=== PATIENT | female | born 1945 | race Caucasian/White ===

== ENCOUNTER 2017-03-01 11:24 | Emergency (ER) | payer MEDICARE ==
[~2017-03-01] VITALS: Ht 162.6 cm; Wt 92.0 kg
[~2017-03-01 11:24] MED LIST: ATOR40TA16 PO; CHLO25TA2 PO; LORA-392 PO; METO25TA3 PO; MOBI15TA PO; OMEP20TA PO; TRAM50TA PO
[2017-03-01 11:25] VITALS: BP 167/100; PULSE 92; RESP 20; TEMP 98.7; O2SAT 100
--- NOTE | 2017-03-01 11:44 | PD ---
HPI Chief Complaint: Injury Time Seen by Provider: 11:37 Travel History International Travel<30 days: No Contact w/Intl Traveler<30days: No Traveled to known affect area: No History of Present Illness HPI 71-year-old female presents to emergency Department with complaint of right foot pain times one and half weeks. Denies injury. The pain is to the lateral and heel aspect. Reports occasional paresthesias, but denies at this time. Denies loss of sensation, decreased range of motion, decreased strength to the affected extremity. Denies being diabetic. Fever, vomiting. Pain is worse with palpation and ambulation. Pain is decreased while at rest. Has not been taking any medication to alleviate her symptoms. Has tried elevating the extremity with no relief of symptoms. Rates pain 7/10. Describes it as a throbbing and sometimes shooting sensation. Has no other medical complaints. Dr. Gong is primary care provider. No known allergies. No other modifying factors or associated signs and symptoms. PFSH Past Medical History Arthritis: Yes Cancer: No Cardiovascular Problems: No Chemotherapy: No Endocrine: No Genitourinary: No Immune Disorder: No Psychiatric: No Respiratory: No Radiation Therapy: No Social History Alcohol Use: No Tobacco Use: Yes (/2 ppd) Substance Use: No Allergies-Medications (Allergen,Severity, Reaction): Coded Allergies: No Known Allergies (Verified , 03/01/17) Reported Meds & Prescriptions Reported Meds & Active Scripts Active Atorvastatin (Atorvastatin Calcium) 40 Mg Tab 40 Mg PO HS Chlorthalidone 25 Mg Tab 25 Mg PO DAILY Tramadol (Tramadol HCl) 50 Mg Tab 100 Mg PO Q6H PRN Ativan (Lorazepam) 0.5 Mg Tab 0.5 Mg PO Q8H PRN Omeprazole 20 Mg Tab 20 Mg PO DAILY Metoprolol Tartrate 25 Mg Tab 25 Mg PO BID Mobic (Meloxicam) 15 Mg Tab 15 Mg PO DAILY Review of Systems Except as stated in HPI: all other systems reviewed are Neg Physical Exam Narrative GENERAL: Well-nourished, well-developed female patient, in no acute distress SKIN: Warm and dry. HEAD: Atraumatic. Normocephalic. EYES: Pupils equal and round. No scleral icterus. No injection or drainage. ENT: Mucosa pink and moist. Airway patent. NECK: Trachea midline. CARDIOVASCULAR: Regular rate. RESPIRATORY: No accessory muscle use. GASTROINTESTINAL: Obese. MUSCULOSKELETAL: Right foot with tenderness to the fifth metacarpal region and to the heel; without erythema, edema, ecchymosis; 2+ pedal pulse; no obvious deformity; toenails are unkept and are very long and curled; no open wounds noted between the toes or to the foot. Right lower extremity is supple and nontense with 2+ pedal pulse and sensory intact. No obvious deformities. No clubbing. No cyanosis. No edema. NEUROLOGICAL: Awake and alert. Oriented 3. No obvious cranial nerve deficits. Motor grossly within normal limits. Normal speech. PSYCHIATRIC: Appropriate mood and affect; insight and judgment normal. Data Data Last Documented VS Vital Signs Date Time Temp Pulse Resp B/P (MAP) Pulse Ox O2 Delivery O2 Flow Rate FiO2 03/01/17 11:25 98.7 92 20 167/100 (122) 100 Room Air Orders Orders Foot, Complete ([id number]) (03/01/17 11:45) Acetaminophen (Tylenol) (03/01/17 11:45) MDM Medical Decision Making Medical Screen Exam Complete: Yes Emergency Medical Condition: Yes Medical Record Reviewed: Yes Differential Diagnosis Heel spur, plantar fasciitis, arthritis, osteomyelitis, stress fracture Narrative Course 71-year-old female with right foot pain times one and half weeks. Denies injury. Tylenol administered in the ER. Right foot x-ray ordered. 1231: Right foot x-ray concludes: 1.Osteopenia and mild osteoarthritic change ; No acute fracture or malalignment; Small to moderate spur of the inferior calcaneus. X-ray findings discussed with the patient. A copy of the x-ray report was provided to the patient. Instructed patient to follow up with podiatry. Instructed patient to follow up with primary care provider. Patient verbalizes understanding and agreement with treatment plan. Patient is medically cleared and stable for discharge. Discussed reasons to return to the emergency department. Patient agrees with treatment plan. The patients vital signs are stable and the patient is stable for outpatient follow-up and treatment. Patient discharged home, stable and in no acute distress. Diagnosis Primary Impression: Osteopenia of right foot Additional Impression: Heel spur Qualified Codes: M77.31 - Calcaneal spur, right foot Referrals: Recreational Resort Manager Primary Care Physician Patient Instructions: General Instructions, Heel Spur (ED), Osteopenia (GEN) Additional Instructions: Tylenol as directed and as needed for pain and inflammation Rest, ice, compress, and elevate extremity to decrease pain and inflammation Walker for support Avoid aggravating activity; increase activity as tolerated Follow-up with primary care provider Follow-up with validation architect Return to the emergency department immediately with worsening of symptoms Med/Other Pt SpecificInfo: Prescription(s) given Disposition: 01 DISCHARGE HOME Condition: Stable Marianne Antoine Mar 01, 2017 11:44
[2017-03-01] MEDS ORDERED: ACETAMINOPHEN 325 MG TAB PO ONE (11:45)
--- NOTE | 2017-03-01 12:20 | RADRPT ---
EXAM DATE/TIME: 03/01/2017 11:59 [facility] COMPARISON: No previous studies available for comparison. INDICATIONS : Right foot pain, no known injury. MEDICAL HISTORY : None. SURGICAL HISTORY : None. ENCOUNTER: Initial ACUITY: 1 day PAIN SCORE: 8/10 LOCATION: Right foot FINDINGS: AP, lateral and oblique views of the right foot were obtained and demonstrate osteopenia with no acut e fracture or malalignment. There are mild osteoarthritic changes with slight sclerosis. There is a s mall to moderate spur of the inferior calcaneus. There is soft tissue prominence over the dorsum of t he midfoot. CONCLUSION: 1. Osteopenia and mild osteoarthritic change. 2. No acute fracture or malalignment. 3. Small to moderate spur of the inferior calcaneus. Helio Luis MD on March 01, 2017 at 12:17 Board Certified Radiologist. This report was verified electronically.
--- NOTE | 2017-03-01 12:59 | PD ---
Physical Exam Date Seen by Provider: Mar 01, 2017 Narrative This patient presents with a chief complaint of right foot pain. Data Data Last Documented VS Vital Signs Date Time Temp Pulse Resp B/P (MAP) Pulse Ox O2 Delivery O2 Flow Rate FiO2 03/01/17 11:25 98.7 92 20 167/100 (122) 100 Room Air Orders Orders Foot, Complete ([id number]) (03/01/17 11:45) Acetaminophen (Tylenol) (03/01/17 11:45) Ed Discharge Order (03/01/17 12:49) MDM Supervised Visit with NIRALI: Yes Narrative Course I, Dr. Lobato, have reviewed the advance practice practitioner's documentation and am in agreement, met with the patient face to face, made the diagnosis, and the medical decision making was done by me. *My assessment and Findings: This patient has very poor foot hygiene. Her toes nails are very much overgrown and thickened and in need of care. Please see Marianne Antoine NP's note for results of laboratory and radiographic evaluation, ED course, final diagnosis and disposition Diagnosis Primary Impression: Osteopenia of right foot Additional Impression: Heel spur Qualified Codes: M77.31 - Calcaneal spur, right foot Referrals: Manager Private Primary Care Physician Patient Instructions: General Instructions, Osteopenia (GEN), Heel Spur (ED) Departure Forms: Tests/Procedures Additional Instruction: Tylenol as directed and as needed for pain and inflammation Rest, ice, compress, and elevate extremity to decrease pain and inflammation Walker for support Avoid aggravating activity; increase activity as tolerated Follow-up with primary care provider Follow-up with basin cleaner Return to the emergency department immediately with worsening of symptoms Disposition: 01 DISCHARGE HOME Condition: Stable Tena Lobato MD Mar 01, 2017 12:59
--- NOTE | 2017-03-01 12:59 | PD ---
Physical Exam Date Seen by Provider: Mar 01, 2017 Narrative This patient presents with a chief complaint of right foot pain. Data Data Last Documented VS Vital Signs Date Time Temp Pulse Resp B/P (MAP) Pulse Ox O2 Delivery O2 Flow Rate FiO2 03/01/17 11:25 98.7 92 20 167/100 (122) 100 Room Air Orders Orders Foot, Complete ([id number]) (03/01/17 11:45) Acetaminophen (Tylenol) (03/01/17 11:45) Ed Discharge Order (03/01/17 12:49) MDM Supervised Visit with NIRALI: Yes Narrative Course I, Dr. Lobato, have reviewed the advance practice practitioner's documentation and am in agreement, met with the patient face to face, made the diagnosis, and the medical decision making was done by me. *My assessment and Findings: This patient has very poor foot hygiene. Her toes nails are very much overgrown and thickened and in need of care. Please see Marianne Antoine NP's note for results of laboratory and radiographic evaluation, ED course, final diagnosis and disposition Diagnosis Primary Impression: Osteopenia of right foot Additional Impression: Heel spur Qualified Codes: M77.31 - Calcaneal spur, right foot Referrals: Data Control Clerk Supervisor Primary Care Physician Patient Instructions: General Instructions, Osteopenia (GEN), Heel Spur (ED) Departure Forms: Tests/Procedures Additional Instruction: Tylenol as directed and as needed for pain and inflammation Rest, ice, compress, and elevate extremity to decrease pain and inflammation Walker for support Avoid aggravating activity; increase activity as tolerated Follow-up with primary care provider Follow-up with traffic ii manager Return to the emergency department immediately with worsening of symptoms Disposition: 01 DISCHARGE HOME Condition: Stable Tena Lobato MD Mar 01, 2017 12:59
--- NOTE | 2017-03-01 12:59 | PD ---
Physical Exam Date Seen by Provider: Mar 01, 2017 Narrative This patient presents with a chief complaint of right foot pain. Data Data Last Documented VS Vital Signs Date Time Temp Pulse Resp B/P (MAP) Pulse Ox O2 Delivery O2 Flow Rate FiO2 03/01/17 11:25 98.7 92 20 167/100 (122) 100 Room Air Orders Orders Foot, Complete ([id number]) (03/01/17 11:45) Acetaminophen (Tylenol) (03/01/17 11:45) Ed Discharge Order (03/01/17 12:49) MDM Supervised Visit with NIRALI: Yes Narrative Course I, Dr. Lobato, have reviewed the advance practice practitioner's documentation and am in agreement, met with the patient face to face, made the diagnosis, and the medical decision making was done by me. *My assessment and Findings: This patient has very poor foot hygiene. Her toes nails are very much overgrown and thickened and in need of care. Please see Marianne Antoine NP's note for results of laboratory and radiographic evaluation, ED course, final diagnosis and disposition Diagnosis Primary Impression: Osteopenia of right foot Additional Impression: Heel spur Qualified Codes: M77.31 - Calcaneal spur, right foot Referrals: Stuffing Machine Operator Primary Care Physician Patient Instructions: General Instructions, Osteopenia (GEN), Heel Spur (ED) Departure Forms: Tests/Procedures Additional Instruction: Tylenol as directed and as needed for pain and inflammation Rest, ice, compress, and elevate extremity to decrease pain and inflammation Walker for support Avoid aggravating activity; increase activity as tolerated Follow-up with primary care provider Follow-up with porcelain enamel installer Return to the emergency department immediately with worsening of symptoms Disposition: 01 DISCHARGE HOME Condition: Stable Tena Lobato MD Mar 01, 2017 12:59
== END 2017-03-01 13:10 | disposition home or self-care (01) ==
LOC: NEPD 11:24
DX: M85.871 Other specified disorders of bone density and structure, right ankle and foot (principal); M77.31 Calcaneal spur, right foot; M19.90 Unspecified osteoarthritis, unspecified site; F17.200 Nicotine dependence, unspecified, uncomplicated; Z79.899 Other long term (current) drug therapy
CPT/HCPCS: 73630; 99283

== ENCOUNTER 2017-04-20 10:00 | Emergency (ER) | payer MEDICARE ==
[~2017-04-20] VITALS: Ht 160 cm; Wt 90.0 kg
[~2017-04-20 10:00] MED LIST changes: -OMEP20TA PO; +OMEP20TA93 PO
[2017-04-20 10:03] VITALS: BP 141/86; PULSE 110; RESP 18; TEMP 98.2; O2SAT 98
--- NOTE | 2017-04-20 10:27 | PD ---
HPI Chief Complaint: Numbness/Tingling Time Seen by Provider: 10:19 Travel History International Travel<30 days: No Contact w/Intl Traveler<30days: No Traveled to known affect area: No History of Present Illness HPI 71-year-old female presents to emergency department with 2 complaints. Her first complaint is concern of tingling in her hands, feet, legs, and arms that has been on and off for the last month. She says the symptoms are worse at night when she sleeping and in different kinds of positions and when sitting on the toilet. Symptoms are better in different positions also. Denies fever, vomiting, abdominal pain, chest pain, shortness of breath. Denies headaches, headedness. Denies focal deficits or weakness. Her second complaint is continued right foot pain. She was seen here back in February and was told that she had a heel spur. She has followed up with vacuum pan tender, Dr. Ashby, and was told about supportive care. She has been taking ibuprofen for symptom management. Has a walker that she's been using for support. Pain is worse with walking and palpation. Better at rest. Her primary care provider is Dr. Gong. She has no known allergies. History of hypertension. He has no other medical complaints. No other modifying factors or associated signs and symptoms. PFSH Past Medical History Arthritis: Yes Cancer: No Cardiovascular Problems: No Chemotherapy: No Endocrine: No Genitourinary: No Headaches: Yes Hypertension: Yes Immune Disorder: No Implanted Vascular Access Dvce: No Psychiatric: No Respiratory: No Radiation Therapy: No Past Surgical History Other Surgery: No Social History Alcohol Use: No Tobacco Use: Yes (1/2 ppd) Substance Use: No Allergies-Medications (Allergen,Severity, Reaction): Coded Allergies: No Known Allergies (Verified Adverse Reaction, Unknown, 04/20/17) Reported Meds & Prescriptions Reported Meds & Active Scripts Active Naproxen 500 Mg Tab 500 Mg PO BID PRN Atorvastatin (Atorvastatin Calcium) 40 Mg Tab 40 Mg PO HS Chlorthalidone 25 Mg Tab 25 Mg PO DAILY Tramadol (Tramadol HCl) 50 Mg Tab 100 Mg PO Q6H PRN Ativan (Lorazepam) 0.5 Mg Tab 0.5 Mg PO Q8H PRN Omeprazole 20 Mg Tab 20 Mg PO DAILY Metoprolol Tartrate 25 Mg Tab 25 Mg PO BID Mobic (Meloxicam) 15 Mg Tab 15 Mg PO DAILY Review of Systems Except as stated in HPI: all other systems reviewed are Neg Physical Exam Narrative GENERAL: Well-nourished, well-developed elderly, female patient, in no acute distress SKIN: Warm and dry. HEAD: Atraumatic. Normocephalic. EYES: Pupils equal and round. No scleral icterus. No injection or drainage. ENT: Mucosa pink and moist. Airway patent. NECK: Trachea midline. No lymphadenopathy. CARDIOVASCULAR: Regular rate and rhythm. No murmur appreciated. RESPIRATORY: No accessory muscle use. Clear to auscultation. Breath sounds equal bilaterally. GASTROINTESTINAL: Abdomen soft, non-tender, nondistended. Hepatic and splenic margins not palpable. Bowel sounds are active 4 quadrants. MUSCULOSKELETAL: Right foot without edema, erythema, ecchymosis, tenderness on palpation to the bottom of the foot at the heel aspect; no obvious deformity; 2 + pedal pulse; sensory intact. No obvious deformities. No clubbing. No cyanosis. No edema. NEUROLOGICAL: Awake and alert. Oriented 3. No obvious cranial nerve deficits. Motor grossly within normal limits. Normal speech. Moves all extremities. 5/5 strength to all extremities. PSYCHIATRIC: Appropriate mood and affect; insight and judgment normal. Data Data Last Documented VS Vital Signs Date Time Temp Pulse Resp B/P (MAP) Pulse Ox O2 Delivery O2 Flow Rate FiO2 04/20/17 10:03 98.2 110 18 141/86 (104) 98 Room Air Orders Orders Ketorolac Inj (Toradol Inj) (04/20/17 10:45) Ed Discharge Order (04/20/17 10:59) [facility] Medical Decision Making Medical Screen Exam Complete: Yes Emergency Medical Condition: Yes Medical Record Reviewed: Yes Differential Diagnosis Paresthesias, chronic foot pain, osteopenia, osteoarthritis, heel spur Narrative Course 71-year-old female with numbness and tingling of hands, feet, legs, arms on and off for the past month. Also complaining of continued right foot pain. I the patient on March 01, 2017 and right foot x-ray concluded: Osteopenia and mild osteoarthritic change; No acute fracture or malalignment; Small to moderate spur of the inferior calcaneus. Patient has been following up with Dr. Ashby, vacuum pan tender. I provided the patient with a copy of the x-ray report. There are no signs of infection on exam and I feel that repeat imaging is not necessary at this time. Patient has a walker at home for support. Discussed the patient with Dr. Byrd, my attending physician, and he recommends the patient to follow up with neurology. Instructed patient to follow up with neurology and podiatry. Toradol administered in the ER. Naproxen prescribed for home. Instructed patient to follow up with primary care provider. Patient verbalizes understanding and agreement with treatment plan. Patient is medically cleared and stable for discharge. Discussed reasons to return to the emergency department. Patient agrees with treatment plan. The patients vital signs are stable and the patient is stable for outpatient follow-up and treatment. Patient discharged home, stable and in no acute distress. Diagnosis Primary Impression: Numbness and tingling Additional Impression: Pain, foot, right, chronic Referrals: Neurologist Gas Pumping Station Helper Primary Care Physician Patient Instructions: General Instructions, Heel Spur (ED), Osteoarthritis (ED) , Osteopenia (GEN) Additional Instructions: Ibuprofen or Tylenol as directed and as needed for pain Shoe supports or better supporting shoes for foot pain Walker as needed for support Follow-up with podiatry Follow-up with neurologist in regards to numbness and tingling Follow-up with primary care provider Return to the emergency department immediately with worsening of symptoms Med/Other Pt SpecificInfo: Prescription(s) given Scripts Naproxen (Naproxen) 500 Mg Tab 500 MG PO BID Y for PAIN SCALE 1 TO 10, #20 TAB 0 Refills Prov: Marianne Antoine 04/20/17 Disposition: 01 DISCHARGE HOME Condition: Stable Marianne Antoine Apr 20, 2017 10:27
[2017-04-20] MEDS ORDERED: KETOROLAC TROMETHAMINE 60 MG/2 ML (IM) VIAL IM ONE (10:45)
[2017-04-20] MEDS ORDERED: NAPR500T2 PO (10:47)
[2017-04-26] MEDS ORDERED: LORA-392 PO (10:58)
[2017-04-26] MEDS ORDERED: METO25TA3 PO (10:59)
[2017-04-26] MEDS ORDERED: MOBI15TA PO (10:59)
[2017-05-04] MEDS ORDERED: TRAM50TA PO (16:03)
== END 2017-04-20 11:24 | disposition home or self-care (01) ==
LOC: NEPD 10:00
DX: R20.2 Paresthesia of skin (principal); R20.0 Anesthesia of skin; M79.671 Pain in right foot; I10 Essential (primary) hypertension; F17.200 Nicotine dependence, unspecified, uncomplicated
CPT/HCPCS: 96372; 99283; J1885

== ENCOUNTER 2017-08-17 14:27 | Inpatient (IN) | payer MEDICARE, MEDICAID ==
[~2017-08-17] VITALS: Ht 160 cm; Wt 100.0 kg
[~2017-08-17 14:27] MED LIST changes: +NAPR500T2 PO
[2017-08-17 14:52] VITALS: BP 70/42; PULSE 86; RESP 16; TEMP 97.8; O2SAT 97
[2017-08-17 15:24] VITALS: BP 110/56; PULSE 70; RESP 25; TEMP 98.3; O2SAT 98
--- NOTE | 2017-08-17 16:11 | PD ---
HPI Chief Complaint: GI Complaint Time Seen by Provider: 15:23 Travel History International Travel<30 days: No Contact w/Intl Traveler<30days: No Traveled to known affect area: No History of Present Illness HPI 72-year-old female states she has been having left facial swelling and redness over the past couple of days. She states she is also been having chills and nonbloody diarrhea. She denies any other concurrent complaints. Quality is swollen and red. Location is left mid face. Severity is mild. She denies specific modifying factors. Duration is couple of days. She denies recurrent history of this. QUALITY: Nonbloody SEVERITY: Frequent episodes TIMING: Intermittent DURATION: Couple of days CONTACTS: Denies sick contacts MODIFYING FACTORS: Denies ASSOCIATED TIME AND SYMPTOMS: left facial swelling and redness PFSH Past Medical History Arthritis: Yes Cancer: No Cardiovascular Problems: No Chemotherapy: No Endocrine: No Genitourinary: No Headaches: Yes Hypertension: Yes Immune Disorder: No Implanted Vascular Access Dvce: No Psychiatric: No Respiratory: No Radiation Therapy: No Past Surgical History Other Surgery: No Social History Alcohol Use: No Tobacco Use: Yes (1/2 ppd) Substance Use: No Allergies-Medications (Allergen,Severity, Reaction): Coded Allergies: No Known Allergies (Verified Adverse Reaction, Unknown, 08/17/17) Reported Meds & Prescriptions Reported Meds & Active Scripts Active Atorvastatin (Atorvastatin Calcium) 40 Mg Tab 40 Mg PO HS Tramadol (Tramadol HCl) 50 Mg Tab 100 Mg PO Q6H PRN Metoprolol Tartrate 25 Mg Tab 25 Mg PO BID Mobic (Meloxicam) 15 Mg Tab 15 Mg PO DAILY Ativan (Lorazepam) 0.5 Mg Tab 0.5 Mg PO Q8H PRN Naproxen 500 Mg Tab 500 Mg PO BID PRN Omeprazole 20 Mg Tab 20 Mg PO DAILY Review of Systems Except as stated in HPI: all other systems reviewed are Neg Physical Exam Narrative GENERAL: 72-year-old female in no apparent distress SKIN: To left face just to the left side of her nose without extension down into her chin or up into her eye there is an area of redness and swelling noted without overlying induration HEAD: Atraumatic. Normocephalic. EYES: Pupils equal and round. No scleral icterus. No injection or drainage. ENT: No nasal bleeding or discharge. Mucous membranes pink and moist. NECK: Trachea midline. CARDIOVASCULAR: Regular rate and rhythm. RESPIRATORY: No accessory muscle use. No increased effort GASTROINTESTINAL: Abdomen soft, non-tender, nondistended. Hepatic and splenic margins not palpable. MUSCULOSKELETAL: No obvious deformities. No clubbing. No cyanosis. NEUROLOGICAL: Awake and alert. No obvious cranial nerve deficits. Motor grossly within normal limits. Normal speech. PSYCHIATRIC: Appropriate mood and affect; insight and judgment normal. Data Data Last Documented VS Orders Orders Complete Blood Count With Diff (08/17/17 15:) Comprehensive Metabolic Panel (08/17/17 15:27) Prothrombin Time / Inr (Pt) (08/17/17 15:) Act Partial Throm Time (Ptt) (08/17/17 15:27) Lactic Acid Sepsis Protocol (08/17/17 15:) Magnesium (Mg) (08/17/17 15:27) Phosphorus (Po4) (08/17/17 15:27) Blood Culture (08/17/17:) Ecg Monitoring (08/17/17:) Iv Access Insert/Monitor (08/17/17 15:27) Oximetry (08/17/17 15:27) Ct Facial Bones W Iv Contrast (08/17/17 ) Influenzae A/B Antigen (08/17/17 15:27) Magnesium Sulfate 1 Gm Premix (Magnesium (08/17/17 17:15) Calcium Gluconate Inj (Calcium Gluconate (08/17/17 17:15) Potassium Chloride Eff (K-Lyte Cl Eff) (08/17/17 17:15) Electrocardiogram (08/17/17 ) Sodium Chlor 0.9% 1000 Ml Inj (Ns 1000 M (08/17/17 17:15) Clindamycin 600 Mg/Ns Premix (Cleocin 60 (08/17/17 18:15) Iodixanol 320 Inj (Rad Ct) (Visipaque 32 (08/17/17 18:59) Admit Order (Ed Use Only) (08/17/17 18:59) Labs Laboratory Tests Test 08/17/17 15:55 White Blood Count 11.4 TH/MM3 Red Blood Count 4.12 MIL/MM3 Hemoglobin 13.1 GM/DL Hematocrit 37.2 % Mean Corpuscular Volume 90.3 FL Mean Corpuscular Hemoglobin 31.9 PG Mean Corpuscular Hemoglobin Concent 35.3 % Red Cell Distribution Width 13.0 % Platelet Count 249 TH/MM3 Mean Platelet Volume 9.2 FL Neutrophils (%) (Auto) 66.6 % Lymphocytes (%) (Auto) 22.9 % Monocytes (%) (Auto) 8.8 % Eosinophils (%) (Auto) 1.1 % Basophils (%) (Auto) 0.6 % Neutrophils # (Auto) 7.6 TH/MM3 Lymphocytes # (Auto) 2.6 TH/MM3 Monocytes # (Auto) 1.0 TH/MM3 Eosinophils # (Auto) 0.1 TH/MM3 Basophils # (Auto) 0.1 TH/MM3 CBC Comment DIFF FINAL Differential Comment Prothrombin Time 12.8 SEC Prothromb Time International Ratio 1.3 RATIO Activated Partial Thromboplast Time 25.2 SEC Blood Urea Nitrogen 13 MG/DL Creatinine 1.15 MG/DL Random Glucose 92 MG/DL Total Protein 7.4 GM/DL Albumin 3.3 GM/DL Calcium Level 7.0 MG/DL Phosphorus Level 2.9 MG/DL Magnesium Level 0.8 MG/DL Alkaline Phosphatase 73 U/L Aspartate Amino Transf (AST/SGOT) 23 U/L Alanine Aminotransferase (ALT/SGPT) 21 U/L Total Bilirubin 1.4 MG/DL Sodium Level 142 MEQ/L Potassium Level 2.5 MEQ/L Chloride Level 99 MEQ/L Carbon Dioxide Level 33.3 MEQ/L Anion Gap 10 MEQ/L Estimat Glomerular Filtration Rate 46 ML/MIN Lactic Acid Level 1.5 mmol/L Protein Corrected Calcium 6.9 MG/DL Vitamin B12 Level 250 PG/ML Folate GREATER THAN 20.0 NG/ML Thyroid Stimulating Hormone 3rd Gen 2.600 uIU/ML MDM Medical Decision Making Medical Screen Exam Complete: Yes Emergency Medical Condition: Yes Medical Record Reviewed: Yes (Past history confirmed) Interpretation(s) CBC & BMP Diagram 08/17/17 15:55 Total Protein 7.4, Albumin 3.3 L, Calcium Level 7.0 *L, Phosphorus Level 2.9, Magnesium Level 0.8 L, Alkaline Phosphatase 73, Aspartate Amino Transf (AST/SGOT ) 23, Alanine Aminotransferase (ALT/SGPT) 21, Total Bilirubin 1.4 H Last [address] 08/17/17 0000 Signed Impressions: Service Date/Time: August 17:51 - CONCLUSION: Mild soft tissue swelling over the left maxilla with mild skin thickening and no visualized abscess. Helio Luis MD Differential Diagnosis Facial cellulitis, abscess, gastroenteritis, URI Narrative Course We will check blood work, flu, CT and reevaluate ed workup with significant electrolyte abnormality which is likely related to patient's diarrhea. She was given an initial replacement but will need to be kept in the hospital for further replacement. CT without underlying abscess. Will give clindamycin for facial cellulitis. Patient updated and agrees to plan Physician Communication Physician Communication resident team to admit Diagnosis Primary Impression: Hypokalemia Additional Impressions: Hypomagnesemia Hypocalcemia Diarrhea Qualified Codes: R19.7 - Diarrhea, unspecified Facial cellulitis Admitting Information Admitting Physician Requests: Admit Scripts Amoxicillin-Clavulanate (Augmentin) 875-125 Mg Tab 1 TAB PO BID for Infection for 11 Days, #22 TAB 0 Refills Prov: Renae Velazquez MD R2 08/20/17 [Nystatin Oint] 15 APPLIC/15 GM OINT No Conflict Check 1 APPLIC TOPICAL Q8HR for 30 Days, #90 APPFUL Prov: Renae Velazquez MD R2 08/20/17 Lactobacillus Acidophilus (Acidophilus/l-Sporogenes) 35 Million Cell-25 Million Cell Tab 1 TAB PO Q12HR for 30 Days, #60 TAB Prov: Renae Velazquez MD R2 08/20/17 Potassium Chloride Microencaps (Potassium Chloride Microencaps) 20 Meq Tab 20 MEQ PO Q12HR for 30 Days, #60 TAB Prov: Renae Velazquez MD R2 08/20/17 Cholestyramine (Cholestyramine) 4 Gm/Pkt Powd 4 GM PO DAILY for 30 Days, #30 PACKET 1 packet contains 4 grams of cholestyramine. Prov: Renae Velazquez MD R2 08/20/17 Metronidazole (Flagyl) 250 Mg Tab 500 MG PO BID for 30 Days, #60 TAB Prov: Renae Velazquez MD R2 08/20/17 Caroline Bill MD Aug 17, 2017 16:10
[2017-08-17 16:22] LABS: AUTOMATED NEUTROPHIL # 7.6 TH/MM3 (1.8-7.7); BASOPHIL # 0.1 TH/MM3 (0-0.2); BASOPHIL % 0.6 % (0.0-2.0); EOSINOPHIL # 0.1 TH/MM3 (0-0.4); EOSINOPHIL % 1.1 % (0.0-4.0); HEMATOCRIT 37.2 % (35.0-46.0); HEMOGLOBIN 13.1 GM/DL (11.6-15.3); LYMPH % 22.9 % (9.0-44.0); LYMPHOCYTE # 2.6 TH/MM3 (1.0-4.8); MEAN CELL VOLUME 90.3 FL (80.0-100.0); MEAN CORPUSCULAR HEMOGLOBIN 31.9 PG (27.0-34.0); MEAN CORPUSCULAR HGB CONC 35.3 % (32.0-36.0); MEAN PLATELET VOLUME 9.2 FL (7.0-11.0); MONO % 8.8 % (0.0-8.0); NEUT % 66.6 % (16.0-70.0); PLATELET COUNT 249 TH/MM3 (150-450); RED BLOOD COUNT 4.12 MIL/MM3 (4.00-5.30); WHITE BLOOD COUNT 11.4 TH/MM3 (4.0-11.0)
[2017-08-17 16:38] LABS: INTERNATIONAL NORMALIZED RATIO 1.3 RATIO; PROTHROMBIN TIME - PATIENT 12.8 SEC (9.8-11.6)
[2017-08-17 17:07] LABS: ALBUMIN 3.3 GM/DL (3.4-5.0); BICARBONATE 33.3 MEQ/L (21.0-32.0); CREATININE 1.15 MG/DL (0.50-1.00); MAGNESIUM 0.8 MG/DL (1.5-2.5); PHOSPHORUS 2.9 MG/DL (2.5-4.9); TOTAL BILIRUBIN ADULT 1.4 MG/DL (0.2-1.0); TOTAL PROTEIN 7.4 GM/DL (6.4-8.2)
[2017-08-17 17:11] LABS: CALCIUM-PROTEIN CORRECTED 6.9 MG/DL (8.5-10.1)
[2017-08-17] MEDS ORDERED: SODIUM CHLOR 0.9% 1000 ML INJ 1,000 ML IV ONE (17:15)
[2017-08-17] MEDS ORDERED: MAGNESIUM SULFATE 1 GM PREMIX 100 ML IV ONE (17:15)
[2017-08-17] MEDS ORDERED: CALCIUM GLUCONATE INJ 1 GM in SODIUM CHLORIDE 0.9% INJ 90 ML IV ONE (17:15)
[2017-08-17] MEDS ORDERED: POTASSIUM CHLORIDE 25 MEQ EFFERVESCENT TAB PO ONE (17:15)
--- NOTE | 2017-08-17 18:12 | RADRPT ---
EXAM DATE/TIME: 08/17/2017 17:51 CORRECTION Corrected on: August 17, 2017; [facility] COMPARISON: No previous studies available for comparison. INDICATIONS : Left facial pain, swelling and redness. IV CONTRAST: 50 cc Visipaque (iodixanol) IV RADIATION DOSE: 42.58 CTDIvol (mGy) MEDICAL HISTORY : Hypertension. SURGICAL HISTORY : None. ENCOUNTER: Initial ACUITY: 2 days PAIN SCALE: 7/10 LOCATION: Left facial TECHNIQUE: Volumetric scanning of the facial bones was performed. Using automated exposure control and adjustme nt of the mA and/or kV according to patient size, radiation dose was kept as low as reasonably achiev able to obtain optimal diagnostic quality images. DICOM format image data is available electronicall y for review and comparison. FINDINGS: ORBITS: The orbital and infraorbital osseous structures are intact. The retroconal structures have a normal configuration. No radiopaque foreign bodies are seen. NASAL BONE: The nasal bone and maxillary spine are intact ZYGOMATIC ARCHES: Symmetric without evidence of fracture. SINUSES: The maxillary, ethmoid and frontal sinuses are intact. No air-fluid levels seen. NASAL CAVITY: The nasal septum is intact and midline. The lacrimal ducts are intact. SOFT TISSUES: No radiopaque foreign bodies seen. There is soft tissue swelling over the left maxilla with mild skin thickening. There's no visualized abscess. INTRACRANIAL: No intracranial air seen. CRIBIFORM PLATE: Grossly intact. CONCLUSION: Mild soft tissue swelling over the left maxilla with mild skin thickening and no visu alized abscess. Helio Luis MD on August 17, 2017 at 18:06 Board Certified Radiologist. This report was verified electronically. Helio Luis MD on August 17, 2017 at 18:15 Board Certified Radiologist. This report was verified electronically.
[2017-08-17 18:14] VITALS: BP 105/66; PULSE 82; RESP 17; O2SAT 96
[2017-08-17] MEDS ORDERED: CLINDAMYCIN 600 MG/NS PREMIX 50 ML IV ONE (18:15)
[2017-08-17] MEDS ORDERED: IODIXANOL 320 MG/ML 10 ML VIAL (for Rad CT) IVCONTRAST ONE (18:59)
--- NOTE | 2017-08-17 19:54 | HHI.HP ---
[facility] Service Family Medicine Primary Care Physician Toñito Gong MD Admission Diagnosis Hypokalemia, hypomagnesium, hypocalcemia, facial cellulitis Diagnoses: International Travel<30 Days: No Contact w/Intl Traveler<30days: No Known Affected Area: No History of Present Illness Patient is a 72-year-old female with a past medical history of hypertension, GERD, anxiety, and chronic low back pain that presents to the [place] [facility] with a chief complaint of a rash on the left side of her face that began on Monday morning. Patient states that she woke up that morning and touched her left eyebrow and it was hurting. The next day on Monday her right forehead hurt. The following day on Monday both her eyelids were swollen and she felt pain with associated swelling under her right jaw, such that she thought she had mumps. When she woke up yesterday, her face was swollen and she started experiencing itching this morning. She denies fever but states that she had chills. She did not try any medications and does not report anything making the pain/swelling on her face better or worse. She has not had any facial swelling or pain like this before. Patient also states that she has been having chronic diarrhea for about a year which happens 2-3 times a day after she eats. She has also been incontinent of stool. Her stool has been nonbloody with no mucus. She denies dysuria. Patient receives primary care at the [facility]. Her PCP is Dr. Toñito Gong. Review of Systems Constitutional: COMPLAINS OF: Chills, DENIES: Fever Eyes: COMPLAINS OF: Blurred vision (black lines yesterday) Ears, nose, mouth, throat: COMPLAINS OF: Running Nose, DENIES: Nasal discharge , Throat pain, Sinus Pain Respiratory: DENIES: Cough, Shortness of breath Cardiovascular: DENIES: Chest pain, Palpitations, Syncope Gastrointestinal: COMPLAINS OF: Diarrhea, DENIES: Abdominal pain, Nausea, Vomiting Genitourinary: DENIES: Abnormal vaginal bleeding, Dysuria, Vaginal discharge Musculoskeletal: COMPLAINS OF: Back pain (chronic lower back pain), DENIES: Muscle aches Integumentary: COMPLAINS OF: Pruritus, Rash Neurologic: COMPLAINS OF: Paresthesias (pins and needles when she gets up to walk, better when she lays down), DENIES: Headache, Tremor Psychiatric: COMPLAINS OF: Anxiety, DENIES: Hallucinations, Suicidal Ideation, Homicidal Ideation Past Family Social History Past Medical History HTN GERD Anxiety Chronic Low back pain Anemia "Stomach infection" in 2016 Carpal tunnel syndrome Past Surgical History None Reported Medications Reported Meds & Active Scripts Active Atorvastatin (Atorvastatin Calcium) 40 Mg Tab 40 Mg PO HS Tramadol (Tramadol HCl) 50 Mg Tab 100 Mg PO Q6H PRN Metoprolol Tartrate 25 Mg Tab 25 Mg PO BID Mobic (Meloxicam) 15 Mg Tab 15 Mg PO DAILY Ativan (Lorazepam) 0.5 Mg Tab 0.5 Mg PO Q8H PRN Naproxen 500 Mg Tab 500 Mg PO BID PRN Chlorthalidone 25 Mg Tab 25 Mg PO DAILY Omeprazole 20 Mg Tab 20 Mg PO DAILY Allergies: Coded Allergies: No Known Allergies (Verified Adverse Reaction, Unknown, 08/17/17) Family History Mother - of "old age" at age 86 Father - "heart burst" at age 56 Siblings - sister [place]. Not in touch with her. Children - 1 daughter. Not very close with her. Social History Lives in [place] with and [id number]. Has a dog and cat at home. Smoking - 10-15 cigarettes a day. Started smoking at age 18. Alcohol - "around once a year" Drugs - denies Physical Exam Vital Signs Vital Signs Date Time Temp Pulse Resp B/P (MAP) Pulse Ox O2 Delivery O2 Flow Rate FiO2 08/17/17 18:14 82 17 105/66 (79) 96 Room Air 08/17/17 15:24 98.3 70 25 110/56 (74) 98 Room Air 08/17/17 14:52 97.8 86 16 70/42 (51) 97 Physical Exam GENERAL: 72-year-old female, sitting up in bed, spouse at bedside SKIN: Erythema and mild swelling noted on her left face adjacent to her nose with no extension to her left eye on left chin. Noticeable amount of hair on her chin. See below for more skin findings. HEENT: Atraumatic. Normocephalic. EOMI. PERRL. No obvious lymphadenopathy on palpation. Moist mucous membranes. Poor dentition. NECK: Trachea midline. CARDIOVASCULAR: Regular rate and rhythm. Dorsalis pedis pulses 2+ bilaterally RESPIRATORY: CTAB. No accessory muscle use. No increased effort GASTROINTESTINAL: Abdomen soft, obese, non-tender, nondistended, normal bowel sounds. : Large area of erythema with superficial skin tears in the skin folds that extends from her lower abdomen to her groin, her inner thighs, all the way behind to her buttocks. Rash is nonblanching with multiple satellite lesions. These findings were not mentioned by patient during the history taking and her spouse was not aware. MUSCULOSKELETAL: No obvious deformities. No clubbing. No cyanosis. 5 out of 5 strength in all extremities. BACK: No sacral ulcers identified NEUROLOGICAL: Awake and alert. No obvious cranial nerve deficits. Motor grossly within normal limits. Normal speech. PSYCHIATRIC: Appropriate mood and affect; insight and judgment normal. Laboratory Laboratory Tests Test 08/17/17 15:55 White Blood Count 11.4 Red Blood Count 4.12 Hemoglobin 13.1 Hematocrit 37.2 Mean Corpuscular Volume 90.3 Mean Corpuscular Hemoglobin 31.9 Mean Corpuscular Hemoglobin Concent 35.3 Red Cell Distribution Width 13.0 Platelet Count 249 Mean Platelet Volume 9.2 Neutrophils (%) (Auto) 66.6 Lymphocytes (%) (Auto) 22.9 Monocytes (%) (Auto) 8.8 Eosinophils (%) (Auto) 1.1 Basophils (%) (Auto) 0.6 Neutrophils # (Auto) 7.6 Lymphocytes # (Auto) 2.6 Monocytes # (Auto) 1.0 Eosinophils # (Auto) 0.1 Basophils # (Auto) 0.1 CBC Comment DIFF FINAL Differential Comment Prothrombin Time 12.8 Prothromb Time International Ratio 1.3 Activated Partial Thromboplast Time 25.2 Blood Urea Nitrogen 13 Creatinine 1.15 Random Glucose 92 Total Protein 7.4 Albumin 3.3 Calcium Level 7.0 Phosphorus Level 2.9 Magnesium Level 0.8 Alkaline Phosphatase 73 Aspartate Amino Transf (AST/SGOT) 23 Alanine Aminotransferase (ALT/SGPT) 21 Total Bilirubin 1.4 Sodium Level 142 Potassium Level 2.5 Chloride Level 99 Carbon Dioxide Level 33.3 Anion Gap 10 Estimat Glomerular Filtration Rate 46 Lactic Acid Level 1.5 Protein Corrected Calcium 6.9 Date/Time Source Procedure Growth Status 08/17/17 15:55 Blood Peripheral Aerobic Blood Culture Pending Received 08/17/17 15:55 Blood Peripheral Anaerobic Blood Culture Pending Received 08/17/17 15:55 Nasal Aspirate Influenza Types A,B Antigen (GLORIA) - Final NEGATIVE FOR FLU A AND B ANTIGEN.... Complete Result Diagram: 08/17/17 1555 08/17/17 1555 Imaging Last [address] 08/17/17 0000 Signed Impressions: Service Date/Time: August 17:51 - CONCLUSION: Mild soft tissue swelling over the left maxilla with mild skin thickening and no visualized abscess. Helio Luis MD Course In the ED, patient was found to be hypokalemic, hypomagnesemic, and hypocalcemic. She was given 50 mL q. K-Lyte p.o., 1 g calcium gluconate IV, and 1 g magnesium sulfate IV. Her BP was found to be 70/42 for which she received 1 L normal saline bolus to which she responded with BP increased to 110 /56. She was started on clindamycin 600 mg IV which was delayed until 9 PM. Caprini VTE Risk Assessment Caprini VTE Risk Assessment: Mod/High Risk (score >= 2) Caprini Risk Assessment Model Point Value = 1 Point Value = 2 Point Value = 3 Point Value = 5 Age 41-60 Minor surgery BMI > 25 kg/m2 Swollen legs Varicose veins or History of unexplained or recurrent spontaneous Oral contraceptives or hormone replacement Sepsis (< 1 month) Serious lung disease, including pneumonia (< 1 month) Abnormal pulmonary function Acute myocardial infarction Congestive heart failure (< 1 month) History of inflammatory bowel disease Medical patient at bed rest Age 61-74 Arthroscopic surgery Major open surgery (> 45 min) Laparoscopic surgery (> 45 min) Malignancy Confined to bed (> 72 hours) Immobilizing plaster cast Central venous access Age >= 75 History of VTE Family history of VTE Factor V Leiden Prothrombin [id number] Lupus anticoagulant Anticardiolipin antibodies Elevated serum homocysteine Heparin-induced thrombocytopenia Other congenital or acquired thrombophilia Stroke (< 1 month) Elective arthroplasty Hip, pelvis, or leg fracture Acute spinal cord injury (< 1 month) Prophylaxis Regimen Total Risk Factor Score Risk Level Prophylaxis Regimen 0-1 Low Early ambulation 2 Moderate Order ONE of the following: *Sequential Compression Device (SCD) *Heparin 5000 units SQ BID 3-4 Higher Order ONE of the following medications: *Heparin 5000 units SQ TID *Enoxaparin/Lovenox 40 mg SQ daily (WT < 150 kg, CrCl > 30 mL/min) *Enoxaparin/Lovenox 30 mg SQ daily (WT < 150 kg, CrCl > 10-29 mL/min) *Enoxaparin/Lovenox 30 mg SQ BID (WT < 150 kg, CrCl > 30 mL/min) AND/OR *Sequential Compression Device (SCD) 5 or more Highest Order ONE of the following medications: *Heparin 5000 units SQ TID (Preferred with Epidurals) *Enoxaparin/Lovenox 40 mg SQ daily (WT < 150 kg, CrCl > 30 mL/min) *Enoxaparin/Lovenox 30 mg SQ daily (WT < 150 kg, CrCl > 10-29 mL/min) *Enoxaparin/Lovenox 30 mg SQ BID (WT < 150 kg, CrCl > 30 mL/min) AND *Sequential Compression Device (SCD) Assessment and Plan Assessment and Plan 72-year-old female presents with facial cellulitis, intertriginous candidal infection with possible superimposed staphylococcal infection, and multiple electrolyte derangements. It is possible that the cellulitis on her face is a transfer from her groin area or may be a unique cellulitic infection. The multiple electrolytes abnormalities may have resulted from her chronic diarrhea with incontinence or could be an adverse effect of chlorthalidone which is known to cause hypokalemia and hypomagnesemia. Patient was not on potassium replacement while on chlorthalidone. She will be admitted to the hospital for management with IV clindamycin, and topical nystatin for groin infection. Patient will also be managed with IV fluids and repletion of electrolytes. Will also check TSH, B12, and folic acid levels due to complaints of numbness and tingling. Code Status Full code Discussed Condition With ED Physician Problem List: (1) Candidiasis, intertrigo ICD Codes: B37.2 - Candidiasis of skin and nail Plan: -Large area of intertriginous skin infection, most likely candidal, possible superimposed staphylococcal infection -Did not meet sirs criteria on admission, lactic acid 1.5, but with slightly elevated WBC of 11.5 -Blood cultures pending -Fluconazole 150 mg p.o. once -Nystatin ointment to be applied every 8 hours -Continue clindamycin 600 mg IV every 6 hours (2) Facial cellulitis ICD Codes: L03.211 - Cellulitis of face Status: Acute Plan: -Possible candidal infection transplanted from groin area but cannot rule out cellulitis, most likely from Staphylococcus infection -CT face with IV contrast showed mild soft tissue swelling over the left maxilla with no abscess -Clindamycin as above (3) JESUS ALBERTO (acute kidney injury) ICD Codes: N17.9 - Acute kidney failure, unspecified Plan: -Creatinine 1.15 in the ED with GFR 46 -Baseline 1.02 in 01/21 and 0.64 in 06/23 -Normal saline at 150 mL/h with 40 MEQ potassium -Monitor with BMP to resolution (4) Hypokalemia ICD Codes: E87.6 - Hypokalemia Status: Acute Plan: -Possibly due to chronic diarrhea and chlorthalidone -2.5 MEq per liter on admission -EKG performed in the ED showed nonspecific ST changes on my interpretation -Will recheck BMP tonight and in the morning -Replete as needed -Fluids as above -Hold chlorthalidone -Neurochecks every 4 hours (5) Hypocalcemia ICD Codes: E83.51 - Hypocalcemia Status: Acute Plan: -7.0, 6.9 protein corrected -Received 1 g calcium gluconate in the ED -Repeat BMP tonight and in the morning -Replete as needed (6) Hypomagnesemia ICD Codes: E83.42 - Hypomagnesemia Status: Acute Plan: -0.8 mg/dL -Received 1 g magnesium sulfate IV in the ED -Repeat tonight and in the a.m. -Replete as needed (7) Diarrhea ICD Codes: R19.7 - Diarrhea, unspecified Status: Chronic Plan: -Patient reports chronic diarrhea but no abdominal pain -We will check stool studies, C. difficile, Hemoccult -Consider Imodium if stool studies and C. difficile negative -Notably, patient was admitted to the hospital in June [address] abdomen and pelvis with IV contrast at the time revealed a small bowel distended to 3.1 cm with a localized proximal ileus or low-grade partial obstruction. She was worked up by GI with a SBFT which was negative, stool studies were negative, hepatitis panel was negative, specialized tests were negative. A colonoscopy was not performed. The diarrhea resolved and she was discharged home. -Consider GI consult for chronic diarrhea with incontinence (8) Hypertension ICD Codes: I10 - Essential (primary) hypertension Plan: -Hypotensive in the ED -Hold chlorthalidone -Continue metoprolol with hold criteria -Monitor closely (9) GERD (gastroesophageal reflux disease) ICD Codes: K21.9 - Gastro-esophageal reflux disease without esophagitis Plan: -Protonix 20 mg p.o. daily (10) Anxiety ICD Codes: F41.9 - Anxiety disorder, unspecified Plan: Continue Ativan 0.5 mg p.o. every 8 hour (11) Smoking greater than 40 pack years ICD Codes: F17.210 - Nicotine dependence, cigarettes, uncomplicated Plan: -Smokes 10-15 cigarettes per day -Patient declined nicotine patch (12) FEN/DVT PPX/GI PPX/Nursing Orders Plan: Fluids: NS @ 150 mls/hr IV with 40 MEQ potassium Electrolytes: Will monitor and replace as needed Nutrition: Heart-healthy diet DVT Prophylaxis: Heparin subcutaneous Q8h GI Prophylaxis: Protonix 20mg PO daily Constipation prophylaxis: None needed PRN Medications Tylenol 650 mg by mouth every 4 hours when necessary pain 1-10 or temperature greater than 100.4F Zofran 4 mg IV push every 6 hours when necessary nausea vomiting -Vitals Q4h -Monitor I's and O's -Neurochecks -hospital monitor with telemetry with continuous vital signs -Activity OOB with assistance -PT to assist with ambulation -Case management consult to assist with discharge disposition Disposition: Okay to discharge home once electrolyte abnormalities are resolved and skin infection is improving Physician Certification 2 Midnight Certification Type: Admission for Inpatient Services Order for Inpatient Services The services are ordered in accordance with Medicare regulations or non- Medicare payer requirements, as applicable. In the case of services not specified as inpatient-only, they are appropriately provided as inpatient services in accordance with the 2-midnight benchmark. Estimated LOS (days): 3 days is the estimated time the patient will need to remain in the hospital, assuming treatment plan goals are met and no additional complications. Post-Hospital Plan: Home Problem Qualifiers (1) Diarrhea: Qualified Codes: R19.7 - Diarrhea, unspecified Krista Howard MD R2 Aug 17, 2017 19:54
[2017-08-17] MEDS ORDERED: SODIUM CHLORIDE 0.9% FLUSH 10 ML FLUSH IV FLUSH PRN ×2 (20:30→21:30)
[2017-08-17 21:10] VITALS: BP 111/66; PULSE 81; RESP 16; TEMP 98.5; O2SAT 97
[2017-08-17] MEDS ORDERED: ONDANSETRON HCL 4 MG/2 ML VIAL IVP PRN (21:30)
[2017-08-17] MEDS ORDERED: NALOXONE HCL 0.4 MG/ML AMP IV PUSH PRN (21:30)
[2017-08-17] MEDS ORDERED: ACETAMINOPHEN 325 MG TAB PO PRN (21:30)
[2017-08-17] MEDS ORDERED: FLUCONAZOLE 100 MG TAB PO ONE (21:30)
[2017-08-17] MEDS: NS + KCL 40 MEQ INJ 1,000 ML IV SCH (21:43)
[2017-08-17] MEDS: METOPROLOL TARTRATE 25 MG TAB PO SCH (22:06)
[2017-08-17] MEDS: SODIUM CHLORIDE 0.9% FLUSH 10 ML FLUSH IV FLUSH SCH (22:07)
[2017-08-17] MEDS: ATORVASTATIN 40 MG TAB PO SCH (22:07)
[2017-08-17] MEDS: HEPARIN SODIUM - SQ 10,000 UNITS/ML VIAL SQ SCH (22:08)
[2017-08-17 22:14] VITALS: PULSE 83
[2017-08-17] MEDS: NYSTATIN 100,000 U/GM OINT 15 GM TUBE TOPICAL SCH (23:47)
[2017-08-17 23:53] LABS: FOLATE GREATER THAN 20.0 NG/ML (3.1-17.5)
[2017-08-18] VITALS (9 sets, daily range): BP systolic 129–144; BP diastolic 59–79; PULSE 66–79; RESP 16–19; TEMP 97.4–98.2; O2SAT 94–97
[2017-08-18 00:04] LABS: BICARBONATE 30.4 MEQ/L (21.0-32.0); CREATININE 1.12 MG/DL (0.50-1.00)
[2017-08-18 00:24] LABS: TOTAL PROTEIN 6.6 GM/DL (6.4-8.2)
[2017-08-18 00:28] LABS: CALCIUM-PROTEIN CORRECTED 7.3 MG/DL (8.5-10.1)
[2017-08-18] MEDS ORDERED: POTASSIUM CHLORIDE 20 MEQ CONTROLLED RELEASE TAB PO ONE (00:30)
[2017-08-18] MEDS ORDERED: MAGNESIUM CHLORIDE 64 MG TAB PO ONE ×2 (00:45→04:45)
[2017-08-18] MEDS ORDERED: CALCIUM CARBONATE 1.25 GM (CA 500 MG) TAB PO ONE ×2 (00:45→04:45)
[2017-08-18 03:39] LABS: AUTOMATED NEUTROPHIL # 4.7 TH/MM3 (1.8-7.7); BASOPHIL # 0.1 TH/MM3 (0-0.2); BASOPHIL % 0.8 % (0.0-2.0); EOSINOPHIL # 0.2 TH/MM3 (0-0.4); EOSINOPHIL % 1.9 % (0.0-4.0); HEMATOCRIT 34.6 % (35.0-46.0); HEMOGLOBIN 12.2 GM/DL (11.6-15.3); LYMPH % 38.1 % (9.0-44.0); LYMPHOCYTE # 3.5 TH/MM3 (1.0-4.8); MEAN CELL VOLUME 91.8 FL (80.0-100.0); MEAN CORPUSCULAR HEMOGLOBIN 32.4 PG (27.0-34.0); MEAN CORPUSCULAR HGB CONC 35.3 % (32.0-36.0); MEAN PLATELET VOLUME 8.8 FL (7.0-11.0); MONOCYTE # 0.7 TH/MM3 (0-0.9); NEUT % 51.2 % (16.0-70.0); PLATELET COUNT 242 TH/MM3 (150-450); RED BLOOD COUNT 3.77 MIL/MM3 (4.00-5.30); RED CELL DISTRIBUTION WIDTH 12.9 % (11.6-17.2); WHITE BLOOD COUNT 9.2 TH/MM3 (4.0-11.0)
[2017-08-18 04:03] LABS: BICARBONATE 28.5 MEQ/L (21.0-32.0); CALCIUM 6.9 MG/DL (8.5-10.1); CREATININE 1.07 MG/DL (0.50-1.00); MAGNESIUM 1.2 MG/DL (1.5-2.5)
[2017-08-18] MEDS: NS + KCL 40 MEQ INJ 1,000 ML IV SCH ×4 (04:15→21:07)
[2017-08-18 04:17] LABS: TOTAL PROTEIN 7.2 GM/DL (6.4-8.2)
[2017-08-18] MEDS: HEPARIN SODIUM - SQ 10,000 UNITS/ML VIAL SQ SCH ×3 (04:21→21:03)
[2017-08-18 04:30] LABS: CALCIUM-PROTEIN CORRECTED 6.9 MG/DL (8.5-10.1)
[2017-08-18] MEDS: CLINDAMYCIN INJ 600 MG in SODIUM CHLORIDE 0.9% INJ 100 ML IV SCH ×3 (05:03→21:02)
[2017-08-18] MEDS: NYSTATIN 100,000 U/GM OINT 15 GM TUBE TOPICAL SCH ×3 (05:05→21:07)
[2017-08-18] MEDS ORDERED: CALCIUM GLUCONATE INJ 1 GM in SODIUM CHLORIDE 0.9% INJ 100 ML IV ONE (06:00)
[2017-08-18] MEDS: METOPROLOL TARTRATE 25 MG TAB PO SCH ×2 (08:30→21:02)
[2017-08-18] MEDS: PANTOPRAZOLE SOD 20 MG DELAYED RELEASE TAB PO SCH (08:30)
[2017-08-18] MEDS: SODIUM CHLORIDE 0.9% FLUSH 10 ML FLUSH IV FLUSH SCH ×2 (08:32→21:00)
--- NOTE | 2017-08-18 08:47 | HHI.FPPN ---
Subjective Remarks Patient was seen and evaluated this morning. She reports watery, non-bloody diarrhea x5 since arriving to her hospital room at 22:00 last night. She has chronic diarrhea. She believes she had an EGD/colonoscopy with evidence of GERD last year. She doesn't recall the name of her GI but remembers that she was asked to follow-up this year. When asked about the reason for coming to the ED, facial cellulitis, she reports some improvement. She notes facial swelling and occasional itching but denies pain. On admission exam, she was also noted to have an extensive erythematous rash over her lower abdomen, extending toward the vaginal and rectal areas. She says that she started to notice the rash a couple days ago. She denies pain or itching. Patient denies chest pain, shortness of breath, nausea and vomiting. All questions were answered. (Verna Wright MD R1) Objective Vitals Vital Signs Date Time Temp Pulse Resp B/P (MAP) Pulse Ox O2 Delivery O2 Flow Rate FiO2 08/18/17 08:28 97.9 66 18 131/59 (83) 96 08/18/17 04:00 97.5 79 17 144/63 (90) 94 08/18/17 00:00 98.2 76 17 141/72 (95) 97 08/18/17 00:00 71 08/17/17 22:14 83 08/17/17 21:10 98.5 81 16 111/66 (81) 97 Room Air 08/17/17 18:14 82 17 105/66 (79) 96 Room Air 08/17/17 15:24 98.3 70 25 110/56 (74) 98 Room Air 08/17/17 14:52 97.8 86 16 70/42 (51) 97 I/O 08/17/17 08/17/17 08/17/17 08/18/17 08/18/17 08/18/17 07:00 15:00 23:00 07:00 15:00 23:00 Intake Total 100 ml 1290 ml Output Total 1200 ml Balance 100 ml 90 ml Intake Oral 240 ml IV Total 100 ml 1050 ml Output Stool Total 1200 ml # Bowel Movements 3 (Verna Wright MD R1) Result Diagram: 08/18/17 0321 08/18/17 0321 Imaging Last [address] 08/17/17 0000 Signed Impressions: Service Date/Time: August 17:51 - CONCLUSION: Mild soft tissue swelling over the left maxilla with mild skin thickening and no visualized abscess. Helio Luis MD Objective Remarks GENERAL: 72-year-old female, sitting up in bed. SKIN: Erythema and mild swelling with small area of induration noted on the left face adjacent to nose with no extension upward to her left eye. Area is non -tender. Noticeable amount of hair on her chin. See below for more skin findings. HEENT: Atraumatic. Normocephalic. Extraocular motion intact. No obvious lymphadenopathy on palpation. Moist mucous membranes. Poor dentition. NECK: Trachea midline. CARDIOVASCULAR: Regular rate and rhythm. No murmurs appreciated. RESPIRATORY: No accessory muscle use. Clear to auscultation anteriorly. No wheezes appreciated. GASTROINTESTINAL: Abdomen soft, obese, non-tender, nondistended, normal bowel sounds. : Large area of erythema with superficial skin tears in the skin folds that extends from her lower abdomen to her groin, her inner thighs, all the way behind to her buttocks. Rash is nonblanching. MUSCULOSKELETAL: No obvious deformities. No clubbing. No cyanosis. No calf tenderness. BACK: No sacral ulcers identified. NEUROLOGICAL: Awake and alert. No obvious cranial nerve deficits. Motor grossly within normal limits. Normal speech. PSYCHIATRIC: Appropriate mood and affect; insight and judgment normal. Medications and IVs Current Medications Medications (Trade) Dose Ordered Sig/Tameka Route Start Time Stop Time Status Last Admin (NS Flush) 2 ml UNSCH PRN IV FLUSH 08/17/17 20:30 (NS Flush) 2 ml BID IV FLUSH 08/17/17 21:00 08/17/17 22:07 Potassium Chloride/Sodium Chloride 1,000 ml @ 150 mls/hr Q6H40M IV 08/17/17 20:30 08/18/17 04:15 (Lipitor) 40 mg HS PO 08/17/17 21:00 08/17/17 22:07 (Ativan) 0.5 mg Q8H PRN PO 08/17/17 20:30 (Lopressor) 25 mg BID PO 08/17/17 21:00 08/18/17 08:30 (Ultram) 100 mg Q6H PRN PO 08/17/17 20:30 (Protonix) 20 mg DAILY PO 08/18/17 09:00 08/18/17 08:30 (Mycostatin Oint) 1 applic Q8HR TOPICAL 08/17/17 22:00 08/18/17 05:05 (Tylenol) 650 mg Q4H PRN PO 08/17/17 21:30 (Zofran Inj) 4 mg Q6H PRN IVP 08/17/17 21:30 (Heparin Inj) 5,000 units Q8H SQ 08/17/17 21:30 08/18/17 04:21 (Narcan Inj) 0.4 mg UNSCH PRN IV PUSH 08/17/17 21:30 Clindamycin Phosphate 600 mg/ Sodium Chloride 104 ml @ 100 mls/hr Q8H IV 08/18/17 06:00 08/18/17 05:03 (Verna Wright MD R1) Urinary Catheter: No (Verna Wright MD R1) Vascular Central Line Catheter: No (Verna Wright MD R1) A/P Assessment and Plan 72-year-old female presents with facial cellulitis, a candidal- appearing infection with possible superimposed staphylococcal infection over patient's lower abdomen and groin area, as well as multiple electrolyte derangements. The multiple electrolytes abnormalities may have resulted from her chronic diarrhea with incontinence or could be an adverse effect of chlorthalidone which is known to cause hypokalemia and hypomagnesemia. Patient was not on potassium replacement while on chlorthalidone. She will be admitted to the hospital for management with IV clindamycin, and topical nystatin for the abdomen/groin infection. Patient will also be managed with IV fluids and repletion of electrolytes. Discharge Planning Pending blood cultures and transition to oral antibiotics. (Verna Wright MD R1) Attending Attestation Patient seen, examined, and discussed with resident team at 0830. I agree with assessment and management as documented and discussed with me. This attestation is written in conjunction with attached note dated 08/18/17, and attached H&P dated 08/17/17. The patient has been seen and examined. The chart and all resident notes have been reviewed. I agree that inpatient care is appropriate and that a two midnight stay is expected for the reasons documented in the resident history and physical. I have discussed this with the resident and certify the resident s order for inpatient admission. Pt is a 72yo lady with HTN, GERD, anxiety, and tobacco abuse admitted for severe hypokalemia, as well as facial cellulitis and what appears to be superinfected intertriginous krista. She reports continued diarrhea, which is chronic in nature for her; stool studies pending; C Diff negative. Add probiotics. Will monitor potassium, magnesium with further blood work. Facial cellulitis appears to be improving. (Christi Lyons MD) Problem List: (1) Candidiasis, intertrigo ICD Codes: B37.2 - Candidiasis of skin and nail Plan: Large area of erythema with superficial skin tears in skin folds that extends from the lower abdomen to groin, inner thighs, and buttocks. Rash is nonblanching. Likely candidal, possible superimposed staphylococcal infection. Patient did not meet SIRS criteria on admission; WBC of 11.5, lactic acid 1.5. Blood cultures pending. Medications: * Fluconazole 150 mg PO. once. * Nystatin ointment to be applied every 8 hours. * Clindamycin 600 mg IV every 6 hours. (2) Facial cellulitis ICD Codes: L03.211 - Cellulitis of face Status: Acute Plan: Possibly candidal infection transplanted from groin area but cannot rule out cellulitis, most likely from Staphylococcus infection. CT face with IV contrast showed mild soft tissue swelling over the left maxilla with no abscess. Medications: * Clindamycin as above. (3) JESUS ALBERTO (acute kidney injury) ICD Codes: N17.9 - Acute kidney failure, unspecified Plan: Improving. Cr 1.07 on 08/18. Creatinine 1.15 in the ED with GFR 46. Baseline 1.02 in 01/21 and 0.64 in 06/23. Medications: * Normal saline at 150 mL/h with 40 MEQ potassium. (4) Hypokalemia ICD Codes: E87.6 - Hypokalemia Status: Acute Plan: Resolved. K 3.7 on 08/18. Possibly due to chronic diarrhea and chlorthalidone. Studies: * EKG performed in the ED showed nonspecific ST changes. Medications: * K 2.5 MEq per liter on admission. * Hold chlorthalidone. (5) Hypocalcemia ICD Codes: E83.51 - Hypocalcemia Status: Acute Plan: No change. Ca 6.9 and protein corrected Ca 6.9 on 08/18. On admission, Ca 7.0 and protein corrected Ca 6.9. Calcium correction in hypoalbuminemia (3.3 g/dL) with normal albumin of 4 g/dL = Ca 7.46. Calcium correction in hypoalbuminemia (3.3 g/dL) with normal albumin of 4.4 g/ dL = Ca 7.78. Hypomagnesemia is a common cause of hypocalcemia. Active replacement of magnesium in process. Medications: * Received 1 g calcium gluconate in the ED. (6) Hypomagnesemia ICD Codes: E83.42 - Hypomagnesemia Status: Acute Plan: Improving. Mg 1.2 on 08/18. On admission, Mg 0.8 mg/dL. Medications: * Received 1 g magnesium sulfate IV in the ED. (7) Diarrhea ICD Codes: R19.7 - Diarrhea, unspecified Status: Chronic Plan: Patient reports chronic diarrhea with incontinence but no abdominal pain. Notably, patient was admitted to the hospital in June [address] abdomen and pelvis with IV contrast at the time revealed a small bowel distention to 3.1 cm with a localized proximal ileus or low-grade partial obstruction. She was worked up by GI with a SBFT which was negative, stool studies were negative, hepatitis panel was negative, specialized tests were negative. A colonoscopy was not performed at that time. The diarrhea resolved and she was discharged home. Patient reports having had an EGD/colonoscopy with evidence of GERD last year. Asked to follow-up within one year. * Consider GI consult for chronic diarrhea with incontinence. Studies: * Hemoccult negative. * C. diff negative. * Additional stool cultures pending. (8) Hypertension ICD Codes: I10 - Essential (primary) hypertension Plan: Patient with history of hypertension. Hypotensive in the ED. * Continued home meds expect chlorthalidone as above. * Hold parameters in place for hypotension. (9) GERD (gastroesophageal reflux disease) ICD Codes: K21.9 - Gastro-esophageal reflux disease without esophagitis Plan: Patient with history of GERD. * Continue home meds. (10) Anxiety ICD Codes: F41.9 - Anxiety disorder, unspecified Plan: Patient with history of anxiety. * Continue home meds. (11) Smoking greater than 40 pack years ICD Codes: F17.210 - Nicotine dependence, cigarettes, uncomplicated Plan: Smokes 10-15 cigarettes per day. Patient declined nicotine patch. (12) FEN/DVT PPX/GI PPX/Nursing Orders Plan: Fluids: * NS @ 150 mls/hr IV with 40 MEQ potassium. Electrolytes: * Will monitor and replete as necessary. Nutrition: * Heart-healthy diet. DVT Prophylaxis: * Heparin subcutaneous Q8h. GI Prophylaxis: * Protonix 20mg PO daily. PRN Medications: * Tylenol 650 mg by mouth every 4 hours when necessary pain 1-10 or temperature greater than 100.4F. * Zofran 4 mg IV push every 6 hours when necessary nausea vomiting. Nursing Orders: * Vitals Q4h. * Monitor I's and O's. * Neurochecks Q4h. * patient monitor with telemetry with continuous vital signs. * Activity OOB with assistance. * PT to assist with ambulation. * Case management consult to assist with discharge disposition. (Verna Wright MD R1) Problem Qualifiers (1) Diarrhea: Qualified Codes: R19.7 - Diarrhea, unspecified Verna Wright MD R1 Aug 18, 2017 08:47 Christi Lyons MD Aug 19, 2017 07:14
[2017-08-18] MEDS ORDERED: SODIUM CHLORIDE 0.9% FLUSH 10 ML FLUSH IV FLUSH SCH (09:00)
[2017-08-18] MEDS ORDERED: MAGNESIUM SULFATE INJ 4 GM in DEXTROSE 5% IN WATER 100ML INJ 92 ML IV SCH ×2 (09:45)
[2017-08-18] MEDS: MAGNESIUM SULFAT 1 GM PREMIX 100 ML x4 bags IV SCH ×4 (11:13→16:29)
[2017-08-18] MEDS ORDERED: LACTOBACILLUS ACIDOPHILUS TAB PO ONE (12:00)
[2017-08-18 12:25] LABS: BICARBONATE 25.6 MEQ/L (21.0-32.0); CALCIUM 7.2 MG/DL (8.5-10.1); CREATININE 1.01 MG/DL (0.50-1.00); MAGNESIUM 1.2 MG/DL (1.5-2.5)
[2017-08-18 12:51] LABS: TOTAL PROTEIN 6.8 GM/DL (6.4-8.2)
[2017-08-18 13:18] LABS: CALCIUM-PROTEIN CORRECTED 7.4 MG/DL (8.5-10.1)
[2017-08-18 14:19] LABS: BACTERIA, URINE MANY /hpf; BILIRUBIN, URINE NEG (NEG); BLOOD, URINE TRACE (NEG); GLUCOSE,URINE NEG (NEG); HYALINE CAST, URINE 5 /lpf (RARE); KETONE, URINE NEG (NEG); MUCUS URINE FEW /lpf (OCC); NITRITE,URINE NEG (NEG); SQUAMOUS EPITHELIAL CELL URINE 3 /hpf (0-5); URINE COLOR YELLOW (YELLW/STRAW); URINE LEUKOCYTE ESTERASE LARGE (NEG)
--- NOTE | 2017-08-18 19:31 | EKG ---
Date Performed: 08/17/2017 Time Performed: 20:28:29 PTAGE: 72 years EKG: Sinus rhythm NONSPECIFIC ST & T-WAVE ABNORMALITY BORDERLINE ECG NO PREVIOUS TRACING DOCTOR: Lazarus Yates Interpretating Date/Time 08/18/2017 19:29:21
[2017-08-18 19:50] LABS: BICARBONATE 24.3 MEQ/L (21.0-32.0); CALCIUM 7.7 MG/DL (8.5-10.1); CREATININE 1.01 MG/DL (0.50-1.00); MAGNESIUM 2.6 MG/DL (1.5-2.5)
[2017-08-18] MEDS: ATORVASTATIN 40 MG TAB PO SCH (21:02)
[2017-08-18] MEDS: LORazepam 0.5 MG TAB PO PRN (21:08)
[2017-08-19] VITALS (8 sets, daily range): BP systolic 153–188; BP diastolic 69–84; PULSE 77–115; RESP 16–22; TEMP 97.7–98.2; O2SAT 92–97
[2017-08-19 03:23] LABS: AUTOMATED NEUTROPHIL # 5.4 TH/MM3 (1.8-7.7); BASOPHIL # 0.1 TH/MM3 (0-0.2); BASOPHIL % 0.8 % (0.0-2.0); EOSINOPHIL # 0.2 TH/MM3 (0-0.4); EOSINOPHIL % 2.3 % (0.0-4.0); HEMATOCRIT 31.3 % (35.0-46.0); HEMOGLOBIN 11.2 GM/DL (11.6-15.3); LYMPH % 26.6 % (9.0-44.0); LYMPHOCYTE # 2.2 TH/MM3 (1.0-4.8); MEAN CELL VOLUME 91.2 FL (80.0-100.0); MEAN CORPUSCULAR HEMOGLOBIN 32.6 PG (27.0-34.0); MEAN CORPUSCULAR HGB CONC 35.7 % (32.0-36.0); MEAN PLATELET VOLUME 8.8 FL (7.0-11.0); MONO % 5.4 % (0.0-8.0); MONOCYTE # 0.4 TH/MM3 (0-0.9); NEUT % 64.9 % (16.0-70.0); PLATELET COUNT 232 TH/MM3 (150-450); RED BLOOD COUNT 3.43 MIL/MM3 (4.00-5.30); WHITE BLOOD COUNT 8.3 TH/MM3 (4.0-11.0)
[2017-08-19 03:52] LABS: CALCIUM 7.2 MG/DL (8.5-10.1); CREATININE 0.91 MG/DL (0.50-1.00); TOTAL BILIRUBIN ADULT 0.6 MG/DL (0.2-1.0); TOTAL PROTEIN 6.8 GM/DL (6.4-8.2)
[2017-08-19 03:56] LABS: CALCIUM-PROTEIN CORRECTED 7.4 MG/DL (8.5-10.1)
[2017-08-19] MEDS: NYSTATIN 100,000 U/GM OINT 15 GM TUBE TOPICAL SCH ×3 (06:00→21:20)
[2017-08-19] MEDS: CLINDAMYCIN INJ 600 MG in SODIUM CHLORIDE 0.9% INJ 100 ML IV SCH ×3 (06:18→21:16)
[2017-08-19] MEDS: HEPARIN SODIUM - SQ 10,000 UNITS/ML VIAL SQ SCH ×3 (06:18→21:19)
[2017-08-19] MEDS: NS + KCL 40 MEQ INJ 1,000 ML IV SCH (06:23)
[2017-08-19] MEDS: PANTOPRAZOLE SOD 20 MG DELAYED RELEASE TAB PO SCH (08:11)
[2017-08-19] MEDS: METOPROLOL TARTRATE 25 MG TAB PO SCH ×2 (08:11→21:19)
[2017-08-19] MEDS: SODIUM CHLORIDE 0.9% FLUSH 10 ML FLUSH IV FLUSH SCH ×2 (08:12→21:19)
[2017-08-19] MEDS: LORazepam 0.5 MG TAB PO PRN (08:12)
[2017-08-19] MEDS: traMADol HCL 50 MG TAB PO PRN ×2 (08:25→17:20)
--- NOTE | 2017-08-19 09:31 | MB ---
cc: Troy Maldonado MD DATE: 08/19/2017 REASON FOR GASTROENTEROLOGY CONSULTATION: Evaluation of chronic diarrhea. HISTORY OF PRESENT ILLNESS: The patient apparently has been seen by Dr. Dubois in the past. The patient was initially admitted for this admission complaining of a rash on the left side of her face and also a rash in the lower groin and suprapubic area. She denies any fever or chills. She apparently has seen Dr. Dubois and had endoscopic workup, I believe for iron deficiency anemia. I do not have the records at this time. She had upper an endoscopy and colonoscopy and even a capsule endoscopy, but results are not available. She states that she has had chronic diarrhea for up to 2 years. She has at least 2-3 loose to mushy stools a day. She denies any hematochezia, abdominal pain or weight loss associated with the diarrhea. She has had some incontinence. Her appetite has been intact. The patient is currently being treated for facial cellulitis. In addition, the patient is being treated for hypokalemia as well and hypomagnesemia. Potassium was 2.5 on admission. In addition, her liver enzymes were in normal range. Hemoglobin was 13 grams, white count was 11.4. PAST MEDICAL HISTORY: Includes hypertension, GERD, anxiety, chronic low back pain, history of anemia, and carpal tunnel syndrome. MEDICATIONS: As an outpatient include atorvastatin, tramadol, metoprolol, Mobic, Ativan, naproxen, chlorthalidone and omeprazole. FAMILY HISTORY: There is no family history of colorectal cancer. PAST SURGICAL HISTORY: As mentioned above. In addition, she has had upper endoscopy and colonoscopy. She states colonoscopy did not reveal any polyps or any colitis. REVIEW OF SYSTEMS: A 12-point review of systems was as stated in the HPI. She denies any fever or chills. There has been no significant weight loss. DIAGNOSTIC STUDIES: Laboratory data was mentioned above. She has also had stool studies performed. She is Hemoccult negative. Giardia, cryptosporidia were negative. There were no enteric pathogens detected. She had a maxillofacial CT performed. Mild soft tissue swelling over the left maxillary area was noted. No abscess. PHYSICAL EXAMINATION: GENERAL: Older than stated age female who appears somewhat disheveled, no acute distress. VITAL SIGNS: Stable. She is afebrile. HEENT: Nonicteric. Oral mucosa moist. NECK: Supple. CARDIAC: S1, S2. Regular rhythm. CHEST: Clear. ABDOMEN: Obese, pendulous, nontender. Bowel sounds are present. No masses are appreciated. EXTREMITIES: Very trace pedal edema. No cyanosis or clubbing noted. RECTAL: Deferred. IMPRESSION: A 72-year-old female who presents with several non-gastrointestinal complaints. In addition, she has had chronic diarrhea for at least 2 years. Apparently, she has had endoscopic workup in the past, including EGD, colonoscopy, and small bowel capsule evaluations. Etiology is uncertain at this time. The patient may have a bacterial overgrowth or functional bowel issues ongoing superimposed. She denies any hematochezia or nocturnal symptoms as well. PLAN: At this time, I would consider adding cholestyramine as a binding agent. I would consider continuation of probiotics. She could be considered for empiric antibiotic therapy with Flagyl as well. Imodium, if absolutely needed, to be used very sparingly. Further workup and management can be performed as an outpatient, as the patient does not appear to be acutely ill at this time. In addition, I would continue pantoprazole or PPI for her history of chronic GERD as well. Thank you kindly for this consultation. MD LINDA Lentz/KOFI , 09:05 AM , 09:30 AM
--- NOTE | 2017-08-19 12:23 | HHI.FPPN ---
Subjective Remarks Patient was seen and evaluated this morning. She feels well. She had seven recorded bowel movements over the last 24hr. The patient reports the stool has become firmer. She denies abdominal pain, nausea and vomiting. The patient reports improved facial swelling. She denies pain and itching associated with the facial and abdominal/groin rashes. She denies chest pain and shortness of breath. All questions were answered. (Verna Wright MD R1) Objective Vitals Vital Signs Date Time Temp Pulse Resp B/P (MAP) Pulse Ox O2 Delivery O2 Flow Rate FiO2 08/19/17 08:00 97.7 78 18 172/77 (108) 97 08/19/17 00:00 97.8 87 18 153/69 (97) 92 08/18/17 20:00 98.0 75 16 140/65 (90) 97 08/18/17 16:00 97.4 76 19 131/79 (96) 97 I/O 08/18/17 08/18/17 08/18/17 08/19/17 08/19/17 08/19/17 07:00 15:00 23:00 07:00 15:00 23:00 Intake Total 1290 ml 120 ml 1000 ml 1100 ml Output Total 1200 ml 800 ml 700 ml Balance 90 ml 120 ml 200 ml 400 ml Intake Oral 240 ml 120 ml 1000 ml IV Total 1050 ml 1100 ml Output Urine Total 800 ml 700 ml Stool Total 1200 ml # Bowel Movements 3 5 2 (Verna Wright MD R1) Result Diagram: 08/19/17 0306 08/19/17 0306 Imaging Last [address] 08/17/17 0000 Signed Impressions: Service Date/Time: August 17:51 - CONCLUSION: Mild soft tissue swelling over the left maxilla with mild skin thickening and no visualized abscess. Helio Luis MD Objective Remarks GENERAL: 72-year-old female, sitting up in chair. SKIN: Quarter-sized area of erythema and minimal swelling noted on the left cheek, adjacent to nose with no extension. Area is non-tender. Noticeable amount of hair on her chin. See below for more skin findings. HEENT: Atraumatic. Normocephalic. Extraocular motion intact. No obvious lymphadenopathy on palpation. Moist mucous membranes. Poor dentition. NECK: Trachea midline. CARDIOVASCULAR: Regular rate and rhythm. No murmurs appreciated. RESPIRATORY: No accessory muscle use. Clear to auscultation anteriorly. No wheezes appreciated. GASTROINTESTINAL: Abdomen soft, obese, non-tender, nondistended, normal bowel sounds. : Large area of erythema with superficial skin tears in the skin folds that extends from her lower abdomen to her groin, her inner thighs, all the way behind to her buttocks. Rash is nonblanching. MUSCULOSKELETAL: No obvious deformities. No clubbing. No cyanosis. No calf tenderness. NEUROLOGICAL: Awake and alert. No obvious cranial nerve deficits. Motor grossly within normal limits. Normal speech. PSYCHIATRIC: Appropriate mood and affect; insight and judgment normal. Medications and IVs Current Medications Medications (Trade) Dose Ordered Sig/Tameka Route Start Time Stop Time Status Last Admin (NS Flush) 2 ml UNSCH PRN IV FLUSH 08/17/17 20:30 (NS Flush) 2 ml BID IV FLUSH 08/17/17 21:00 08/17/17 22:07 (Lipitor) 40 mg HS PO 08/17/17 21:00 08/18/17 21:02 (Ativan) 0.5 mg Q8H PRN PO 08/17/17 20:30 08/19/17 08:12 (Lopressor) 25 mg BID PO 08/17/17 21:00 08/19/17 08:11 (Ultram) 100 mg Q6H PRN PO 08/17/17 20:30 08/19/17 08:25 (Protonix) 20 mg DAILY PO 08/18/17 09:00 08/19/17 08:11 (Mycostatin Oint) 1 applic Q8HR TOPICAL 08/17/17 22:00 08/18/17 21:07 (Tylenol) 650 mg Q4H PRN PO 08/17/17 21:30 (Zofran Inj) 4 mg Q6H PRN IVP 08/17/17 21:30 (Heparin Inj) 5,000 units Q8H SQ 08/17/17 21:30 08/19/17 06:18 (Narcan Inj) 0.4 mg UNSCH PRN IV PUSH 08/17/17 21:30 Clindamycin Phosphate 600 mg/ Sodium Chloride 104 ml @ 100 mls/hr Q8H IV 08/18/17 06:00 08/19/17 06:18 (Flagyl) 250 mg Q8HR PO 08/19/17 14:00 (Questran 4 Gm Pkt) 4 gm DAILY PO 08/20/17 09:00 (KCl) 20 meq Q12HR PO 08/19/17 21:00 (Verna Wright MD R1) Urinary Catheter: No (Verna Wright MD R1) Vascular Central Line Catheter: No (Verna Wright MD R1) A/P Assessment and Plan 72-year-old female presents with facial cellulitis, a candidal- appearing infection with possible superimposed staphylococcal infection over patient's lower abdomen and groin area, as well as multiple electrolyte derangements. The multiple electrolytes abnormalities may have resulted from her chronic diarrhea with incontinence or could be an adverse effect of chlorthalidone which is known to cause hypokalemia and hypomagnesemia. Patient was not on potassium replacement while on chlorthalidone. She was admitted to the hospital for management with IV clindamycin, and topical nystatin for the abdomen/groin infection. Patient is also managed with IV fluids and repletion of electrolytes. Discharge Planning Pending blood cultures and transition to oral antibiotics. (Verna Wright MD R1) Attending Attestation Patient seen, examined, and discussed with resident team. I agree with assessment and management as documented and discussed with me. Rash is much improved. Electrolytes improved. Pt remains with diarrhea; appreciate input from GI. Anticipate discharge in 1-2 days. (Christi Lyons MD) Problem List: (1) Candidiasis, intertrigo ICD Codes: B37.2 - Candidiasis of skin and nail Status: Acute Plan: Large area of erythema with superficial skin tears in skin folds that extends from the lower abdomen to groin, inner thighs, and buttocks. Rash is nonblanching. Likely candidal, possible superimposed staphylococcal infection. Patient did not meet SIRS criteria on admission; WBC of 11.5, lactic acid 1.5. Blood cultures negative to date. Medications: * Fluconazole 150 mg PO once. * Nystatin ointment to be applied q8hr. * Clindamycin 600 mg IV q6hr. (2) Facial cellulitis ICD Codes: L03.211 - Cellulitis of face Status: Acute Plan: Possibly candidal infection transplanted from groin area but cannot rule out cellulitis, most likely from Staphylococcus infection. CT face with IV contrast showed mild soft tissue swelling over the left maxilla with no abscess. Medications: * Clindamycin as above. (3) JESUS ALBERTO (acute kidney injury) ICD Codes: N17.9 - Acute kidney failure, unspecified Status: Resolved Plan: Resolved. Cr 0.91 on 08/19. Creatinine 1.15 in the ED with GFR 46. Baseline 1.02 in 01/21 and 0.64 in 06/23. (4) Hypokalemia ICD Codes: E87.6 - Hypokalemia Status: Acute Plan: Resolved. K 3.7 on 08/19. Possibly due to chronic diarrhea and chlorthalidone. Studies: * EKG performed in the ED showed nonspecific ST changes. Medications: * Hold chlorthalidone. * KCl 20 meq PO q12hr. (5) Hypocalcemia ICD Codes: E83.51 - Hypocalcemia Status: Acute Plan: Resolved. 08/19: Calcium (7.2) correction in hypoalbuminemia (3.0 g/dL) with normal albumin of 4 g/dL = Ca 8.00. Calcium (7.2) correction in hypoalbuminemia (3.0 g/dL) with normal albumin of 4.4 g/dL = Ca 8.32. Hypomagnesemia is a common cause of hypocalcemia. Replacement of magnesium achieved. Medications: * Received 1 g calcium gluconate in the ED. (6) Hypomagnesemia ICD Codes: E83.42 - Hypomagnesemia Status: Acute Plan: Resolved. Mg 2.0 on 08/19. On admission, Mg 0.8 mg/dL. Medications: * Received 1g magnesium sulfate IV in the ED. * Received 4g magnesium sulfate IV on 08/18. (7) Diarrhea ICD Codes: R19.7 - Diarrhea, unspecified Status: Chronic Plan: Patient reports chronic diarrhea with incontinence but no abdominal pain. Notably, patient was admitted to the hospital in June [address] abdomen and pelvis with IV contrast at the time revealed a small bowel distention to 3.1 cm with a localized proximal ileus or low-grade partial obstruction. She was worked up by GI with a SBFT which was negative, stool studies were negative, hepatitis panel was negative, specialized tests were negative. A colonoscopy was not performed at that time. The diarrhea resolved and she was discharged home. Patient reports having had an EGD/colonoscopy with evidence of GERD last year. Asked to follow-up within one year. GI consult: At this time, I would consider adding cholestyramine as a binding agent. I would consider continuation of probiotics. She could be considered for empiric antibiotic therapy with Flagyl as well. Imodium, if absolutely needed, to be used very sparingly. Further workup and management can be performed as an outpatient, as the patient does not appear to be acutely ill at this time. In addition, I would continue pantoprazole or PPI for her history of chronic GERD as well. Studies: * Hemoccult negative. * C. diff negative. * Additional stool cultures negative to date. Medications: * Pantoprazole 20mg PO. * Cholestyramine 4g PO daily. * Lactobacillus Acidophilus 1 tab PO q12hr. * Flagyl 250mg PO q8hr. (8) Hypertension ICD Codes: I10 - Essential (primary) hypertension Plan: Patient with history of hypertension. Hypotensive in the ED. * Continued home meds expect chlorthalidone as above. * Hold parameters in place for hypotension. (9) GERD (gastroesophageal reflux disease) ICD Codes: K21.9 - Gastro-esophageal reflux disease without esophagitis Plan: Patient with history of GERD. * Continue home meds. (10) Anxiety ICD Codes: F41.9 - Anxiety disorder, unspecified Plan: Patient with history of anxiety. * Continue home meds. (11) Smoking greater than 40 pack years ICD Codes: F17.210 - Nicotine dependence, cigarettes, uncomplicated Plan: Smokes 10-15 cigarettes per day. Patient declined nicotine patch. (12) FEN/DVT PPX/GI PPX/Nursing Orders Plan: Fluids: * Tolerates PO. Electrolytes: * Will monitor and replete as necessary. Nutrition: * Heart-healthy diet. DVT Prophylaxis: * Heparin 5,000 units sq q8hr. GI Prophylaxis: * Protonix 20mg PO daily. PRN Medications: * Tylenol 650 mg PO q4hr when necessary pain 1-10 or temperature greater than 100.4F. * Zofran 4 mg IV push q6hr when necessary nausea vomiting. Nursing Orders: * Vitals q4hr. * Monitor I's and O's. * Activity OOB with assistance. * PT to assist with ambulation. * Case management consult to assist with discharge disposition. (LaBell,Verna MD R1) Problem Qualifiers (1) Diarrhea: Qualified Codes: R19.7 - Diarrhea, unspecified Verna Wright MD R1 Aug 19, 2017 12:23 Christi Lyons MD Aug 19, 2017 20:44
[2017-08-19] MEDS: metroNIDAZOLE 250 MG TAB PO SCH ×2 (12:42→21:19)
[2017-08-19] MEDS: LACTOBACILLUS ACIDOPHILUS TAB PO SCH ×2 (14:15→21:19)
[2017-08-19] MEDS ORDERED: hydrALAZINE HCL 10 MG TAB PO PRN (16:45)
[2017-08-19] MEDS: ATORVASTATIN 40 MG TAB PO SCH (21:19)
[2017-08-19] MEDS: POTASSIUM CHLORIDE 20 MEQ CONTROLLED RELEASE TAB PO SCH (21:19)
[2017-08-20] VITALS (7 sets, daily range): BP systolic 106–154; BP diastolic 55–72; PULSE 64–93; RESP 16–20; TEMP 97.3–99.4; O2SAT 93–96
[2017-08-20] MEDS: metroNIDAZOLE 250 MG TAB PO SCH ×2 (05:35→12:52)
[2017-08-20] MEDS: HEPARIN SODIUM - SQ 10,000 UNITS/ML VIAL SQ SCH ×2 (05:35→12:52)
[2017-08-20] MEDS: NYSTATIN 100,000 U/GM OINT 15 GM TUBE TOPICAL SCH ×2 (05:38→12:53)
[2017-08-20 05:57] LABS: BASOPHIL # 0.1 TH/MM3 (0-0.2); BASOPHIL % 0.5 % (0.0-2.0); EOSINOPHIL # 0.1 TH/MM3 (0-0.4); EOSINOPHIL % 1.3 % (0.0-4.0); HEMATOCRIT 32.9 % (35.0-46.0); HEMOGLOBIN 11.7 GM/DL (11.6-15.3); LYMPH % 20.1 % (9.0-44.0); MEAN CELL VOLUME 92.5 FL (80.0-100.0); MEAN CORPUSCULAR HEMOGLOBIN 32.8 PG (27.0-34.0); MEAN CORPUSCULAR HGB CONC 35.5 % (32.0-36.0); MEAN PLATELET VOLUME 8.8 FL (7.0-11.0); MONO % 7.7 % (0.0-8.0); MONOCYTE # 0.8 TH/MM3 (0-0.9); NEUT % 70.4 % (16.0-70.0); PLATELET COUNT 238 TH/MM3 (150-450); RED BLOOD COUNT 3.55 MIL/MM3 (4.00-5.30); RED CELL DISTRIBUTION WIDTH 12.9 % (11.6-17.2)
[2017-08-20 06:14] LABS: BICARBONATE 23.8 MEQ/L (21.0-32.0); CALCIUM 7.9 MG/DL (8.5-10.1); CREATININE 0.91 MG/DL (0.50-1.00)
[2017-08-20] MEDS: CLINDAMYCIN INJ 600 MG in SODIUM CHLORIDE 0.9% INJ 100 ML IV SCH ×2 (06:15→12:52)
[2017-08-20] MEDS: SODIUM CHLORIDE 0.9% FLUSH 10 ML FLUSH IV FLUSH SCH (07:51)
[2017-08-20] MEDS: LACTOBACILLUS ACIDOPHILUS TAB PO SCH (07:51)
[2017-08-20] MEDS: POTASSIUM CHLORIDE 20 MEQ CONTROLLED RELEASE TAB PO SCH (07:51)
[2017-08-20] MEDS: METOPROLOL TARTRATE 25 MG TAB PO SCH (07:52)
[2017-08-20] MEDS: PANTOPRAZOLE SOD 20 MG DELAYED RELEASE TAB PO SCH (07:52)
[2017-08-20] MEDS ORDERED: CHOLESTYRAMINE 4 GM PACKET PO SCH (09:00)
--- NOTE | 2017-08-20 09:40 | HHI.FPPN ---
Subjective Remarks Patient seen and examined bedside this morning. Patient states she continues to have 2 episodes of slightly watery diarrhea that is chronic, however it is been more formed in the last couple of days. She denies any nausea/vomiting. No acute events overnight. No chest pain/shortness of breath/dizziness. (Renae Velazquez MD R2) Objective Vitals Vital Signs Date Time Temp Pulse Resp B/P (MAP) Pulse Ox O2 Delivery O2 Flow Rate FiO2 08/20/17 08:00 99.4 84 16 141/72 (95) 96 08/20/17 04:00 98.3 93 20 154/69 (97) 95 08/20/17 03:46 86 08/20/17 01:54 92 08/20/17 00:00 98.4 73 20 113/58 (76) 93 08/19/17 21:24 153/75 (101) 08/19/17 21:08 94 21 08/19/17 20:09 115 08/19/17 20:00 98.2 101 22 188/84 (118) 93 08/19/17 16:00 97.8 87 16 171/79 (109) 93 08/19/17 12:00 97.7 77 17 166/78 (107) 94 I/O 08/19/17 08/19/17 08/19/17 08/20/17 08/20/17 08/20/17 07:00 15:00 23:00 07:00 15:00 23:00 Intake Total 1100 ml 600 ml 1300 ml 120 ml Output Total 700 ml 850 ml 750 ml Balance 400 ml 600 ml 450 ml -630 ml Intake Oral 1200 ml 120 ml IV Total 1100 ml 600 ml 100 ml Output Urine Total 700 ml 850 ml 750 ml # Bowel Movements 2 3 0 (Renae Velazquez MD R2) Result Diagram: 08/20/17 0452 08/20/17 045 Objective Remarks GENERAL: 72-year-old female, sitting up in chair. Eating comfortably SKIN: Quarter-sized area of erythema and minimal swelling noted on the left cheek, adjacent to nose with no extension, similar to previous exam. Area is non -tender. Noticeable amount of hair on her chin. HEENT: Atraumatic. Normocephalic. Extraocular motion intact. No obvious lymphadenopathy on palpation. Moist mucous membranes. Poor dentition. NECK: Trachea midline. CARDIOVASCULAR: Regular rate and rhythm. No murmurs appreciated. RESPIRATORY: No accessory muscle use. Mild wheezing throughout lobes on posterior auscultation, consistent with smoking history GASTROINTESTINAL: Abdomen soft, obese, non-tender, nondistended, normal bowel sounds. MUSCULOSKELETAL: No obvious deformities. No clubbing. No cyanosis. No calf tenderness. NEUROLOGICAL: Awake and alert. No obvious cranial nerve deficits. Motor grossly within normal limits. Normal speech. PSYCHIATRIC: Appropriate mood and affect; insight and judgment normal. (Renae Velazquez MD R2) A/P Assessment and Plan 72-year-old female presents with facial cellulitis, a candidal- appearing infection with possible superimposed staphylococcal infection over patient's lower abdomen and groin area, as well as multiple electrolyte derangements. The multiple electrolytes abnormalities may have resulted from her chronic diarrhea with incontinence or could be an adverse effect of chlorthalidone which is known to cause hypokalemia and hypomagnesemia. Patient was not on potassium replacement while on chlorthalidone. She was admitted to the hospital for management with IV clindamycin, and topical nystatin for the abdomen/groin infection. Patient is also managed with IV fluids and repletion of electrolytes. Discharge Planning anticipate d/c today (Renae Velazquez MD R2) Attending Attestation Patient seen and examined, discussed with resident team. I agree with assessment and management as documented and discussed with me. Pt feels diarrhea is improving. She is tolerating PO. She feels rash in groin is improving as well. Discharge home today. (Christi Lyons MD) Problem List: (1) Candidiasis, intertrigo ICD Codes: B37.2 - Candidiasis of skin and nail Status: Acute Plan: Large area of erythema with superficial skin tears in skin folds that extends from the lower abdomen to groin, inner thighs, and buttocks. Rash is nonblanching. Likely candidal, possible superimposed staphylococcal infection. Patient did not meet SIRS criteria on admission; WBC of 11.5, lactic acid 1.5. Blood cultures negative x 2 days Medications: * Fluconazole 150 mg PO once. * Nystatin ointment to be applied q8hr. * Clindamycin 600 mg IV q6hr. D/C Meds - Continue Nystatin TID - D/C Clinda ; pt did not meet SIRS criteria, negative blood cx, no evidence of superimposed infection and risk of C.Diff/increased diarrhea outweighs benefit of remote possibility of bacterial infection (2) Facial cellulitis ICD Codes: L03.211 - Cellulitis of face Status: Acute Plan: Mild facial erysipelas, typically due to group A strep although cannot rule out staph, no abscess or purulent drainage -Recommend warm, moist compresses to affected area -10-14 day antibiotic course, need to continue to cover MRSA -Prescribed Augmentin 875 mg twice daily and Bactrim DS 2 tabs twice daily x 11 days (14 day total course) Possibly candidal infection transplanted from groin area but cannot rule out cellulitis, most likely from Staphylococcus infection. CT face with IV contrast showed mild soft tissue swelling over the left maxilla with no abscess. Medications: * Clindamycin IV as inpatient (3) JESUS ALBERTO (acute kidney injury) ICD Codes: N17.9 - Acute kidney failure, unspecified Status: Resolved Plan: Resolved. Creatinine 1.15 in the ED with GFR 46. Baseline 1.02 (4) Hypokalemia ICD Codes: E87.6 - Hypokalemia Status: Acute Plan: Resolved. Possibly due to chronic diarrhea and chlorthalidone. Studies: * EKG performed in the ED showed nonspecific ST changes. Medications: * Hold chlorthalidone. * KCl 20 meq PO q12hr. D/C Meds: - Continue KCl and f/u BMP as outpatient (5) Hypocalcemia ICD Codes: E83.51 - Hypocalcemia Status: Acute Plan: Resolved. Calcium 7.9 today, with albumin corrected Ca >8 08/19: Calcium (7.2) correction in hypoalbuminemia (3.0 g/dL) with normal albumin of 4 g/dL = Ca 8.00. Calcium (7.2) correction in hypoalbuminemia (3.0 g/dL) with normal albumin of 4.4 g/dL = Ca 8.32. Hypomagnesemia is a common cause of hypocalcemia. Replacement of magnesium achieved. Medications: * Received 1 g calcium gluconate in the ED (08/17). * Received 2g calcium carbonate (08/18) * Received 1g calcium gluconate (08/18) (6) Hypomagnesemia ICD Codes: E83.42 - Hypomagnesemia Status: Acute Plan: Resolved. Mg 2.0 on 08/19. On admission, Mg 0.8 mg/dL. Medications: * Received 1g magnesium sulfate IV in the ED. * Received 4g magnesium sulfate IV on 08/18. (7) Diarrhea ICD Codes: R19.7 - Diarrhea, unspecified Status: Chronic Plan: Patient reports chronic diarrhea with incontinence but no abdominal pain. Notably, patient was admitted to the hospital in June [address] abdomen and pelvis with IV contrast at the time revealed a small bowel distention to 3.1 cm with a localized proximal ileus or low-grade partial obstruction. She was worked up by GI with a SBFT which was negative, stool studies were negative, hepatitis panel was negative, specialized tests were negative. A colonoscopy was not performed at that time. The diarrhea resolved and she was discharged home. Patient reports having had an EGD/colonoscopy with evidence of GERD last year. Asked to follow-up within one year. GI consult: At this time, I would consider adding cholestyramine as a binding agent. I would consider continuation of probiotics. She could be considered for empiric antibiotic therapy with Flagyl as well. Imodium, if absolutely needed, to be used very sparingly. Further workup and management can be performed as an outpatient, as the patient does not appear to be acutely ill at this time. In addition, I would continue pantoprazole or PPI for her history of chronic GERD as well. Studies: * Hemoccult negative. * C. diff negative. * Additional stool cultures negative to date. Medications for D/C: * Pantoprazole 20mg PO. * Cholestyramine 4g PO daily. * Lactobacillus Acidophilus 1 tab PO q12hr. * Flagyl 500mg BID, for chronic diarrhea, similar as to chron's treatment, f/u with GI to monitor (8) Hypertension ICD Codes: I10 - Essential (primary) hypertension Plan: Blood pressure is relatively well controlled -Continue metoprolol 25 mg twice daily -Continue to hold chlorthalidone and follow up with PCP this week for blood pressure management Patient with history of hypertension. Hypotensive in the ED. * Continued home meds except chlorthalidone as above. (9) GERD (gastroesophageal reflux disease) ICD Codes: K21.9 - Gastro-esophageal reflux disease without esophagitis Plan: Patient with history of GERD. * Continue home meds. (10) Anxiety ICD Codes: F41.9 - Anxiety disorder, unspecified Plan: Patient with history of anxiety. * Continue home meds. (11) Smoking greater than 40 pack years ICD Codes: F17.210 - Nicotine dependence, cigarettes, uncomplicated Plan: Smokes 10-15 cigarettes per day. Patient declined nicotine patch. (12) FEN/DVT PPX/GI PPX/Nursing Orders Plan: Fluids: * Tolerates PO. Electrolytes: * Will monitor and replete as necessary. Nutrition: * Heart-healthy diet. DVT Prophylaxis: * Heparin 5,000 units sq q8hr. GI Prophylaxis: * Protonix 20mg PO daily. PRN Medications: * Tylenol 650 mg PO q4hr when necessary pain 1-10 or temperature greater than 100.4F. * Zofran 4 mg IV push q6hr when necessary nausea vomiting. Nursing Orders: * Vitals q4hr. * Monitor I's and O's. * Activity OOB with assistance. * PT to assist with ambulation. * Case management consult to assist with discharge disposition. (Renae Velazquez MD R2) Problem Qualifiers (1) Diarrhea: Qualified Codes: R19.7 - Diarrhea, unspecified Renae Velazquez MD R2 Aug 20, 2017 09:40 Christi Lyons MD Aug 22, 2017 06:39
[2017-08-20] MEDS ORDERED: Nystatin Oint TOPICAL (10:58)
[2017-08-20] MEDS ORDERED: CHOL4POW4 PO (10:58)
[2017-08-20] MEDS ORDERED: AUGM875T3 PO (10:58)
[2017-08-20] MEDS ORDERED: BACT800T5 PO (10:58)
[2017-08-20] MEDS ORDERED: POTA20TA5 PO (10:58)
[2017-08-20] MEDS ORDERED: METR250 PO (10:58)
[2017-08-20] MEDS ORDERED: LACT PO (10:58)
--- NOTE | 2017-08-20 10:58 | HHI.DCPOC ---
Discharge Care Plan Diagnosis: (1) Hypokalemia (2) Hypomagnesemia (3) Hypocalcemia (4) Facial cellulitis Goals to Promote Your Health * To prevent worsening of your condition and complications * To maintain your health at the optimal level Directions to Meet Your Goals Take your medications as prescribed Follow your dietary instruction Follow activity as directed Keep your appointments as scheduled Take your immunizations and boosters as scheduled If your symptoms worsen call your PCP, if no PCP go to Urgent Care Center or Emergency Room Smoking is Dangerous to Your Health. Avoid second hand smoke Call the 24-hour hour crisis hotline for domestic abuse at Renae Velazquez MD R2 Aug 20, 2017 10:58
--- NOTE | 2017-08-20 10:59 | HHI.GIFU ---
Subjective Remarks Alert nad feeling better overall small amts loose stool Objective Vitals I&O Vital Signs Date Time Temp Pulse Resp B/P (MAP) Pulse Ox O2 Delivery O2 Flow Rate FiO2 08/20/17 08:00 99.4 84 16 141/72 (95) 96 08/20/17 04:00 98.3 93 20 154/69 (97) 95 08/20/17 03:46 86 08/20/17 01:54 92 08/20/17 00:00 98.4 73 20 113/58 (76) 93 08/19/17 21:24 153/75 (101) 08/19/17 21:08 94 21 08/19/17 20:09 115 08/19/17 20:00 98.2 101 22 188/84 (118) 93 08/19/17 16:00 97.8 87 16 171/79 (109) 93 08/19/17 12:00 97.7 77 17 166/78 (107) 94 I/O 08/19/17 08/19/17 08/19/17 08/20/17 08/20/17 08/20/17 07:00 15:00 23:00 07:00 15:00 23:00 Intake Total 1100 ml 600 ml 1300 ml 120 ml Output Total 700 ml 850 ml 750 ml Balance 400 ml 600 ml 450 ml -630 ml Intake Oral 1200 ml 120 ml IV Total 1100 ml 600 ml 100 ml Output Urine Total 700 ml 850 ml 750 ml # Bowel Movements 2 3 0 Laboratory Laboratory Tests Test 08/20/17 04:52 White Blood Count 10.0 Red Blood Count 3.55 Hemoglobin 11.7 Hematocrit 32.9 Mean Corpuscular Volume 92.5 Mean Corpuscular Hemoglobin 32.8 Mean Corpuscular Hemoglobin Concent 35.5 Red Cell Distribution Width 12.9 Platelet Count 238 Mean Platelet Volume 8.8 Neutrophils (%) (Auto) 70.4 Lymphocytes (%) (Auto) 20.1 Monocytes (%) (Auto) 7.7 Eosinophils (%) (Auto) 1.3 Basophils (%) (Auto) 0.5 Neutrophils # (Auto) 7.0 Lymphocytes # (Auto) 2.0 Monocytes # (Auto) 0.8 Eosinophils # (Auto) 0.1 Basophils # (Auto) 0.1 CBC Comment DIFF FINAL Differential Comment Blood Urea Nitrogen 6 Creatinine 0.91 Random Glucose 94 Calcium Level 7.9 Sodium Level 140 Potassium Level 4.1 Chloride Level 108 Carbon Dioxide Level 23.8 Anion Gap 8 Estimat Glomerular Filtration Rate 61 Date/Time Source Procedure Growth Status 08/17/17 15:55 Blood Peripheral Aerobic Blood Culture - Preliminary NO GROWTH IN 2 DAYS Resulted 08/17/17 15:55 Blood Peripheral Anaerobic Blood Culture - Preliminary NO GROWTH IN 2 DAYS Resulted 08/18/17 03:10 Stool Stool Cryptosporidium Exam Pending Resulted 08/18/17 03:10 Stool Stool Giardia Antigen ([facility]) Pending Resulted 08/18/17 03:10 Stool Stool Stool Occult Blood ([facility]) - Final HEMOCCULT NEGATIVE Resulted 08/17/17 15:55 Nasal Aspirate Influenza Types A,B Antigen ([facility]) - Final NEGATIVE FOR FLU A AND B ANTIGEN.... Complete 08/18/17 11:45 Urine Catheterized Urine Urine Culture - Final Escherichia Coli Complete Physical Exam . NECK: Neck is supple, no JVD, no lymphadenopathy. CHEST: Chest is clear to auscultation and percussion. CARDIAC: Regular rate and rhythm with no murmur gallop or rubs. ABDOMEN: Soft, nondistended, nontender; no hepatosplenomegaly; bowel sounds are present in all four quadrants. EXTREMITIES: No clubbing, cyanosis, or edema. SKIN: Normal; no rash; no jaundice. Assessment and Plan Assessment: (1) Diarrhea ICD Codes: R19.7 - Diarrhea, unspecified Status: Chronic Plan appears stable at present would complete flagyl therapy....cholestyramine as binding agent ok for d/c from y standpoint f/u Dr Dubois as outpt Problem Qualifiers (1) Diarrhea: Qualified Codes: R19.7 - Diarrhea, unspecified Troy Maldonado MD Aug 20, 2017 10:58
--- NOTE | 2017-08-20 10:59 | HHI.DS ---
Discharge Summary Admission Date Aug 17, 2017 at 19:00 Admitting Diagnosis Hypokalemia, hypomagnesium, hypocalcemia, facial cellulitis (1) Candidiasis, intertrigo Plan: Large area of erythema with superficial skin tears in skin folds that extends from the lower abdomen to groin, inner thighs, and buttocks. Rash is nonblanching. Likely candidal, possible superimposed staphylococcal infection. Patient did not meet SIRS criteria on admission; WBC of 11.5, lactic acid 1.5. Blood cultures negative x 2 days Medications: * Fluconazole 150 mg PO once. * Nystatin ointment to be applied q8hr. * Clindamycin 600 mg IV q6hr. D/C Meds - Continue Nystatin TID - D/C Clinda ; pt did not meet SIRS criteria, negative blood cx, no evidence of superimposed infection and risk of C.Diff/increased diarrhea outweighs benefit of remote possibility of bacterial infection ICD Codes: B37.2 - Candidiasis of skin and nail Status: Acute (2) Facial cellulitis Plan: Mild facial erysipelas, typically due to group A strep although cannot rule out staph, no abscess or purulent drainage -Recommend warm, moist compresses to affected area -10-14 day antibiotic course, need to continue to cover MRSA -Prescribed Augmentin 875 mg twice daily and Bactrim DS 2 tabs twice daily x 11 days (14 day total course) Possibly candidal infection transplanted from groin area but cannot rule out cellulitis, most likely from Staphylococcus infection. CT face with IV contrast showed mild soft tissue swelling over the left maxilla with no abscess. Medications: * Clindamycin IV as inpatient ICD Codes: L03.211 - Cellulitis of face Status: Acute (3) JESUS ALBERTO (acute kidney injury) Plan: Resolved. Creatinine 1.15 in the ED with GFR 46. Baseline 1.02 ICD Codes: N17.9 - Acute kidney failure, unspecified Status: Resolved (4) Hypokalemia Plan: Resolved. Possibly due to chronic diarrhea and chlorthalidone. Studies: * EKG performed in the ED showed nonspecific ST changes. Medications: * Hold chlorthalidone. * KCl 20 meq PO q12hr. D/C Meds: - Continue KCl and f/u BMP as outpatient ICD Codes: E87.6 - Hypokalemia Status: Acute (5) Hypocalcemia Plan: Resolved. Calcium 7.9 today, with albumin corrected Ca >8 08/19: Calcium (7.2) correction in hypoalbuminemia (3.0 g/dL) with normal albumin of 4 g/dL = Ca 8.00. Calcium (7.2) correction in hypoalbuminemia (3.0 g/dL) with normal albumin of 4.4 g/dL = Ca 8.32. Hypomagnesemia is a common cause of hypocalcemia. Replacement of magnesium achieved. Medications: * Received 1 g calcium gluconate in the ED (08/17). * Received 2g calcium carbonate (08/18) * Received 1g calcium gluconate (08/18) ICD Codes: E83.51 - Hypocalcemia Status: Acute (6) Hypomagnesemia Plan: Resolved. Mg 2.0 on 08/19. On admission, Mg 0.8 mg/dL. Medications: * Received 1g magnesium sulfate IV in the ED. * Received 4g magnesium sulfate IV on 08/18. ICD Codes: E83.42 - Hypomagnesemia Status: Acute (7) Diarrhea Plan: Patient reports chronic diarrhea with incontinence but no abdominal pain. Notably, patient was admitted to the hospital in June [address] abdomen and pelvis with IV contrast at the time revealed a small bowel distention to 3.1 cm with a localized proximal ileus or low-grade partial obstruction. She was worked up by GI with a SBFT which was negative, stool studies were negative, hepatitis panel was negative, specialized tests were negative. A colonoscopy was not performed at that time. The diarrhea resolved and she was discharged home. Patient reports having had an EGD/colonoscopy with evidence of GERD last year. Asked to follow-up within one year. GI consult: At this time, I would consider adding cholestyramine as a binding agent. I would consider continuation of probiotics. She could be considered for empiric antibiotic therapy with Flagyl as well. Imodium, if absolutely needed, to be used very sparingly. Further workup and management can be performed as an outpatient, as the patient does not appear to be acutely ill at this time. In addition, I would continue pantoprazole or PPI for her history of chronic GERD as well. Studies: * Hemoccult negative. * C. diff negative. * Additional stool cultures negative to date. Medications for D/C: * Pantoprazole 20mg PO. * Cholestyramine 4g PO daily. * Lactobacillus Acidophilus 1 tab PO q12hr. * Flagyl 500mg BID, for chronic diarrhea, similar as to chron's treatment, f/u with GI to monitor ICD Codes: R19.7 - Diarrhea, unspecified Status: Chronic (8) Hypertension Plan: Blood pressure is relatively well controlled -Continue metoprolol 25 mg twice daily -Continue to hold chlorthalidone and follow up with PCP this week for blood pressure management Patient with history of hypertension. Hypotensive in the ED. * Continued home meds except chlorthalidone as above. ICD Codes: I10 - Essential (primary) hypertension (9) GERD (gastroesophageal reflux disease) Plan: Patient with history of GERD. * Continue home meds. ICD Codes: K21.9 - Gastro-esophageal reflux disease without esophagitis (10) Anxiety Plan: Patient with history of anxiety. * Continue home meds. ICD Codes: F41.9 - Anxiety disorder, unspecified (11) Smoking greater than 40 pack years Plan: Smokes 10-15 cigarettes per day. Patient declined nicotine patch. ICD Codes: F17.210 - Nicotine dependence, cigarettes, uncomplicated (12) FEN/DVT PPX/GI PPX/Nursing Orders Plan: Fluids: * Tolerates PO. Electrolytes: * Will monitor and replete as necessary. Nutrition: * Heart-healthy diet. DVT Prophylaxis: * Heparin 5,000 units sq q8hr. GI Prophylaxis: * Protonix 20mg PO daily. PRN Medications: * Tylenol 650 mg PO q4hr when necessary pain 1-10 or temperature greater than 100.4F. * Zofran 4 mg IV push q6hr when necessary nausea vomiting. Nursing Orders: * Vitals q4hr. * Monitor I's and O's. * Activity OOB with assistance. * PT to assist with ambulation. * Case management consult to assist with discharge disposition. Brief History Patient is a 72-year-old female with a past medical history of hypertension, GERD, anxiety, and chronic low back pain that presents to the [place] ED with a chief complaint of a rash on the left side of her face that began on Monday morning. Patient states that she woke up that morning and touched her left eyebrow and it was hurting. The next day on Monday her right forehead hurt. The following day on Monday both her eyelids were swollen and she felt pain with associated swelling under her right jaw, such that she thought she had mumps. When she woke up yesterday, her face was swollen and she started experiencing itching this morning. She denies fever but states that she had chills. She did not try any medications and does not report anything making the pain/swelling on her face better or worse. She has not had any facial swelling or pain like this before. Patient also states that she has been having chronic diarrhea for about a year which happens 2-3 times a day after she eats. She has also been incontinent of stool. Her stool has been nonbloody with no mucus. She denies dysuria. [facility] Her PCP is Dr. Toñito Gong. CBC/BMP: 08/20/17 0452 08/20/17 0452 Significant Findings Laboratory Tests Test 08/17/17 15:55 08/17/17 23:13 08/18/17 03:10 08/18/17 03:21 White Blood Count 11.4 TH/MM3 (4.0-11.0) Monocytes (%) (Auto) 8.8 % (0.0-8.0) Monocytes # (Auto) 1.0 TH/MM3 (0-0.9) Prothrombin Time 12.8 SEC (9.8-11.6) Creatinine 1.15 MG/DL (0.50-1.00) 1.12 MG/DL (0.50-1.00) 1.07 MG/DL (0.50-1.00) Albumin 3.3 GM/DL (3.4-5.0) Calcium Level 7.0 MG/DL (8.5-10.1) 7.0 MG/DL (8.5-10.1) 6.9 MG/DL (8.5-10.1) Magnesium Level 0.8 MG/DL (1.5-2.5) 1.0 MG/DL (1.5-2.5) 1.2 MG/DL (1.5-2.5) Total Bilirubin 1.4 MG/DL (0.2-1.0) Potassium Level 2.5 MEQ/L (3.5-5.1) 2.6 MEQ/L (3.5-5.1) Carbon Dioxide Level 33.3 MEQ/L (21.0-32.0) Estimat Glomerular Filtration Rate 46 ML/MIN (>89) 48 ML/MIN (>89) 50 ML/MIN (>89) Protein Corrected Calcium 6.9 MG/DL (8.5-10.1) 7.3 MG/DL (8.5-10.1) 6.9 MG/DL (8.5-10.1) Folate GREATER THAN 20.0 NG/ML Random Glucose 110 MG/DL (74-106) Red Blood Count 3.77 MIL/MM3 (4.00-5.30) Hematocrit 34.6 % (35.0-46.0) Test 08/18/17 11:37 08/18/17 11:45 08/18/17 18:35 08/19/17 03:06 Creatinine 1.01 MG/DL (0.50-1.00) 1.01 MG/DL (0.50-1.00) Random Glucose 123 MG/DL (74-106) 107 MG/DL (74-106) 110 MG/DL (74-106) Calcium Level 7.2 MG/DL (8.5-10.1) 7.7 MG/DL (8.5-10.1) 7.2 MG/DL (8.5-10.1) Magnesium Level 1.2 MG/DL (1.5-2.5) 2.6 MG/DL (1.5-2.5) Potassium Level 3.4 MEQ/L (3.5-5.1) Chloride Level 110 MEQ/L (98-107) 109 MEQ/L (98-107) 112 MEQ/L (98-107) Estimat Glomerular Filtration Rate 54 ML/MIN (>89) 54 ML/MIN (>89) 61 ML/MIN (>89) Protein Corrected Calcium 7.4 MG/DL (8.5-10.1) 7.4 MG/DL (8.5-10.1) Urine Turbidity HAZY (CLEAR) Urine Occult Blood TRACE (NEG) Urine Leukocyte Esterase LARGE (NEG) Urine WBC 137 /hpf (0-5) Urine Bacteria MANY /hpf (NONE) Urine Mucus FEW /lpf (OCC) Red Blood Count 3.43 MIL/MM3 (4.00-5.30) Hemoglobin 11.2 GM/DL (11.6-15.3) Hematocrit 31.3 % (35.0-46.0) Albumin 3.0 GM/DL (3.4-5.0) Test 08/20/17 04:52 Red Blood Count 3.55 MIL/MM3 (4.00-5.30) Hematocrit 32.9 % (35.0-46.0) Neutrophils (%) (Auto) 70.4 % (16.0-70.0) Blood Urea Nitrogen 6 MG/DL (7-18) Calcium Level 7.9 MG/DL (8.5-10.1) Chloride Level 108 MEQ/L (98-107) Estimat Glomerular Filtration Rate 61 ML/MIN (>89) PE at Discharge GENERAL: 72-year-old female, sitting up in chair. Eating comfortably SKIN: Quarter-sized area of erythema and minimal swelling noted on the left cheek, adjacent to nose with no extension, similar to previous exam. Area is non -tender. Noticeable amount of hair on her chin. HEENT: Atraumatic. Normocephalic. Extraocular motion intact. No obvious lymphadenopathy on palpation. Moist mucous membranes. Poor dentition. NECK: Trachea midline. CARDIOVASCULAR: Regular rate and rhythm. No murmurs appreciated. RESPIRATORY: No accessory muscle use. Mild wheezing throughout lobes on posterior auscultation, consistent with smoking history GASTROINTESTINAL: Abdomen soft, obese, non-tender, nondistended, normal bowel sounds. MUSCULOSKELETAL: No obvious deformities. No clubbing. No cyanosis. No calf tenderness. NEUROLOGICAL: Awake and alert. No obvious cranial nerve deficits. Motor grossly within normal limits. Normal speech. PSYCHIATRIC: Appropriate mood and affect; insight and judgment normal. Renae Velazquez MD R2 Aug 20, 2017 10:59
== END 2017-08-20 18:13 | disposition home or self-care (01) | DRG 603 ==
LOC: NEPC 14:27 → NEDA 19:00 → N07B 21:48
PROVIDERS: ADMIT Family Medicine; ATTEND Family Medicine
DX: L03.211 Cellulitis of face (principal); N17.9 Acute kidney failure, unspecified; I95.9 Hypotension, unspecified; E88.09 Other disorders of plasma-protein metabolism, not elsewhere classified; E83.42 Hypomagnesemia; E83.51 Hypocalcemia; B95.8 Unspecified staphylococcus as the cause of diseases classified elsewhere; A46 Erysipelas; E87.6 Hypokalemia; B37.2 Candidiasis of skin and nail; R15.9 Full incontinence of feces; I10 Essential (primary) hypertension; K21.9 Gastro-esophageal reflux disease without esophagitis; M54.5 Low back pain; G89.29 Other chronic pain; M19.90 Unspecified osteoarthritis, unspecified site; F17.210 Nicotine dependence, cigarettes, uncomplicated; F41.9 Anxiety disorder, unspecified
CPT/HCPCS: 70487; 80048; 80053; 81001; 82272; 82607; 82746; 83605; 83735; 84100; 84155; 84443; 85025; 85610; 85730; 87040; 87077; 87086; 87186; 87328; 87329; 87493; 87506; 87804; 93005; 96365; J0610; J1644; J3475; J3480; J7030; Q9967

== ENCOUNTER 2017-10-01 01:50 | Inpatient (IN) | payer MEDICARE, MEDICAID ==
[2017-10-01] VITALS (16 sets, daily range): BP systolic 136–198; BP diastolic 18–116; PULSE 22–108; RESP 16–22; TEMP 97.7–99.3; O2SAT 95–100
[~2017-10-01] VITALS: Ht 157.5 cm; Wt 89.0 kg
[~2017-10-01 01:50] MED LIST changes: +AUGM875T3 PO; -CHLO25TA2 PO; +CHOL4POW4 PO; +LACT PO; +METR250 PO; +Nystatin Oint TOPICAL; +POTA20TA5 PO
[2017-10-01] MEDS ORDERED: PROPOFOL 500 MG/50 ML INJ 50 ML ONE ×2 (01:54→05:52)
[2017-10-01] MEDS ORDERED: NITROGLYCERIN-D5W 50 MG/250 ML 250 ML IV ONE (02:15)
--- NOTE | 2017-10-01 02:58 | RADRPT ---
EXAM DATE: 10/01/2017 2:46 AM EDT AGE/SEX: 72 years / Female INDICATIONS: Intubation- shortness of breath. CLINICAL DATA: This is the patient's initial encounter. Patient reports that signs and symptoms have been present for 1 day and indicates a pain score of Nonresponsive. MEDICAL/SURGICAL HISTORY: Non-responsive. Non-responsive. COMPARISON: [facility] [place], CHEST SINGLE AP, 07/01/2015. . FINDINGS: There is patchy bibasilar airspace consolidation. No large effusions seen. No pneumothorax. Heart size stable, within normal limits. Patient is intubated. Endotracheal tube tip is in the right mainstem bronchus. Nasogastric tube courses into the stomach. CONCLUSION: 1. Right mainstem bronchus intubation. The endotracheal tube should be pulled back 4 to 5 cm. 2. Patchy consolidation of both lung bases. Electronically signed by: Teo Begum MD 10/01/2017 2:57 AM EDT
[2017-10-01] MEDS ORDERED: PIPERACIL-TAZO 3.375 GM PREMIX 50 ML IV ONE (03:00)
[2017-10-01 03:23] LABS: AUTOMATED NEUTROPHIL # 7.6 TH/MM3 (1.8-7.7); BASOPHIL # 0.2 TH/MM3 (0-0.2); BASOPHIL % 1.2 % (0.0-2.0); EOSINOPHIL # 0.4 TH/MM3 (0-0.4); EOSINOPHIL % 2.7 % (0.0-4.0); HEMATOCRIT 40.6 % (35.0-46.0); HEMOGLOBIN 13.9 GM/DL (11.6-15.3); LYMPH % 42.2 % (9.0-44.0); LYMPHOCYTE # 6.8 TH/MM3 (1.0-4.8); MEAN CELL VOLUME 94.2 FL (80.0-100.0); MEAN CORPUSCULAR HEMOGLOBIN 32.2 PG (27.0-34.0); MEAN CORPUSCULAR HGB CONC 34.2 % (32.0-36.0); MEAN PLATELET VOLUME 9.7 FL (7.0-11.0); MONOCYTE # 1.1 TH/MM3 (0-0.9); NEUT % 46.9 % (16.0-70.0); PLATELET COUNT 366 TH/MM3 (150-450); RED BLOOD COUNT 4.32 MIL/MM3 (4.00-5.30); RED CELL DISTRIBUTION WIDTH 13.6 % (11.6-17.2); WHITE BLOOD COUNT 16.2 TH/MM3 (4.0-11.0)
[2017-10-01 03:35] LABS: BACTERIA, URINE MANY /hpf; BILIRUBIN, URINE NEG (NEG); BLOOD, URINE TRACE (NEG); GLUCOSE,URINE NEG (NEG); HYALINE CAST, URINE 2 /lpf (RARE); KETONE, URINE NEG (NEG); MUCUS URINE FEW /lpf (OCC); NITRITE,URINE NEG (NEG); PH, URINE 7.5 (5.0-8.5); SQUAMOUS EPITHELIAL CELL URINE <1 /hpf (0-5); URINE COLOR YELLOW (YELLW/STRAW); URINE LEUKOCYTE ESTERASE LARGE (NEG); WHITE BLOOD CELL CLUMPS OCC
[2017-10-01 04:02] LABS: ALBUMIN 3.4 GM/DL (3.4-5.0); BICARBONATE 24.6 MEQ/L (21.0-32.0); CALCIUM 6.4 MG/DL (8.5-10.1); CREATININE 1.12 MG/DL (0.50-1.00); TOTAL BILIRUBIN ADULT 0.7 MG/DL (0.2-1.0); TOTAL PROTEIN 7.5 GM/DL (6.4-8.2); TROPONIN I 0.02 NG/ML (0.02-0.05)
[2017-10-01 04:03] LABS: CALCIUM-PROTEIN CORRECTED 6.3 MG/DL (8.5-10.1)
[2017-10-01 04:08] LABS: BANDS 3 % (0-6); LYMPHOCYTES 48 % (9-44); MONOCYTES 5 % (0-8); NEUTROPHIL # MANUAL DIFF 7.1 TH/MM3 (1.8-7.7); POLYS (SEG NEUTROPHILS) 41 % (16-70)
[2017-10-01] MEDS ORDERED: CALCIUM GLUCONATE INJ 2 GM in SODIUM CHLORIDE 0.9% INJ 100 ML IV ONE (04:15)
--- NOTE | 2017-10-01 04:42 | PD ---
HPI Chief Complaint: Respiratory Distress Time Seen by Provider: 01:52 Travel History International Travel<30 days: No Contact w/Intl Traveler<30days: No History of Present Illness HPI 72-year-old female arrives via [facility] from home. She was intubated with a Combi-tube prehospital for hypoxia and arrives with a pulse ox of 88% The call was for shortness of breath. Patient has a history of CHF. Upon arrival she was intubated with an ETT (see procedure note). No additional history is available at this time [facility] Past Medical History Arthritis: Yes Anxiety: Yes Cancer: No Cardiovascular Problems: Yes High Cholesterol: Yes Chemotherapy: No Endocrine: No GERD: Yes (gerd) Genitourinary: No Headaches: Yes Hypertension: Yes Immune Disorder: No Implanted Vascular Access Dvce: No Musculoskeletal: Yes Neurologic: No Psychiatric: Yes Reproductive: No Respiratory: No Radiation Therapy: No Past Surgical History Other Surgery: No Social History Alcohol Use: No Tobacco Use: Yes (05/09 ppd) Substance Use: No Allergies-Medications (Allergen,Severity, Reaction): Coded Allergies: No Known Allergies (Verified Adverse Reaction, Unknown, 08/17/17) Reported Meds & Prescriptions Reported Meds & Active Scripts Active Augmentin (Amoxicillin-Clavulanate) 875-125 Mg Tab 1 Tab PO BID 11 Days [Nystatin Oint] 15 APPLIC/15 GM Oint 1 Applic TOPICAL Q8HR 30 Days Acidophilus/l-Sporogenes (Lactobacillus Acidophilus) 35 Million Cell-25 Million Cell Tab 1 Tab PO Q12HR 30 Days Potassium Chloride Microencaps 20 Meq Tab 20 Meq PO Q12HR 30 Days Cholestyramine 4 Gm/Pkt Powd 4 Gm PO DAILY 30 Days 1 packet contains 4 grams of cholestyramine. Flagyl (Metronidazole) 250 Mg Tab 500 Mg PO BID 30 Days Atorvastatin (Atorvastatin Calcium) 40 Mg Tab 40 Mg PO HS Tramadol (Tramadol HCl) 50 Mg Tab 100 Mg PO Q6H PRN Metoprolol Tartrate 25 Mg Tab 25 Mg PO BID Mobic (Meloxicam) 15 Mg Tab 15 Mg PO DAILY Ativan (Lorazepam) 0.5 Mg Tab 0.5 Mg PO Q8H PRN Naproxen 500 Mg Tab 500 Mg PO BID PRN Omeprazole 20 Mg Tab 20 Mg PO DAILY Review of Systems ROS Limitations: Intubated, Unresponsive Except as stated in HPI: all other systems reviewed are Neg Respiratory: Positive: Shortness of Breath Physical Exam Narrative GENERAL: Ill-appearing 72-year-old female intubated on arrival SKIN: Focused skin assessment warm/dry. HEAD: Atraumatic. Normocephalic. EYES: Pupils minimally reactive. ENT: No nasal bleeding or discharge. Mucous membranes pink and moist. NECK: Trachea midline. CARDIOVASCULAR: Tachycardic on arrival. RESPIRATORY: Bilateral rales. GASTROINTESTINAL: Abdomen soft, non-tender, nondistended. Hepatic and splenic margins not palpable. MUSCULOSKELETAL: No obvious deformities. No clubbing. No cyanosis. No edema. NEUROLOGICAL: Unresponsive after having received Versed and etomidate prehospital Data Data Last Documented VS Vital Signs Date Time Temp Pulse Resp B/P (MAP) Pulse Ox O2 Delivery O2 Flow Rate FiO2 10/01/17 03:40 100 60 10/01/17 02:34 116 223/125 10/01/17 02:00 97.7 10/01/17 02:00 Room Air 10/01/17 01:50 22 Orders Orders Propofol 500 Mg/50 Ml Inj (Diprivan 500 (10/01/17 01:54) Complete Blood Count With Diff (10/01/17 01:52) Comprehensive Metabolic Panel (10/01/17 01:52) Lactic Acid (10/01/17 01:52) B-Type Natriuretic Peptide (10/01/17 01:52) Troponin I (10/01/17 01:52) Creatine Kinase (Cpk) (10/01/17 01:52) Chest, Single Ap (10/01/17 ) Urinalysis - C+S If Indicated (10/01/17 01:52) Furosemide Inj (Lasix Inj) (10/01/17 09:00) Nitroglycerin-D5w 50 Mg/250 Ml (Nitrogly (10/01/17 02:15) Piperacil-Tazo 3.375 Gm Premix (Zosyn 3. (10/01/17 03:00) Urine Culture (10/01/17 02:10) Arterial Blood Gas (Abg) (10/01/17 03:25) Calcium Gluconate Inj (Calcium Gluconate (10/01/17 04:15) Admit Order (Ed Use Only) (10/01/17 ) Labs Laboratory Tests Test 10/01/17 02:00 10/01/17 02:10 10/01/17 02:20 10/01/17 03:25 White Blood Count 16.2 TH/MM3 Red Blood Count 4.32 MIL/MM3 Hemoglobin 13.9 GM/DL Hematocrit 40.6 % Mean Corpuscular Volume 94.2 FL Mean Corpuscular Hemoglobin 32.2 PG Mean Corpuscular Hemoglobin Concent 34.2 % Red Cell Distribution Width 13.6 % Platelet Count 366 TH/MM3 Mean Platelet Volume 9.7 FL Neutrophils (%) (Auto) 46.9 % Lymphocytes (%) (Auto) 42.2 % Monocytes (%) (Auto) 7.0 % Eosinophils (%) (Auto) 2.7 % Basophils (%) (Auto) 1.2 % Neutrophils # (Auto) 7.6 TH/MM3 Lymphocytes # (Auto) 6.8 TH/MM3 Monocytes # (Auto) 1.1 TH/MM3 Eosinophils # (Auto) 0.4 TH/MM3 Basophils # (Auto) 0.2 TH/MM3 CBC Comment AUTO DIFF Differential Total Cells Counted 100 Neutrophils % (Manual) 41 % Band Neutrophils % 3 % Lymphocytes % 48 % Monocytes % 5 % Eosinophils % 3 % Neutrophils # (Manual) 7.1 TH/MM3 Differential Comment FINAL DIFF MANUAL Atypical Lymphocytes % Platelet Estimate NORMAL Platelet Morphology Comment NORMAL Blood Urea Nitrogen 9 MG/DL Creatinine 1.12 MG/DL Random Glucose 145 MG/DL Total Protein 7.5 GM/DL Albumin 3.4 GM/DL Calcium Level 6.4 MG/DL Alkaline Phosphatase 86 U/L Aspartate Amino Transf (AST/SGOT) 25 U/L Alanine Aminotransferase (ALT/SGPT) 22 U/L Total Bilirubin 0.7 MG/DL Sodium Level 143 MEQ/L Potassium Level 3.4 MEQ/L Chloride Level 104 MEQ/L Carbon Dioxide Level 24.6 MEQ/L Anion Gap 14 MEQ/L Estimat Glomerular Filtration Rate 48 ML/MIN Protein Corrected Calcium 6.3 MG/DL Total Creatine Kinase 186 U/L Troponin I 0.02 NG/ML B-Type Natriuretic Peptide 401 PG/ML Urine Color YELLOW Urine Turbidity HAZY Urine pH 7.5 Urine Specific [place] 1.015 Urine Protein GREATER THAN 600 mg/dL Urine Glucose (UA) NEG mg/dL Urine Ketones NEG mg/dL Urine Occult Blood TRACE Urine Nitrite NEG Urine Bilirubin NEG Urine Urobilinogen 2.0 MG/DL Urine Leukocyte Esterase LARGE Urine RBC 3 /hpf Urine WBC /hpf Urine WBC Clumps OCC Urine Squamous Epithelial Cells <1 /hpf Urine Bacteria MANY /hpf Urine Hyaline Casts 2 /lpf Urine Mucus FEW /lpf Microscopic Urinalysis Comment CATH-CULTURE IND Lactic Acid Level 4.5 mmol/L Blood Gas Puncture Site RT RADIAL Blood Gas Patient Temperature 98.6 Blood Gas HCO3 23 mmol/L Blood Gas Base Excess -1.5 mmol/L Blood Gas Oxygen Saturation 98 % Arterial Blood pH 7.37 Arterial Blood Partial Pressure CO2 40 mmHg Arterial Blood Partial Pressure O2 197 mmHG Arterial Blood Oxygen Content 18.3 Vol % Arterial Blood Carboxyhemoglobin 1.6 % Arterial Blood Methemoglobin 0.5 % Blood Gas Hemoglobin 13.0 G/DL Oxygen Delivery Device VENTILATOR Blood Gas Ventilator Setting Blood Gas Inspired Oxygen 100 % [facility] Medical Decision Making Medical Screen Exam Complete: Yes Emergency Medical Condition: Yes Differential Diagnosis urosepsis, CHF, CVA, NV Narrative Course Patient arrived with Combitube. She was intubated on arrival. Patient was found to be septic and started on Zosyn. She had bilateral basilar infiltrate and started on nitroglycerin and given Lasix. She remained hyper intensive for the entire stay in the ER. Her heart rate improved. She was subsequently admitted to the ICU under the care of Dr. Esteban Critical Care Narrative Patient required greater than 50 minutes of critical care time excluding procedures Procedures Procedure Narrative Emergent intubation: INTUBATION: The patient was put in optimal position for the procedure. Rapid sequence intubation was initiated by me using 50 milligrams of rocuronium IV. The patient was intubated with a 8-0 cuffed endotracheal on the first attempt without complication. tube. Tube placement was confirmed by visualization of the tube and balloon passing through the cords, capnometry and subsequent chest x-ray. Chest x-ray demonstrated right main intubation, tube was backed up 3 cm. Breath sounds were equal and well aerated bilaterally postintubation. No breath sounds over stomach. Patient tolerated procedure well. Diagnosis Primary Impression: Hypoxia Additional Impressions: Sepsis Qualified Codes: A41.9 - Sepsis, unspecified organism UTI (urinary tract infection) Qualified Codes: N30.00 - Acute cystitis without hematuria CHF (congestive heart failure) Qualified Codes: I50.9 - Heart failure, unspecified Hypocalcemia Admitting Information Admitting Physician Requests: Admit Condition: Serious Ballarini,V. Lambert Teo DO October 01, 2017 04:42
[2017-10-01] MEDS ORDERED: ONDANSETRON HCL 4 MG/2 ML VIAL IV PUSH PRN (05:00)
[2017-10-01] MEDS ORDERED: MAGNESIUM HYDROXIDE SUSP 30 ML CUP PO PRN (05:00)
[2017-10-01] MEDS ORDERED: BISACODYL 10 MG SUPP RECTAL PRN (05:00)
[2017-10-01] MEDS ORDERED: LORazepam 2 MG/ML VIAL IV PUSH PRN (05:00)
[2017-10-01] MEDS ORDERED: SODIUM CHLORIDE 0.9% FLUSH 10 ML FLUSH IV FLUSH PRN (05:00)
[2017-10-01] MEDS ORDERED: ACETAMINOPHEN 325 MG TAB PO PRN (05:00)
[2017-10-01] MEDS ORDERED: NURSING INFORMATION XX SCH (05:00)
[2017-10-01] MEDS ORDERED: SENNOSIDES 8.6 MG TAB PO PRN (05:00)
[2017-10-01] MEDS ORDERED: Vancomycin Consult Pharmacy 1 EA OTHER SCH (05:00)
[2017-10-01] MEDS ORDERED: CHLORHEXIDINE GLUCONATE 2 % 1 PACK (2 CLOTHS) TOP PRN (05:00)
[2017-10-01] MEDS: HEPARIN SODIUM - SQ 10,000 UNITS/ML VIAL SQ SCH ×3 (05:00→21:50)
[2017-10-01] MEDS ORDERED: RESP: ALBUTEROL 2.5 MG/IPRATROPIUM 0.5 MG NEB (PRN) INH (05:00)
[2017-10-01] MEDS ORDERED: PROPOFOL 1000 MG/100 ML INJ 100 ML IV PRN (05:00)
[2017-10-01] MEDS ORDERED: LACTULOSE SYRUP 20 GM/30 ML CUP PO PRN (05:00)
--- NOTE | 2017-10-01 05:04 | HHI.HP ---
HPI Service Critical Care Medicine Primary Care Physician No Primary Care Physician Admission Diagnosis UROSEPSIS, CHF Diagnosis: Travel History International Travel<30 Days: No Contact w/Intl Traveler <30 Da: No Traveled to Known Affected Are: No History of Present Illness 72-year-old female presented for an evaluation of shortness of breath and acute hypoxemic respiratory failure. She was intubated with a Combi-tube prehospital for hypoxia and arrives with a pulse ox of 88%. She was immediately intubated by ED attending with the ET tube and is now admitted to ICU. No further information is available. Review of Systems ROS Unable to obtain patient sedated and intubated Past Family Social History Allergies: Coded Allergies: No Known Allergies (Verified Allergy, Unknown, 10/04/17) Past Medical History HTN GERD Anxiety Chronic Low back pain Anemia "Stomach infection" in 2016 Carpal tunnel syndrome Past Surgical History None Reported Medications Reported Meds & Active Scripts Active Augmentin (Amoxicillin-Clavulanate) 875-125 Mg Tab 1 Tab PO BID 11 Days [Nystatin Oint] 15 APPLIC/15 GM Oint 1 Applic TOPICAL Q8HR 30 Days Acidophilus/l-Sporogenes (Lactobacillus Acidophilus) 35 Million Cell-25 Million Cell Tab 1 Tab PO Q12HR 30 Days Potassium Chloride Microencaps 20 Meq Tab 20 Meq PO Q12HR 30 Days Cholestyramine 4 Gm/Pkt Powd 4 Gm PO DAILY 30 Days 1 packet contains 4 grams of cholestyramine. Flagyl (Metronidazole) 250 Mg Tab 500 Mg PO BID 30 Days Atorvastatin (Atorvastatin Calcium) 40 Mg Tab 40 Mg PO HS Tramadol (Tramadol HCl) 50 Mg Tab 100 Mg PO Q6H PRN Metoprolol Tartrate 25 Mg Tab 25 Mg PO BID Mobic (Meloxicam) 15 Mg Tab 15 Mg PO DAILY Ativan (Lorazepam) 0.5 Mg Tab 0.5 Mg PO Q8H PRN Naproxen 500 Mg Tab 500 Mg PO BID PRN Omeprazole 20 Mg Tab 20 Mg PO DAILY Active Ordered Medications Current Medications Medications (Trade) Dose Ordered Sig/Tameka Route PRN Reason Start Time Stop Time Status Last Admin Dose Admin Furosemide (Lasix Inj) 40 mg DAILY IV PUSH 10/01/17 09:00 Calcium Gluconate 2 gm/Sodium Chloride 120 ml @ 120 mls/hr ONCE ONCE IV 10/01/17 04:15 10/01/17 05:14 Atorvastatin Calcium (Lipitor) 40 mg HS PO 10/01/17 21:00 Cholestyramine Resin (Questran 4 Gm Pkt) 4 gm DAILY@0600 PO 10/01/17 06:00 Lactobacillus Acidophilus (Lactinex) 1 tab Q12HR PO 10/01/17 09:00 Sodium Chloride 1,000 ml @ 84 mls/hr [id number] IV 10/01/17 04:49 UNV Sodium Chloride (NS Flush) 2 ml UNSCH PRN IV FLUSH FLUSH AFTER USING IV ACCESS 10/01/17 05:00 UNV Sodium Chloride (NS Flush) 2 ml BID IV FLUSH 10/01/17 09:00 UNV Acetaminophen (Tylenol) 650 mg Q6H PRN PO PAIN 1-10 AND/OR FEVER >101F 10/01/17 05:00 UNV Famotidine (Pepcid Inj) 20 mg Q12HR IV PUSH 10/01/17 09:00 UNV Lorazepam (Ativan Inj) 1 mg Q1H PRN IV PUSH Agitation/Sedation 10/01/17 05:00 UNV Artificial Tears (Tears Naturale Opth Soln) 1 drop TID EACH EYE 10/01/17 09:00 UNV Ondansetron HCl (Zofran Inj) 4 mg Q6H PRN IV PUSH NAUSEA OR VOMITING 10/01/17 05:00 UNV Albuterol/ Ipratropium (Duoneb Neb) 1 ampule Q6HR NEB INH 10/01/17 05:00 UNV Albuterol/ Ipratropium (Duoneb Neb) 1 ampule Q2HR NEB PRN INH WHEEZING 10/01/17 05:00 UNV Heparin Sodium (Porcine) (Heparin Inj) 5,000 units Q8H SQ 10/01/17 05:00 UNV Miscellaneous Information ([facility] [place] [facility] Information) 1 [id number] XX 10/01/17 05:00 UNV Chlorhexidine Gluconate (Chlorhexidine 2% Cloth) 3 pack Taper DAILY@04 TOP 10/02/17 04:00 09/28/18 03:59 UNV Chlorhexidine Gluconate (Chlorhexidine 2% Cloth) 3 pack UNSCH PRN TOP HYGIENIC CARE 10/01/17 05:00 UNV Senna/Docusate Sodium (Nicole-Colace) 1 tab BID PO 10/01/17 09:00 UNV Magnesium Hydroxide (Milk Of Magnesia Liq) 30 ml Q12H PRN PO Mild constipation 10/01/17 05:00 UNV Sennosides (Senokot) 17.2 mg Q12H PRN PO Moderate constipation 10/01/17 05:00 UNV Bisacodyl (Dulcolax Supp) 10 mg DAILY PRN RECTAL SEVERE CONSITIPATION 10/01/17 05:00 UNV Lactulose (Lactulose Liq) 30 ml DAILY PRN PO SEVERE CONSITIPATION 10/01/17 05:00 UNV Chlorhexidine Gluconate (Peridex 0.12% Liq) 15 ml BID@08,20 MT 10/01/17 08:00 UNV Propofol 100 ml @ 0 mls/hr TITRATE PRN IV SEDATION 10/01/17 05:00 UNV Piperacillin Sod/ Tazobactam Sod 100 ml @ 200 mls/hr Q6H IV 10/01/17 05:00 UNV Pharmacy Profile Note 0 ml @ 0 mls/hr UNSCH XX 10/01/17 05:00 UNV Methylprednisolone Sodium Succinate (SoluMEDROL INJ) 40 mg Q12H IV PUSH 10/01/17 05:00 UNV Family History Reported Medications Mother - of "old age" at age 86 Father - "heart burst" at age 56 Siblings - sister up [place]. Not in touch with her. Children - 1 daughter. Not very close with her. Social History Lives in [facility] with and [id number]. Has a dog and cat at home. Smoking - 10-15 cigarettes a day. Started smoking at age 18. Alcohol - "around once a year" Drugs - denies Physical Exam Vital Signs Vital Signs Date Time Temp Pulse Resp B/P (MAP) Pulse Ox O2 Delivery O2 Flow Rate FiO2 10/01/17 04:42 100 60 10/01/17 03:40 100 60 10/01/17 02:34 116 223/125 10/01/17 01:50 98 100 Physical Exam GENERAL: Elderly appearing female sedated and intubated SKIN: Warm and dry. HEAD: Normocephalic. EYES: No scleral icterus. No injection or drainage. NECK: Supple, trachea midline. No JVD or lymphadenopathy. CARDIOVASCULAR: Regular rate and rhythm without murmurs, gallops, or rubs. RESPIRATORY: Breath sounds equal bilaterally. No accessory muscle use. GASTROINTESTINAL: Abdomen soft, non-tender, nondistended. MUSCULOSKELETAL: No cyanosis, or edema. BACK: Nontender without obvious deformity. NEURO EXAM: Sedated and intubated. Off sedation moves all 4 extremities following commands. Laboratory Laboratory Tests Test 10/01/17 02:00 10/01/17 02:10 10/01/17 02:20 10/01/17 03:25 White Blood Count 16.2 Red Blood Count 4.32 Hemoglobin 13.9 Hematocrit 40.6 Mean Corpuscular Volume 94.2 Mean Corpuscular Hemoglobin 32.2 Mean Corpuscular Hemoglobin Concent 34.2 Red Cell Distribution Width 13.6 Platelet Count 366 Mean Platelet Volume 9.7 Neutrophils (%) (Auto) 46.9 Lymphocytes (%) (Auto) 42.2 Monocytes (%) (Auto) 7.0 Eosinophils (%) (Auto) 2.7 Basophils (%) (Auto) 1.2 Neutrophils # (Auto) 7.6 Lymphocytes # (Auto) 6.8 Monocytes # (Auto) 1.1 Eosinophils # (Auto) 0.4 Basophils # (Auto) 0.2 CBC Comment AUTO DIFF Differential Total Cells Counted 100 Neutrophils % (Manual) 41 Band Neutrophils % 3 Lymphocytes % 48 Monocytes % 5 Eosinophils % 3 Neutrophils # (Manual) 7.1 Differential Comment FINAL DIFF MANUAL Atypical Lymphocytes Platelet Estimate NORMAL Platelet Morphology Comment NORMAL Blood Urea Nitrogen 9 Creatinine 1.12 Random Glucose 145 Total Protein 7.5 Albumin 3.4 Calcium Level 6.4 Alkaline Phosphatase 86 Aspartate Amino Transf (AST/SGOT) 25 Alanine Aminotransferase (ALT/SGPT) 22 Total Bilirubin 0.7 Sodium Level 143 Potassium Level 3.4 Chloride Level 104 Carbon Dioxide Level 24.6 Anion Gap 14 Estimat Glomerular Filtration Rate 48 Protein Corrected Calcium 6.3 Total Creatine Kinase 186 Troponin I 0.02 B-Type Natriuretic Peptide 401 Urine Color YELLOW Urine Turbidity HAZY Urine pH 7.5 Urine Specific Moran 1.015 Urine Protein GREATER THAN 600 Urine Glucose (UA) NEG Urine Ketones NEG Urine Occult Blood TRACE Urine Nitrite NEG Urine Bilirubin NEG Urine Urobilinogen 2.0 Urine Leukocyte Esterase LARGE Urine RBC 3 Urine WBC Urine WBC Clumps OCC Urine Squamous Epithelial Cells <1 Urine Bacteria MANY Urine Hyaline Casts 2 Urine Mucus FEW Microscopic Urinalysis Comment CATH-CULTURE IND Lactic Acid Level 4.5 Blood Gas Puncture Site RT RADIAL Blood Gas Patient Temperature 98.6 Blood Gas HCO3 23 Blood Gas Base Excess -1.5 Blood Gas Oxygen Saturation 98 Arterial Blood pH 7.37 Arterial Blood Partial Pressure CO2 40 Arterial Blood Partial Pressure O2 197 Arterial Blood Oxygen Content 18.3 Arterial Blood Carboxyhemoglobin 1.6 Arterial Blood Methemoglobin 0.5 Blood Gas Hemoglobin 13.0 Oxygen Delivery Device VENTILATOR Blood Gas Ventilator Setting Blood Gas Inspired Oxygen 100 Date/Time Source Procedure Growth Status 10/01/17 02:10 Urine Catheterized Urine Urine Culture Pending Received Result Diagram: 10/01/17 0200 10/01/17 0200 Imaging Last 24 hours Impressions Chest X-Ray 10/01/17 0000 Signed Impressions: CONCLUSION: 1. Right mainstem bronchus intubation. The endotracheal tube should be pulled back 4 to 5 cm. 2. Patchy consolidation of both lung bases. Septic Shock Reassessment Septic shock perfusion: reassessment completed Caprini VTE Risk Assessment Caprini VTE Risk Assessment: Mod/High Risk (score >= 2) Caprini Risk Assessment Model Point Value = 1 Point Value = 2 Point Value = 3 Point Value = 5 Age 41-60 Minor surgery BMI > 25 kg/m2 Swollen legs Varicose veins or History of unexplained or recurrent spontaneous Oral contraceptives or hormone replacement Sepsis (< 1 month) Serious lung disease, including pneumonia (< 1 month) Abnormal pulmonary function Acute myocardial infarction Congestive heart failure (< 1 month) History of inflammatory bowel disease Medical patient at bed rest Age 61-74 Arthroscopic surgery Major open surgery (> 45 min) Laparoscopic surgery (> 45 min) Malignancy Confined to bed (> 72 hours) Immobilizing plaster cast Central venous access Age >= 75 History of VTE Family history of VTE Factor V Leiden Prothrombin [id number] Lupus anticoagulant Anticardiolipin antibodies Elevated serum homocysteine Heparin-induced thrombocytopenia Other congenital or acquired thrombophilia Stroke (< 1 month) Elective arthroplasty Hip, pelvis, or leg fracture Acute spinal cord injury (< 1 month) Prophylaxis Regimen Total Risk Factor Score Risk Level Prophylaxis Regimen 0-1 Low Early ambulation 2 Moderate Order ONE of the following: *Sequential Compression Device (SCD) *Heparin 5000 units SQ BID 3-4 Higher Order ONE of the following medications: *Heparin 5000 units SQ TID *Enoxaparin/Lovenox 40 mg SQ daily (WT < 150 kg, CrCl > 30 mL/min) *Enoxaparin/Lovenox 30 mg SQ daily (WT < 150 kg, CrCl > 10-29 mL/min) *Enoxaparin/Lovenox 30 mg SQ BID (WT < 150 kg, CrCl > 30 mL/min) AND/OR *Sequential Compression Device (SCD) 5 or more Highest Order ONE of the following medications: *Heparin 5000 units SQ TID (Preferred with Epidurals) *Enoxaparin/Lovenox 40 mg SQ daily (WT < 150 kg, CrCl > 30 mL/min) *Enoxaparin/Lovenox 30 mg SQ daily (WT < 150 kg, CrCl > 10-29 mL/min) *Enoxaparin/Lovenox 30 mg SQ BID (WT < 150 kg, CrCl > 30 mL/min) AND *Sequential Compression Device (SCD) Assessment and Plan Assessment and Plan Respiratory failure -Acute on chronic -Underlying COPD -DuoNeb scheduled and as needed -Empiric antibiotic -Follow-up cultures and de-escalate per sensitivity -SBT daily -Vent bundle -Rule out acute coronary syndrome -Series of troponins and EKG HTN -Hold metoprolol due to borderline blood pressure GERD -IV Pepcid Hypocalcemia -IV replacement Hypokalemia -ICU electrolyte replacement protocol Anxiety -Lorazepam as needed Anemia -Iron supplement -Monitor H&H and transfuse for hemoglobin less than 7 DVT GI prophylaxis -Tests SCDs -Subcu heparin -Pepcid Critical Care: The total critical care time was 35 minutes. Time to perform other separately billable procedures was not included in the critical care time. David Esteban MD October 01, 2017 05:04
[2017-10-01] MEDS: RESP: ALBUTEROL 2.5 MG/IPRATROPIUM 0.5 MG NEB (SCH) INH ×4 (05:14→20:21)
[2017-10-01] MEDS ORDERED: POTASSIUM PHOSPHATE MONOBASIC 500 MG TAB PO/TUBE PRN (05:15)
[2017-10-01] MEDS ORDERED: POTASSIUM CHLOR 40 MEQ PREMIX 100 ML IV PRN ×2 (05:15)
[2017-10-01] MEDS ORDERED: MAGNESIUM SULFATE INJ 4 GM in SODIUM CHLORIDE 0.9% INJ 92 ML IV PRN (05:15)
[2017-10-01] MEDS ORDERED: SODIUM PHOSPHATE INJ 30 MMOL in SODIUM CHLOR 0.9% 250 ML INJ 240 ML IV PRN (05:15)
[2017-10-01] MEDS ORDERED: POTASSIUM PHOSPHATE INJ 30 MMOL in SODIUM CHLOR 0.9% 250 ML INJ 250 ML IV PRN (05:15)
[2017-10-01] MEDS ORDERED: POTASSIUM PHOSPHATE MONOBASIC 500 MG TAB PO PRN (05:15)
[2017-10-01] MEDS ORDERED: MAGNESIUM OXIDE 400 MG TAB PO PRN (05:15)
[2017-10-01] MEDS ORDERED: POTASSIUM CHLOR 20 MEQ PREMIX 100 ML IV PRN (05:15)
[2017-10-01] MEDS ORDERED: MAGNESIUM SULFATE INJ 2 GM in SODIUM CHLORIDE 0.9% INJ 96 ML IV PRN (05:15)
[2017-10-01] MEDS ORDERED: POTASSIUM CHLORIDE 25 MEQ EFFERVESCENT TAB PO PRN (05:15)
[2017-10-01] MEDS: CHOLESTYRAMINE 4 GM PACKET PO SCH (06:00)
[2017-10-01] MEDS: NEED HT & WT SCH ×3 (06:15→09:45)
[2017-10-01] MEDS: SODIUM CHLOR 0.9% 1000 ML INJ 1,000 ML IV SCH ×2 (06:48→20:23)
[2017-10-01] MEDS: methylPREDNISolone SOD SUCC 40 MG/1 ML VIAL IV PUSH SCH ×2 (06:48→16:43)
[2017-10-01] MEDS: CHLORHEXIDINE 0.12% (ORAL KIT) 15 ML CUP MT SCH ×2 (08:00→20:00)
[2017-10-01] MEDS: ARTIFICIAL TEARS OPTH SOLN 15 ML BTL EACH EYE SCH ×3 (09:00→16:44)
[2017-10-01] MEDS: PROPOFOL 1000 MG/100 ML INJ 100 ML IV PRN ×3 (09:10→20:27)
[2017-10-01] MEDS: FAMOTIDINE 20 MG/2 ML VIAL IV PUSH SCH ×2 (09:11→21:50)
[2017-10-01] MEDS: POTASSIUM CHLOR 20 MEQ PREMIX 100 ML IV PRN ×2 (09:11→11:18)
[2017-10-01] MEDS: LACTOBACILLUS ACIDOPHILUS TAB PO SCH ×2 (09:12→21:50)
[2017-10-01] MEDS: DOCUSATE SODIUM 50 MG/SENNA 8.6 MG TAB PO SCH ×2 (09:12→21:50)
[2017-10-01] MEDS: SODIUM CHLORIDE 0.9% FLUSH 10 ML FLUSH IV FLUSH SCH ×2 (09:12→21:00)
[2017-10-01] MEDS: FUROSEMIDE 40 MG/4 ML VIAL IV PUSH SCH (09:32)
[2017-10-01] MEDS ORDERED: PHARMACY ORDERED LAB ONE (10:00)
[2017-10-01] MEDS: VANCOMYCIN INJ 1,250 MG in SODIUM CHLOR 0.9% 250 ML INJ 250 ML IV SCH (11:28)
[2017-10-01 12:06] LABS: PHOSPHORUS 3.6 MG/DL (2.5-4.9)
[2017-10-01 12:16] LABS: TROPONIN I 0.61 NG/ML (0.02-0.05)
[2017-10-01] MEDS: PIPERACIL-TAZO 4.5 GM PREMIX 100 ML IV SCH ×2 (12:40→16:43)
--- NOTE | 2017-10-01 13:51 | EKG ---
Date Performed: 10/01/2017 Time Performed: 09:01:46 PTAGE: 72 years EKG: Sinus rhythm . Anterolateral T wave changes are nonspecific Borderline ECG Since PREVIOUS TRACING , no significant change noted PREVIOUS TRACIN10/01/2017 02.07 DOCTOR: Jeremie Aviles Interpretating Date/Time 10/01/2017 13:50:36
--- NOTE | 2017-10-01 13:51 | EKG ---
Date Performed: 10/01/2017 Time Performed: 02:07:31 PTAGE: 72 years EKG: Sinus rhythm NONSPECIFIC ST & T-WAVE ABNORMALITY BORDERLINE ECG Since PREVIOUS TRACING , no significant change noted PREVIOUS TRACIN08/17/2017 20.28 DOCTOR: Jeremie Aviles Interpretating Date/Time 10/01/2017 13:50:22
[2017-10-01] MEDS: ATORVASTATIN 40 MG TAB PO SCH (21:50)
[2017-10-02] VITALS (16 sets, daily range): BP systolic 134–175; BP diastolic 63–107; PULSE 97–121; RESP 16–35; TEMP 97.3–99.3; O2SAT 94–100
[2017-10-02] MEDS: PROPOFOL 1000 MG/100 ML INJ 100 ML IV PRN ×2 (02:14→10:18)
[2017-10-02] MEDS: CHLORHEXIDINE GLUCONATE 2 % 1 PACK (2 CLOTHS) TOP SCH (03:39)
[2017-10-02] MEDS: RESP: ALBUTEROL 2.5 MG/IPRATROPIUM 0.5 MG NEB (SCH) INH ×4 (03:43→20:09)
[2017-10-02] MEDS: SODIUM CHLOR 0.9% 1000 ML INJ 1,000 ML IV SCH (04:12)
[2017-10-02 04:19] LABS: AUTOMATED NEUTROPHIL # 10.5 TH/MM3 (1.8-7.7); BASOPHIL % 0.2 % (0.0-2.0); LYMPH % 6.7 % (9.0-44.0); LYMPHOCYTE # 0.8 TH/MM3 (1.0-4.8); MEAN CELL VOLUME 93.6 FL (80.0-100.0); MEAN CORPUSCULAR HEMOGLOBIN 32.2 PG (27.0-34.0); MEAN CORPUSCULAR HGB CONC 34.5 % (32.0-36.0); MEAN PLATELET VOLUME 9.5 FL (7.0-11.0); MONO % 4.6 % (0.0-8.0); MONOCYTE # 0.5 TH/MM3 (0-0.9); NEUT % 88.5 % (16.0-70.0); PLATELET COUNT 251 TH/MM3 (150-450); RED BLOOD COUNT 3.74 MIL/MM3 (4.00-5.30); RED CELL DISTRIBUTION WIDTH 13.5 % (11.6-17.2); WHITE BLOOD COUNT 11.9 TH/MM3 (4.0-11.0)
[2017-10-02 04:33] LABS: INTERNATIONAL NORMALIZED RATIO 1.2 RATIO; PROTHROMBIN TIME - PATIENT 12.5 SEC (9.8-11.6)
[2017-10-02 04:52] LABS: BICARBONATE 25.1 MEQ/L (21.0-32.0); CALCIUM 6.6 MG/DL (8.5-10.1); CREATININE 1.38 MG/DL (0.50-1.00); MAGNESIUM 0.9 MG/DL (1.5-2.5); PHOSPHORUS 2.9 MG/DL (2.5-4.9); RANDOM VANCOMYCIN 8.1 COMMENT; TOTAL BILIRUBIN ADULT 0.5 MG/DL (0.2-1.0); TOTAL PROTEIN 6.8 GM/DL (6.4-8.2)
[2017-10-02 04:55] LABS: CALCIUM-PROTEIN CORRECTED 6.8 MG/DL (8.5-10.1)
[2017-10-02] MEDS: HEPARIN SODIUM - SQ 10,000 UNITS/ML VIAL SQ SCH ×3 (05:00→21:10)
[2017-10-02] MEDS: methylPREDNISolone SOD SUCC 40 MG/1 ML VIAL IV PUSH SCH ×2 (05:00→17:37)
[2017-10-02] MEDS: CHOLESTYRAMINE 4 GM PACKET PO SCH (05:08)
[2017-10-02] MEDS: PIPERACIL-TAZO 4.5 GM PREMIX 100 ML IV SCH ×4 (05:08→17:37)
--- NOTE | 2017-10-02 06:06 | HHI.CCPN ---
Subjective Remarks/Hospital Course 72-year-old female presented for an evaluation of shortness of breath and acute hypoxemic respiratory failure. She was intubated with a Combi-tube prehospital for hypoxia and arrives with a pulse ox of 88%. She was immediately intubated by ED attending with the ET tube and is now admitted to ICU. No further information is available. Subjective: 10/02: T-max 99.0. No acute events overnight. Patient noted to have elevation in troponin level ,troponin this a.m. pending. Off sedation the patient awake alert denies pain. Patient tolerating tube feeds, started on Vital high yesterday. Leukocytosis resolving. Plan for initiation of CPAP trials today Objective Vital Signs Date Time Temp Pulse Resp B/P (MAP) Pulse Ox O2 Delivery O2 Flow Rate FiO2 10/02/17 04:25 98 50 10/02/17 00:00 97.9 100 16 139/63 (88) 10/01/17 02:00 Room Air Intake and Output 10/02/17 10/02/17 10/03/17 08:00 16:00 00:00 Intake Total 200 ml Balance 200 ml Result Diagram: 10/02/17 0403 10/02/17 0403 Imaging Last 24 hours Impressions Chest X-Ray 10/01/17 0000 Signed Impressions: CONCLUSION: 1. Right mainstem bronchus intubation. The endotracheal tube should be pulled back 4 to 5 cm. 2. Patchy consolidation of both lung bases. Objective Remarks GENERAL: Elderly appearing female sedated and intubated SKIN: Warm and dry. HEAD: Normocephalic. EYES: No scleral icterus. 2 mm briskly reactive no injection or drainage. NECK: Supple, trachea midline. No JVD or lymphadenopathy. CARDIOVASCULAR: Regular rate and rhythm without murmurs, gallops, or rubs. RESPIRATORY: Breath sounds equal bilaterally. No accessory muscle use. Clear to auscultation bilaterally GASTROINTESTINAL: Abdomen soft, non-tender, nondistended. MUSCULOSKELETAL: No cyanosis, or edema. BACK: Nontender without obvious deformity. NEURO EXAM: RASS -2. Sedated and intubated. Off sedation moves all 4 extremities following commands. A/P Assessment and Plan Respiratory failure -Acute on chronic -Underlying COPD -DuoNeb scheduled and as needed -Empiric antibiotics- Zosyn and Vanc -Follow-up cultures and de-escalate per sensitivity - Begin SBT daily -Vent bundle -Rule out acute coronary syndrome -Series of troponins and EKG HTN -Hold metoprolol due to borderline blood pressure - Maintain MAP > 65mmHg GERD -IV Pepcid Hypocalcemia -IV replacement Hypokalemia -ICU electrolyte replacement protocol Anxiety -Lorazepam as needed Anemia -Iron supplement -Monitor H&H and transfuse for hemoglobin less than 7 DVT GI prophylaxis - SCDs -Subcu heparin -Pepcid my billing statement This patient remains critically ill with one or more organ systems which are or may become a threat to life. I have spent in excess of 30 minutes discontinuously in the care and management of this patient. This time is exclusive of procedures, and includes, but is not limited to, evaluation of the patient, review of the medical record, discussions with family, consultants, nursing staff, or respiratory therapy, and documentation in the medical record. Physician Josie Echavarria MD October 02, 2017 06:06
--- NOTE | 2017-10-02 06:13 | RADRPT ---
EXAM DATE: 10/02/2017 6:08 AM EDT AGE/SEX: 72 years / Female INDICATIONS: Shortness of breath, possible pulmonary disease. CLINICAL DATA: This is the patient's subsequent encounter. Patient reports that signs and symptoms h ave been present for 2 days and indicates a pain score of 4/10. MEDICAL/SURGICAL HISTORY: Non-responsive. Non-responsive. COMPARISON: [facility] – [place], CHEST SINGLE AP, 10/01/2017. . FINDINGS: The ET tube has been pulled back with tip approximately 1 cm above the denis. NG tube is present wit h tip in the stomach. Slight left lung base atelectasis and/or infiltrate is seen. CONCLUSION: Repositioning of the endotracheal tube and mild left lung base atelectasis and/or infiltrate. Electronically signed by: Andrew Holland MD 10/02/2017 6:12 AM EDT
[2017-10-02] MEDS ORDERED: CALCIUM GLUCONATE INJ 2 GM in SODIUM CHLORIDE 0.9% INJ 100 ML IV SCH (06:30)
[2017-10-02] MEDS: FUROSEMIDE 40 MG/4 ML VIAL IV PUSH SCH (08:05)
[2017-10-02] MEDS: SODIUM CHLORIDE 0.9% FLUSH 10 ML FLUSH IV FLUSH SCH ×2 (08:05→21:09)
[2017-10-02] MEDS: FAMOTIDINE 20 MG/2 ML VIAL IV PUSH SCH ×2 (08:05→21:09)
[2017-10-02] MEDS: CHLORHEXIDINE 0.12% (ORAL KIT) 15 ML CUP MT SCH ×2 (08:06→20:00)
[2017-10-02] MEDS: DOCUSATE SODIUM 50 MG/SENNA 8.6 MG TAB PO SCH ×2 (08:06→21:00)
[2017-10-02] MEDS: LACTOBACILLUS ACIDOPHILUS TAB PO SCH ×2 (08:06→21:09)
[2017-10-02] MEDS: ARTIFICIAL TEARS OPTH SOLN 15 ML BTL EACH EYE SCH ×3 (10:18→17:37)
[2017-10-02] MEDS: VANCOMYCIN INJ 1,250 MG in SODIUM CHLOR 0.9% 250 ML INJ 250 ML IV SCH (11:25)
[2017-10-02 17:41] LABS: CALCIUM 7.8 MG/DL (8.5-10.1); MAGNESIUM 1.8 MG/DL (1.5-2.5)
[2017-10-02] MEDS: ATORVASTATIN 40 MG TAB PO SCH (21:09)
[2017-10-03] VITALS (14 sets, daily range): BP systolic 139–178; BP diastolic 65–89; PULSE 83–104; RESP 25–29; TEMP 98.1–98.9; O2SAT 95–98
[2017-10-03] MEDS: CHLORHEXIDINE GLUCONATE 2 % 1 PACK (2 CLOTHS) TOP SCH ×2 (00:06→22:23)
[2017-10-03] MEDS: PIPERACIL-TAZO 4.5 GM PREMIX 100 ML IV SCH ×2 (00:19→05:20)
[2017-10-03] MEDS: RESP: ALBUTEROL 2.5 MG/IPRATROPIUM 0.5 MG NEB (SCH) INH ×4 (03:31→21:03)
--- NOTE | 2017-10-03 04:59 | RADRPT ---
EXAM DATE: 10/03/2017 4:47 AM EDT AGE/SEX: 72 years / Female INDICATIONS: Short of breath. CLINICAL DATA: This is the patient's subsequent encounter. Patient reports that signs and symptoms h ave been present for 4 - 6 days and indicates a pain score of 0/10. MEDICAL/SURGICAL HISTORY: None. None. COMPARISON: [facility] [place], 10/02/2017. . FINDINGS: ET tube has been removed. Slight left lung base atelectasis remains without focal consolidation. The rest of the examination has not changed. CONCLUSION: Slight left lung base atelectasis. Electronically signed by: Andrew Holland MD 10/03/2017 4:57 AM EDT
[2017-10-03] MEDS: HEPARIN SODIUM - SQ 10,000 UNITS/ML VIAL SQ SCH ×3 (05:19→20:36)
[2017-10-03] MEDS: methylPREDNISolone SOD SUCC 40 MG/1 ML VIAL IV PUSH SCH ×2 (05:19→16:47)
[2017-10-03] MEDS: CHOLESTYRAMINE 4 GM PACKET PO SCH (05:19)
[2017-10-03 05:53] LABS: AUTOMATED NEUTROPHIL # 9.6 TH/MM3 (1.8-7.7); BASOPHIL % 0.3 % (0.0-2.0); HEMATOCRIT 34.4 % (35.0-46.0); LYMPH % 9.9 % (9.0-44.0); LYMPHOCYTE # 1.1 TH/MM3 (1.0-4.8); MEAN CELL VOLUME 92.8 FL (80.0-100.0); MEAN CORPUSCULAR HEMOGLOBIN 32.3 PG (27.0-34.0); MEAN CORPUSCULAR HGB CONC 34.8 % (32.0-36.0); MEAN PLATELET VOLUME 9.3 FL (7.0-11.0); MONO % 3.7 % (0.0-8.0); MONOCYTE # 0.4 TH/MM3 (0-0.9); NEUT % 86.1 % (16.0-70.0); PLATELET COUNT 258 TH/MM3 (150-450); RED BLOOD COUNT 3.71 MIL/MM3 (4.00-5.30); RED CELL DISTRIBUTION WIDTH 13.9 % (11.6-17.2); WHITE BLOOD COUNT 11.2 TH/MM3 (4.0-11.0)
[2017-10-03 06:26] LABS: ALBUMIN 3.3 GM/DL (3.4-5.0); ALKALINE PHOSPHATASE 61 U/L (45-117); ALT (GPT) 21 U/L (10-53); AST (GOT) 18 U/L (15-37); BICARBONATE 28.5 MEQ/L (21.0-32.0); BLOOD UREA NITROGEN 18 MG/DL (7-18); CALCIUM 7.3 MG/DL (8.5-10.1); CHLORIDE 107 MEQ/L (98-107); FREE T4 1.21 NG/DL (0.76-1.46); GLOMERULAR FILTRATION RATE 40 ML/MIN (>89); GLUCOSE,RANDOM 125 MG/DL (74-106); MAGNESIUM 1.6 MG/DL (1.5-2.5); PHOSPHORUS 4.1 MG/DL (2.5-4.9); SODIUM (NA) 146 MEQ/L (136-145); TOTAL BILIRUBIN ADULT 0.7 MG/DL (0.2-1.0); TOTAL PROTEIN 7.3 GM/DL (6.4-8.2)
[2017-10-03 06:36] LABS: CALCIUM-PROTEIN CORRECTED 7.3 MG/DL (8.5-10.1)
[2017-10-03] MEDS: CHLORHEXIDINE 0.12% (ORAL KIT) 15 ML CUP MT SCH ×2 (08:00→19:18)
[2017-10-03] MEDS ORDERED: CALCIUM GLUCONATE INJ 1 GM in DEXTROSE 5% IN WATER 100ML INJ 100 ML IV ONE ×2 (08:00)
[2017-10-03] MEDS: FAMOTIDINE 20 MG/2 ML VIAL IV PUSH SCH ×2 (08:20→20:35)
[2017-10-03] MEDS: LACTOBACILLUS ACIDOPHILUS TAB PO SCH ×2 (08:20→20:35)
[2017-10-03] MEDS: FUROSEMIDE 40 MG/4 ML VIAL IV PUSH SCH (08:20)
[2017-10-03] MEDS: SODIUM CHLORIDE 0.9% FLUSH 10 ML FLUSH IV FLUSH SCH ×2 (08:20→20:35)
[2017-10-03] MEDS: ARTIFICIAL TEARS OPTH SOLN 15 ML BTL EACH EYE SCH ×3 (08:21→16:47)
[2017-10-03] MEDS: DOCUSATE SODIUM 50 MG/SENNA 8.6 MG TAB PO SCH ×2 (08:21→20:35)
[2017-10-03] MEDS ORDERED: METOPROLOL TARTRATE 25 MG TAB PO SCH (09:00)
[2017-10-03] MEDS ORDERED: traMADol HCL 50 MG TAB PO PRN (09:15)
--- NOTE | 2017-10-03 09:15 | HHI.PR ---
Subjective Remarks Nursing denies any deterioration since last night apart from some loose stools. Patient reports that every time she comes to the hospital she gets loose stools. Objective Vital Signs Date Time Temp Pulse Resp B/P (MAP) Pulse Ox O2 Delivery O2 Flow Rate FiO2 10/03/17 09:11 98 Nasal Cannula 4.00 10/03/17 08:00 98.1 83 26 163/89 (113) 97 10/03/17 08:00 83 10/03/17 06:00 85 10/03/17 04:00 103 10/03/17 04:00 98.9 103 25 154/68 (96) 95 10/03/17 02:00 96 10/03/17 00:00 98.7 93 28 178/81 (113) 97 10/03/17 00:00 93 10/02/17 22:00 98 10/02/17 20:09 96 Nasal Cannula 4.00 10/02/17 20:00 105 10/02/17 20:00 98.5 105 35 175/81 (112) 96 10/02/17 18:00 112 10/02/17 16:05 94 Nasal Cannula 4 10/02/17 16:00 99.3 121 29 163/72 (102) 100 10/02/17 16:00 50 10/02/17 16:00 121 10/02/17 14:00 111 10/02/17 12:01 98 50 10/02/17 12:00 50 10/02/17 12:00 99.0 103 18 165/77 (106) 99 10/02/17 12:00 103 10/02/17 10:00 107 I/O 10/02/17 10/02/17 10/02/17 10/03/17 10/03/17 10/03/17 07:00 15:00 23:00 07:00 15:00 23:00 Intake Total 320 ml 320 ml 600 ml Output Total 850 ml 2650 ml 600 ml Balance -530 ml -2330 ml 0 ml Intake Oral 0 ml 200 ml 400 ml IV Total 200 ml 200 ml Tube Irrigant 120 ml 120 ml Output Urine Total 850 ml 2650 ml 600 ml # Bowel Movements 1 3 1 Result Diagram: 10/03/17 0456 10/03/17 0456 Objective Remarks Heart sounds indicate regular rate rhythm, no murmurs No conversive dyspnea, wearing nasal cannula Scattered coarse rhonchi bilaterally with slightly diminished breath sounds in the bases A/P Assessment and Plan Acute on chronic respiratory failure -Status post extubation, improving -Wean oxygen as tolerated -Wean steroids gradually, continue duo nebs -Continue Zosyn and vancomycin, can obtain pro calcitonin about 2-3 days if negative discontinue antibiotics or at least de-escalate Loose stools - likely viral vs abx-stress, unlikely c diff but will check via PCR Elevated troponin -Could be from ischemic demand but is unable to definitively conclude at this time. Will consult cardiology to see if further workup is warranted. Patient has eaten breakfast but has been made n.p.o. in case she is warranted to undergo stress test later today. -Ordering echocardiogram, EKG not viewable on [employer] JESUS ALBERTO -Likely prerenal, given slow rate normal saline bolus Hypocalcemia - receiving IV Ca, improving, will obtain Vit D and PTH levels Hyperlipidemia -Continue home atorvastatin Hypertension -Highly uncontrolled at this time, resume home metoprolol, add on Vasotec as needed PT on hold until cardiology evaluation complete. Charli Hassan MD October 03, 2017 09:15
[2017-10-03] MEDS: POTASSIUM CHLORIDE 20 MEQ CONTROLLED RELEASE TAB PO SCH ×2 (09:34→20:35)
[2017-10-03] MEDS ORDERED: SODIUM CHLOR 0.9% 1000 ML INJ 1,000 ML IV ONE (10:00)
[2017-10-03] MEDS: PIPERACIL-TAZO 3.375 GM PREMIX 50 ML IV SCH ×3 (10:13→22:18)
[2017-10-03] MEDS: VANCOMYCIN INJ 1,250 MG in SODIUM CHLOR 0.9% 250 ML INJ 250 ML IV SCH (10:14)
[2017-10-03] MEDS: ASPIRIN 81 MG CHEW TAB CHEW SCH (11:07)
--- NOTE | 2017-10-03 13:05 | MB ---
cc: Miguelito Dias DO DATE: 10/03/2017 REASON FOR CONSULTATION: Congestive heart failure, elevated troponin. HISTORY OF PRESENT ILLNESS: Kate Townsend is a pleasant 72-year-old female who presented to [facility] Emergency Room on 10/01/2017 due to shortness of breath. She states that she woke up and was feeling extremely short of breath. She sat up and this did not seem to help her overall shortness of breath. Her tried to help her by getting her ddayih-qv-cik's oxygen, but could not get that started and so they ended up calling 911. She was unable to get up and move when EMS arrived there and so they put her on a computer chair and that is the last thing she remembers. Apparently, she was intubated in the field. Since that time, she has been extubated and doing overall well. She has been diuresed around 5 liters over the past 2 days. She was noted to have a mildly elevated troponin. In seeing her, she is currently hemodynamically stable without chest pain or shortness of breath. She was noted to have a blood pressure of 195/116 and shortly after, a blood pressure of 223/125 on admission to the emergency room. PAST MEDICAL HISTORY: 1. Hypertension. 2. Gastroesophageal reflux disease. 3. Anxiety. 4. Chronic low back pain. 5. Anemia. 6. Carpal tunnel syndrome. PAST SURGICAL HISTORY: Denies. ALLERGIES: NO KNOWN DRUG ALLERGIES. MEDICATIONS: 1. Augmentin 1 tab b.i.d. 2. Flagyl 500 mg b.i.d. 3. Cholestyramine 4 g daily. 4. Lipitor 40 mg every night. 5. Metoprolol tartrate 25 mg b.i.d. 6. Mobic 15 mg daily. 7. Naproxen 500 mg b.i.d. as needed. 8. Tramadol 100 mg every 6 hours as needed for pain. 9. Ativan 0.5 mg every 8 hours as needed for anxiety. 10. Potassium chloride 20 mEq every 12 hours. 11. Omeprazole 20 mg daily. FAMILY HISTORY: Mother of old age at the age of 86. Father's "heart burst" at the age of 56. She has a sister who [place] and a daughter, but is not close with either of them. SOCIAL HISTORY: The patient smokes around 10-15 cigarettes a day. She started smoking at the age of 18. She rarely drinks alcohol. Denies drugs. REVIEW OF SYSTEMS: Fourteen systems were reviewed including osteopathic pertinent positives and negatives as above, otherwise negative. PHYSICAL EXAMINATION: VITAL SIGNS: Temperature 98.1, heart rate 83, blood pressure 163/89, respirations 25, pulse oximetry 98% on 4 liters. GENERAL: The patient appears mildly disheveled, but in no acute distress alert, awake and oriented x 3. HEENT: Extraocular muscles intact. Mucous membranes moist. Poor dentition overall. NECK: Supple. No JVD at 45 degrees. No carotid bruits heard bilaterally. Carotid upstroke is brisk in nature. HEART: Regular rate and rhythm. Positive first and second heart sounds with a 1/6 holosystolic murmur noted at the apex. LUNGS: Decreased breath sounds bilaterally with rales noted at the bases. ABDOMEN: Soft, nontender, nondistended. No organomegaly noted. EXTREMITIES: Show trace edema, but no clubbing or cyanosis. Femoral and distal pulses are intact bilaterally. NEUROLOGIC: No focal deficits. SKIN: Warm, dry and intact. OSTEOPATHIC: No kyphoscoliosis, lordosis or paraspinal tender points. LABORATORY DATA: Hemoglobin 12.0, hematocrit 34.4, platelets 258. Potassium 3.3, BUN 18, creatinine 1.3. Troponin 0.61 decreasing to 0.26. Electrocardiogram (10/01/2017 at 9:01). Sinus rhythm, nonspecific ST-T wave changes. IMPRESSIONS: 1. Acute respiratory failure requiring intubation and subsequent extubation. 2. [id number]-[id number] myocardial infarction, possible type 1 versus type 2. 3. Hypertension with hypertensive urgency on arrival. 4. Hyperlipidemia. 5. Tobacco abuse. 6. Acute heart failure of unknown type. 7. Possible acute kidney injury. RECOMMENDATIONS: 1. Ms. Townsend appears to have presented with shortness of breath and overall appears to be in acute heart failure. 2. Overall, her heart failure has not been defined and we will check a 2-D echo to look at her overall left ventricular function, cardiac structure and possible valvulopathies. 3. Another possible cause of her heart failure may be her hypertensive urgency with a blood pressure of 223/125 while in the emergency room. 4. We will have her hold NSAIDs as this can potentiate her hypertension. 5. We will continue to diurese her as possible. 6. For now, we will change her metoprolol tartrate to carvedilol to try to help with blood pressure control. Most likely, she will need multiple agents for blood pressure control. 7. She did have a minimally elevated troponin and overall I feel that this is most likely type 2 in nature due to her hypoxic respiratory failure. She denies any chest pain. She has no significant EKG changes, so I will plan on having her undergo a pharmacologic nuclear stress test in the morning. 8. I have added aspirin to her regimen as she did have the elevated troponin. 9. She will continue on statin therapy. I spoke to her for greater than 3 minutes about tobacco cessation. Thank you for allowing me to see Kate June. If there are any questions, please do not hesitate to call. Miguelito Dias, DO VGP/DL , 12:29 PM , 01:04 PM
[2017-10-03 16:22] LABS: HEMOGLOBIN A1C 4.8 % (4.3-6.0)
[2017-10-03] MEDS: hydrALAZINE HCL 10 MG TAB PO PRN (18:07)
[2017-10-03] MEDS: CARVEDILOL 6.25 MG TAB PO SCH (20:35)
[2017-10-03] MEDS: ATORVASTATIN 40 MG TAB PO SCH (20:35)
[2017-10-04] VITALS (21 sets, daily range): BP systolic 141–196; BP diastolic 65–141; PULSE 71–99; RESP 11–50; TEMP 97.8–98.6; O2SAT 93–99
[2017-10-04] MEDS: RESP: ALBUTEROL 2.5 MG/IPRATROPIUM 0.5 MG NEB (SCH) INH ×4 (04:05→20:04)
[2017-10-04] MEDS: PIPERACIL-TAZO 3.375 GM PREMIX 50 ML IV SCH ×2 (05:03→08:35)
[2017-10-04] MEDS: methylPREDNISolone SOD SUCC 40 MG/1 ML VIAL IV PUSH SCH ×2 (05:03→16:51)
[2017-10-04] MEDS: HEPARIN SODIUM - SQ 10,000 UNITS/ML VIAL SQ SCH ×3 (05:04→19:36)
[2017-10-04] MEDS: CHOLESTYRAMINE 4 GM PACKET PO SCH (05:04)
[2017-10-04] MEDS: hydrALAZINE HCL 10 MG TAB PO PRN ×2 (05:04→18:36)
[2017-10-04 05:52] LABS: BICARBONATE 26.1 MEQ/L (21.0-32.0); CALCIUM 8.1 MG/DL (8.5-10.1); CREATININE 1.17 MG/DL (0.50-1.00)
[2017-10-04] MEDS: CHLORHEXIDINE 0.12% (ORAL KIT) 15 ML CUP MT SCH ×2 (08:00→19:36)
[2017-10-04] MEDS: ASPIRIN 81 MG CHEW TAB CHEW SCH (08:34)
[2017-10-04] MEDS: LACTOBACILLUS ACIDOPHILUS TAB PO SCH ×2 (08:34→19:36)
[2017-10-04] MEDS: POTASSIUM CHLORIDE 20 MEQ CONTROLLED RELEASE TAB PO SCH ×2 (08:34→19:36)
[2017-10-04] MEDS: CARVEDILOL 6.25 MG TAB PO SCH ×2 (08:34→19:36)
[2017-10-04] MEDS: FUROSEMIDE 40 MG/4 ML VIAL IV PUSH SCH (08:35)
[2017-10-04] MEDS: SODIUM CHLORIDE 0.9% FLUSH 10 ML FLUSH IV FLUSH SCH ×2 (08:35→19:36)
[2017-10-04] MEDS: FAMOTIDINE 20 MG/2 ML VIAL IV PUSH SCH (08:35)
[2017-10-04] MEDS: ARTIFICIAL TEARS OPTH SOLN 15 ML BTL EACH EYE SCH ×3 (08:46→17:59)
[2017-10-04] MEDS: DOCUSATE SODIUM 50 MG/SENNA 8.6 MG TAB PO SCH ×2 (08:47→19:36)
[2017-10-04] MEDS: AZITHROMYCIN INJ 500 MG in SODIUM CHLOR 0.9% 250 ML INJ 250 ML IV SCH (11:00)
[2017-10-04] MEDS: VANCOMYCIN INJ 1,250 MG in SODIUM CHLOR 0.9% 250 ML INJ 250 ML IV SCH (11:00)
--- NOTE | 2017-10-04 12:46 | HHI.FPPN ---
Subjective Remarks Mrs. Townsend was afebrile with mild hypertension (max MAP 113) and tachypnea (RR in mid 20's) with normal saturations on 4L O2 via NC. Patient reports that she is doing well overall. She is sneezing frequently and has cough productive of mucus; she does not feel very short of breath. No reported chest pain. Patient does not have any known urinary symptoms. Patient having loose bowel movements. Per nursing staff, patient has rash in groin region and below breasts. Patient states that this has been present for years and sometimes itches. (Bandar Mueller MD R3) Objective Vitals Vital Signs Date Time Temp Pulse Resp B/P (MAP) Pulse Ox O2 Delivery O2 Flow Rate FiO2 10/04/17 08:04 96 Nasal Cannula 4.00 10/04/17 06:00 77 10/04/17 04:00 98.4 86 27 175/73 (107) 97 10/04/17 04:00 86 10/04/17 02:00 74 10/04/17 00:00 98.6 90 26 142/65 (90) 95 10/04/17 00:00 90 10/03/17 22:00 92 10/03/17 21:04 96 Nasal Cannula 4.00 10/03/17 20:00 98.3 95 29 177/75 (109) 98 10/03/17 20:00 95 10/03/17 18:00 98 10/03/17 16:00 83 10/03/17 16:00 98.5 83 27 153/67 (95) 98 10/03/17 14:00 87 I/O 10/03/17 10/03/17 10/03/17 10/04/17 10/04/17 10/04/17 07:00 15:00 23:00 07:00 15:00 23:00 Intake Total 600 ml 422.5 ml 2010 ml 340 ml 50 ml Output Total 600 ml 2350 ml 700 ml Balance 0 ml 422.5 ml -340 ml -360 ml 50 ml Intake Oral 400 ml 960 ml 240 ml IV Total 200 ml 422.5 ml 1050 ml 100 ml 50 ml Output Urine Total 600 ml 2350 ml 700 ml # Bowel Movements 1 2 3 (Bandar Mueller MD R3) Result Diagram: 10/03/17 0456 10/04/17 0416 Imaging Last Impressions Chest X-Ray 10/03/17 0600 Signed Impressions: CONCLUSION: Slight left lung base atelectasis. Objective Remarks GENERAL: Obese WF; NAD SKIN: Intertriginous rash under breasts and in groin HEAD: Normocephalic. EYES: No scleral icterus. No injection or drainage. CARDIOVASCULAR: Regular rate and rhythm without murmurs RESPIRATORY:Normal rate. Decreased breath sounds; some bilateral congestion and ? right mid lung rales GASTROINTESTINAL: Abdomen soft, non-tender, nondistended. MUSCULOSKELETAL: No cyanosis. Bilateral edema noted in lower extremities. Nonpitting. Neuro: Grossly normal CN. Grossly normal peripheral motor/sensory function (Bandar Mueller MD R3) A/P Assessment and Plan Mrs. Townsend is a 72 yo F with: (Bandar Mueller MD R3) Attending Attestation Patient seen and examined with Dr Mueller EMR reviewed Case discussed in detail Agree with contents of note and assessment See Orders (Duncan Manuel MD) Problem List: (1) CHF (congestive heart failure) ICD Codes: I50.9 - Heart failure, unspecified Status: Acute Plan: Impression: Respiratory failure on admission requiring intubation. BNP 401 on admission. Patient with initial troponin elevation 0.02-> 0.61->0.26; attributed by Cardiology to be likely secondary to type 2 NSTEMI. Hypertensive urgency on admission also which may have contributed to troponin elevation. No significant EKG changes Cardiology consulted -Titrate metoprolol for BP control -will check Echo -Will check nuclear stress test -Hold NSAID's -Continue ASA (2) Candidiasis, intertrigo ICD Codes: B37.2 - Candidiasis of skin and nail Status: Acute Plan: Impression: Chronic intertriginous hyperpigmentation with intermittent itching. Suspect some candidal component -Will try Nystatin ointment BID (3) UTI (urinary tract infection) ICD Codes: N39.0 - Urinary tract infection, site not specified Status: Acute Plan: Impression: UA 10/01 with large leuk esterase, large protein, many bacteria. Urine culture- Klebsiella pneumonia resistant to nitrofurantoin but otherwise sensitive -Will change from Zosyn to Rocephin 1gm daily (4) Diarrhea ICD Codes: R19.7 - Diarrhea, unspecified Status: Chronic Plan: Impression: frequent loose stool while hospitalized C diff PCR negative -Will continue to monitor -Continue probiotics (5) Tobacco abuse ICD Codes: Z72.0 - Tobacco use Status: Acute Plan: Impression: Patient reports 15 cigarettes daily -Nicotine patch offered; declined by patient (6) GERD (gastroesophageal reflux disease) ICD Codes: K21.9 - Gastro-esophageal reflux disease without esophagitis Plan: Impression: Reported GERD -Will transition from IV Famotidine back to home Omeprazole 20mg daily -Will discuss changing to H2 on discharge (7) Viral URI with cough ICD Codes: J06.9 - Acute upper respiratory infection, unspecified; B97.89 - Other viral agents as the cause of diseases classified elsewhere Status: Acute Plan: Impression: Cough, upper respiratory congestion. Chronic tobacco abuse. CXR with left base atelectasis -Continue to monitor O2 saturations -Will continue BID steroids to cover for possible COPD exacerbation (Chronic tobacco abuse) -Will add Azithromycin/Rocephin to cover for possible CAP (8) Acute respiratory failure ICD Codes: J96.00 - Acute respiratory failure, unspecified whether with hypoxia or hypercapnia Status: Resolved Plan: Impression: Respiratory failure on admission; suspected secondary to CHF of unknown etiology. Patient intubated 10/01; subsequently extubated. Currently > 95% saturations on 4L O2 via NC -Continue to monitor respiratory function (9) FEN/DVT PPX/GI PPX/Nursing Orders Plan: Fluids: Will withhold IVF at this time Electrolytes: Monitor and replete as needed Diet: NPO while awaiting stress test DVT PPX- Heparin 5K units daily GI PPX- Omeprazole 20mg daily (Bandar Mueller MD R3) Problem Qualifiers (1) CHF (congestive heart failure): Qualified Codes: I50.9 - Heart failure, unspecified (2) UTI (urinary tract infection): Qualified Codes: N30.00 - Acute cystitis without hematuria Bandar Mueller MD R3 October 04, 2017 12:46 Duncan Manuel MD October 04, 2017 15:01
--- NOTE | 2017-10-04 14:35 | ECHRPT ---
Indication: Cardiomyopathy CONCLUSIONS Normal left ventricular size. Wall thickness is normal. The left ventricular systolic function is low normal with an estimated ejection fraction in the rang e of 50%. The left atrial size is upper limits of normal. Mitral annular calcification is present. Lipb-kn-xodiymdp mitral valve regurgitation. Aortic valve sclerosis is present. BP: / HR: Rhythm: MEASUREMENTS (Male / Female) Normal Values Technical Quality: 2D ECHO LV Diastolic Diameter PLAX 4.4 cm 4.2 - 5.9 / 3.9 - 5.3 cm LV Systolic Diameter PLAX 3.4 cm IVS Diastolic Thickness 1.1 cm 0.6 - 1.0 / 0.6 - 0.9 cm LVPW Diastolic Thickness 0.9 cm 0.6 - 1.0 / 0.6 - 0.9 cm LV Relative Wall Thickness 0.5 RV Internal Dim ED PLAX 2.0 cm LA Systolic Diameter LX 3.5 cm 3.0 - 4.0 / 2.7 - 3.8 cm M-MODE Aortic Root Diameter MM 2.8 cm AV Cusp Separation MM 1.9 cm DOPPLER Mitral E Point Velocity 98.7 cm/s Mitral A Point Velocity 68.6 cm/s Mitral E to A Ratio 1.4 TR Peak Velocity 229.0 cm/s TR Peak Gradient 21.0 mmHg Right Atrial Pressure 5.0 mmHg Pulmonary Artery Systolic Pressu 26.0 mmHg Right Ventricular Systolic Press 26.0 mmHg FINDINGS LEFT VENTRICLE Normal left ventricular size. Wall thickness is normal. The left ventricular systolic function is low normal with an estimated ejection fraction in the rang e of 50%. RIGHT VENTRICLE Normal right ventricular size and systolic function. LEFT ATRIUM The left atrial size is upper limits of normal. RIGHT ATRIUM The right atrial size is normal. ATRIAL SEPTUM Normal atrial septal thickness without atrial level shunting by limited color doppler interrogation. AORTA The aortic root and proximal ascending aorta are normal in size on limited imaging. MITRAL VALVE Mitral annular calcification is present. Zpab-xy-azbjilrh mitral valve regurgitation. AORTIC VALVE Aortic valve sclerosis is present. TRICUSPID VALVE Structurally normal tricuspid valve. No tricuspid valve stenosis or regurgitation. PULMONARY VALVE No pulmonary valve regurgitation or stenosis. VESSELS The inferior vena cava is normal in size. PERICARDIUM No pericardial effusion. Kevin Blanton MD, FACC, [facility] (Electronically Signed) Final Date:04 Oct 2017 14:34
[2017-10-04] MEDS ORDERED: REGADENOSON INJ 0.4 MG/5 ML SYR ONE (15:10)
--- NOTE | 2017-10-04 15:28 | PD.CARD.PN ---
Subjective Subjective Remarks No events overnight Breathing better No chest pain Objective Medications Current Medications Medications (Trade) Dose Ordered Sig/Tameka Route Start Time Stop Time Status Last Admin (Lasix Inj) 40 mg DAILY IV PUSH 10/01/17 09:00 10/04/17 08:35 (Lipitor) 40 mg HS PO 10/01/17 21:00 10/03/17 20:35 (Questran 4 Gm Pkt) 4 gm DAILY@0600 PO 10/01/17 06:00 10/04/17 05:04 (Lactinex) 1 tab Q12HR PO 10/01/17 09:00 10/04/17 08:34 (NS Flush) 2 ml UNSCH PRN IV FLUSH 10/01/17 05:00 (NS Flush) 2 ml BID IV FLUSH 10/01/17 09:00 10/04/17 08:35 (Tylenol) 650 mg Q6H PRN PO 10/01/17 05:00 (Ativan Inj) 1 mg Q1H PRN IV PUSH 10/01/17 05:00 (Tears Naturale Opth Soln) 1 drop TID EACH EYE 10/01/17 09:00 10/03/17 16:47 (Zofran Inj) 4 mg Q6H PRN IV PUSH 10/01/17 05:00 (Duoneb Neb) 1 ampule Q6HR NEB INH 10/01/17 05:00 10/04/17 08:03 (Duoneb Neb) 1 ampule Q2HR NEB PRN INH 10/01/17 05:00 (Heparin Inj) 5,000 units Q8H SQ 10/01/17 05:00 10/04/17 05:04 ([facility] Nursing Information) 1 Q361D XX 10/01/17 05:00 10/01/17 05:00 (Chlorhexidine 2% Cloth) 3 pack Taper DAILY@04 TOP 10/02/17 04:00 09/28/18 03:59 10/03/17 22:23 (Chlorhexidine 2% Cloth) 3 pack UNSCH PRN TOP 10/01/17 05:00 (Nicole-Colace) 1 tab BID PO 10/01/17 09:00 10/02/17 08:06 (Milk Of Magnesia Liq) 30 ml Q12H PRN PO 10/01/17 05:00 (Senokot) 17.2 mg Q12H PRN PO 10/01/17 05:00 (Dulcolax Supp) 10 mg DAILY PRN RECTAL 10/01/17 05:00 (Lactulose Liq) 30 ml DAILY PRN PO 10/01/17 05:00 (Peridex 0.12% Liq) 15 ml BID@08,20 MT 10/01/17 08:00 10/02/17 08:06 Pharmacy Profile Note 0 ml @ 0 mls/hr UNSCH OTHER 10/01/17 05:00 (SoluMEDROL INJ) 40 mg Q12H IV PUSH 10/01/17 05:00 10/04/17 05:03 Potassium Chloride 100 ml @ 50 mls/hr Q2H PRN IV 10/01/17 05:15 Potassium Chloride 100 ml @ 50 mls/hr Q2H PRN IV 10/01/17 05:15 10/01/17 11:18 (K-Lyte Cl Eff) 50 meq UNSCH PRN PO 10/01/17 05:15 10/03/17 08:24 Potassium Chloride 100 ml @ 25 mls/hr UNSCH PRN IV 10/01/17 05:15 Potassium Chloride 100 ml @ 50 mls/hr Q2H PRN IV 10/01/17 05:15 Magnesium Sulfate 4 gm/Sodium Chloride 100 ml @ 50 mls/hr UNSCH PRN IV 10/01/17 05:15 10/02/17 06:27 (Mag-Ox) 800 mg UNSCH PRN PO 10/01/17 05:15 Magnesium Sulfate 2 gm/Sodium Chloride 100 ml @ 50 mls/hr UNSCH PRN IV 10/01/17 05:15 (K-Phos) 2,000 mg Q4H PRN PO 10/01/17 05:15 Sodium Phosphate 30 mmol/Sodium Chloride 250 ml @ 42 mls/hr UNSCH PRN IV 10/01/17 05:15 (K-Phos) 2,000 mg UNSCH PRN PO/TUBE 10/01/17 05:15 Potassium Phosphate 30 mmol/ Sodium Chloride 260 ml @ 42 mls/hr UNSCH PRN IV 10/01/17 05:15 Propofol 100 ml @ 2.85 mls/hr TITRATE PRN IV 10/01/17 07:30 10/02/17 10:18 Vancomycin HCl 1250 mg/Sodium Chloride 262.5 ml @ 250 mls/hr Q24H IV 10/01/17 11:00 10/04/17 11:00 ([facility] Ordered Lab Info) SPECIFIC LAB TO BE ... ONCE ONCE .XX 10/05/17 10:45 10/05/17 10:46 (Ativan) 0.5 mg Q8H PRN PO 10/03/17 08:45 (KCl) 20 meq Q12HR PO 10/03/17 09:15 10/04/17 08:34 (Ultram) 100 mg Q6H PRN PO 10/03/17 09:15 (Apresoline) 10 mg Q6HR PRN PO 10/03/17 09:30 10/04/17 05:04 (Aspirin Chew) 81 mg DAILY CHEW 10/03/17 10:30 10/04/17 08:34 (Coreg) 6.25 mg Q12HR PO 10/03/17 21:00 10/04/17 08:34 Ceftriaxone Sodium 1000 mg/ Sodium Chloride 100 ml @ 200 mls/hr Q24H IV 10/04/17 12:00 Azithromycin 500 mg/Sodium Chloride 250 ml @ 250 mls/hr Q24H IV 10/04/17 11:00 10/04/17 11:00 (Mycostatin Oint) 1 applic Q12HR TOPICAL 10/04/17 21:00 (Protonix) 20 mg DAILY PO 10/05/17 09:00 Vital Signs / I&O Vital Signs Date Time Temp Pulse Resp B/P (MAP) Pulse Ox O2 Delivery O2 Flow Rate FiO2 10/04/17 12:44 79 11 183/93 (123) 93 10/04/17 12:32 77 29 184/99 (127) 96 10/04/17 12:10 80 30 181/78 (112) 96 10/04/17 12:08 71 30 196/141 (159) 97 10/04/17 12:01 92 50 182/110 (134) 94 10/04/17 12:00 79 34 95 10/04/17 11:01 78 37 181/86 (117) 95 10/04/17 10:00 75 28 171/79 (109) 95 10/04/17 09:51 81 20 176/80 (112) 95 10/04/17 09:01 78 44 179/78 (111) 96 10/04/17 08:04 96 Nasal Cannula 4.00 10/04/17 08:01 83 31 163/72 (102) 96 10/04/17 08:00 79 27 96 10/04/17 06:00 77 10/04/17 04:00 98.4 86 27 175/73 (107) 97 10/04/17 04:00 86 10/04/17 02:00 74 10/04/17 00:00 98.6 90 26 142/65 (90) 95 10/04/17 00:00 90 10/03/17 22:00 92 10/03/17 21:04 96 Nasal Cannula 4.00 10/03/17 20:00 98.3 95 29 177/75 (109) 98 10/03/17 20:00 95 10/03/17 18:00 98 10/03/17 16:00 83 10/03/17 16:00 98.5 83 27 153/67 (95) 98 I/O 10/03/17 10/03/17 10/03/17 10/04/17 10/04/17 10/04/17 07:00 15:00 23:00 07:00 15:00 23:00 Intake Total 600 ml 422.5 ml 2010 ml 340 ml 550 ml Output Total 600 ml 2350 ml 700 ml Balance 0 ml 422.5 ml -340 ml -360 ml 550 ml Intake Oral 400 ml 960 ml 240 ml IV Total 200 ml 422.5 ml 1050 ml 100 ml 550 ml Output Urine Total 600 ml 2350 ml 700 ml # Bowel Movements 1 2 3 Physical Exam GENERAL: NAD, AAOx3 SKIN: Warm and dry. HEAD: Atraumatic. Normocephalic. EYES: Pupils equal and round. No scleral icterus. No injection or drainage. ENT: No nasal bleeding or discharge. Mucous membranes pink and moist. NECK: Trachea midline. No JVD. CARDIOVASCULAR: Regular rate and rhythm. RESPIRATORY: No accessory muscle use. Decreased breath sounds bilaterally GASTROINTESTINAL: Abdomen soft, non-tender, nondistended. Hepatic and splenic margins not palpable. MUSCULOSKELETAL: Extremities without clubbing, cyanosis, or edema. No obvious deformities. NEUROLOGICAL: Awake and alert. No obvious cranial nerve deficits. Motor grossly within normal limits. Five out of 5 muscle strength in the arms and legs. Normal speech. PSYCHIATRIC: Appropriate mood and affect; insight and judgment normal. Laboratory Laboratory Tests Test 10/03/17 16:00 10/04/17 04:16 Stool C. difficile Toxin (PCR) NEGATIVE Stl C. difficile Toxin Epiderm 027 PRESUMPTIVE NEGATIVE Blood Urea Nitrogen 23 MG/DL Creatinine 1.17 MG/DL Random Glucose 112 MG/DL Calcium Level 8.1 MG/DL Sodium Level 143 MEQ/L Potassium Level 4.1 MEQ/L Chloride Level 107 MEQ/L Carbon Dioxide Level 26.1 MEQ/L Anion Gap 10 MEQ/L Estimat Glomerular Filtration Rate 45 ML/MIN Assessment and Plan Problem List: (1) CHF (congestive heart failure) ICD Codes: I50.9 - Heart failure, unspecified Status: Acute (2) Hypertension ICD Codes: I10 - Essential (primary) hypertension (3) Acute respiratory failure ICD Codes: J96.00 - Acute respiratory failure, unspecified whether with hypoxia or hypercapnia Status: Resolved (4) Tobacco abuse ICD Codes: Z72.0 - Tobacco use Status: Acute (5) Smoking greater than 40 pack years ICD Codes: F17.210 - Nicotine dependence, cigarettes, uncomplicated Assessment and Plan 1) Acute heart failure leading to SOB Appears to be more diastolic as EF 50% Mild to moderate MR Possibly due to accelerated HTN Avoid NSAIDS Stop NSAID USE 2) Minimally elevated troponin Most likely type two Plan stress test today, if positive cardiac catheterization tomorrow 9. She will continue on statin therapy. Problem Qualifiers (1) CHF (congestive heart failure): Qualified Codes: I50.9 - Heart failure, unspecified Miguelito Dias DO October 04, 2017 15:28
--- NOTE | 2017-10-04 16:56 | RADRPT ---
EXAM DATE: 10/04/2017 4:02 PM EDT AGE/SEX: 72 years / Female INDICATIONS:Angina. . Chest pain. CLINICAL DATA: This is the patient's initial encounter. Patient reports that signs and symptoms have been present for 1 day and indicates a pain score of 3/10. MEDICAL/SURGICAL HISTORY: Hypertension. Hysterectomy. COMPARISON: No prior [facility] exams available for comparison. DOSE: 26.6 mCi Tc 99m Myoview at stress 8.3 mCi [id number] at rest 0.4 mg Lexiscan STRESS SYMPTOMS: Asymptomatic. EJECTION FRACTION: 49 % TECHNIQUE: The patient underwent pharmacologic stress with infusion of prescribed dose. Continuous ECG tracing was monitored during stress. Gated SPECT imaging was performed after stress and conventi onal SPECT imaging was performed at rest. The examination was performed on a SPECT /CT scanner, both attenuation and non-corrected datasets were reviewed. FINDINGS: Distribution: The maximum perfused segment at stress is in the lateral wall. Perfusion Study: The examination demonstrates a small size, mild in severity, fixed perfusion defec t involving the anterior wall. No reversible perfusion defect is identified. Gated Study: There are intact wall motion and wall thickening without hypokinetic or dyskinetic segm ents. The ejection fraction is calculated at 49%. RISK CATEGORY: Low (<1% Annual Motality Rate) CONCLUSION: 1. Small fixed perfusion defect anteriorly. No reversible perfusion abnormality identified. Electronically signed by: Michael Gonsales MD 10/04/2017 4:54 PM EDT
[2017-10-04] MEDS: cefTRIAXone INJ 1,000 MG in SODIUM CHLORIDE 0.9% INJ 100 ML IV SCH (17:30)
[2017-10-04] MEDS: NYSTATIN 100,000 U/GM OINT 15 GM TUBE TOPICAL SCH (19:35)
[2017-10-04] MEDS: ATORVASTATIN 40 MG TAB PO SCH (19:36)
[2017-10-05] VITALS (28 sets, daily range): BP systolic 130–208; BP diastolic 61–94; PULSE 62–93; RESP 18–38; TEMP 97.6–98; O2SAT 89–100
[2017-10-05] MEDS: RESP: ALBUTEROL 2.5 MG/IPRATROPIUM 0.5 MG NEB (SCH) INH (02:23)
[2017-10-05] MEDS: CHLORHEXIDINE GLUCONATE 2 % 1 PACK (2 CLOTHS) TOP SCH (04:00)
[2017-10-05] MEDS: methylPREDNISolone SOD SUCC 40 MG/1 ML VIAL IV PUSH SCH ×2 (05:46→15:59)
[2017-10-05] MEDS: CHOLESTYRAMINE 4 GM PACKET PO SCH (05:47)
[2017-10-05] MEDS: HEPARIN SODIUM - SQ 10,000 UNITS/ML VIAL SQ SCH ×3 (05:47→21:46)
[2017-10-05 07:20] LABS: AUTOMATED NEUTROPHIL # 7.8 TH/MM3 (1.8-7.7); HEMATOCRIT 34.8 % (35.0-46.0); LYMPH % 19.7 % (9.0-44.0); LYMPHOCYTE # 2.1 TH/MM3 (1.0-4.8); MEAN CELL VOLUME 92.9 FL (80.0-100.0); MEAN CORPUSCULAR HEMOGLOBIN 32.1 PG (27.0-34.0); MEAN CORPUSCULAR HGB CONC 34.5 % (32.0-36.0); MEAN PLATELET VOLUME 9.2 FL (7.0-11.0); MONO % 6.2 % (0.0-8.0); MONOCYTE # 0.7 TH/MM3 (0-0.9); NEUT % 74.1 % (16.0-70.0); PLATELET COUNT 256 TH/MM3 (150-450); RED BLOOD COUNT 3.75 MIL/MM3 (4.00-5.30); RED CELL DISTRIBUTION WIDTH 13.4 % (11.6-17.2); WHITE BLOOD COUNT 10.5 TH/MM3 (4.0-11.0)
[2017-10-05 07:37] LABS: BICARBONATE 24.1 MEQ/L (21.0-32.0); CALCIUM 8.5 MG/DL (8.5-10.1); CREATININE 1.12 MG/DL (0.50-1.00); PHOSPHORUS 3.5 MG/DL (2.5-4.9)
[2017-10-05] MEDS: CARVEDILOL 6.25 MG TAB PO SCH (07:47)
[2017-10-05] MEDS: PANTOPRAZOLE SOD 20 MG DELAYED RELEASE TAB PO SCH (07:47)
[2017-10-05] MEDS: CHOLECALCIFEROL (VIT D3) 5000 UNIT CAP PO SCH (07:47)
[2017-10-05] MEDS: NYSTATIN 100,000 U/GM OINT 15 GM TUBE TOPICAL SCH ×2 (07:47→21:00)
[2017-10-05] MEDS: LACTOBACILLUS ACIDOPHILUS TAB PO SCH ×2 (07:47→21:46)
[2017-10-05] MEDS: POTASSIUM CHLORIDE 20 MEQ CONTROLLED RELEASE TAB PO SCH ×2 (07:48→21:47)
[2017-10-05] MEDS: SODIUM CHLORIDE 0.9% FLUSH 10 ML FLUSH IV FLUSH SCH ×2 (07:48→21:00)
[2017-10-05] MEDS: ASPIRIN 81 MG CHEW TAB CHEW SCH (07:48)
[2017-10-05] MEDS: FUROSEMIDE 40 MG/4 ML VIAL IV PUSH SCH (07:48)
[2017-10-05] MEDS: CHLORHEXIDINE 0.12% (ORAL KIT) 15 ML CUP MT SCH ×2 (08:00→20:00)
[2017-10-05] MEDS: ARTIFICIAL TEARS OPTH SOLN 15 ML BTL EACH EYE SCH ×3 (08:29→15:39)
[2017-10-05] MEDS: DOCUSATE SODIUM 50 MG/SENNA 8.6 MG TAB PO SCH ×2 (08:29→21:46)
[2017-10-05] MEDS ORDERED: PHARMACY ORDERED LAB ONE (10:45)
[2017-10-05] MEDS: AZITHROMYCIN INJ 500 MG in SODIUM CHLOR 0.9% 250 ML INJ 250 ML IV SCH (11:16)
--- NOTE | 2017-10-05 11:31 | HHI.FPPN ---
Subjective Remarks Mrs. Townsend was hypertensive overnight to max MAP 132. Some continued tachypnea ; other VS stable. Patient reports that she is doing ok. She does not report symptoms with elevated blood pressure. She has continued productive sputum but does not feel very short of breath. Patient also reports blockage of right nare which is frequent. No chest pain or abdominal pain. Loose stools still present. No urinary symptoms. Objective Vitals Vital Signs Date Time Temp Pulse Resp B/P (MAP) Pulse Ox O2 Delivery O2 Flow Rate FiO2 10/05/17 07:01 80 23 208/94 (132) 100 10/05/17 06:01 80 33 155/72 (99) 96 10/05/17 06:00 73 27 95 10/05/17 06:00 93 10/05/17 05:00 62 25 159/76 (103) 98 10/05/17 04:01 97.9 85 38 147/68 (94) 97 10/05/17 04:00 93 10/05/17 03:00 72 25 164/78 (106) 97 10/05/17 02:00 74 23 175/76 (109) 98 10/05/17 02:00 93 10/05/17 02:00 74 23 175/76 (109) 98 10/05/17 01:01 75 23 169/68 (101) 96 10/05/17 01:01 75 23 169/68 (101) 96 10/05/17 01:00 71 23 97 10/05/17 00:00 93 10/05/17 00:00 76 24 130/61 (84) 94 10/05/17 00:00 98.0 76 22 130/61 (84) 94 10/04/17 20:03 99 Nasal Cannula 4.00 10/04/17 20:00 92 10/04/17 20:00 97.8 92 24 188/88 (121) 98 10/04/17 16:01 96 27 141/99 (113) 98 10/04/17 16:01 96 10/04/17 16:00 99 33 95 10/04/17 16:00 99 10/04/17 12:44 79 11 183/93 (123) 93 10/04/17 12:44 79 10/04/17 12:32 77 10/04/17 12:32 77 29 184/99 (127) 96 10/04/17 12:10 80 30 181/78 (112) 96 10/04/17 12:10 80 10/04/17 12:08 71 30 196/141 (159) 97 10/04/17 12:08 71 10/04/17 12:01 92 50 182/110 (134) 94 10/04/17 12:01 92 10/04/17 12:00 79 10/04/17 12:00 79 34 95 I/O 10/04/17 10/04/17 10/04/17 10/05/17 10/05/17 10/05/17 07:00 15:00 23:00 07:00 15:00 23:00 Intake Total 340 ml 550 ml 350 ml 300 ml Output Total 700 ml 1600 ml 600 ml Balance -360 ml 550 ml -1250 ml -300 ml Intake Oral 240 ml 350 ml 300 ml IV Total 100 ml 550 ml Output Urine Total 700 ml 1600 ml 600 ml # Bowel Movements 3 3 1 Result Diagram: 10/05/17 0630 10/05/17 06 Imaging Last Impressions Myocardial Perfusion Scan Nuc Med 10/04/17 0700 Signed Impressions: CONCLUSION: 1. Small fixed perfusion defect anteriorly. No reversible perfusion abnormalit y identified. Chest X-Ray 10/03/17 06 Signed Impressions: CONCLUSION: Slight left lung base atelectasis. Objective Remarks GENERAL: Obese WF; NAD SKIN: Intertriginous rash under breasts/groin not inspected today EYES: EOM grossly I. No scleral icterus. No injection or drainage. HEENT: Poor dentition. Some nasal mucous; narrow nasal anterior cavity likely swollen but only mildly erythematous. CARDIOVASCULAR: Regular rate and rhythm without murmurs RESPIRATORY:Normal rate. Decreased breath sounds; no obvious congestion GASTROINTESTINAL: Abdomen soft, non-tender, nondistended. MUSCULOSKELETAL: No cyanosis. Mild bilateral LE edema Neuro: Grossly normal CN. Grossly normal peripheral motor/sensory function A/P Assessment and Plan Mrs. Townsend is a 72 yo F with: Problem List: (1) CHF (congestive heart failure) ICD Codes: I50.9 - Heart failure, unspecified Status: Acute Plan: Impression: Respiratory failure on admission requiring intubation. BNP 401 on admission. Patient with initial troponin elevation 0.02-> 0.61->0.26; attributed by Cardiology to be likely secondary to type 2 NSTEMI. Hypertensive urgency on admission also which may have contributed to troponin elevation. No significant EKG changes Echo 10/04- EF 50%. Mild to moderate mitral regurgitation. aortic sclerosis present. Nuclear stress 10/04- small fixed anterior defect. No reversible abnormality Cardiology consulted -Titrate metoprolol for BP control -will check Echo -Hold NSAID's -Continue ASA -Will add BELLA since EF borderline low and needs BP control (2) Sepsis ICD Codes: A41.9 - Sepsis, unspecified organism Status: Acute Plan: Impression: Leukocytosis (WBC 16.2), tachycardia (108BPM) on admission; lactic acid initially 4.5. Unclear etiology of SIRS as patient also with NSTEMI , cough/sputum production in setting of probable COPD and Klebsiella UTI diagnosed during hospitalization. Lactic acid- 4.5 (10/01) -> 2.3 CXR on admission with bilateral consolidations -Will continue to monitor VS, CBC, signs of infection -Will cover for CAP and Klebsiella (sensitive to Rocephin) -Continue Azithromycin (10/04-) -Continue Rocephin (10/04-) Antibiotic history: -Zosyn (10/01- 10/04) Cultures: Urine 10/01- Klebsiella Blood 10/01- negative (3) Hypertension ICD Codes: I10 - Essential (primary) hypertension Plan: Impression: Significant HTN during hospitalization with high MAP 132 overnight -Continue Carvedilol 6.25mg BID -Continue Hydralazine PRN -Will add Lisinopril 10mg daily -Continue Furosemide for diuresis (4) Productive cough ICD Codes: R05 - Cough Status: Acute Plan: Impression: Cough, upper respiratory congestion. Chronic tobacco abuse. CXR with left base atelectasis -Continue to monitor O2 saturations -Will continue BID steroids to cover for possible COPD exacerbation (Chronic tobacco abuse) -Continue PRN duonebs -Continue Azithromycin/Rocephin to cover for possible CAP -Will add Singulair due to complaint of nasal inflammation and likely benefit with presumed undiagnosed COPD (5) UTI (urinary tract infection) ICD Codes: N39.0 - Urinary tract infection, site not specified Status: Acute Plan: Impression: UA 10/01 with large leuk esterase, large protein, many bacteria. Urine culture- Klebsiella pneumonia resistant to nitrofurantoin but otherwise sensitive -Will change from Zosyn to Rocephin 1gm daily (6) Candidiasis, intertrigo ICD Codes: B37.2 - Candidiasis of skin and nail Status: Acute Plan: Impression: Chronic intertriginous hyperpigmentation with intermittent itching. Suspect some candidal component -Continue Nystatin ointment BID (7) Diarrhea ICD Codes: R19.7 - Diarrhea, unspecified Status: Chronic Plan: Impression: frequent loose stool while hospitalized C diff PCR negative -Will continue to monitor -Continue probiotics (8) Tobacco abuse ICD Codes: Z72.0 - Tobacco use Status: Acute Plan: Impression: Patient reports 15 cigarettes daily -Nicotine patch offered; declined by patient (9) GERD (gastroesophageal reflux disease) ICD Codes: K21.9 - Gastro-esophageal reflux disease without esophagitis Plan: Impression: Reported GERD -Continue Omeprazole 20mg daily -Will plan to discuss changing to H2 on discharge (10) Acute respiratory failure ICD Codes: J96.00 - Acute respiratory failure, unspecified whether with hypoxia or hypercapnia Status: Resolved Plan: Impression: Respiratory failure on admission; suspected secondary to CHF of unknown etiology. Patient intubated 10/01; subsequently extubated. Currently > 95% saturations on 4L O2 via NC -Continue to monitor respiratory function (11) FEN/DVT PPX/GI PPX/Nursing Orders Plan: Fluids: Will withhold IVF at this time Electrolytes: Monitor and replete as needed Diet: NPO while awaiting stress test DVT PPX- Heparin 5K units daily GI PPX- Omeprazole 20mg daily Problem Qualifiers (1) CHF (congestive heart failure): Qualified Codes: I50.9 - Heart failure, unspecified (2) Hypertension: Qualified Codes: I10 - Essential (primary) hypertension (3) UTI (urinary tract infection): Qualified Codes: N30.00 - Acute cystitis without hematuria Bandar Mueller MD R3 October 05, 2017 11:31
[2017-10-05] MEDS: LISINOPRIL 10 MG TAB PO SCH (12:18)
[2017-10-05] MEDS: cefTRIAXone INJ 1,000 MG in SODIUM CHLORIDE 0.9% INJ 100 ML IV SCH (12:18)
--- NOTE | 2017-10-05 13:18 | PD.CARD.PN ---
Subjective Subjective Remarks No events overnight Breathing better No chest pain Objective Medications Current Medications Medications (Trade) Dose Ordered Sig/Tameka Route Start Time Stop Time Status Last Admin (Lasix Inj) 40 mg DAILY IV PUSH 10/01/17 09:00 10/05/17 07:48 (Lipitor) 40 mg HS PO 10/01/17 21:00 10/04/17 19:36 (Questran 4 Gm Pkt) 4 gm DAILY@0600 PO 10/01/17 06:00 10/05/17 05:47 (Lactinex) 1 tab Q12HR PO 10/01/17 09:00 10/05/17 07:47 (NS Flush) 2 ml UNSCH PRN IV FLUSH 10/01/17 05:00 (NS Flush) 2 ml BID IV FLUSH 10/01/17 09:00 10/05/17 07:48 (Tylenol) 650 mg Q6H PRN PO 10/01/17 05:00 (Ativan Inj) 1 mg Q1H PRN IV PUSH 10/01/17 05:00 (Tears Naturale Opth Soln) 1 drop TID EACH EYE 10/01/17 09:00 10/03/17 16:47 (Zofran Inj) 4 mg Q6H PRN IV PUSH 10/01/17 05:00 (Duoneb Neb) 1 ampule Q2HR NEB PRN INH 10/01/17 05:00 (Heparin Inj) 5,000 units Q8H SQ 10/01/17 05:00 10/05/17 12:19 ([facility] [place] [facility]) 1 Q361D XX 10/01/17 05:00 10/01/17 05:00 (Chlorhexidine 2% Cloth) 3 pack Taper DAILY@04 TOP 10/02/17 04:00 09/28/18 03:59 10/05/17 04:00 (Chlorhexidine 2% Cloth) 3 pack UNSCH PRN TOP 10/01/17 05:00 (Nicole-Colace) 1 tab BID PO 10/01/17 09:00 10/02/17 08:06 (Milk Of Magnesia Liq) 30 ml Q12H PRN PO 10/01/17 05:00 (Senokot) 17.2 mg Q12H PRN PO 10/01/17 05:00 (Dulcolax Supp) 10 mg DAILY PRN RECTAL 10/01/17 05:00 (Lactulose Liq) 30 ml DAILY PRN PO 10/01/17 05:00 (Peridex 0.12% Liq) 15 ml BID@08,20 MT 10/01/17 08:00 10/02/17 08:06 Pharmacy Profile Note 0 ml @ 0 mls/hr UNSCH OTHER 10/01/17 05:00 (SoluMEDROL INJ) 40 mg Q12H IV PUSH 10/01/17 05:00 10/05/17 05:46 Potassium Chloride 100 ml @ 50 mls/hr Q2H PRN IV 10/01/17 05:15 Potassium Chloride 100 ml @ 50 mls/hr Q2H PRN IV 10/01/17 05:15 10/01/17 11:18 (K-Lyte Cl Eff) 50 meq UNSCH PRN PO 10/01/17 05:15 10/03/17 08:24 Potassium Chloride 100 ml @ 25 mls/hr UNSCH PRN IV 10/01/17 05:15 Potassium Chloride 100 ml @ 50 mls/hr Q2H PRN IV 10/01/17 05:15 Magnesium Sulfate 4 gm/Sodium Chloride 100 ml @ 50 mls/hr UNSCH PRN IV 10/01/17 05:15 10/02/17 06:27 (Mag-Ox) 800 mg UNSCH PRN PO 10/01/17 05:15 Magnesium Sulfate 2 gm/Sodium Chloride 100 ml @ 50 mls/hr UNSCH PRN IV 10/01/17 05:15 (K-Phos) 2,000 mg Q4H PRN PO 10/01/17 05:15 Sodium Phosphate 30 mmol/Sodium Chloride 250 ml @ 42 mls/hr UNSCH PRN IV 10/01/17 05:15 (K-Phos) 2,000 mg UNSCH PRN PO/TUBE 10/01/17 05:15 Potassium Phosphate 30 mmol/ Sodium Chloride 260 ml @ 42 mls/hr UNSCH PRN IV 10/01/17 05:15 Propofol 100 ml @ 2.85 mls/hr TITRATE PRN IV 10/01/17 07:30 10/02/17 10:18 (Ativan) 0.5 mg Q8H PRN PO 10/03/17 08:45 (KCl) 20 meq Q12HR PO 10/03/17 09:15 10/05/17 07:48 (Ultram) 100 mg Q6H PRN PO 10/03/17 09:15 (Apresoline) 10 mg Q6HR PRN PO 10/03/17 09:30 10/04/17 18:36 (Aspirin Chew) 81 mg DAILY CHEW 10/03/17 10:30 10/05/17 07:48 (Coreg) 6.25 mg Q12HR PO 10/03/17 21:00 10/05/17 07:47 Ceftriaxone Sodium 1000 mg/ Sodium Chloride 100 ml @ 200 mls/hr Q24H IV 10/04/17 12:00 10/05/17 12:18 Azithromycin 500 mg/Sodium Chloride 250 ml @ 250 mls/hr Q24H IV 10/04/17 11:00 10/05/17 11:16 (Mycostatin Oint) 1 applic Q12HR TOPICAL 10/04/17 21:00 10/05/17 07:47 (Protonix) 20 mg DAILY PO 10/05/17 09:00 10/05/17 07:47 (Vitamin D3) 5,000 units DAILY PO 10/05/17 09:00 10/05/17 07:47 (Prinivil) 10 mg DAILY PO 10/05/17 11:30 10/05/17 12:18 (Singulair) 10 mg HS PO 10/05/17 21:00 Vital Signs / I&O Vital Signs Date Time Temp Pulse Resp B/P (MAP) Pulse Ox O2 Delivery O2 Flow Rate FiO2 10/05/17 07:01 80 23 208/94 (132) 100 10/05/17 06:01 80 33 155/72 (99) 96 10/05/17 06:00 73 27 95 10/05/17 06:00 93 10/05/17 05:00 62 25 159/76 (103) 98 10/05/17 04:01 97.9 85 38 147/68 (94) 97 10/05/17 04:00 93 10/05/17 03:00 72 25 164/78 (106) 97 10/05/17 02:00 74 23 175/76 (109) 98 10/05/17 02:00 93 10/05/17 02:00 74 23 175/76 (109) 98 10/05/17 01:01 75 23 169/68 (101) 96 10/05/17 01:01 75 23 169/68 (101) 96 10/05/17 01:00 71 23 97 10/05/17 00:00 93 10/05/17 00:00 76 24 130/61 (84) 94 10/05/17 00:00 98.0 76 22 130/61 (84) 94 10/04/17 20:03 99 Nasal Cannula 4.00 10/04/17 20:00 92 10/04/17 20:00 97.8 92 24 188/88 (121) 98 10/04/17 16:01 96 27 141/99 (113) 98 10/04/17 16:01 96 10/04/17 16:00 99 33 95 10/04/17 16:00 99 I/O 10/04/17 10/04/17 10/04/17 10/05/17 10/05/17 10/05/17 06:59 14:59 22:59 06:59 14:59 22:59 Intake Total 340 ml 550 ml 350 ml 300 ml Output Total 700 ml 1600 ml 600 ml Balance -360 ml 550 ml -1250 ml -300 ml Intake Oral 240 ml 350 ml 300 ml IV Total 100 ml 550 ml Output Urine Total 700 ml 1600 ml 600 ml # Bowel Movements 3 3 1 Physical Exam GENERAL: NAD, AAOx3 SKIN: Warm and dry. HEAD: Atraumatic. Normocephalic. EYES: Pupils equal and round. No scleral icterus. No injection or drainage. ENT: No nasal bleeding or discharge. Mucous membranes pink and moist. NECK: Trachea midline. No JVD. CARDIOVASCULAR: Regular rate and rhythm. RESPIRATORY: No accessory muscle use. Decreased breath sounds bilaterally GASTROINTESTINAL: Abdomen soft, non-tender, nondistended. Hepatic and splenic margins not palpable. MUSCULOSKELETAL: Extremities without clubbing, cyanosis, or edema. No obvious deformities. NEUROLOGICAL: Awake and alert. No obvious cranial nerve deficits. Motor grossly within normal limits. Five out of 5 muscle strength in the arms and legs. Normal speech. PSYCHIATRIC: Appropriate mood and affect; insight and judgment normal. Laboratory Laboratory Tests Test 10/05/17 06:30 10/05/17 11:50 White Blood Count 10.5 TH/MM3 Red Blood Count 3.75 MIL/MM3 Hemoglobin 12.0 GM/DL Hematocrit 34.8 % Mean Corpuscular Volume 92.9 FL Mean Corpuscular Hemoglobin 32.1 PG Mean Corpuscular Hemoglobin Concent 34.5 % Red Cell Distribution Width 13.4 % Platelet Count 256 TH/MM3 Mean Platelet Volume 9.2 FL Neutrophils (%) (Auto) 74.1 % Lymphocytes (%) (Auto) 19.7 % Monocytes (%) (Auto) 6.2 % Eosinophils (%) (Auto) 0.0 % Basophils (%) (Auto) 0.0 % Neutrophils # (Auto) 7.8 TH/MM3 Lymphocytes # (Auto) 2.1 TH/MM3 Monocytes # (Auto) 0.7 TH/MM3 Eosinophils # (Auto) 0.0 TH/MM3 Basophils # (Auto) 0.0 TH/MM3 CBC Comment DIFF FINAL Differential Comment Blood Urea Nitrogen 29 MG/DL Creatinine 1.12 MG/DL Random Glucose 112 MG/DL Calcium Level 8.5 MG/DL Phosphorus Level 3.5 MG/DL Sodium Level 142 MEQ/L Potassium Level 3.6 MEQ/L Chloride Level 106 MEQ/L Carbon Dioxide Level 24.1 MEQ/L Anion Gap 12 MEQ/L Estimat Glomerular Filtration Rate 48 ML/MIN Vancomycin Level Trough 11.7 MCG/ML Assessment and Plan Problem List: (1) CHF (congestive heart failure) ICD Codes: I50.9 - Heart failure, unspecified Status: Acute (2) Hypertension ICD Codes: I10 - Essential (primary) hypertension (3) Acute respiratory failure ICD Codes: J96.00 - Acute respiratory failure, unspecified whether with hypoxia or hypercapnia Status: Resolved (4) Tobacco abuse ICD Codes: Z72.0 - Tobacco use Status: Acute (5) Smoking greater than 40 pack years ICD Codes: F17.210 - Nicotine dependence, cigarettes, uncomplicated Assessment and Plan 1) Acute heart failure leading to SOB Appears to be more diastolic as EF 50% Mild to moderate MR Possibly due to accelerated HTN Stop NSAID use, discussed with patient 2) Minimally elevated troponin Nuclear negative for ischemia 3) She will continue on statin therapy 4) HTN Agree with increasing BELLA-I Will also increase Coreg Problem Qualifiers (1) CHF (congestive heart failure): Qualified Codes: I50.9 - Heart failure, unspecified Miguelito Dias DO October 05, 2017 13:18
[2017-10-05] MEDS ORDERED: CARVEDILOL 6.25 MG TAB PO ONE (13:30)
[2017-10-05] MEDS: hydrALAZINE HCL 10 MG TAB PO PRN (15:58)
[2017-10-05] MEDS: CARVEDILOL 12.5 MG TAB PO SCH (21:46)
[2017-10-05] MEDS: ATORVASTATIN 40 MG TAB PO SCH (21:47)
[2017-10-05] MEDS: MONTELUKAST SODIUM 10 MG TAB PO SCH (21:47)
[2017-10-06 00:22] VITALS: BP 167/72; PULSE 64; RESP 17; TEMP 98; O2SAT 96
[2017-10-06] MEDS: CHLORHEXIDINE GLUCONATE 2 % 1 PACK (2 CLOTHS) TOP SCH (02:41)
[2017-10-06] MEDS: CHOLESTYRAMINE 4 GM PACKET PO SCH (05:35)
[2017-10-06] MEDS: HEPARIN SODIUM - SQ 10,000 UNITS/ML VIAL SQ SCH ×3 (05:35→20:50)
[2017-10-06] MEDS: methylPREDNISolone SOD SUCC 40 MG/1 ML VIAL IV PUSH SCH ×2 (05:35→16:19)
[2017-10-06] MEDS: CHLORHEXIDINE 0.12% (ORAL KIT) 15 ML CUP MT SCH ×2 (06:51→20:00)
[2017-10-06 07:10] LABS: AUTOMATED NEUTROPHIL # 9.2 TH/MM3 (1.8-7.7); BASOPHIL % 0.3 % (0.0-2.0); HEMATOCRIT 37.7 % (35.0-46.0); HEMOGLOBIN 13.4 GM/DL (11.6-15.3); LYMPH % 16.9 % (9.0-44.0); LYMPHOCYTE # 2.1 TH/MM3 (1.0-4.8); MEAN CELL VOLUME 91.9 FL (80.0-100.0); MEAN CORPUSCULAR HEMOGLOBIN 32.7 PG (27.0-34.0); MEAN CORPUSCULAR HGB CONC 35.6 % (32.0-36.0); MONO % 7.1 % (0.0-8.0); MONOCYTE # 0.9 TH/MM3 (0-0.9); NEUT % 75.7 % (16.0-70.0); PLATELET COUNT 283 TH/MM3 (150-450); RED CELL DISTRIBUTION WIDTH 13.3 % (11.6-17.2); WHITE BLOOD COUNT 12.1 TH/MM3 (4.0-11.0)
[2017-10-06 07:34] LABS: BICARBONATE 23.9 MEQ/L (21.0-32.0); CALCIUM 8.8 MG/DL (8.5-10.1); CREATININE 1.05 MG/DL (0.50-1.00)
[2017-10-06 08:00] VITALS: BP_SYST 202; BP_SYST 203; BP_DIAS 101; BP_DIAS 98; PULSE 74; RESP 22; TEMP 97.4; O2SAT 99
[2017-10-06] MEDS: ASPIRIN 81 MG CHEW TAB CHEW SCH (08:01)
[2017-10-06] MEDS: ARTIFICIAL TEARS OPTH SOLN 15 ML BTL EACH EYE SCH ×3 (08:01→10:30)
[2017-10-06] MEDS: SODIUM CHLORIDE 0.9% FLUSH 10 ML FLUSH IV FLUSH SCH ×2 (08:01→20:51)
[2017-10-06] MEDS: FUROSEMIDE 40 MG/4 ML VIAL IV PUSH SCH (08:02)
[2017-10-06] MEDS: LACTOBACILLUS ACIDOPHILUS TAB PO SCH ×2 (08:03→20:48)
[2017-10-06] MEDS: POTASSIUM CHLORIDE 20 MEQ CONTROLLED RELEASE TAB PO SCH ×2 (08:04→20:48)
[2017-10-06] MEDS: CARVEDILOL 12.5 MG TAB PO SCH ×2 (08:04→20:48)
[2017-10-06] MEDS: DOCUSATE SODIUM 50 MG/SENNA 8.6 MG TAB PO SCH ×2 (08:04→20:51)
[2017-10-06] MEDS: LISINOPRIL 10 MG TAB PO SCH (08:05)
[2017-10-06] MEDS: LORazepam 0.5 MG TAB PO PRN (08:05)
[2017-10-06] MEDS: PANTOPRAZOLE SOD 20 MG DELAYED RELEASE TAB PO SCH (08:05)
[2017-10-06] MEDS: CHOLECALCIFEROL (VIT D3) 5000 UNIT CAP PO SCH (08:05)
[2017-10-06] MEDS: NYSTATIN 100,000 U/GM OINT 15 GM TUBE TOPICAL SCH ×2 (08:06→20:51)
[2017-10-06] MEDS ORDERED: LISINOPRIL 20 MG TAB PO ONE (09:15)
[2017-10-06] MEDS ORDERED: cloNIDine HCL 0.1 MG TAB PO PRN (09:15)
[2017-10-06] MEDS: cefTRIAXone INJ 1,000 MG in SODIUM CHLORIDE 0.9% INJ 100 ML IV SCH (10:52)
[2017-10-06] MEDS: AZITHROMYCIN INJ 500 MG in SODIUM CHLOR 0.9% 250 ML INJ 250 ML IV SCH (10:52)
--- NOTE | 2017-10-06 11:48 | PD.CARD.PN ---
Subjective Subjective Remarks No events overnight Breathing better No chest pain Withdrawing from tobacco Objective Medications Current Medications Medications (Trade) Dose Ordered Sig/Tameka Route Start Time Stop Time Status Last Admin (Lasix Inj) 40 mg DAILY IV PUSH 10/01/17 09:00 10/06/17 08:02 (Lipitor) 40 mg HS PO 10/01/17 21:00 10/05/17 21:47 (Questran 4 Gm Pkt) 4 gm DAILY@0600 PO 10/01/17 06:00 10/06/17 05:35 (Lactinex) 1 tab Q12HR PO 10/01/17 09:00 10/06/17 08:03 (NS Flush) 2 ml UNSCH PRN IV FLUSH 10/01/17 05:00 (NS Flush) 2 ml BID IV FLUSH 10/01/17 09:00 10/06/17 08:01 (Tylenol) 650 mg Q6H PRN PO 10/01/17 05:00 (Ativan Inj) 1 mg Q1H PRN IV PUSH 10/01/17 05:00 (Tears Naturale Opth Soln) 1 drop TID EACH EYE 10/01/17 09:00 10/03/17 16:47 (Zofran Inj) 4 mg Q6H PRN IV PUSH 10/01/17 05:00 (Duoneb Neb) 1 ampule Q2HR NEB PRN INH 10/01/17 05:00 (Heparin Inj) 5,000 units Q8H SQ 10/01/17 05:00 10/06/17 05:35 ([facility] [place] [facility] Information) 1 Q361D XX 10/01/17 05:00 10/01/17 05:00 (Chlorhexidine 2% Cloth) 3 pack Taper DAILY@04 TOP 10/02/17 04:00 09/28/18 03:59 10/05/17 04:00 (Chlorhexidine 2% Cloth) 3 pack UNSCH PRN TOP 10/01/17 05:00 (Nciole-Colace) 1 tab BID PO 10/01/17 09:00 10/05/17 21:46 (Milk Of Magnesia Liq) 30 ml Q12H PRN PO 10/01/17 05:00 (Senokot) 17.2 mg Q12H PRN PO 10/01/17 05:00 (Dulcolax Supp) 10 mg DAILY PRN RECTAL 10/01/17 05:00 (Lactulose Liq) 30 ml DAILY PRN PO 10/01/17 05:00 (Peridex 0.12% Liq) 15 ml BID@08,20 MT 10/01/17 08:00 10/02/17 08:06 (SoluMEDROL INJ) 40 mg Q12H IV PUSH 10/01/17 05:00 10/06/17 05:35 Propofol 100 ml @ 2.85 mls/hr TITRATE PRN IV 10/01/17 07:30 10/02/17 10:18 (Ativan) 0.5 mg Q8H PRN PO 10/03/17 08:45 10/06/17 08:05 (KCl) 20 meq Q12HR PO 10/03/17 09:15 10/06/17 08:04 (Ultram) 100 mg Q6H PRN PO 10/03/17 09:15 (Apresoline) 10 mg Q6HR PRN PO 10/03/17 09:30 10/05/17 15:58 (Aspirin Chew) 81 mg DAILY CHEW 10/03/17 10:30 10/06/17 08:01 Ceftriaxone Sodium 1000 mg/ Sodium Chloride 100 ml @ 200 mls/hr Q24H IV 10/04/17 12:00 10/06/17 10:52 Azithromycin 500 mg/Sodium Chloride 250 ml @ 250 mls/hr Q24H IV 10/04/17 11:00 10/06/17 10:52 (Mycostatin Oint) 1 applic Q12HR TOPICAL 10/04/17 21:00 10/06/17 08:06 (Protonix) 20 mg DAILY PO 10/05/17 09:00 10/06/17 08:05 (Vitamin D3) 5,000 units DAILY PO 10/05/17 09:00 10/06/17 08:05 (Singulair) 10 mg HS PO 10/05/17 21:00 10/05/17 21:47 (Coreg) 12.5 mg Q12HR PO 10/05/17 21:00 10/06/17 08:04 (Prinivil) 40 mg DAILY PO 10/07/17 09:00 (Catapres) 0.1 mg Q6H PRN PO 10/06/17 09:15 Vital Signs / I&O Vital Signs Date Time Temp Pulse Resp B/P (MAP) Pulse Ox O2 Delivery O2 Flow Rate FiO2 10/06/17 08:00 97.4 74 22 203/98 (133) 99 202/101 (134) 10/06/17 00:22 98.0 64 17 167/72 (103) 96 10/05/17 20:40 97.7 78 18 186/90 (122) 96 10/05/17 17:20 97 Nasal Cannula 2.00 10/05/17 17:13 150/90 (110) 10/05/17 16:00 98.0 76 18 186/85 (118) 97 10/05/17 14:17 97 2.00 10/05/17 14:09 77 38 168/79 (108) 98 10/05/17 14:00 81 29 98 10/05/17 13:45 80 27 94 10/05/17 13:30 78 27 98 10/05/17 13:15 81 34 97 10/05/17 13:00 80 36 97 10/05/17 12:45 79 37 98 10/05/17 12:30 83 35 89 10/05/17 12:15 80 35 97 10/05/17 12:00 97.6 81 26 98 10/05/17 12:00 81 26 98 10/05/17 12:00 81 I/O 10/05/17 10/05/17 10/05/17 10/06/17 10/06/17 10/06/17 07:00 15:00 23:00 07:00 15:00 23:00 Intake Total 300 ml 1320 ml 680 ml Output Total 600 ml 1600 ml Balance -300 ml -280 ml 680 ml Intake Oral 300 ml 970 ml 680 ml IV Total 350 ml Output Urine Total 600 ml 1600 ml # Voids 4 # Bowel Movements 1 2 2 Physical Exam GENERAL: NAD, AAOx3 SKIN: Warm and dry. HEAD: Atraumatic. Normocephalic. EYES: Pupils equal and round. No scleral icterus. No injection or drainage. ENT: No nasal bleeding or discharge. Mucous membranes pink and moist. NECK: Trachea midline. No JVD. CARDIOVASCULAR: Regular rate and rhythm. RESPIRATORY: No accessory muscle use. Decreased breath sounds bilaterally GASTROINTESTINAL: Abdomen soft, non-tender, nondistended. Hepatic and splenic margins not palpable. MUSCULOSKELETAL: Extremities without clubbing, cyanosis, or edema. No obvious deformities. NEUROLOGICAL: Awake and alert. No obvious cranial nerve deficits. Motor grossly within normal limits. Five out of 5 muscle strength in the arms and legs. Normal speech. PSYCHIATRIC: Appropriate mood and affect; insight and judgment normal. Laboratory Laboratory Tests Test 10/05/17 11:50 10/06/17 07:00 Vancomycin Level Trough 11.7 MCG/ML White Blood Count 12.1 TH/MM3 Red Blood Count 4.10 MIL/MM3 Hemoglobin 13.4 GM/DL Hematocrit 37.7 % Mean Corpuscular Volume 91.9 FL Mean Corpuscular Hemoglobin 32.7 PG Mean Corpuscular Hemoglobin Concent 35.6 % Red Cell Distribution Width 13.3 % Platelet Count 283 TH/MM3 Mean Platelet Volume 9.0 FL Neutrophils (%) (Auto) 75.7 % Lymphocytes (%) (Auto) 16.9 % Monocytes (%) (Auto) 7.1 % Eosinophils (%) (Auto) 0.0 % Basophils (%) (Auto) 0.3 % Neutrophils # (Auto) 9.2 TH/MM3 Lymphocytes # (Auto) 2.1 TH/MM3 Monocytes # (Auto) 0.9 TH/MM3 Eosinophils # (Auto) 0.0 TH/MM3 Basophils # (Auto) 0.0 TH/MM3 CBC Comment DIFF FINAL Differential Comment Blood Urea Nitrogen 27 MG/DL Creatinine 1.05 MG/DL Random Glucose 101 MG/DL Calcium Level 8.8 MG/DL Sodium Level 140 MEQ/L Potassium Level 4.1 MEQ/L Chloride Level 103 MEQ/L Carbon Dioxide Level 23.9 MEQ/L Anion Gap 13 MEQ/L Estimat Glomerular Filtration Rate 52 ML/MIN Assessment and Plan Problem List: (1) CHF (congestive heart failure) ICD Codes: I50.9 - Heart failure, unspecified Status: Acute (2) Hypertension ICD Codes: I10 - Essential (primary) hypertension (3) Acute respiratory failure ICD Codes: J96.00 - Acute respiratory failure, unspecified whether with hypoxia or hypercapnia Status: Resolved (4) Tobacco abuse ICD Codes: Z72.0 - Tobacco use Status: Acute (5) Smoking greater than 40 pack years ICD Codes: F17.210 - Nicotine dependence, cigarettes, uncomplicated Assessment and Plan 1) Acute heart failure leading to SOB Appears to be more diastolic as EF 50% Mild to moderate MR Possibly due to accelerated HTN Stop NSAID use, discussed with patient 2) Minimally elevated troponin Nuclear negative for ischemia 3) She will continue on statin therapy 4) HTN Con't BELLA-I Will increase Coreg and add Norvasc Possible Tobacco withdrawal as it's more noticeable today and she's asking for a nicotine patch 5) No further CV work up, needs BP control Dr. Yates will be available over the weekend PRN Problem Qualifiers (1) CHF (congestive heart failure): Qualified Codes: I50.9 - Heart failure, unspecified Miguelito Dias DO Oct 06, 2017 11:48
[2017-10-06 12:00] VITALS: BP 132/71; PULSE 75; RESP 20; TEMP 97.8; O2SAT 98
--- NOTE | 2017-10-06 12:16 | HHI.FPPN ---
Subjective Remarks Mrs. Townsend was afebrile and hypertensive overnight (BP 160's-200's). Patient does not report having headache, vision changes, extremity weakness/ numbness, chest pain, or shortness of breath with hypertension. No bowel or urinary concerns reported. Patient has continued nasal congestion. Patient reports frustration at lack of Nicotine patch. (Bandar Mueller MD R3) Objective Vitals Vital Signs Date Time Temp Pulse Resp B/P (MAP) Pulse Ox O2 Delivery O2 Flow Rate FiO2 10/06/17 08:00 97.4 74 22 203/98 (133) 99 202/101 (134) 10/06/17 00:22 98.0 64 17 167/72 (103) 96 10/05/17 20:40 97.7 78 18 186/90 (122) 96 10/05/17 17:20 97 Nasal Cannula 2.00 10/05/17 17:13 150/90 (110) 10/05/17 16:00 98.0 76 18 186/85 (118) 97 10/05/17 14:17 97 2.00 10/05/17 14:09 77 38 168/79 (108) 98 10/05/17 14:00 81 29 98 10/05/17 13:45 80 27 94 10/05/17 13:30 78 27 98 10/05/17 13:15 81 34 97 10/05/17 13:00 80 36 97 10/05/17 12:45 79 37 98 10/05/17 12:30 83 35 89 10/05/17 12:15 80 35 97 I/O 10/05/17 10/05/17 10/05/17 10/06/17 10/06/17 10/06/17 07:00 15:00 23:00 07:00 15:00 23:00 Intake Total 300 ml 1320 ml 680 ml Output Total 600 ml 1600 ml Balance -300 ml -280 ml 680 ml Intake Oral 300 ml 970 ml 680 ml IV Total 350 ml Output Urine Total 600 ml 1600 ml # Voids 4 # Bowel Movements 1 2 2 (Bandar Mueller MD R3) Result Diagram: 10/06/17 0700 10/06/17 0700 Imaging Last Impressions Myocardial Perfusion Scan Nuc Med 10/04/17 07 Signed Impressions: CONCLUSION: 1. Small fixed perfusion defect anteriorly. No reversible perfusion abnormalit y identified. Chest X-Ray 10/03/17 0600 Signed Impressions: CONCLUSION: Slight left lung base atelectasis. Objective Remarks GENERAL: Obese WF; NAD SKIN: Intertriginous rash under breasts/groin not inspected today EYES: EOM grossly I. HEENT: Poor dentition. CARDIOVASCULAR: Regular rate and rhythm without murmurs. No significant LE edema RESPIRATORY:Normal rate. Decreased breath sounds; no obvious congestion GASTROINTESTINAL: Abdomen soft, non-tender, nondistended. MUSCULOSKELETAL: Grossly normal ROM and motor function Neuro: Grossly normal CN. Grossly normal peripheral motor/sensory function (Bandar Mueller MD R3) A/P Assessment and Plan Mrs. Townsend is a 72 yo F with: (Banadr Mueller MD R3) Attending Attestation Pt. examined independently and case discussed with resident physicians I have read the above note and agree with the assessment/plan as discussed with me I was involved in all medical decision making for this patient Obed He MD (Obed He MD) Problem List: (1) CHF (congestive heart failure) ICD Codes: I50.9 - Heart failure, unspecified Status: Acute Plan: Impression: Respiratory failure on admission requiring intubation. BNP 401 on admission. Patient with initial troponin elevation 0.02-> 0.61->0.26; attributed by Cardiology to be likely secondary to type 2 NSTEMI. Hypertensive urgency on admission also which may have contributed to troponin elevation. No significant EKG changes Echo 10/04- EF 50%. Mild to moderate mitral regurgitation. aortic sclerosis present. -Suggestive of diastolic HF per Cardiology Nuclear stress 10/04- small fixed anterior defect. No reversible abnormality Cardiology consulted -Titrate BP control w/ BELLA, BB -Hold NSAID's -Continue ASA -No further CV work-up; available PRN (2) Hypertension ICD Codes: I10 - Essential (primary) hypertension Plan: Impression: Max SBP 203/98 overnight Impression: Significant HTN during hospitalization with high MAP 132 overnight -Increase Carvedilol to 12.5mg BID per Cardiology -Will increase further if still hypertensive -Increase Lisinopril to 40mg daily -Continue Hydralazine PRN -Add Clonidine 0.1mg q6hrs PRN -Continue Furosemide for diuresis (3) Sepsis ICD Codes: A41.9 - Sepsis, unspecified organism Status: Acute Plan: Impression: Leukocytosis (WBC 16.2), tachycardia (108BPM) on admission; lactic acid initially 4.5. Unclear etiology of SIRS as patient also with NSTEMI , cough/sputum production in setting of probable COPD and Klebsiella UTI diagnosed during hospitalization. Lactic acid- 4.5 (10/01) -> 2.3 CXR on admission with bilateral consolidations -Will continue to monitor VS, CBC, signs of infection -Will cover for CAP and Klebsiella (sensitive to Rocephin) -Continue Azithromycin (10/04-) -Continue Rocephin (10/04-) Antibiotic history: -Zosyn (10/01- 10/04) Cultures: Urine 10/01- Klebsiella Blood 10/01- negative (4) Productive cough ICD Codes: R05 - Cough Status: Acute Plan: Impression: Cough, upper respiratory congestion. Chronic tobacco abuse. CXR with left base atelectasis -Continue to monitor O2 saturations -Will continue BID steroids to cover for possible COPD exacerbation (Chronic tobacco abuse) -Continue PRN duonebs -Continue Azithromycin/Rocephin to cover for possible CAP -Continue Singulair due to complaint of nasal inflammation and likely benefit with presumed undiagnosed COPD (5) UTI (urinary tract infection) ICD Codes: N39.0 - Urinary tract infection, site not specified Status: Acute Plan: Impression: UA 10/01 with large leuk esterase, large protein, many bacteria. Urine culture- Klebsiella pneumonia resistant to nitrofurantoin but otherwise sensitive -Continue Rocephin 1gm daily (6) Candidiasis, intertrigo ICD Codes: B37.2 - Candidiasis of skin and nail Status: Acute Plan: Impression: Chronic intertriginous hyperpigmentation with intermittent itching. Suspect some candidal component -Continue Nystatin ointment BID (7) Diarrhea ICD Codes: R19.7 - Diarrhea, unspecified Status: Chronic Plan: Impression: frequent loose stool while hospitalized C diff PCR negative -Will continue to monitor -Continue probiotics (8) Tobacco abuse ICD Codes: Z72.0 - Tobacco use Status: Acute Plan: Impression: Patient reports 15 cigarettes daily -Will hold Nicotine patches currently due to uncontrolled BP and concern for CAD (9) GERD (gastroesophageal reflux disease) ICD Codes: K21.9 - Gastro-esophageal reflux disease without esophagitis Plan: Impression: Reported GERD -Continue Omeprazole 20mg daily -Will plan to discuss changing to H2 on discharge (10) Acute respiratory failure ICD Codes: J96.00 - Acute respiratory failure, unspecified whether with hypoxia or hypercapnia Status: Resolved Plan: Impression: Respiratory failure on admission; suspected secondary to CHF of unknown etiology. Patient intubated 10/01; subsequently extubated. Currently > 95% saturations on 4L O2 via NC -Continue to monitor respiratory function (11) FEN/DVT PPX/GI PPX/Nursing Orders Plan: Fluids: Will withhold IVF at this time Electrolytes: Monitor and replete as needed Diet: Regular diet DVT PPX- Heparin 5K units daily GI PPX- Omeprazole 20mg daily (Bandar Mueller MD R3) Problem Qualifiers (1) CHF (congestive heart failure): Qualified Codes: I50.9 - Heart failure, unspecified (2) Hypertension: Qualified Codes: I10 - Essential (primary) hypertension (3) UTI (urinary tract infection): Qualified Codes: N30.00 - Acute cystitis without hematuria Bandar Mueller MD R3 Oct 06, 2017 12:16 Obed He MD Oct 06, 2017 15:31
[2017-10-06 16:00] VITALS: BP 119/88; PULSE 77; RESP 20; TEMP 97.2; O2SAT 100
[2017-10-06 20:00] VITALS: BP 164/77; PULSE 68; RESP 18; TEMP 97.8; O2SAT 97
[2017-10-06] MEDS: hydrALAZINE HCL 10 MG TAB PO PRN (20:48)
[2017-10-06] MEDS: ATORVASTATIN 40 MG TAB PO SCH (20:48)
[2017-10-06] MEDS: MONTELUKAST SODIUM 10 MG TAB PO SCH (20:48)
[2017-10-07] VITALS (7 sets, daily range): BP systolic 107–235; BP diastolic 67–111; PULSE 73–86; RESP 18–20; TEMP 97.5–98.2; O2SAT 96–100
[2017-10-07] MEDS: CHLORHEXIDINE GLUCONATE 2 % 1 PACK (2 CLOTHS) TOP SCH (04:00)
[2017-10-07 04:51] LABS: AUTOMATED NEUTROPHIL # 11.5 TH/MM3 (1.8-7.7); BASOPHIL % 0.2 % (0.0-2.0); HEMATOCRIT 37.6 % (35.0-46.0); HEMOGLOBIN 13.4 GM/DL (11.6-15.3); LYMPH % 14.8 % (9.0-44.0); LYMPHOCYTE # 2.2 TH/MM3 (1.0-4.8); MEAN CELL VOLUME 92.3 FL (80.0-100.0); MEAN CORPUSCULAR HEMOGLOBIN 32.8 PG (27.0-34.0); MEAN CORPUSCULAR HGB CONC 35.5 % (32.0-36.0); MEAN PLATELET VOLUME 8.8 FL (7.0-11.0); MONO % 7.1 % (0.0-8.0); MONOCYTE # 1.1 TH/MM3 (0-0.9); NEUT % 77.9 % (16.0-70.0); PLATELET COUNT 280 TH/MM3 (150-450); RED BLOOD COUNT 4.08 MIL/MM3 (4.00-5.30); WHITE BLOOD COUNT 14.7 TH/MM3 (4.0-11.0)
[2017-10-07 05:18] LABS: CALCIUM 8.9 MG/DL (8.5-10.1); CREATININE 1.02 MG/DL (0.50-1.00)
[2017-10-07] MEDS: HEPARIN SODIUM - SQ 10,000 UNITS/ML VIAL SQ SCH ×3 (05:32→20:12)
[2017-10-07] MEDS: methylPREDNISolone SOD SUCC 40 MG/1 ML VIAL IV PUSH SCH ×2 (05:32→16:33)
[2017-10-07] MEDS: CHOLESTYRAMINE 4 GM PACKET PO SCH (05:33)
[2017-10-07] MEDS: CHLORHEXIDINE 0.12% (ORAL KIT) 15 ML CUP MT SCH ×2 (08:00→20:00)
[2017-10-07] MEDS: LACTOBACILLUS ACIDOPHILUS TAB PO SCH ×2 (08:33→20:11)
[2017-10-07] MEDS: ASPIRIN 81 MG CHEW TAB CHEW SCH (08:33)
[2017-10-07] MEDS: LISINOPRIL 20 MG TAB PO SCH (08:34)
[2017-10-07] MEDS: CARVEDILOL 12.5 MG TAB PO SCH ×2 (08:34→20:12)
[2017-10-07] MEDS: PANTOPRAZOLE SOD 20 MG DELAYED RELEASE TAB PO SCH (08:34)
[2017-10-07] MEDS: POTASSIUM CHLORIDE 20 MEQ CONTROLLED RELEASE TAB PO SCH ×2 (08:34→20:12)
[2017-10-07] MEDS: CHOLECALCIFEROL (VIT D3) 5000 UNIT CAP PO SCH (08:34)
[2017-10-07] MEDS: SODIUM CHLORIDE 0.9% FLUSH 10 ML FLUSH IV FLUSH SCH ×2 (08:35→20:18)
[2017-10-07] MEDS: NYSTATIN 100,000 U/GM OINT 15 GM TUBE TOPICAL SCH ×2 (08:36→20:15)
[2017-10-07] MEDS: DOCUSATE SODIUM 50 MG/SENNA 8.6 MG TAB PO SCH ×2 (08:36→20:11)
[2017-10-07] MEDS: FUROSEMIDE 40 MG/4 ML VIAL IV PUSH SCH (08:36)
[2017-10-07] MEDS: ARTIFICIAL TEARS OPTH SOLN 15 ML BTL EACH EYE SCH ×3 (08:38→15:59)
--- NOTE | 2017-10-07 09:21 | PD.CARD.PN ---
Subjective Subjective Remarks c/o frequent BM's. no chest pain Objective Medications Current Medications Medications (Trade) Dose Ordered Sig/Tameka Route Start Time Stop Time Status Last Admin (Lasix Inj) 40 mg DAILY IV PUSH 10/01/17 09:00 10/07/17 08:36 (Lipitor) 40 mg HS PO 10/01/17 21:00 10/06/17 20:48 (Questran 4 Gm Pkt) 4 gm DAILY@0600 PO 10/01/17 06:00 10/07/17 05:33 (Lactinex) 1 tab Q12HR PO 10/01/17 09:00 10/07/17 08:33 (NS Flush) 2 ml UNSCH PRN IV FLUSH 10/01/17 05:00 (NS Flush) 2 ml BID IV FLUSH 10/01/17 09:00 10/07/17 08:35 (Tylenol) 650 mg Q6H PRN PO 10/01/17 05:00 (Ativan Inj) 1 mg Q1H PRN IV PUSH 10/01/17 05:00 (Tears Naturale Opth Soln) 1 drop TID EACH EYE 10/01/17 09:00 10/03/17 16:47 (Zofran Inj) 4 mg Q6H PRN IV PUSH 10/01/17 05:00 (Duoneb Neb) 1 ampule Q2HR NEB PRN INH 10/01/17 05:00 (Heparin Inj) 5,000 units Q8H SQ 10/01/17 05:00 10/07/17 05:32 ([facility] Nursing Information) 1 Q361D XX 10/01/17 05:00 10/01/17 05:00 (Chlorhexidine 2% Cloth) Taper DAILY@04 TOP 10/02/17 04:00 09/28/18 03:59 10/05/17 04:00 (Chlorhexidine 2% Cloth) 3 pack UNSCH PRN TOP 10/01/17 05:00 (Nicole-Colace) 1 tab BID PO 10/01/17 09:00 10/05/17 21:46 (Milk Of Magnesia Liq) 30 ml Q12H PRN PO 10/01/17 05:00 (Senokot) 17.2 mg Q12H PRN PO 10/01/17 05:00 (Dulcolax Supp) 10 mg DAILY PRN RECTAL 10/01/17 05:00 (Lactulose Liq) 30 ml DAILY PRN PO 10/01/17 05:00 (Peridex 0.12% Liq) 15 ml BID@08,20 MT 10/01/17 08:00 10/02/17 08:06 (SoluMEDROL INJ) 40 mg Q12H IV PUSH 10/01/17 05:00 10/07/17 05:32 Propofol 100 ml @ 2.85 mls/hr TITRATE PRN IV 10/01/17 07:30 10/02/17 10:18 (Ativan) 0.5 mg Q8H PRN PO 10/03/17 08:45 10/06/17 08:05 (KCl) 20 meq Q12HR PO 10/03/17 09:15 10/07/17 08:34 (Ultram) 100 mg Q6H PRN PO 10/03/17 09:15 (Apresoline) 10 mg Q6HR PRN PO 10/03/17 09:30 10/06/17 20:48 (Aspirin Chew) 81 mg DAILY CHEW 10/03/17 10:30 10/07/17 08:33 Ceftriaxone Sodium 1000 mg/ Sodium Chloride 100 ml @ 200 mls/hr Q24H IV 10/04/17 12:00 10/06/17 10:52 Azithromycin 500 mg/Sodium Chloride 250 ml @ 250 mls/hr Q24H IV 10/04/17 11:00 10/06/17 10:52 (Mycostatin Oint) 1 applic Q12HR TOPICAL 10/04/17 21:00 10/07/17 08:36 (Protonix) 20 mg DAILY PO 10/05/17 09:00 10/07/17 08:34 (Vitamin D3) 5,000 units DAILY PO 10/05/17 09:00 10/07/17 08:34 (Singulair) 10 mg HS PO 10/05/17 21:00 10/06/17 20:48 (Coreg) 12.5 mg Q12HR PO 10/05/17 21:00 10/07/17 08:34 (Prinivil) 40 mg DAILY PO 10/07/17 09:00 10/07/17 08:34 (Catapres) 0.1 mg Q6H PRN PO 10/06/17 09:15 Vital Signs / I&O Vital Signs Date Time Temp Pulse Resp B/P (MAP) Pulse Ox O2 Delivery O2 Flow Rate FiO2 10/07/17 08:00 97.5 73 18 235/111 (152) 100 212/105 (140) 10/07/17 00:49 98.2 84 18 155/81 (105) 96 10/06/17 20:00 97.8 68 18 164/77 (106) 97 10/06/17 18:02 Nasal Cannula 2.00 10/06/17 16:00 97.2 77 20 119/88 (98) 100 10/06/17 12:00 97.8 75 20 132/71 (91) 98 I/O 10/06/17 10/06/17 10/06/17 10/07/17 10/07/17 10/07/17 07:00 15:00 23:00 07:00 15:00 23:00 Intake Total 680 ml 350 ml 1600 ml 680 ml Output Total 1200 ml Balance 680 ml 350 ml 400 ml 680 ml Intake Oral 680 ml 1600 ml 680 ml IV Total 350 ml Output Urine Total 1200 ml # Voids 4 4 # Bowel Movements 2 1 2 Physical Exam Alert HEENT: facial hirsutism, very poor dentition Chest: diminished BS CV S1S2 RRR no edema Laboratory Laboratory Tests Test 10/07/17 04:41 White Blood Count 14.7 TH/MM3 Red Blood Count 4.08 MIL/MM3 Hemoglobin 13.4 GM/DL Hematocrit 37.6 % Mean Corpuscular Volume 92.3 FL Mean Corpuscular Hemoglobin 32.8 PG Mean Corpuscular Hemoglobin Concent 35.5 % Red Cell Distribution Width 13.0 % Platelet Count 280 TH/MM3 Mean Platelet Volume 8.8 FL Neutrophils (%) (Auto) 77.9 % Lymphocytes (%) (Auto) 14.8 % Monocytes (%) (Auto) 7.1 % Eosinophils (%) (Auto) 0.0 % Basophils (%) (Auto) 0.2 % Neutrophils # (Auto) 11.5 TH/MM3 Lymphocytes # (Auto) 2.2 TH/MM3 Monocytes # (Auto) 1.1 TH/MM3 Eosinophils # (Auto) 0.0 TH/MM3 Basophils # (Auto) 0.0 TH/MM3 CBC Comment DIFF FINAL Differential Comment Blood Urea Nitrogen 30 MG/DL Creatinine 1.02 MG/DL Random Glucose 110 MG/DL Calcium Level 8.9 MG/DL Sodium Level 139 MEQ/L Potassium Level 4.2 MEQ/L Chloride Level 104 MEQ/L Carbon Dioxide Level 24.0 MEQ/L Anion Gap 11 MEQ/L Estimat Glomerular Filtration Rate 53 ML/MIN Assessment and Plan Problem List: (1) CHF (congestive heart failure) ICD Codes: I50.9 - Heart failure, unspecified Status: Acute (2) Hypertension ICD Codes: I10 - Essential (primary) hypertension Plan: add amlodipine. Consider renal consult to evaluate secondary causes (? Lilly) (3) Tobacco abuse ICD Codes: Z72.0 - Tobacco use Status: Acute (4) Smoking greater than 40 pack years ICD Codes: F17.210 - Nicotine dependence, cigarettes, uncomplicated Problem Qualifiers (1) CHF (congestive heart failure): Qualified Codes: I50.9 - Heart failure, unspecified Lazarus Yates MD Oct 07, 2017 09:21
--- NOTE | 2017-10-07 10:03 | HHI.FPPN ---
Subjective Remarks Mrs. Townsend was hypertensive overnight (max BP 235/111); she was afebrile with normal HR and O2 sat. Patient states she has been voiding as often as every 10 minutes; she does not report dysuria. No chest pain. No significant shortness of breath. No abdominal pain. Patient reports some concerns about her blood pressure. Patient also expresses desire for nicotine patch and to go home. (Bandar Mueller MD R3) Objective Vitals Vital Signs Date Time Temp Pulse Resp B/P (MAP) Pulse Ox O2 Delivery O2 Flow Rate FiO2 10/07/17 09:22 193/93 (126) 10/07/17 08:00 97.5 73 18 235/111 (152) 100 212/105 (140) 10/07/17 00:49 98.2 84 18 155/81 (105) 96 10/06/17 20:00 97.8 68 18 164/77 (106) 97 10/06/17 18:02 Nasal Cannula 2.00 10/06/17 16:00 97.2 77 20 119/88 (98) 100 10/06/17 12:00 97.8 75 20 132/71 (91) 98 I/O 10/06/17 10/06/17 10/06/17 10/07/17 10/07/17 10/07/17 07:00 15:00 23:00 07:00 15:00 23:00 Intake Total 680 ml 350 ml 1600 ml 680 ml Output Total 1200 ml Balance 680 ml 350 ml 400 ml 680 ml Intake Oral 680 ml 1600 ml 680 ml IV Total 350 ml Output Urine Total 1200 ml # Voids 4 4 # Bowel Movements 2 1 2 (Bandar Mueller MD R3) Result Diagram: 10/07/171 10/07/17 0441 Imaging Last Impressions Myocardial Perfusion Scan Nuc Med 10/04/17 07 Signed Impressions: CONCLUSION: 1. Small fixed perfusion defect anteriorly. No reversible perfusion abnormalit y identified. Chest X-Ray 10/03/17 06 Signed Impressions: CONCLUSION: Slight left lung base atelectasis. Objective Remarks GENERAL: Obese WF; NAD SKIN: Intertriginous rash under breasts/groin not inspected today EYES: EOM grossly I. HEENT: Poor dentition. CARDIOVASCULAR: Regular rate and rhythm without murmurs. No significant LE edema RESPIRATORY:Normal rate. Decreased breath sounds; CTAB GASTROINTESTINAL: Abdomen soft, nondistended. No pain to palpation MUSCULOSKELETAL: Grossly normal ROM and motor function Neuro: Grossly normal CN. Grossly normal peripheral motor/sensory function (Bandar Mueller MD R3) A/P Assessment and Plan Mrs. Townsend is a 72 yo F with: (Bandar Mueller MD R3) Attending Attestation Pt. examined independently and case discussed with resident physicians. I have read the above note and agree with the assessment and plan as discussed with me. I was involved in all medical decision making for this patient. Obed He MD (Obed He MD) Problem List: (1) Hypertension ICD Codes: I10 - Essential (primary) hypertension Plan: Impression: Max SBP 235/111 overnight. Intermittently normotensive Impression: Significant HTN during hospitalization; intermittently hypertensive urgency -cardiology consulted -Continue Carvedilol 12.5mg BID -Continue Lisinopril to 40mg daily -Start Amlodipine 10mg daily per Cardiology -Continue Hydralazine PRN -Continue Clonidine 0.1mg q6hrs PRN -Continue Furosemide for diuresis -Per discussion with Cardiology, will consult Nephrology due to intermittent hypertensive urgency in association with hirsutism and possibility of nephrogenic/adrenal etiology (2) CHF (congestive heart failure) ICD Codes: I50.9 - Heart failure, unspecified Status: Acute Plan: Impression: Respiratory failure on admission requiring intubation. BNP 401 on admission. Patient with initial troponin elevation 0.02-> 0.61->0.26; attributed by Cardiology to be likely secondary to type 2 NSTEMI. Hypertensive urgency on admission also which may have contributed to troponin elevation. No significant EKG changes Echo 10/04- EF 50%. Mild to moderate mitral regurgitation. aortic sclerosis present. -Suggestive of diastolic HF per Cardiology Nuclear stress 10/04- small fixed anterior defect. No reversible abnormality Cardiology consulted -Titrate BP control w/ BELLA, BB -Add amlodipine -Hold NSAID's -Continue ASA (3) Sepsis ICD Codes: A41.9 - Sepsis, unspecified organism Status: Acute Plan: Impression: Leukocytosis (WBC 16.2), tachycardia (108BPM) on admission; lactic acid initially 4.5. Unclear etiology of SIRS as patient also with NSTEMI , cough/sputum production in setting of probable COPD and Klebsiella UTI diagnosed during hospitalization. Lactic acid- 4.5 (10/01) -> 2.3 CXR on admission with bilateral consolidations -Will continue to monitor VS, CBC, signs of infection -Will cover for CAP and Klebsiella (sensitive to Rocephin) -Continue Azithromycin (10/04-) -Continue Rocephin (10/04-) Antibiotic history: -Zosyn (10/01- 10/04) Cultures: Urine 10/01- Klebsiella Blood 10/01- negative (4) Productive cough ICD Codes: R05 - Cough Status: Acute Plan: Impression: Cough, upper respiratory congestion. Chronic tobacco abuse. CXR with left base atelectasis -Continue to monitor O2 saturations -Will continue BID steroids to cover for possible COPD exacerbation (Chronic tobacco abuse) -Continue PRN duonebs -Continue Azithromycin/Rocephin to cover for possible CAP -Continue Singulair due to complaint of nasal inflammation and likely benefit with presumed undiagnosed COPD (5) UTI (urinary tract infection) ICD Codes: N39.0 - Urinary tract infection, site not specified Status: Acute Plan: 10/07: Urinary frequency reported Impression: UA 10/01 with large leuk esterase, large protein, many bacteria. Urine culture- Klebsiella pneumonia resistant to nitrofurantoin but otherwise sensitive -Continue Rocephin 1gm daily (will continue past normal UTI length of treatment as possibility of coexistent CAP or respiratory pathogen) -Will repeat UA (6) Candidiasis, intertrigo ICD Codes: B37.2 - Candidiasis of skin and nail Status: Acute Plan: Impression: Chronic intertriginous hyperpigmentation with intermittent itching. Suspect some candidal component -Continue Nystatin ointment BID (7) Diarrhea ICD Codes: R19.7 - Diarrhea, unspecified Status: Chronic Plan: Impression: frequent loose stool while hospitalized C diff PCR negative -Will continue to monitor -Continue probiotics (8) Tobacco abuse ICD Codes: Z72.0 - Tobacco use Status: Acute Plan: Impression: Patient reports 15 cigarettes daily -Will hold Nicotine patches currently due to uncontrolled BP and concern for CAD (9) GERD (gastroesophageal reflux disease) ICD Codes: K21.9 - Gastro-esophageal reflux disease without esophagitis Plan: Impression: Reported GERD -Continue Omeprazole 20mg daily -Will plan to discuss changing to H2 on discharge (10) Acute respiratory failure ICD Codes: J96.00 - Acute respiratory failure, unspecified whether with hypoxia or hypercapnia Status: Resolved Plan: Impression: Respiratory failure on admission; suspected secondary to CHF of unknown etiology. Patient intubated 10/01; subsequently extubated. Currently > 95% saturations on 4L O2 via NC -Continue to monitor respiratory function (11) FEN/DVT PPX/GI PPX/Nursing Orders Plan: Fluids: Will withhold IVF at this time Electrolytes: Monitor and replete as needed Diet: Regular diet DVT PPX- Heparin 5K units daily GI PPX- Omeprazole 20mg daily (Bandar Mueller MD R3) Problem Qualifiers (1) Hypertension: Qualified Codes: I10 - Essential (primary) hypertension (2) CHF (congestive heart failure): Qualified Codes: I50.9 - Heart failure, unspecified (3) UTI (urinary tract infection): Qualified Codes: N30.00 - Acute cystitis without hematuria Bandar Mueller MD R3 Oct 07, 2017 10:03 Obed He MD Oct 07, 2017 12:16
[2017-10-07] MEDS: cefTRIAXone INJ 1,000 MG in SODIUM CHLORIDE 0.9% INJ 100 ML IV SCH (11:31)
--- NOTE | 2017-10-07 11:33 | PD.CONS ---
HPI Service Nephrology Consult Requested By Reason for Consult Uncontrolled hypertension Primary Care Physician No Primary Care Physician History of Present Illness Ms. Townsend was admitted on the with respiratory failure. She was intubated in the ER. Extubated on the . Elevation in Troponin was noted, seen by cardiology. Echo revealed EF of 50%. At home, she appears to have been on Metoprolol. BP control has been difficult since admission. She has been placed on Lisinopril, Carvedilol and Amlodipine started today. Cardiology wanted to rule out [place]'s syndrome on account of hirsutism. Patient is a poor historian. She reports that she lives with her mother in law(?). Patient's CXR revealed patchy infiltrates bilaterally. She had nuclear medicine perfusion scan that was negative for reversible ischemia, it revealed a small fixed anterior defect. Review of Systems Constitutional: COMPLAINS OF: Fatigue Eyes: DENIES: Blurred vision, Diplopia Cardiovascular: DENIES: Chest pain, Palpitations Gastrointestinal: DENIES: Abdominal pain, Black stools, Bloody stools Past Family Social History Allergies: Coded Allergies: No Known Allergies (Verified Allergy, Unknown, 10/04/17) Past Medical History HTN GERD Anxiety Chronic Low back pain Anemia "Stomach infection" in 2016 Carpal tunnel syndrome Past Surgical History Past Surgical History None Reported Medications Augmentin (Amoxicillin-Clavulanate) 875-125 Mg Tab 1 Tab PO BID 11 Days [Nystatin Oint] 15 APPLIC/15 GM Oint 1 Applic TOPICAL Q8HR 30 Days Acidophilus/l-Sporogenes (Lactobacillus Acidophilus) 35 Million Cell-25 Million Cell Tab 1 Tab PO Q12HR 30 Days Potassium Chloride Microencaps 20 Meq Tab 20 Meq PO Q12HR 30 Days Cholestyramine 4 Gm/Pkt Powd 4 Gm PO DAILY 30 Days 1 packet contains 4 grams of cholestyramine. Flagyl (Metronidazole) 250 Mg Tab 500 Mg PO BID 30 Days Atorvastatin (Atorvastatin Calcium) 40 Mg Tab 40 Mg PO HS Tramadol (Tramadol HCl) 50 Mg Tab 100 Mg PO Q6H PRN Metoprolol Tartrate 25 Mg Tab 25 Mg PO BID Mobic (Meloxicam) 15 Mg Tab 15 Mg PO DAILY Ativan (Lorazepam) 0.5 Mg Tab 0.5 Mg PO Q8H PRN Naproxen 500 Mg Tab 500 Mg PO BID PRN Omeprazole 20 Mg Tab 20 Mg PO DAILY Active Ordered Medications Current Medications Medications (Trade) Dose Ordered Sig/Tameka Route Start Time Stop Time Status Last Admin (Lasix Inj) 40 mg DAILY IV PUSH 10/01/17 09:00 10/07/17 08:36 (Lipitor) 40 mg HS PO 10/01/17 21:00 10/06/17 20:48 (Questran 4 Gm Pkt) 4 gm DAILY@0600 PO 10/01/17 06:00 10/07/17 05:33 (Lactinex) 1 tab Q12HR PO 10/01/17 09:00 10/07/17 08:33 (NS Flush) 2 ml UNSCH PRN IV FLUSH 10/01/17 05:00 (NS Flush) 2 ml BID IV FLUSH 10/01/17 09:00 10/07/17 08:35 (Tylenol) 650 mg Q6H PRN PO 10/01/17 05:00 (Ativan Inj) 1 mg Q1H PRN IV PUSH 10/01/17 05:00 (Tears Naturale Opth Soln) 1 drop TID EACH EYE 10/01/17 09:00 10/03/17 16:47 (Zofran Inj) 4 mg Q6H PRN IV PUSH 10/01/17 05:00 (Duoneb Neb) 1 ampule Q2HR NEB PRN INH 10/01/17 05:00 (Heparin Inj) 5,000 units Q8H SQ 10/01/17 05:00 10/07/17 05:32 ([facility] Nursing Information) 1 Q361D XX 10/01/17 05:00 10/01/17 05:00 (Chlorhexidine 2% Cloth) Taper DAILY@04 TOP 10/02/17 04:00 09/28/18 03:59 10/05/17 04:00 (Chlorhexidine 2% Cloth) 3 pack UNSCH PRN TOP 10/01/17 05:00 (Nicole-Colace) 1 tab BID PO 10/01/17 09:00 10/05/17 21:46 (Milk Of Magnesia Liq) 30 ml Q12H PRN PO 10/01/17 05:00 (Senokot) 17.2 mg Q12H PRN PO 10/01/17 05:00 (Dulcolax Supp) 10 mg DAILY PRN RECTAL 10/01/17 05:00 (Lactulose Liq) 30 ml DAILY PRN PO 10/01/17 05:00 (Peridex 0.12% Liq) 15 ml BID@08,20 MT 10/01/17 08:00 10/02/17 08:06 (SoluMEDROL INJ) 40 mg Q12H IV PUSH 10/01/17 05:00 10/07/17 05:32 Propofol 100 ml @ 2.85 mls/hr TITRATE PRN IV 10/01/17 07:30 10/02/17 10:18 (Ativan) 0.5 mg Q8H PRN PO 10/03/17 08:45 10/06/17 08:05 (KCl) 20 meq Q12HR PO 10/03/17 09:15 10/07/17 08:34 (Ultram) 100 mg Q6H PRN PO 10/03/17 09:15 (Apresoline) 10 mg Q6HR PRN PO 10/03/17 09:30 10/06/17 20:48 (Aspirin Chew) 81 mg DAILY CHEW 10/03/17 10:30 10/07/17 08:33 Ceftriaxone Sodium 1000 mg/ Sodium Chloride 100 ml @ 200 mls/hr Q24H IV 10/04/17 12:00 10/06/17 10:52 Azithromycin 500 mg/Sodium Chloride 250 ml @ 250 mls/hr Q24H IV 10/04/17 11:00 10/06/17 10:52 (Mycostatin Oint) 1 applic Q12HR TOPICAL 10/04/17 21:00 10/07/17 08:36 (Protonix) 20 mg DAILY PO 10/05/17 09:00 10/07/17 08:34 (Vitamin D3) 5,000 units DAILY PO 10/05/17 09:00 10/07/17 08:34 (Singulair) 10 mg HS PO 10/05/17 21:00 10/06/17 20:48 (Coreg) 12.5 mg Q12HR PO 10/05/17 21:00 10/07/17 08:34 (Prinivil) 40 mg DAILY PO 10/07/17 09:00 10/07/17 08:34 (Catapres) 0.1 mg Q6H PRN PO 10/06/17 09:15 (Norvasc) 10 mg DAILY PO 10/07/17 10:00 10/07/17 10:00 Family History non contributory Social History Current every day smoker, smokes up to 10 Cigarettes/day. Physical Exam Vital Signs Vital Signs Date Time Temp Pulse Resp B/P (MAP) Pulse Ox O2 Delivery O2 Flow Rate FiO2 10/07/17 10:54 107/73 (84) 10/07/17 09:22 193/93 (126) 10/07/17 08:00 97.5 73 18 235/111 (152) 100 212/105 (140) 10/07/17 00:49 98.2 84 18 155/81 (105) 96 10/06/17 20:00 97.8 68 18 164/77 (106) 97 10/06/17 18:02 Nasal Cannula 2.00 10/06/17 16:00 97.2 77 20 119/88 (98) 100 10/06/17 12:00 97.8 75 20 132/71 (91) 98 Physical Exam GENERAL: Awake, not in distress. SKIN: Warm and dry. HEAD: Normocephalic. EYES: No scleral icterus. No injection or drainage. NECK: Supple, trachea midline. No JVD or lymphadenopathy. CARDIOVASCULAR: Regular rate and rhythm without murmurs, gallops, or rubs. RESPIRATORY: Breath sounds equal bilaterally. No accessory muscle use. GASTROINTESTINAL: Abdomen soft, non-tender, nondistended. MUSCULOSKELETAL: No cyanosis, or edema. BACK: Nontender without obvious deformity. No CVA tenderness. Laboratory Laboratory Tests Test 10/07/17 04:41 White Blood Count 14.7 Red Blood Count 4.08 Hemoglobin 13.4 Hematocrit 37.6 Mean Corpuscular Volume 92.3 Mean Corpuscular Hemoglobin 32.8 Mean Corpuscular Hemoglobin Concent 35.5 Red Cell Distribution Width 13.0 Platelet Count 280 Mean Platelet Volume 8.8 Neutrophils (%) (Auto) 77.9 Lymphocytes (%) (Auto) 14.8 Monocytes (%) (Auto) 7.1 Eosinophils (%) (Auto) 0.0 Basophils (%) (Auto) 0.2 Neutrophils # (Auto) 11.5 Lymphocytes # (Auto) 2.2 Monocytes # (Auto) 1.1 Eosinophils # (Auto) 0.0 Basophils # (Auto) 0.0 CBC Comment DIFF FINAL Differential Comment Blood Urea Nitrogen 30 Creatinine 1.02 Random Glucose 110 Calcium Level 8.9 Sodium Level 139 Potassium Level 4.2 Chloride Level 104 Carbon Dioxide Level 24.0 Anion Gap 11 Estimat Glomerular Filtration Rate 53 Date/Time Source Procedure Growth Status 10/01/17 11:08 Blood Peripheral Aerobic Blood Culture - Final NO GROWTH IN 5 DAYS Complete 10/01/17 11:08 Blood Peripheral Anaerobic Blood Culture - Final NO GROWTH IN 5 DAYS Complete 10/01/17 09:10 Sputum Endotracheal Gram Stain - Final Complete 10/01/17 09:10 Sputum Endotracheal Sputum Culture - Final MODERATE GROWTH NORMAL RESPIRATORY ASHWIN Complete 10/01/17 02:10 Urine Catheterized Urine Urine Culture - Final Klebsiella Pneumoniae Complete Result Diagram: 10/07/1744010/07/17440 Assessment and Plan Problem List: (1) Hypertension ICD Codes: I10 - Essential (primary) hypertension Plan: I will order 24 hour urine collection for free cortisol, catecholamines and metanephrine. Also order Aldosterone/PRA ratio. Continue current medications. Consider changing Lasix to PO. Low salt diet. Monitor BP trend. (2) JESUS ALBERTO (acute kidney injury) ICD Codes: N17.9 - Acute kidney failure, unspecified Status: Resolved Plan: Likely due to renal hypoperfusion. Improved. Monitor. (3) Hypocalcemia ICD Codes: E83.51 - Hypocalcemia Plan: Obtain Vitamin D deficiency. PTH was appropriately high. It is noted that her Magnesium was very low on admission, could have been due to the fact that she was on Omeprazole. Low Magnesium can result in hypocalcemia by causing resistance to PTH action. Assessment and Plan Thanks for the consult. Problem Qualifiers (1) Hypertension: Qualified Codes: I10 - Essential (primary) hypertension Flash Shine MD Oct 07, 2017 11:33
[2017-10-07] MEDS: AZITHROMYCIN INJ 500 MG in SODIUM CHLOR 0.9% 250 ML INJ 250 ML IV SCH (11:35)
[2017-10-07 15:42] LABS: BILIRUBIN, URINE NEG (NEG); BLOOD, URINE NEG (NEG); GLUCOSE,URINE NEG (NEG); KETONE, URINE NEG (NEG); MUCUS URINE FEW /lpf (OCC); NITRITE,URINE NEG (NEG); SQUAMOUS EPITHELIAL CELL URINE 2 /hpf (0-5); URINE COLOR LIGHT-YELLOW (YELLW/STRAW); URINE LEUKOCYTE ESTERASE NEG (NEG)
[2017-10-07] MEDS: ATORVASTATIN 40 MG TAB PO SCH (20:12)
[2017-10-07] MEDS: MONTELUKAST SODIUM 10 MG TAB PO SCH (20:12)
[2017-10-08] VITALS: BP 121/75; PULSE 74; RESP 18; TEMP 97.1; O2SAT 97
[2017-10-08] MEDS: CHLORHEXIDINE GLUCONATE 2 % 1 PACK (2 CLOTHS) TOP SCH (04:00)
[2017-10-08] MEDS: HEPARIN SODIUM - SQ 10,000 UNITS/ML VIAL SQ SCH ×3 (04:40→21:59)
[2017-10-08] MEDS: methylPREDNISolone SOD SUCC 40 MG/1 ML VIAL IV PUSH SCH (04:40)
[2017-10-08] MEDS: CHOLESTYRAMINE 4 GM PACKET PO SCH (04:45)
[2017-10-08] MEDS: LORazepam 0.5 MG TAB PO PRN (04:45)
[2017-10-08 06:11] LABS: AUTOMATED NEUTROPHIL # 12.8 TH/MM3 (1.8-7.7); BASOPHIL % 0.1 % (0.0-2.0); HEMATOCRIT 38.7 % (35.0-46.0); HEMOGLOBIN 13.5 GM/DL (11.6-15.3); LYMPH % 13.4 % (9.0-44.0); LYMPHOCYTE # 2.1 TH/MM3 (1.0-4.8); MEAN CELL VOLUME 91.7 FL (80.0-100.0); MEAN CORPUSCULAR HGB CONC 34.8 % (32.0-36.0); MEAN PLATELET VOLUME 8.8 FL (7.0-11.0); MONO % 5.4 % (0.0-8.0); MONOCYTE # 0.8 TH/MM3 (0-0.9); NEUT % 81.1 % (16.0-70.0); PLATELET COUNT 331 TH/MM3 (150-450); RED BLOOD COUNT 4.22 MIL/MM3 (4.00-5.30); RED CELL DISTRIBUTION WIDTH 13.5 % (11.6-17.2); WHITE BLOOD COUNT 15.7 TH/MM3 (4.0-11.0)
[2017-10-08 06:35] LABS: BICARBONATE 18.9 MEQ/L (21.0-32.0); CALCIUM 9.2 MG/DL (8.5-10.1); CREATININE 1.12 MG/DL (0.50-1.00)
[2017-10-08 08:00] VITALS: BP 153/72; PULSE 72; RESP 16; TEMP 97.2; O2SAT 99
[2017-10-08] MEDS: CHLORHEXIDINE 0.12% (ORAL KIT) 15 ML CUP MT SCH ×2 (08:00→20:00)
--- NOTE | 2017-10-08 08:11 | PD.CARD.PN ---
Subjective Subjective Remarks no complaints Objective Medications Current Medications Medications (Trade) Dose Ordered Sig/Tameka Route Start Time Stop Time Status Last Admin (Lipitor) 40 mg HS PO 10/01/17 21:00 10/07/17 20:12 (Questran 4 Gm Pkt) 4 gm DAILY@0600 PO 10/01/17 06:00 10/08/17 04:45 (Lactinex) 1 tab Q12HR PO 10/01/17 09:00 10/07/17 20:11 (NS Flush) 2 ml UNSCH PRN IV FLUSH 10/01/17 05:00 (NS Flush) 2 ml BID IV FLUSH 10/01/17 09:00 10/07/17 20:18 (Tylenol) 650 mg Q6H PRN PO 10/01/17 05:00 (Ativan Inj) 1 mg Q1H PRN IV PUSH 10/01/17 05:00 (Tears Naturale Opth Soln) 1 drop TID EACH EYE 10/01/17 09:00 10/03/17 16:47 (Zofran Inj) 4 mg Q6H PRN IV PUSH 10/01/17 05:00 (Duoneb Neb) 1 ampule Q2HR NEB PRN INH 10/01/17 05:00 (Heparin Inj) 5,000 units Q8H SQ 10/01/17 05:00 10/08/17 04:40 ([facility] Nursing Information) 1 Q361D XX 10/01/17 05:00 10/01/17 05:00 (Chlorhexidine 2% Cloth) Taper DAILY@04 TOP 10/02/17 04:00 09/28/18 03:59 10/05/17 04:00 (Chlorhexidine 2% Cloth) 3 pack UNSCH PRN TOP 10/01/17 05:00 (Nicole-Colace) 1 tab BID PO 10/01/17 09:00 10/05/17 21:46 (Milk Of Magnesia Liq) 30 ml Q12H PRN PO 10/01/17 05:00 (Senokot) 17.2 mg Q12H PRN PO 10/01/17 05:00 (Dulcolax Supp) 10 mg DAILY PRN RECTAL 10/01/17 05:00 (Lactulose Liq) 30 ml DAILY PRN PO 10/01/17 05:00 (Peridex 0.12% Liq) 15 ml BID@08,20 MT 10/01/17 08:00 10/02/17 08:06 (SoluMEDROL INJ) 40 mg Q12H IV PUSH 10/01/17 05:00 10/08/17 04:40 Propofol 100 ml @ 2.85 mls/hr TITRATE PRN IV 10/01/17 07:30 10/02/17 10:18 (Ativan) 0.5 mg Q8H PRN PO 10/03/17 08:45 10/08/17 04:45 (KCl) 20 meq Q12HR PO 10/03/17 09:15 10/07/17 20:12 (Ultram) 100 mg Q6H PRN PO 10/03/17 09:15 (Apresoline) 10 mg Q6HR PRN PO 10/03/17 09:30 10/06/17 20:48 (Aspirin Chew) 81 mg DAILY CHEW 10/03/17 10:30 10/07/17 08:33 Ceftriaxone Sodium 1000 mg/ Sodium Chloride 100 ml @ 200 mls/hr Q24H IV 10/04/17 12:00 10/07/17 11:31 Azithromycin 500 mg/Sodium Chloride 250 ml @ 250 mls/hr Q24H IV 10/04/17 11:00 10/07/17 11:35 (Mycostatin Oint) 1 applic Q12HR TOPICAL 10/04/17 21:00 10/07/17 20:15 (Protonix) 20 mg DAILY PO 10/05/17 09:00 10/07/17 08:34 (Vitamin D3) 5,000 units DAILY PO 10/05/17 09:00 10/07/17 08:34 (Singulair) 10 mg HS PO 10/05/17 21:00 10/07/17 20:12 (Coreg) 12.5 mg Q12HR PO 10/05/17 21:00 10/07/17 20:12 (Prinivil) 40 mg DAILY PO 10/07/17 09:00 10/07/17 08:34 (Catapres) 0.1 mg Q6H PRN PO 10/06/17 09:15 (Norvasc) 10 mg DAILY PO 10/07/17 10:00 10/07/17 10:00 (Lasix) 40 mg DAILY PO 10/08/17 09:00 Vital Signs / I&O Vital Signs Date Time Temp Pulse Resp B/P (MAP) Pulse Ox O2 Delivery O2 Flow Rate FiO2 10/08/17 00:00 97.1 74 18 121/75 (90) 97 10/07/17 20:09 Humidified 3.00 10/07/17 20:00 97.6 86 18 150/67 (94) 97 10/07/17 16:00 97.6 84 20 131/75 (93) 99 10/07/17 12:16 99 Nasal Cannula 2.00 10/07/17 10:54 107/73 (84) 10/07/17 09:22 193/93 (126) I/O 10/07/17 10/07/17 10/07/17 10/08/17 10/08/17 10/08/17 07:00 15:00 23:00 07:00 15:00 23:00 Intake Total 680 ml 350 ml 1600 ml Output Total 1000 ml 450 ml Balance 680 ml 350 ml 600 ml -450 ml Intake Oral 680 ml 1600 ml IV Total 350 ml Output Urine Total 1000 ml 450 ml # Voids 4 # Bowel Movements 2 1 1 Physical Exam Alert HEENT: facial hirsutism, very poor dentition Chest: clear CV S1S2 RRR no edema Laboratory Laboratory Tests Test 10/07/17 14:57 10/08/17 05:50 Urine Color LIGHT-YELLOW Urine Turbidity CLEAR Urine pH 5.0 Urine Specific [place] 1.011 Urine Protein NEG mg/dL Urine Glucose (UA) NEG mg/dL Urine Ketones NEG mg/dL Urine Occult Blood NEG Urine Nitrite NEG Urine Bilirubin NEG Urine Urobilinogen LESS THAN 2.0 MG/DL Urine Leukocyte Esterase NEG Urine RBC LESS THAN 1 /hpf Urine WBC LESS THAN 1 /hpf Urine Squamous Epithelial Cells 2 /hpf Urine Mucus FEW /lpf Microscopic Urinalysis Comment CULT NOT INDICATED White Blood Count 15.7 TH/MM3 Red Blood Count 4.22 MIL/MM3 Hemoglobin 13.5 GM/DL Hematocrit 38.7 % Mean Corpuscular Volume 91.7 FL Mean Corpuscular Hemoglobin 32.0 PG Mean Corpuscular Hemoglobin Concent 34.8 % Red Cell Distribution Width 13.5 % Platelet Count 331 TH/MM3 Mean Platelet Volume 8.8 FL Neutrophils (%) (Auto) 81.1 % Lymphocytes (%) (Auto) 13.4 % Monocytes (%) (Auto) 5.4 % Eosinophils (%) (Auto) 0.0 % Basophils (%) (Auto) 0.1 % Neutrophils # (Auto) 12.8 TH/MM3 Lymphocytes # (Auto) 2.1 TH/MM3 Monocytes # (Auto) 0.8 TH/MM3 Eosinophils # (Auto) 0.0 TH/MM3 Basophils # (Auto) 0.0 TH/MM3 CBC Comment DIFF FINAL Differential Comment Blood Urea Nitrogen 28 MG/DL Creatinine 1.12 MG/DL Random Glucose 139 MG/DL Calcium Level 9.2 MG/DL Sodium Level 135 MEQ/L Potassium Level 4.3 MEQ/L Chloride Level 102 MEQ/L Carbon Dioxide Level 18.9 MEQ/L Anion Gap 14 MEQ/L Estimat Glomerular Filtration Rate 48 ML/MIN Assessment and Plan Problem List: (1) CHF (congestive heart failure) ICD Codes: I50.9 - Heart failure, unspecified Status: Acute Plan: compensated (2) Hypertension ICD Codes: I10 - Essential (primary) hypertension Plan: better control. Appreciate Dr. Shine checking for secondary causes (3) Tobacco abuse ICD Codes: Z72.0 - Tobacco use Status: Acute (4) Smoking greater than 40 pack years ICD Codes: F17.210 - Nicotine dependence, cigarettes, uncomplicated Assessment and Plan Cardiology signed off but available if needed Problem Qualifiers (1) CHF (congestive heart failure): Qualified Codes: I50.31 - Acute diastolic (congestive) heart failure Lazarus Yates MD Oct 08, 2017 08:11
[2017-10-08] MEDS: FUROSEMIDE 40 MG TAB PO SCH (08:34)
[2017-10-08] MEDS: CHOLECALCIFEROL (VIT D3) 5000 UNIT CAP PO SCH (08:34)
[2017-10-08] MEDS: LISINOPRIL 20 MG TAB PO SCH (08:34)
[2017-10-08] MEDS: LACTOBACILLUS ACIDOPHILUS TAB PO SCH ×2 (08:34→21:59)
[2017-10-08] MEDS: PANTOPRAZOLE SOD 20 MG DELAYED RELEASE TAB PO SCH (08:34)
[2017-10-08] MEDS: ASPIRIN 81 MG CHEW TAB CHEW SCH (08:35)
[2017-10-08] MEDS: SODIUM CHLORIDE 0.9% FLUSH 10 ML FLUSH IV FLUSH SCH ×2 (08:35→22:02)
[2017-10-08] MEDS: CARVEDILOL 12.5 MG TAB PO SCH ×2 (08:35→21:59)
[2017-10-08] MEDS: DOCUSATE SODIUM 50 MG/SENNA 8.6 MG TAB PO SCH ×2 (08:35→21:00)
[2017-10-08] MEDS: POTASSIUM CHLORIDE 20 MEQ CONTROLLED RELEASE TAB PO SCH (08:35)
[2017-10-08] MEDS: ARTIFICIAL TEARS OPTH SOLN 15 ML BTL EACH EYE SCH ×3 (08:35→15:29)
[2017-10-08] MEDS: NYSTATIN 100,000 U/GM OINT 15 GM TUBE TOPICAL SCH ×2 (08:36→22:00)
--- NOTE | 2017-10-08 10:08 | HHI.FPPN ---
Subjective Remarks Mrs. Townsend was afebrile with stable vital signs overnight; her blood pressure improved so that she had max BP of 150/67. Patient reports doing well currently. Patient does not report chest pain, shortness of breath, or abnormal urination. Patient reports some constipation during hospitalization. Patient reiterates desire for Nicotine gum when it is possible for her. (Bandar Mueller MD R3) Objective Vitals Vital Signs Date Time Temp Pulse Resp B/P (MAP) Pulse Ox O2 Delivery O2 Flow Rate FiO2 10/08/17 00:00 97.1 74 18 121/75 (90) 97 10/07/17 20:09 Humidified 3.00 10/07/17 20:00 97.6 86 18 150/67 (94) 97 10/07/17 16:00 97.6 84 20 131/75 (93) 99 10/07/17 12:16 99 Nasal Cannula 2.00 10/07/17 10:54 107/73 (84) I/O 10/07/17 10/07/17 10/07/17 10/08/17 10/08/17 10/08/17 07:00 15:00 23:00 07:00 15:00 23:00 Intake Total 680 ml 350 ml 1600 ml Output Total 1000 ml 450 ml Balance 680 ml 350 ml 600 ml -450 ml Intake Oral 680 ml 1600 ml IV Total 350 ml Output Urine Total 1000 ml 450 ml # Voids 4 # Bowel Movements 2 1 1 (Bandar Mueller MD R3) Result Diagram: 10/08/17 0550 10/08/17 0550 Imaging Last Impressions Myocardial Perfusion Scan Nuc Med 10/04/17 0700 Signed Impressions: CONCLUSION: 1. Small fixed perfusion defect anteriorly. No reversible perfusion abnormalit y identified. Chest X-Ray 10/03/17 06 Signed Impressions: CONCLUSION: Slight left lung base atelectasis. Objective Remarks GENERAL: Obese WF; NAD SKIN: Intertriginous rash under breasts/groin not inspected today EYES: EOM grossly I. HEENT: Poor dentition. CARDIOVASCULAR: Regular rate and rhythm without murmurs. No LE edema RESPIRATORY:Normal rate. On room air at time of exam. Decreased breath sounds; CTAB GASTROINTESTINAL: Abdomen soft, nondistended. No pain to palpation MUSCULOSKELETAL: Grossly normal ROM and motor function Neuro: Grossly normal CN. Grossly normal peripheral motor/sensory function (Bandar Mueller MD R3) A/P Assessment and Plan Mrs. Townsend is a 72 yo F with: (Bandar Mueller MD R3) Attending Attestation Pt. examined independently and case discussed with resident physicians. I have read the above note and agree with the assessment and plan as discussed with me. I was involved in all medical decision making for this patient. Obed He MD (Obed He MD) Problem List: (1) Hypertension ICD Codes: I10 - Essential (primary) hypertension Plan: 10/08- Improvement in BP overnight; max SBP 160/67 Impression: Hypertensive urgency during hospitalization; intermittently normotensive. After discussion with Cardiology; concern for possible nephrogenic /adrenal component due to coexistent hirsutism Impression: Significant HTN during hospitalization; intermittently hypertensive urgency -cardiology consulted -Continue Carvedilol 12.5mg BID -Continue Lisinopril to 40mg daily -Continue Amlodipine 10mg daily per Cardiology -Continue Hydralazine PRN -Continue Clonidine 0.1mg q6hrs PRN -Continue Furosemide for diuresis -Nephrology consulted -Recommended change Furosemide to oral -Check 24 hr free cortisol, catecholamines, and metanephrine, aldosterone/ PRA level -Vit D level obtained for PTH elevation (238.4) -24.3; improved from 15.3 10/03 -Consider Mg deficiency as reason for hypocalcemia due to PTH resistance (2) CHF (congestive heart failure) ICD Codes: I50.9 - Heart failure, unspecified Status: Acute Plan: Impression: Respiratory failure on admission requiring intubation. BNP 401 on admission. Patient with initial troponin elevation 0.02-> 0.61->0.26; attributed by Cardiology to be likely secondary to type 2 NSTEMI. Hypertensive urgency on admission also which may have contributed to troponin elevation. No significant EKG changes Echo 10/04- EF 50%. Mild to moderate mitral regurgitation. aortic sclerosis present. -Suggestive of diastolic HF per Cardiology Nuclear stress 10/04- small fixed anterior defect. No reversible abnormality Cardiology consulted -Titrate BP control w/ BELLA, BB -Continue amlodipine -Hold NSAID's -Continue ASA -Signed off currently; available PRN (3) Sepsis ICD Codes: A41.9 - Sepsis, unspecified organism Status: Acute Plan: 10/08- Patient doing well. Continuing empiric CAP treatment. Persistent leukocytosis (WBC 15.7) but suspect secondary to systemic steroids Impression: Leukocytosis (WBC 16.2), tachycardia (108BPM) on admission; lactic acid initially 4.5. Unclear etiology of SIRS as patient also with NSTEMI, cough/ sputum production in setting of probable COPD and Klebsiella UTI diagnosed during hospitalization. Lactic acid- 4.5 (10/01) -> 2.3 CXR on admission with bilateral consolidations -Will continue to monitor VS, CBC, signs of infection -Will cover for CAP and Klebsiella (sensitive to Rocephin) -Continue Azithromycin (10/04-) -Continue Rocephin (10/04-) Antibiotic history: -Zosyn (10/01- 10/04) Cultures: Urine 10/01- Klebsiella Blood 10/01- negative (4) Productive cough ICD Codes: R05 - Cough Status: Acute Plan: Impression: Cough, upper respiratory congestion. Chronic tobacco abuse. CXR with left base atelectasis -Continue to monitor O2 saturations -Will continue BID steroids to cover for possible COPD exacerbation (Chronic tobacco abuse) -Will change to oral -Continue PRN duonebs -Continue Azithromycin/Rocephin to cover for possible CAP -Continue Singulair due to complaint of nasal inflammation and likely benefit with presumed undiagnosed COPD (5) UTI (urinary tract infection) ICD Codes: N39.0 - Urinary tract infection, site not specified Status: Acute Plan: -Continue Rocephin 1gm daily (will continue past normal UTI length of treatment as possibility of coexistent CAP or respiratory pathogen) Impression: UA 10/01 with large leuk esterase, large protein, many bacteria. Urine culture 10/01- Klebsiella pneumonia resistant to nitrofurantoin but otherwise sensitive 10/07: Urinary frequency reported; UA obtained which was unremarkable 10/08: No symptoms reported (6) Candidiasis, intertrigo ICD Codes: B37.2 - Candidiasis of skin and nail Status: Acute Plan: Impression: Chronic intertriginous hyperpigmentation with intermittent itching. Suspect some candidal component -Continue Nystatin ointment BID (7) Diarrhea ICD Codes: R19.7 - Diarrhea, unspecified Status: Chronic Plan: Impression: frequent loose stool while hospitalized C diff PCR negative -Will continue to monitor -Continue probiotics (8) Tobacco abuse ICD Codes: Z72.0 - Tobacco use Status: Acute Plan: Impression: Patient reports 15 cigarettes daily -Will hold Nicotine patches currently due to uncontrolled BP and concern for CAD (9) GERD (gastroesophageal reflux disease) ICD Codes: K21.9 - Gastro-esophageal reflux disease without esophagitis Plan: Impression: Reported GERD -Continue Omeprazole 20mg daily -Will plan to discuss changing to H2 on discharge (10) Acute respiratory failure ICD Codes: J96.00 - Acute respiratory failure, unspecified whether with hypoxia or hypercapnia Status: Resolved Plan: Impression: Respiratory failure on admission; suspected secondary to CHF of unknown etiology. Patient intubated 10/01; subsequently extubated. Currently > 95% saturations on 4L O2 via NC -Continue to monitor respiratory function (11) FEN/DVT PPX/GI PPX/Nursing Orders Plan: Fluids: Will withhold IVF at this time Electrolytes: Monitor and replete as needed Diet: Regular diet DVT PPX- Heparin 5K units daily GI PPX- Omeprazole 20mg daily (Bandar Mueller MD R3) Problem Qualifiers (1) Hypertension: Qualified Codes: I10 - Essential (primary) hypertension (2) CHF (congestive heart failure): Qualified Codes: I50.31 - Acute diastolic (congestive) heart failure (3) UTI (urinary tract infection): Qualified Codes: N30.00 - Acute cystitis without hematuria Bandar Mueller MD R3 Oct 08, 2017 10:08 Obed He MD Oct 08, 2017 13:52
--- NOTE | 2017-10-08 10:34 | HHI.NPPN ---
Subjective Interval History BP control has improved. Workup for secondary causes of hypertension ordered, pending. Review of Systems General Constitutional: Fatigue Objective Data Data Vital Signs Date Time Temp Pulse Resp B/P (MAP) Pulse Ox O2 Delivery O2 Flow Rate FiO2 10/08/17 08:00 97.2 72 16 153/72 (99) 99 10/08/17 00:00 97.1 74 18 121/75 (90) 97 10/07/17 20:09 Humidified 3.00 10/07/17 20:00 97.6 86 18 150/67 (94) 97 10/07/17 16:00 97.6 84 20 131/75 (93) 99 10/07/17 12:16 99 Nasal Cannula 2.00 10/07/17 10:54 107/73 (84) -: 10/08/17 0550 10/08/17 0550 Physical Exam General Appearance: Well Developed, No Acute Distress Neck Neck Exam: Neck Supple Cardiology CV Exam: Regular Gastrointestinal/Abdomen GI Exam: Soft, Non-Tender Musculoskeletal MS Exam: Joints Intact Assessment/Plan Problem List: (1) Hypertension ICD Codes: I10 - Essential (primary) hypertension Plan: I have ordered 24 hour urine collection for free cortisol, catecholamines and metanephrine. Also ordered Aldosterone/PRA ratio. Continue current medications. Lasix has been changed to oral tablet. Stop potassium supplement for the time, being, if she becomes hypokalemic on oral Lasix, restart it. Most likely we are dealing with primary hypertension. Investigations for secondary causes ordered, pending. Continue current regimen. (2) JESUS ALBERTO (acute kidney injury) ICD Codes: N17.9 - Acute kidney failure, unspecified Status: Resolved Plan: Likely due to renal hypoperfusion. Improved. Monitor. (3) Hypocalcemia ICD Codes: E83.51 - Hypocalcemia Plan: Improved. Mild Vitamin D deficiency was noted. PTH was appropriately high. It is noted that her Magnesium was very low on admission, could have been due to the fact that she was on Omeprazole. Low Magnesium can result in hypocalcemia by causing resistance to PTH action. Problem Qualifiers (1) Hypertension: Qualified Codes: I10 - Essential (primary) hypertension Flash Shine MD Oct 08, 2017 10:34
[2017-10-08] MEDS: cefTRIAXone INJ 1,000 MG in SODIUM CHLORIDE 0.9% INJ 100 ML IV SCH (11:22)
[2017-10-08] MEDS: AZITHROMYCIN INJ 500 MG in SODIUM CHLOR 0.9% 250 ML INJ 250 ML IV SCH (11:22)
[2017-10-08 12:00] VITALS: BP 118/70; PULSE 86; RESP 20; TEMP 97.8; O2SAT 96
[2017-10-08 16:00] VITALS: BP 132/62; PULSE 83; RESP 20; TEMP 97.4; O2SAT 98
[2017-10-08] MEDS: predniSONE 20 MG TAB PO SCH (16:22)
[2017-10-08 20:00] VITALS: BP 141/63; PULSE 81; RESP 18; TEMP 97.8; O2SAT 98
[2017-10-08] MEDS: MONTELUKAST SODIUM 10 MG TAB PO SCH (21:59)
[2017-10-08] MEDS: ATORVASTATIN 40 MG TAB PO SCH (21:59)
[2017-10-09] VITALS: BP 110/71; PULSE 79; RESP 18; TEMP 97.8; O2SAT 98
[2017-10-09] MEDS: CHLORHEXIDINE GLUCONATE 2 % 1 PACK (2 CLOTHS) TOP SCH (04:00)
[2017-10-09] MEDS: CHOLESTYRAMINE 4 GM PACKET PO SCH (05:40)
[2017-10-09] MEDS: HEPARIN SODIUM - SQ 10,000 UNITS/ML VIAL SQ SCH ×2 (05:40→11:56)
[2017-10-09 08:00] VITALS: BP 144/74; PULSE 78; RESP 18; TEMP 97.5; O2SAT 99
[2017-10-09] MEDS: CHLORHEXIDINE 0.12% (ORAL KIT) 15 ML CUP MT SCH (08:00)
[2017-10-09] MEDS: NYSTATIN 100,000 U/GM OINT 15 GM TUBE TOPICAL SCH (09:00)
[2017-10-09] MEDS: DOCUSATE SODIUM 50 MG/SENNA 8.6 MG TAB PO SCH (09:00)
[2017-10-09] MEDS: LISINOPRIL 20 MG TAB PO SCH (09:34)
[2017-10-09] MEDS: ASPIRIN 81 MG CHEW TAB CHEW SCH (09:34)
[2017-10-09] MEDS: ARTIFICIAL TEARS OPTH SOLN 15 ML BTL EACH EYE SCH ×2 (09:34→11:56)
[2017-10-09] MEDS: PANTOPRAZOLE SOD 20 MG DELAYED RELEASE TAB PO SCH (09:34)
[2017-10-09] MEDS: FUROSEMIDE 40 MG TAB PO SCH (09:34)
[2017-10-09] MEDS: predniSONE 20 MG TAB PO SCH (09:34)
[2017-10-09] MEDS: CHOLECALCIFEROL (VIT D3) 5000 UNIT CAP PO SCH (09:34)
[2017-10-09] MEDS: LACTOBACILLUS ACIDOPHILUS TAB PO SCH (09:34)
[2017-10-09] MEDS: CARVEDILOL 12.5 MG TAB PO SCH (09:35)
[2017-10-09] MEDS: SODIUM CHLORIDE 0.9% FLUSH 10 ML FLUSH IV FLUSH SCH (09:35)
[2017-10-09] MEDS: LORazepam 0.5 MG TAB PO PRN (09:38)
--- NOTE | 2017-10-09 09:38 | HHI.NPPN ---
Subjective Interval History patient's BP is under better control. 24 hour urine collection is in progress. Review of Systems General Constitutional: Fatigue Objective Data Data Vital Signs Date Time Temp Pulse Resp B/P (MAP) Pulse Ox O2 Delivery O2 Flow Rate FiO2 10/09/17 00:00 97.8 79 18 110/71 (84) 98 10/08/17 20:00 97.8 81 18 141/63 (89) 98 10/08/17 16:00 97.4 83 20 132/62 (85) 98 10/08/17 12:00 97.8 86 20 118/70 (86) 96 -: 10/08/17 0550 10/08/17 0550 Physical Exam General Appearance: Well Developed, No Acute Distress Neck Neck Exam: Neck Supple Cardiology CV Exam: Regular Gastrointestinal/Abdomen GI Exam: Soft, Non-Tender Musculoskeletal MS Exam: Joints Intact Assessment/Plan Problem List: (1) Hypertension ICD Codes: I10 - Essential (primary) hypertension Plan: I have ordered 24 hour urine collection for free cortisol, catecholamines and metanephrine. Also ordered Aldosterone/PRA ratio. Continue current medications. Lasix has been changed to oral tablet. Stop potassium supplement for the time, being, if she becomes hypokalemic on oral Lasix, restart it. Most likely we are dealing with primary hypertension. Investigations for secondary causes ordered, pending. Continue current regimen. (2) JESUS ALBERTO (acute kidney injury) ICD Codes: N17.9 - Acute kidney failure, unspecified Status: Resolved Plan: Likely due to renal hypoperfusion. Improved. Monitor. (3) Hypocalcemia ICD Codes: E83.51 - Hypocalcemia Plan: Improved. Mild Vitamin D deficiency was noted. PTH was appropriately high. It is noted that her Magnesium was very low on admission, could have been due to the fact that she was on Omeprazole. Low Magnesium can result in hypocalcemia by causing resistance to PTH action. Plan Patient can be discharged from renal standpoint. I will sign off at this time. Problem Qualifiers (1) Hypertension: Qualified Codes: I10 - Essential (primary) hypertension Flash Shine MD Oct 09, 2017 09:38
[2017-10-09] MEDS: AZITHROMYCIN INJ 500 MG in SODIUM CHLOR 0.9% 250 ML INJ 250 ML IV SCH (09:39)
--- NOTE | 2017-10-09 09:42 | HHI.FPPN ---
Subjective Remarks Mrs. Townsend was afebrile and normotensive overnight. Patient does not report shortness of breath, chest pain, or abnormal urination. Patient reports having 2 -4 BM/day; no recent changes. Patient reports being ready for discharge today and agreeable to follow-up in the near future. (Bandar Mueller MD R3) Objective Vitals Vital Signs Date Time Temp Pulse Resp B/P (MAP) Pulse Ox O2 Delivery O2 Flow Rate FiO2 10/09/17 00:00 97.8 79 18 110/71 (84) 98 10/08/17 20:00 97.8 81 18 141/63 (89) 98 10/08/17 16:00 97.4 83 20 132/62 (85) 98 10/08/17 12:00 97.8 86 20 118/70 (86) 96 I/O 10/08/17 10/08/17 10/08/17 10/09/17 10/09/17 10/09/17 07:00 15:00 23:00 07:00 15:00 23:00 Intake Total 1800 ml Output Total 450 ml 700 ml 900 ml Balance -450 ml 1100 ml -900 ml Intake Oral 1800 ml Output Urine Total 450 ml 700 ml 900 ml # Bowel Movements 1 1 (Bandar Mueller MD R3) Result Diagram: 10/08/17 0550 10/08/17 0550 Imaging Last Impressions Myocardial Perfusion Scan Nuc Med 10/04/17 0700 Signed Impressions: CONCLUSION: 1. Small fixed perfusion defect anteriorly. No reversible perfusion abnormalit y identified. Chest X-Ray 10/03/17 0600 Signed Impressions: CONCLUSION: Slight left lung base atelectasis. Objective Remarks GENERAL: NAD SKIN: Intertriginous rash under breasts/groin not inspected today EYES: EOM grossly I. HEENT: Poor dentition. CARDIOVASCULAR: Regular rate and rhythm without murmurs. No LE edema RESPIRATORY:Normal rate. On room air. Decreased breath sounds; CTAB GASTROINTESTINAL: Abdomen soft, nondistended. No pain to palpation MUSCULOSKELETAL: Grossly normal ROM and motor function Neuro: Grossly normal CN. Grossly normal peripheral motor/sensory function (Bandar Mueller MD R3) A/P Assessment and Plan Mrs. Townsend is a 72 yo F with: Discharge Planning Anticipate discharge today (Bandar Mueller MD R3) Attending Attestation Patient examined independently and case discussed with resident physician I have read the above note and agree with the assessment/plan as discussed with me I was involved in all medical decision making for this patient Obed He MD (Obed He MD) Problem List: (1) Hypertension ICD Codes: I10 - Essential (primary) hypertension Plan: 10/08- Improvement in BP overnight; max SBP 160/67 10/09- Normotensive overnight Impression: Hypertensive urgency during hospitalization; intermittently normotensive. After discussion with Cardiology; concern for possible nephrogenic /adrenal component due to coexistent hirsutism Impression: Significant HTN during hospitalization; intermittently hypertensive urgency -cardiology consulted -Continue Carvedilol 12.5mg BID -Continue Lisinopril 40mg daily -Continue Amlodipine 10mg daily per Cardiology -Continue Hydralazine PRN -Continue Clonidine 0.1mg q6hrs PRN -Continue Furosemide for diuresis -Nephrology consulted -Recommended change Furosemide to oral -Check 24 hr free cortisol, catecholamines, and metanephrine, aldosterone/ PRA level -Vit D level obtained for PTH elevation (238.4) -24.3; improved from 15.3 10/03 -Consider Mg deficiency as reason for hypocalcemia due to PTH resistance (2) CHF (congestive heart failure) ICD Codes: I50.9 - Heart failure, unspecified Status: Acute Plan: Impression: Respiratory failure on admission requiring intubation. BNP 401 on admission. Patient with initial troponin elevation 0.02-> 0.61->0.26; attributed by Cardiology to be likely secondary to type 2 NSTEMI. Hypertensive urgency on admission also which may have contributed to troponin elevation. No significant EKG changes Echo 10/04- EF 50%. Mild to moderate mitral regurgitation. aortic sclerosis present. -Suggestive of diastolic HF per Cardiology Nuclear stress 10/04- small fixed anterior defect. No reversible abnormality Cardiology consulted -Titrate BP control w/ BELLA, BB -Continue amlodipine -Hold NSAID's -Continue ASA -Signed off currently; available PRN (3) Sepsis ICD Codes: A41.9 - Sepsis, unspecified organism Status: Acute Plan: 10/08- Patient doing well. Continuing empiric CAP treatment. Persistent leukocytosis (WBC 15.7) but suspect secondary to systemic steroids Impression: Leukocytosis (WBC 16.2), tachycardia (108BPM) on admission; lactic acid initially 4.5. Unclear etiology of SIRS as patient also with NSTEMI, cough/ sputum production in setting of probable COPD and Klebsiella UTI diagnosed during hospitalization. Lactic acid- 4.5 (10/01) -> 2.3 CXR on admission with bilateral consolidations -Will continue to monitor VS, CBC, signs of infection -Will cover for CAP and Klebsiella (sensitive to Rocephin) -Continue Azithromycin (10/04-) -Continue Rocephin (10/04-) Antibiotic history: -Zosyn (10/01- 10/04) Cultures: Urine 10/01- Klebsiella Blood 10/01- negative (4) Productive cough ICD Codes: R05 - Cough Status: Acute Plan: Impression: Cough, upper respiratory congestion. Chronic tobacco abuse. CXR with left base atelectasis -Continue to monitor O2 saturations -Will continue BID steroids to cover for possible COPD exacerbation (Chronic tobacco abuse) -Will change to oral -Continue PRN duonebs -Continue Azithromycin/Rocephin to cover for possible CAP -Continue Singulair due to complaint of nasal inflammation and likely benefit with presumed undiagnosed COPD (5) UTI (urinary tract infection) ICD Codes: N39.0 - Urinary tract infection, site not specified Status: Acute Plan: -Continue Rocephin 1gm daily (will continue past normal UTI length of treatment as possibility of coexistent CAP or respiratory pathogen) Impression: UA 10/01 with large leuk esterase, large protein, many bacteria. Urine culture 10/01- Klebsiella pneumonia resistant to nitrofurantoin but otherwise sensitive 6/2: Urinary frequency reported; UA obtained which was unremarkable 6/3: No symptoms reported 6/4: No symptoms reported (6) Candidiasis, intertrigo ICD Codes: B37.2 - Candidiasis of skin and nail Status: Acute Plan: Impression: Chronic intertriginous hyperpigmentation with intermittent itching. Suspect some candidal component -Continue Nystatin ointment BID (7) Diarrhea ICD Codes: R19.7 - Diarrhea, unspecified Status: Chronic Plan: Impression: 2-4 loose stools/day while hospitalized C diff PCR negative -Will continue to monitor -Continue probiotics (8) Tobacco abuse ICD Codes: Z72.0 - Tobacco use Status: Acute Plan: Impression: Patient reports 15 cigarettes daily -Will hold Nicotine patches currently due to uncontrolled BP and concern for CAD (9) GERD (gastroesophageal reflux disease) ICD Codes: K21.9 - Gastro-esophageal reflux disease without esophagitis Plan: Impression: Reported GERD -Continue Omeprazole 20mg daily -Will plan to discuss changing to H2 on discharge (10) Acute respiratory failure ICD Codes: J96.00 - Acute respiratory failure, unspecified whether with hypoxia or hypercapnia Status: Resolved Plan: Impression: Respiratory failure on admission; suspected secondary to CHF of unknown etiology. Patient intubated 10/01; subsequently extubated. Currently > 95% saturations on 4L O2 via NC -Continue to monitor respiratory function (11) FEN/DVT PPX/GI PPX/Nursing Orders Plan: Fluids: Will withhold IVF at this time Electrolytes: Monitor and replete as needed Diet: Regular diet DVT PPX- Heparin 5K units daily GI PPX- Omeprazole 20mg daily (Bandar Mueller MD R3) Problem Qualifiers (1) Hypertension: Qualified Codes: I10 - Essential (primary) hypertension (2) CHF (congestive heart failure): Qualified Codes: I50.31 - Acute diastolic (congestive) heart failure (3) UTI (urinary tract infection): Qualified Codes: N30.00 - Acute cystitis without hematuria (4) Acute respiratory failure: Qualified Codes: J96.00 - Acute respiratory failure, unspecified whether with hypoxia or hypercapnia Bandar Mueller MD R3 Oct 09, 2017 09:42 Obed He MD Oct 09, 2017 14:46
--- NOTE | 2017-10-09 09:49 | HHI.FF ---
Face to Face Verification Diagnosis: (1) CHF (congestive heart failure) (2) Acute respiratory failure (3) Hypertension Physical Therapy Order: Evaluate and Treat Occupational Therapy Order: Evaluate and Treat Home Health Nursing Order: Medical education Signs/symptoms of disease process [employer] Order: To Evaluate: Living conditions/environment Order: To Provide: Community services I have seen patient Kate Townsend on 10/09/17. My clinical findings support the need for the requested home health care services because: Deconditioned w/ increased weakness I certify that my clinical findings support that this patient is homebound because: Poor cardiac reserve Bandar Mueller MD R3 Oct 09, 2017 09:49
--- NOTE | 2017-10-09 11:44 | HHI.DCPOC ---
Discharge Care Plan Diagnosis: (1) Hypertension (2) CHF (congestive heart failure) (3) Acute respiratory failure Goals to Promote Your Health * To prevent worsening of your condition and complications * To maintain your health at the optimal level Directions to Meet Your Goals Take your medications as prescribed Follow your dietary instruction Follow activity as directed Keep your appointments as scheduled Take your immunizations and boosters as scheduled If your symptoms worsen call your PCP, if no PCP go to Urgent Care Center or Emergency Room Smoking is Dangerous to Your Health. Avoid second hand smoke Call the 24-hour hour crisis hotline for domestic abuse at Bandar Mueller MD R3 Oct 09, 2017 11:44
[2017-10-09] MEDS: cefTRIAXone INJ 1,000 MG in SODIUM CHLORIDE 0.9% INJ 100 ML IV SCH (11:54)
--- NOTE | 2017-10-09 11:59 | PD.CARD.PN ---
Subjective Subjective Remarks No events over the weekend Breathing better No chest pain Objective Medications Current Medications Medications (Trade) Dose Ordered Sig/Tameka Route Start Time Stop Time Status Last Admin (Lipitor) 40 mg HS PO 10/01/17 21:00 10/08/17 21:59 (Questran 4 Gm Pkt) 4 gm DAILY@0600 PO 10/01/17 06:00 10/09/17 05:40 (Lactinex) 1 tab Q12HR PO 10/01/17 09:00 10/09/17 09:34 (NS Flush) 2 ml UNSCH PRN IV FLUSH 10/01/17 05:00 (NS Flush) 2 ml BID IV FLUSH 10/01/17 09:00 10/09/17 09:35 (Tylenol) 650 mg Q6H PRN PO 10/01/17 05:00 (Ativan Inj) 1 mg Q1H PRN IV PUSH 10/01/17 05:00 (Tears Naturale Opth Soln) 1 drop TID EACH EYE 10/01/17 09:00 10/09/17 09:34 (Zofran Inj) 4 mg Q6H PRN IV PUSH 10/01/17 05:00 (Duoneb Neb) 1 ampule Q2HR NEB PRN INH 10/01/17 05:00 (Heparin Inj) 5,000 units Q8H SQ 10/01/17 05:00 10/09/17 11:56 ([facility] Nursing Information) 1 Q361D XX 10/01/17 05:00 10/01/17 05:00 (Chlorhexidine 2% Cloth) Taper DAILY@04 TOP 10/02/17 04:00 09/28/18 03:59 10/05/17 04:00 (Chlorhexidine 2% Cloth) 3 pack UNSCH PRN TOP 10/01/17 05:00 (Nicole-Colace) 1 tab BID PO 10/01/17 09:00 10/05/17 21:46 (Milk Of Magnesia Liq) 30 ml Q12H PRN PO 10/01/17 05:00 (Senokot) 17.2 mg Q12H PRN PO 10/01/17 05:00 (Dulcolax Supp) 10 mg DAILY PRN RECTAL 10/01/17 05:00 (Lactulose Liq) 30 ml DAILY PRN PO 10/01/17 05:00 (Peridex 0.12% Liq) 15 ml BID@08,20 MT 10/01/17 08:00 10/02/17 08:06 Propofol 100 ml @ 2.85 mls/hr TITRATE PRN IV 10/01/17 07:30 10/02/17 10:18 (Ativan) 0.5 mg Q8H PRN PO 10/03/17 08:45 10/09/17 09:38 (Ultram) 100 mg Q6H PRN PO 10/03/17 09:15 (Apresoline) 10 mg Q6HR PRN PO 10/03/17 09:30 10/06/17 20:48 (Aspirin Chew) 81 mg DAILY CHEW 10/03/17 10:30 10/09/17 09:34 Ceftriaxone Sodium 1000 mg/ Sodium Chloride 100 ml @ 200 mls/hr Q24H IV 10/04/17 12:00 10/09/17 11:54 Azithromycin 500 mg/Sodium Chloride 250 ml @ 250 mls/hr Q24H IV 10/04/17 11:00 10/09/17 09:39 (Mycostatin Oint) 1 applic Q12HR TOPICAL 10/04/17 21:00 10/09/17 09:00 (Protonix) 20 mg DAILY PO 10/05/17 09:00 10/09/17 09:34 (Vitamin D3) 5,000 units DAILY PO 10/05/17 09:00 10/09/17 09:34 (Singulair) 10 mg HS PO 10/05/17 21:00 10/08/17 21:59 (Coreg) 12.5 mg Q12HR PO 10/05/17 21:00 10/09/17 09:35 (Prinivil) 40 mg DAILY PO 10/07/17 09:00 10/09/17 09:34 (Catapres) 0.1 mg Q6H PRN PO 10/06/17 09:15 (Norvasc) 10 mg DAILY PO 10/07/17 10:00 10/09/17 09:34 (Lasix) 40 mg DAILY PO 10/08/17 09:00 10/09/17 09:34 (Deltasone) 40 mg DAILY PO 10/08/17 16:00 10/09/17 09:34 Vital Signs / I&O Vital Signs Date Time Temp Pulse Resp B/P (MAP) Pulse Ox O2 Delivery O2 Flow Rate FiO2 10/09/17 08:00 97.5 78 18 144/74 (97) 99 10/09/17 00:00 97.8 79 18 110/71 (84) 98 10/08/17 20:00 97.8 81 18 141/63 (89) 98 10/08/17 16:00 97.4 83 20 132/62 (85) 98 10/08/17 12:00 97.8 86 20 118/70 (86) 96 I/O 10/08/17 10/08/17 10/08/17 10/09/17 10/09/17 10/09/17 07:00 15:00 23:00 07:00 15:00 23:00 Intake Total 1800 ml Output Total 450 ml 700 ml 900 ml Balance -450 ml 1100 ml -900 ml Intake Oral 1800 ml Output Urine Total 450 ml 700 ml 900 ml # Bowel Movements 1 1 Physical Exam GENERAL: NAD, AAOx3 SKIN: Warm and dry. HEAD: Atraumatic. Normocephalic. EYES: Pupils equal and round. No scleral icterus. No injection or drainage. ENT: No nasal bleeding or discharge. Mucous membranes pink and moist. NECK: Trachea midline. No JVD. CARDIOVASCULAR: Regular rate and rhythm. RESPIRATORY: No accessory muscle use. Decreased breath sounds bilaterally GASTROINTESTINAL: Abdomen soft, non-tender, nondistended. Hepatic and splenic margins not palpable. MUSCULOSKELETAL: Extremities without clubbing, cyanosis, or edema. No obvious deformities. NEUROLOGICAL: Awake and alert. No obvious cranial nerve deficits. Motor grossly within normal limits. Five out of 5 muscle strength in the arms and legs. Normal speech. PSYCHIATRIC: Appropriate mood and affect; insight and judgment normal. Laboratory Laboratory Tests Test 10/09/17 09:00 Assessment and Plan Problem List: (1) CHF (congestive heart failure) ICD Codes: I50.9 - Heart failure, unspecified Status: Acute (2) Hypertension ICD Codes: I10 - Essential (primary) hypertension (3) Tobacco abuse ICD Codes: Z72.0 - Tobacco use Status: Acute (4) Smoking greater than 40 pack years ICD Codes: F17.210 - Nicotine dependence, cigarettes, uncomplicated Assessment and Plan 1) Acute heart failure leading to SOB Appears to be more diastolic as EF 50% Mild to moderate MR Possibly due to accelerated HTN Stop NSAID use, discussed with patient 2) Minimally elevated troponin Nuclear negative for ischemia 3) She will continue on statin therapy 4) HTN Con't BELLA-I, Coreg, Norvasc, Lasix Work up for secondary HTN 5) No further CV work up Cardiovascularly stable for discharge, will plan to see me in the office Problem Qualifiers (1) CHF (congestive heart failure): Qualified Codes: I50.31 - Acute diastolic (congestive) heart failure Miguelito Dias DO Oct 09, 2017 11:59
[2017-10-09 12:00] VITALS: BP 143/68; PULSE 96; RESP 20; TEMP 97.4; O2SAT 98
[2017-10-09 12:46] LABS: AUTOMATED NEUTROPHIL # 13.1 TH/MM3 (1.8-7.7); BASOPHIL % 0.1 % (0.0-2.0); EOSINOPHIL % 0.1 % (0.0-4.0); HEMATOCRIT 39.2 % (35.0-46.0); HEMOGLOBIN 13.3 GM/DL (11.6-15.3); LYMPH % 12.1 % (9.0-44.0); LYMPHOCYTE # 1.9 TH/MM3 (1.0-4.8); MEAN CELL VOLUME 93.6 FL (80.0-100.0); MEAN CORPUSCULAR HEMOGLOBIN 31.6 PG (27.0-34.0); MEAN CORPUSCULAR HGB CONC 33.8 % (32.0-36.0); MONO % 5.4 % (0.0-8.0); MONOCYTE # 0.9 TH/MM3 (0-0.9); NEUT % 82.3 % (16.0-70.0); PLATELET COUNT 338 TH/MM3 (150-450); RED BLOOD COUNT 4.19 MIL/MM3 (4.00-5.30); RED CELL DISTRIBUTION WIDTH 13.9 % (11.6-17.2); WHITE BLOOD COUNT 15.9 TH/MM3 (4.0-11.0)
[2017-10-09 13:10] LABS: BICARBONATE 17.7 MEQ/L (21.0-32.0); CALCIUM 9.1 MG/DL (8.5-10.1); CREATININE 1.2 MG/DL (0.50-1.00)
[2017-10-09] MEDS ORDERED: AMLO10 PO ×2 (14:14→15:22)
[2017-10-09] MEDS ORDERED: FURO40TA PO ×2 (14:14→15:22)
[2017-10-09] MEDS ORDERED: ASPI81 CHEW ×2 (14:14→15:22)
[2017-10-09] MEDS ORDERED: CARV12.5 PO ×2 (14:14→15:22)
[2017-10-09] MEDS ORDERED: MONT10TA4 PO ×2 (14:14→15:22)
[2017-10-09] MEDS ORDERED: CHOL5000 PO ×2 (14:14→15:22)
[2017-10-09] MEDS ORDERED: Nystatin Oint TOPICAL ×2 (14:14→15:22)
[2017-10-09] MEDS ORDERED: LISI-515 PO ×2 (14:14→15:22)
[2017-10-09] MEDS ORDERED: LEVO500T8 PO ×2 (14:14→15:22)
== END 2017-10-09 15:57 | disposition home health service (06) | DRG 871 ==
LOC: NEPC 01:50 → NEDA 04:28 → HIMN 07:15 → N07A 10-05 15:22
PROVIDERS: ADMIT Family Medicine; ATTEND Family Medicine
PROC: 5A1945Z Respiratory Ventilation, 24-96 Consecutive Hours (ICD-10-PCS; principal; 2017-10-01)
PROC: 0BH17EZ Insertion of Endotracheal Airway into Trachea, Via Natural or Artificial Opening (ICD-10-PCS; 2017-10-01)
DX: A41.9 Sepsis, unspecified organism (principal); J96.21 Acute and chronic respiratory failure with hypoxia; I21.A1 Myocardial infarction type 2; I50.31 Acute diastolic (congestive) heart failure; J18.9 Pneumonia, unspecified organism; J44.0 Chronic obstructive pulmonary disease with (acute) lower respiratory infection; N17.9 Acute kidney failure, unspecified; D64.9 Anemia, unspecified; I11.0 Hypertensive heart disease with heart failure; B37.2 Candidiasis of skin and nail; J98.11 Atelectasis; J44.1 Chronic obstructive pulmonary disease with (acute) exacerbation; E78.5 Hyperlipidemia, unspecified; K21.9 Gastro-esophageal reflux disease without esophagitis; I16.0 Hypertensive urgency; E83.51 Hypocalcemia; M54.5 Low back pain; G89.29 Other chronic pain; E87.6 Hypokalemia; E55.9 Vitamin D deficiency, unspecified; I08.0 Rheumatic disorders of both mitral and aortic valves; L68.0 Hirsutism; K59.00 Constipation, unspecified; R19.7 Diarrhea, unspecified; M19.90 Unspecified osteoarthritis, unspecified site; F17.210 Nicotine dependence, cigarettes, uncomplicated; F41.9 Anxiety disorder, unspecified; Z16.29 Resistance to other single specified antibiotic
CPT/HCPCS: 31500; 36600; 71045; 78452; 80048; 80053; 80202; 81001; 82088; 82306; 82310; 82384; 82530; 82550; 82805; 83036; 83605; 83735; 83835; 83880; 83970; 84100; 84132; 84244; 84439; 84443; 84484; 85007; 85025; 85027; 85610; 85730; 87040; 87070; 87077; 87086; 87186; 87205; 87493; 87641; 93005; 93017; 93306; 94002; 94003; 94618; 94640; 94664; 96374; A9502; J0456; J0610; J0696; J1644; J1940; J2543; J2785; J2920; J3370; J3475; J3480; J7030; J7050; J7512

== ENCOUNTER 2017-11-13 07:24 | Inpatient (IN) ==
[2017-11-13] MEDS ORDERED: Morphine Inj 4 MG/ML Vial IV.PUSH ONE (07:46)
[2017-11-13] MEDS ORDERED: Sod Chloride 0.9% Inj 1,000 ML IV.CONT SCH (08:00)
[2017-11-13 08:07] LABS: Baso % (Auto) 0.2 % (0.0-2.0); Eos % (Auto) 0.1 % (0.0-4.0); Hematocrit 35.3 % (35.0-46.0); Hemoglobin 12.2 gm/dL (11.6-15.3); Lymph # (Auto) 1.7 th/mm3 (1.0-4.8); Lymph % (Auto) 11.1 % (9.0-44.0); Mean Corpuscular HGB Conc 34.5 % (32.0-36.0); Mean Corpuscular Hemoglobin 31.3 pg (27.0-34.0); Mean Corpuscular Volume 90.7 fL (80.0-100.0); Mean Platelet Volume 9.6 fL (7.0-11.0); Mono # (Auto) 1.3 th/mm3 (0.0-0.9); Mono % (Auto) 8.9 % (0.0-8.0); Neut # (Auto) 12.1 th/mm3 (1.8-7.7); Neut % (Auto) 79.7 % (16.0-70.0); Platelet Count 291 th/mm3 (150-450); Red Blood Count 3.89 mil/mm3 (4.00-5.30); White Blood Count 15.1 th/mm3 (4.0-11.0)
[2017-11-13 08:33] LABS: Alanine Aminotransferase 20 U/L (10-53); Albumin 3.5 g/dL (3.4-5.0); Alkaline Phosphatase 64 U/L (45-117); Anion Gap 14 meq/L (5-15); Aspartate Aminotransferase 15 U/L (15-37); Blood Urea Nitrogen 28 mg/dL (7-18); Calcium 6.1 mg/dL (8.5-10.1); Carbon Dioxide 18.1 meq/L (21.0-32.0); Chloride 109 meq/L (98-107); Creatine Kinase 433 U/L (26-192); Glomerular Filtration Rate 23 mL/min (>89); Glucose,Random 146 mg/dL (74-106); Lipase 149 U/L (73-393); Potassium 3.9 meq/L (3.5-5.1); Sodium 141 meq/L (136-145); Total Protein 7.2 g/dL (6.4-8.2)
--- NOTE | 2017-11-13 08:34 | XR ---
EXAM DATE: 11/13/2017 8:18 AM EDT AGE/SEX: 72 years / Female INDICATIONS: Vomiting, cough. CLINICAL DATA: This is the patient's initial encounter. Patient reports that signs and symptoms have been present for 1 day and indicates a pain score of 5/10. MEDICAL/SURGICAL HISTORY: Hypertension. Hysterectomy. [place] [facility] [place] 10/03/[place]. . FINDINGS: A single AP view of the chest demonstrates the lungs to be symmetrically aerated without focal area o f increased density in the right lung apex which appears to be associated with the first chondrocosta l junction. Lungs are otherwise clear. Heart size is normal. Dextroscoliosis of the dorsal spine with associated degenerative changes. Osseous structures are otherwise intact. CONCLUSION: 1. Focal area of increased density in the right upper lung appears to be associated with the first c ostochondral junction and is probably degenerative. 2. Otherwise, lungs are clear with no acute infiltrate to explain current clinical symptoms. Electronically signed by: Rudolph Kan MD 11/13/2017 8:33 AM EDT
--- NOTE | 2017-11-13 08:38 | ED ---
HPI General Chief Complaint: Abdominal Pain Stated Complaint: Medical/EVAC Time Seen by Provider: 11/13/17 07:38 Source: patient and old records reviewed Mode of arrival: EMS Limitations: no limitations History of Present Illness HPI narrative: This is a 72-year-old female with a history of hypertension, who presents today with complaints of abdominal pain with associated diarrhea and nausea. Patient also reports cough with mucousy phlegm. Patient states abdominal pain and the cough started about the same time. She denies any fevers but does report chills. She denies any vomiting but does report nausea. She states that the pain is in her middle abdominal area. She denies any radiation. She describes it as a sharp and achy pain. She denies any previous abdominal surgical history. There is no blood in her stool. She reports that yellow and mucousy in color. The patient denies any urinary symptoms. MD complaint: abdominal pain Onset (ago): hour(s) Pain Consistency: constant Location: periumbilical Severity: severe Severity scale (1-10): 7 Quality: sharp Radiation: none Relieving factors: nothing Exacerbating factors: eating Related Data Home Medications Medication Instructions Recorded Confirmed Lactobacillus acidoph-pectin 1 tab PO BID 11/13/17 11/13/17 [Acidophilus-Pectin] amlodipine 10 mg PO DAILY 11/13/17 11/13/17 aspirin [Aspir-81] 81 mg PO DAILY 11/13/17 11/13/17 atorvastatin 40 mg PO DAILY 11/13/17 11/13/17 esomeprazole magnesium [Nexium] 20 mg PO DAILY 11/13/17 11/13/17 furosemide 40 mg PO DAILY 11/13/17 11/13/17 lisinopril 40 mg PO DAILY 11/13/17 11/13/17 lorazepam 0.5 mg PO 5XW 11/13/17 11/13/17 montelukast 10 mg PO DAILY 11/13/17 11/13/17 multivit-mins no.11-folic acid 1 cap DAILY 11/13/17 11/13/17 [Dialyvite 5000] potassium chloride 20 meq PO BID 11/13/17 11/13/17 tramadol 100 mg PO Q6H PRN 11/13/17 11/13/17 Allergies Allergy/AdvReac Type Severity Reaction Status Date / Time No Known Allergies Allergy Unverified 11/13/17 07:35 Review of Systems ROS Unobtainable All other systems reviewed negative except as stated in HPI Constitutional Reports chills, Denies fever(s) and Reports poor appetite Eyes Reports system reviewed and no additional complaints, except as docu ENT Reports system reviewed and no additional complaints, except as docu and Reports dry mouth Cardiovascular Denies chest pain and Denies palpitations Respiratory Reports cough Comments: Cough with mucus. Gastrointestinal Reports as per HPI, Reports abdominal pain, Denies bloating, Reports diarrhea ( Yellow mucousy stool), Reports nausea, Denies vomiting and Denies hematemesis Genitourinary Reports system reviewed and no additional complaints, except as docu, Denies hematuria, Denies urinary frequency, Denies difficulty voiding, Denies flank pain, Denies urinary hesitancy and Denies urinary urgency Musculoskeletal Reports system reviewed and no additional complaints, except as docu and Denies back pain Integumentary/Breasts Reports system reviewed and no additional complaints, except as docu Neurologic Reports system reviewed and no additional complaints, except as docu and Denies weakness Endocrine Denies polydipsia and Denies polyuria [facility] Medical History Medical History CHF (congestive heart failure) (Acute) COPD (chronic obstructive pulmonary disease) (Acute) Hypertension (Acute) Social History Social History Smoking Status: Former smoker Tobacco Type: Cigarettes How Often Do You Have a Drink Containing Alcohol: 2 to 4 times a month Recent Travel in [facility] within the Last 8 Weeks: No Recent Out of Country Travel within the Last 8 Weeks: No Immunization History Tetanus Immunization: Unsure Hx Influenza Vaccine This Season: No Course Initial Documented Vital Signs Temperature 98.5 F 11/13/17 07:29 Pulse Rate 119 H 11/13/17 07:29 Respiratory Rate 36 H 11/13/17 07:29 Blood Pressure 116/77 11/13/17 07:29 Pulse Oximetry 99 11/13/17 07:29 Last Documented Vital Signs Temperature 97.8 F 11/13/17 13:20 Pulse Rate 116 H 11/13/17 13:20 Respiratory Rate 20 11/13/17 13:20 Blood Pressure 95/58 L 11/13/17 13:20 Pulse Oximetry 99 11/13/17 13:20 Medical Decision Making [facility] Narrative Medical decision making narrative: 72-year-old female presents with nausea, abdominal pain, diarrhea. Patient also reports cough. Patient has a history of COPD. Patient's white blood cell count was elevated with left shift. CT scan shows diverticulitis. Patient's creatinine is elevated at 2.11. Last creatinine 1 month ago was 1.2. She has been given an IV fluid bolus. She is been started on Levaquin and Flagyl. She will be admitted to the hospital for IV hydration and IV antibiotics. Case was discussed with Dr. Laughlin, [facility] who agrees with the admission. Differential Diagnosis Differential Diagnosis: Diverticulitis versus colitis versus pancreatitis versus cholecystitis versus C. difficile colitis Lab Data Result diagrams: 11/13/17 07:48 11/13/17 07:48 Lab Results 11/13/17 11/13/17 11/13/17 Range/Units 07:48 07:48 09:20 WBC 15.1 H (4.0-11.0) th/mm3 RBC 3.89 L (4.00-5.30) mil/mm3 Hgb 12.2 (11.6-15.3) gm/dL Hct 35.3 (35.0-46.0) % MCV 90.7 (80.0-100.0) fL MCH 31.3 (27.0-34.0) pg MCHC 34.5 (32.0-36.0) % RDW 14.0 (11.6-17.2) % Plt Count 291 (150-450) th/mm3 MPV 9.6 (7.0-11.0) fL Neut % (Auto) 79.7 H (16.0-70.0) % Lymph % (Auto) 11.1 (9.0-44.0) % Ada % (Auto) 8.9 H (0.0-8.0) % Eos % (Auto) 0.1 (0.0-4.0) % Baso % (Auto) 0.2 (0.0-2.0) % Neut # (Auto) 12.1 H (1.8-7.7) th/mm3 Lymph # (Auto) 1.7 (1.0-4.8) th/mm3 Ada # (Auto) 1.3 H (0.0-0.9) th/mm3 Eos # (Auto) 0.0 (0.0-0.4) th/mm3 Baso # (Auto) 0.0 (0.0-0.2) th/mm3 WBC Differential . Differential Comment Auto diff final Sodium 141 (136-145) meq/L Potassium 3.9 (3.5-5.1) meq/L Chloride 109 H (98-107) meq/L Carbon Dioxide 18.1 L (21.0-32.0) meq/L Anion Gap 14 (5-15) meq/L BUN 28 H (7-18) mg/dL Creatinine 2.11 H (0.50-1.00) mg/dL Estimated GFR 23 L (>89) mL/min Random Glucose 146 H (74-106) mg/dL Calcium 6.1 L* (8.5-10.1) mg/dL Prot Corrected Calcium 6.1 L* (8.5-10.1) mg/dL Total Bilirubin 0.8 (0.2-1.0) mg/dL AST 15 (15-37) U/L ALT 20 (10-53) U/L Alkaline Phosphatase 64 (45-117) U/L Total Creatine Kinase 433 H (26-192) U/L CK-MB (CK-2) 1.0 (0.5-3.6) ng/mL CK-MB (CK-2) % 0.2 (0.0-4.0) % Troponin I Less than 0.02 L (0.02-0.05) ng/mL Total Protein 7.2 (6.4-8.2) g/dL Albumin 3.5 (3.4-5.0) g/dL Lipase 149 (73-393) U/L Urine Color Yellow (Yellw/Straw) Urine Clarity Cloudy H (Clear) Urine pH 5.0 (5.0-8.5) Ur Specific Martha 1.012 (1.002-1.035) Urine Protein 100 H (Neg-Trace) mg/dL Urine Glucose (UA) Negative (Negative) mg/dL Urine Ketones Negative (Negative) mg/dL Urine Occult Blood Negative (Negative) Urine Nitrate Negative (Negative) Urine Bilirubin Negative (Negative) Urine Urobilinogen Less than 2 (Less than 2) mg/dL Ur Leukocyte Esterase Small H (Negative) Urine RBC 1 (0-3) /hpf Urine WBC 23 H (0-5) /hpf Urine WBC Clumps Occasional H (None) Ur Squamous Epith Cells 1 (0-5) /hpf Amorphous Sediment Rare H (None) /hpf Urine Bacteria Many H (None) /hpf Hyaline Casts 5 (0-3) /lpf Urine Mucus Few H (Occasional) /lpf Micro UA Comment Culture indicated Urine Culture Comments Culture indicated Imaging Data Radiologist's impression: ITS Impressions Abdomen/Pelvis CT 11/13/17 07:46 CONCLUSION: Short segment diverticulitis without abscess involving the distal descending colon. Abnormal small bowel left lower quadrant without obstruction. Malignancy is not excluded. Chest X-Ray 11/13/17 07:46 CONCLUSION: 1. Focal area of increased density in the right upper lung appears to be associated with the first costochondral junction and is probably degenerative. 2. Otherwise, lungs are clear with no acute infiltrate to explain current clinical symptoms. Discharge Plan Discharge Disposition Patient Disposition: 30 Still Patient Discharge Details Discharge Problem: Diverticulitis, Acute kidney injury superimposed on CKD, COPD (chronic obstructive pulmonary disease) Physicians Team ED Provider: Leighton Villar Primary Care Provider: Primary Care Michelle Waters Attending Provider: Shelly Laughlin Other Providers: Gus Orr Discharge Interventions Interventions: Vital Signs Last Done: 11/13/17 13:20 Status ED Status: Admitted Patient
[2017-11-13 09:16] LABS: CKMB Percent 0.2 % (0.0-4.0)
[2017-11-13] MEDS ORDERED: Diatrizoate Meglum/Diatrizoate Sod Liq 9 ML UDC ONE (09:37)
[2017-11-13 09:44] LABS: Amorphous Sediment,Urine Rare /hpf; Bacteria,Urine Many /hpf; Bilirubin,Urine Negative (Negative); Clarity,Urine Cloudy (Clear); Color,Urine Yellow (Yellw/Straw); Glucose,Urine (UA) Negative (Negative); Hyaline Casts,Urine 5 /lpf (0-3); Leukocyte Esterase,Urine Small (Negative); Mucus,Urine Few /lpf (Occasional); Nitrite,Urine Negative (Negative); Specific Gravity,Urine 1.012 (1.002-1.035); Squamous Epithelial Cell,Urine 1 /hpf (0-5)
[2017-11-13] MEDS ORDERED: Diatrizoate Meglum/Diatrizoate Sod Liq 9 ML UDC PO ONE (10:30)
--- NOTE | 2017-11-13 11:59 | CT ---
EXAM DATE: 11/13/2017 11:19 AM EDT AGE/SEX: 72 years / Female INDICATIONS: Abdominal pain. Diarrhea. CLINICAL DATA: This is the patient's initial encounter. Patient reports that signs and symptoms have been present for 1 day and indicates a pain score of 4/10. MEDICAL/SURGICAL HISTORY: Chronic obstructive pulmonary disease. Congestive heart failure. Hy pertension. None. RADIATION DOSE: 14.64 CTDI (mGy) COMPARISON: No prior exams available for comparison. TECHNIQUE: Multiple contiguous axial images were obtained through the abdomen. Images were obtained using multiple row detector helical technique. Using automated exposure control and adjustment of the mA and/or kV according to patient size, radiation dose was kept as low as reasonably achievable to o btain optimal diagnostic quality images. DICOM format image data is available electronically for rev iew and comparison. FINDINGS: The liver and spleen are normal in size and no focal defects are identified. The gallbladder and pa ncreas are unremarkable. No intrahepatic or extrahepatic ductal dilatation is seen. The adrenal gland s and kidneys appear normal bilaterally. No hydronephrosis or mass lesions are identified. In the le ft lower quadrant there is an absolute normal loop of small bowel with possible intraluminal mass. Th is does not cause obstruction. This is over approximately 6 to 7 cm length. Examination the pelvis W trace findings of diverticulitis with pericolonic fluid but no evidence of d iscrete abscess involving a short segment of the descending colon. There is thickening of the lateral conal fascia CONCLUSION: Short segment diverticulitis without abscess involving the distal descending colon. Abnormal small bowel left lower quadrant without obstruction. Malignancy is not excluded. Electronically signed by: Thad Vega MD 11/13/2017 11:57 AM EDT
[2017-11-13] MEDS ORDERED: Levofloxacin 500 mg Premix Inj 500 MG/100 ML PIGGYBACK IV.SIG ONE (13:49)
[2017-11-13] MEDS ORDERED: Sodium Chlor 0.9% Inj 500 ML IV.SIG ONE (13:51)
[2017-11-13] MEDS ORDERED: Morphine Sulfate Inj 2 MG/ML Vial IV.PUSH PRN (14:47)
--- NOTE | 2017-11-13 17:25 | MB ---
cc: Gus Orr MD,Toñito Dubois,Srini HUDSON DATE: 11/13/2017 ROOM #: E-53. REFERRING PHYSICIAN: Dr. Shelly Laughlin. REASON FOR CONSULTATION: Diverticulitis. HISTORY OF PRESENT ILLNESS: This is a 72-year-old female who was admitted here about a month ago with respiratory failure due to diastolic congestive heart failure. She states she was at home yesterday. She states she came to the ER today because she started developing abdominal pain over the last few days which got progressively worse. She has also had loose, runny stools, but no visible blood in her stool. She states she has had a colonoscopy 2 or [address] Dubois. She has a history of GERD for which she takes Esomeprazole. She denies any past history of diverticulitis. No recent travel history. She was on antibiotics about a month ago when hospitalized. Her pain is mild to moderate in severity, but is constant and nonradiating. She points to the periumbilical region, but was most tender in the left lower quadrant. CT scan consistent with diverticulitis, but also shows some type of intraluminal mass and a loop of small bowel. She denies any recent weight loss. SOCIAL HISTORY: The patient is . She states she lives with her and her [id number]. She does not have children. She does smoke about 7-8 cigarettes daily. No significant alcohol history. PAST MEDICAL HISTORY: Remarkable for congestive heart failure, COPD, hypertension, chronic kidney disease, and recent respiratory failure. PAST SURGICAL HISTORY: She denies any prior surgery. MEDICATIONS: Include: 1. Amlodipine 10 mg daily. 2. Aspirin 81 mg daily. 3. Atorvastatin 40 mg daily. 4. Montelukast 10 mg daily. 5. Esomeprazole 20 mg daily. 6. She is currently receiving IV Levaquin 500 mg daily. 7. IV Flagyl 500 mg IV every 8 hours. 8 Also having morphine as needed. 9. Zofran as needed. ALLERGIES: NO KNOWN DRUG ALLERGIES. FAMILY HISTORY: Mother of old age at 86. Father of some type of heart condition at age 56. No other known family history. Looking back at some of her old records, it appears that she may have a daughter that she is not close to, but when I asked her if she had children, she said no. REVIEW OF SYSTEMS: She denies any chest pain or shortness of breath, but she did wake up this morning coughing a little bit. She denies any fever or chills. She had some nausea earlier, but that has resolved. She has had the loose stools recently. She denies any visible blood in the stool. No urinary tract symptoms. The remainder of the 12-point review of systems was negative. PHYSICAL EXAMINATION: GENERAL: Reveals a well-developed female in no acute distress. VITAL SIGNS: Her blood pressure is 95/58, pulse 116, respirations 20 and nonlabored, temperature is 97.8 orally. HEENT: Sclerae are anicteric. Dentition: Poor. She does have some facial hair. NECK: Without JVD. LUNGS: Clear to auscultation. HEART: Heart sounds reveal tachycardia. ABDOMEN: Rounded, soft with mild left lower quadrant tenderness. No rebound or guarding. No palpable masses. Bowel sounds are present. RECTAL: Deferred. EXTREMITIES: No cyanosis, clubbing or edema. SKIN: Warm and dry. NEUROLOGIC: She was alert, but a very poor historian. LABORATORY DATA: Reveals a white count of 15,100 with a left shift, hemoglobin 12.2. Her CO2 was 18.1, creatinine 2.11 with a BUN of 28. LFTs were unremarkable. Total creatinine kinase was 433. Troponin less than 0.02, lipase normal at 149, albumin 3.5. Urinalysis showed small leukocyte esterase, 23 WBCs and a culture is indicated. IMAGING STUDIES: Chest x-ray showed some focal area of increased density in the right upper lung, probably degenerative. Otherwise, the lungs were clear, without any acute infiltrates. Her CT scan of the abdomen and pelvis without contrast consistent with short segment diverticulitis without abscess, involving the distal descending colon and an abnormal loop of small bowel in the left lower quadrant, possibly representing an intraluminal mass. IMPRESSION: 1. Suspected acute diverticulitis. Patient with leukocytosis and abdominal pain. Agree with broad spectrum antibiotics. 2. Possible small bowel mass. PLAN: We will allow clear liquids and continue with the IV antibiotics. We will review her CT scan with Radiology. We will follow as needed. Thank you for this consult. Gus M. Agnone, MD LMA/FLORY , 04:57 PM , 05:24 PM
--- NOTE | 2017-11-13 19:02 | P.HPFP ---
History of Present Illness Primary Care Physician: No Primary Care Physician Chief Complaint: Abdominal pain History of Present Illness: Patient is a 72-year-old female with past history of CHF, COPD, HTN, who presents today for abdominal pain. She reports that today at approximately 3 AM she woke up and was dizzy, shaky, mild sweatiness, chills, had a single episode of yellow watery diarrhea without blood, had cough productive of white mucus and noted abdominal pain in the center of her abdomen. She states the pain is a cramping sensation, has been present in one spot for the entire time, is rated a 10/10. She did not take any medications to alleviate any of her symptoms which all started this morning. She denies headache, change in vision , coughing up blood, chest pain, arm or jaw pain, vomiting, fever. at approximately 6 AM she was brought by [facility] to the hospital. No other complaints today. - Diagnosis (1) Diverticulitis (2) Abnormal CT of the abdomen (3) Acute kidney injury superimposed on CKD (4) COPD (chronic obstructive pulmonary disease) (5) CHF (congestive heart failure) (6) HTN (hypertension) (7) Anxiety Inpatient Certification: I certify that the inpatient services were ordered in accordance with Medicare regulations governing the order. This includes certification that hospital inpatient services are reasonable and necessary and in the case of services not specified as inpatient-only under 42 CFR 419.22(n), that they are appropriately provided as inpatient services in accordance to with the 2-midnight benchmark under 43 CFR 412.3(e) Estimated Total Length of Stay (Days): 3 Plans for Post Hospital Care: Home Review of Systems Constitutional: Reports chills, Reports excessive sweating, Reports lack of energy, Denies body ache(s), Denies fever(s) Eyes: Denies blurry vision, Denies change in vision, Denies double vision, Denies irritation, Denies loss of vision, Denies sensitivity to light Ears, Nose, Mouth, and Throat: Denies abnormal hearing, Denies dental pain, Denies ear pain, Denies hearing loss, Denies pain with swallowing, Denies post nasal drip, Denies sinus pressure, Denies sore throat Cardiovascular: Denies chest pain, Denies fast heart rate, Denies rapid, pounding, or irregular heartbeat, Denies shortness of breath Respiratory: Reports cough, Denies change in phlegm color, Denies coughing up blood, Denies pain with cough Gastrointestinal: Reports abdominal pain, Reports change in bowel habits, Reports cramping, Reports loose stools, Reports nausea, Denies black, tarry stools, Denies bright, red blood in stools, Denies constipation, Denies pain with swallowing, Denies vomiting, Denies vomiting blood Genitourinary: Denies difficulty starting urination, Denies painful urination, Denies urinary incontinence Musculoskeletal: Denies abnormal walking, Denies back pain, Denies numbness, Denies tingling Skin/Breast: Denies dry skin, Denies itching, Denies sores Neurologic: Denies abnormal hearing, Denies abnormal speech, Denies abnormal walking, Denies burning sensations, Denies unsteadiness Psychiatric: Denies abnormal sleep pattern, Denies thoughts of hurting/killing others, Denies thoughts of hurting/killing yourself Endocrine: Reports excessive sweating, Reports flushing PMFSH - History History Provided By: Patient, Medical Record - Medical / Surgical Hx Neg / Unobtainable Surgical History: No Previous Surgery - Medical History Medical History: Medical History (Last Reviewed 11/13/17 @ 19:32 by Helio Jimenes MD, R1) Anxiety CHF (congestive heart failure) COPD (chronic obstructive pulmonary disease) Hypertension - Tobacco History Tobacco Use In Past 30 Days: Yes Smoking Status: Former smoker Tobacco Type: Cigarettes - Alcohol History How Often Do You Have a Drink Containing Alcohol: 2 to 4 times a month - Travel History Recent Travel in the [place] Within the Last 8 Weeks: No Recent Travel Out of the Country Within the Last 8 Weeks: No - Immunization History Tetanus Immunization: Unsure Hx Influenza Vaccine This Season: No Medications and Allergies Active Medications: Active Medications Amlodipine Besylate (Norvasc) 10 mg PO DAILY [facility] Aspirin (Ecotrin) 81 mg PO DAILY [facility] Atorvastatin Calcium (Lipitor) 40 mg PO DAILY [facility] Levofloxacin/Dextrose (Levaquin 500 Mg Premix Inj) 500 mg in 100 mls @ 100 mls/ hr IV.SIG Q24H [facility] Metronidazole/Sodium Chloride (Flagyl 500 Mg Inj) 100 mls @ 100 mls/hr IV.SIG Q8H [facility] Montelukast Sodium (Singulair) 10 mg PO DAILY [facility] Morphine Sulfate (Morphine Inj) 2 mg IV.PUSH Q4H PRN PRN Reason: PAIN SCALE 6 TO 10 Non-Formulary Medication (Esomeprazole Magnesium [Nexium]) 20 mg PO DAILY [facility] Ondansetron HCl (Zofran Inj) 4 mg IV.PUSH Q6H PRN PRN Reason: NAUSEA OR VOMITING Sodium Chloride (Ns Flush) 2 ml IV.FLUSH PRN PRN PRN Reason: FLUSH AFTER USING IV ACCESS Temazepam (Restoril) 15 mg PO HS PRN PRN Reason: INSOMNIA Allergies Allergy/AdvReac Type Severity Reaction Status Date / Time No Known Allergies Allergy Unverified 11/13/17 07:35 Home Medications Medication Instructions Recorded Confirmed Type Lactobacillus acidoph-pectin 1 tab PO BID 11/13/17 11/13/17 History [Acidophilus-Pectin] amlodipine 10 mg PO DAILY 11/13/17 11/13/17 History aspirin [Aspir-81] 81 mg PO DAILY 11/13/17 11/13/17 History atorvastatin 40 mg PO DAILY 11/13/17 11/13/17 History esomeprazole magnesium [Nexium] 20 mg PO DAILY 11/13/17 11/13/17 History furosemide 40 mg PO DAILY 11/13/17 11/13/17 History lisinopril 40 mg PO DAILY 11/13/17 11/13/17 History lorazepam 0.5 mg PO 5XW 11/13/17 11/13/17 History montelukast 10 mg PO DAILY 11/13/17 11/13/17 History multivit-mins no.11-folic acid 1 cap DAILY 11/13/17 11/13/17 History [Dialyvite 5000] potassium chloride 20 meq PO BID 11/13/17 11/13/17 History tramadol 100 mg PO Q6H PRN 11/13/17 11/13/17 History Exam Vital signs: Vital Signs 11/13/17 07:29 11/13/17 09:31 11/13/17 11:08 Temperature 98.5 F Pulse Rate 119 H 116 H 126 H Respiratory Rate 36 H 16 18 Blood Pressure 116/77 95/62 L 104/73 Pulse Oximetry 99 97 99 11/13/17 13:20 11/13/17 18:37 Temperature 97.8 F 97.5 F L Pulse Rate 116 H 115 H Respiratory Rate 20 19 Blood Pressure 95/58 L 129/51 L Pulse Oximetry 99 100 Intake & Output 11/12/17 11/13/17 11/13/17 18:59 06:59 18:59 Intake Total 950 / 950 Balance 950 / 950 Weight 82.3 kg Intake: IV 950 / 950 NS Inj 1,000 ML @ 125 mls/hr IV 250 / 250 .CONT .Q8H [facility] Rx#:[id number] Levaquin 500 mg Premix Inj 500 100 / 100 mg In 100 ml @ 100 mls/hr IV. SIG ONCE ONE Rx#:[id number] NS Inj 500 ML @ Wide Open IV. 500 / 500 SIG BOLUS ONE Rx#:[id number] Flagyl 500 MG Inj 100 ML @ 100 100 / 100 mls/hr IV.SIG ONCE ONE Rx#: [id number] Narrative: GENERAL: Laying in bed, eating broth, no acute distress SKIN: Warm and dry. HEAD: Atraumatic. Normocephalic. EYES: Pupils equal and round. No scleral icterus. No injection or drainage. ENT: No nasal bleeding or discharge. Mucous membranes pink and moist. Poor dentition NECK: Trachea midline. No JVD. CARDIOVASCULAR: Regular rate and rhythm. RESPIRATORY: No accessory muscle use. Clear to auscultation. Breath sounds equal bilaterally. GASTROINTESTINAL: Abdomen soft, nondistended. Tender to deep palpation in mid epigastric region, negative June's, negative Mikaela's, negative Rovsing's, negative rebound. Hepatic and splenic margins not palpable. MUSCULOSKELETAL: Extremities without clubbing, cyanosis, or edema. No obvious deformities. NEUROLOGICAL: Awake and alert. No obvious cranial nerve deficits. Motor grossly within normal limits. Five out of 5 muscle strength in the arms and legs. Normal speech. PSYCHIATRIC: Appropriate mood and affect; insight and judgment normal. Results - Labs Result diagrams: 11/13/17 07:48 11/13/17 07:48 Abnormal lab results 11/13/17 11/13/17 11/13/17 Range/Units 07:48 07:48 09:20 WBC 15.1 H (4.0-11.0) th/mm3 RBC 3.89 L (4.00-5.30) mil/mm3 Neut % (Auto) 79.7 H (16.0-70.0) % Morris % (Auto) 8.9 H (0.0-8.0) % Neut # (Auto) 12.1 H (1.8-7.7) th/mm3 Morris # (Auto) 1.3 H (0.0-0.9) th/mm3 Chloride 109 H (98-107) meq/L Carbon Dioxide 18.1 L (21.0-32.0) meq/L BUN 28 H (7-18) mg/dL Creatinine 2.11 H (0.50-1.00) mg/dL Estimated GFR 23 L (>89) mL/min Random Glucose 146 H (74-106) mg/dL Calcium 6.1 L* (8.5-10.1) mg/dL Prot Corrected Calcium 6.1 L* (8.5-10.1) mg/dL Total Creatine Kinase 433 H (26-192) U/L Troponin I Less than 0.02 L (0.02-0.05) ng/mL Urine Clarity Cloudy H (Clear) Urine Protein 100 H (Neg-Trace) mg/dL Ur Leukocyte Esterase Small H (Negative) Urine WBC 23 H (0-5) /hpf Urine WBC Clumps Occasional H (None) Amorphous Sediment Rare H (None) /hpf Urine Bacteria Many H (None) /hpf Urine Mucus Few H (Occasional) /lpf Short CBC 11/13/17 Range/Units 07:48 WBC 15.1 H (4.0-11.0) th/mm3 Hgb 12.2 (11.6-15.3) gm/dL Hct 35.3 (35.0-46.0) % Plt Count 291 (150-450) th/mm3 BMP 11/13/17 07:48 Sodium 141 Potassium 3.9 Chloride 109 H Carbon Dioxide 18.1 L BUN 28 H Creatinine 2.11 H Calcium 6.1 L* Cardiac Enzymes 11/13/17 Range/Units 07:48 Total Creatine Kinase 433 H (26-192) U/L CK-MB (CK-2) 1.0 (0.5-3.6) ng/mL Troponin I Less than 0.02 L (0.02-0.05) ng/mL Liver Function 11/13/17 Range/Units 07:48 Total Bilirubin 0.8 (0.2-1.0) mg/dL AST 15 (15-37) U/L ALT 20 (10-53) U/L Alkaline Phosphatase 64 (45-117) U/L Albumin 3.5 (3.4-5.0) g/dL Urine 11/13/17 Range/Units 09:20 Urine Color Yellow (Yellw/Straw) Urine Clarity Cloudy H (Clear) Urine pH 5.0 (5.0-8.5) Ur Specific [place] 1.012 (1.002-1.035) Urine Protein 100 H (Neg-Trace) mg/dL Urine Glucose (UA) Negative (Negative) mg/dL - Imaging Impressions Abdomen/Pelvis CT 11/13/17 07:46 CONCLUSION: Short segment diverticulitis without abscess involving the distal descending colon. Abnormal small bowel left lower quadrant without obstruction. Malignancy is not excluded. Chest X-Ray 11/13/17 07:46 CONCLUSION: 1. Focal area of increased density in the right upper lung appears to be associated with the first costochondral junction and is probably degenerative. 2. Otherwise, lungs are clear with no acute infiltrate to explain current clinical symptoms. Caprini VTE Risk Assessment Caprini VTE Risk Assessment: Moderate/High Risk (score >= 2) Caprini Risk Assessment Model: Point Value = 1 Point Value = 2 Point Value = 3 Point Value = 5 Age 41-60 Minor surgery BMI > 25 kg/m2 Swollen legs Varicose veins or History of unexplained or recurrent spontaneous Oral contraceptives or hormone replacement Sepsis (< 1 month) Serious lung disease, including pneumonia (< 1 month) Abnormal pulmonary function Acute myocardial infarction Congestive heart failure (< 1 month) History of inflammatory bowel disease Medical patient at bed rest Age 61-74 Arthroscopic surgery Major open surgery (> 45 min) Laparoscopic surgery (> 45 min) Malignancy Confined to bed (> 72 hours) Immobilizing plaster cast Central venous access Age >= 75 History of VTE Family history of VTE Factor V Leiden Prothrombin [id number] Lupus anticoagulant Anticardiolipin antibodies Elevated serum homocysteine Heparin-induced thrombocytopenia Other congenital or acquired thrombophilia Stroke (< 1 month) Elective arthroplasty Hip, pelvis, or leg fracture Acute spinal cord injury (< 1 month) Prophylaxis Regimen: Total Risk Factor Score Risk Level Prophylaxis Regimen 0-1 Low Early ambulation 2 Moderate Order ONE of the following: *Sequential Compression Device (SCD) *Heparin 5000 units SQ BID 3-4 Higher Order ONE of the following medications: *Heparin 5000 units SQ TID *Enoxaparin/Lovenox 40 mg SQ daily (WT < 150 kg, CrCl > 30 mL/min) *Enoxaparin/Lovenox 30 mg SQ daily (WT < 150 kg, CrCl > 10-29 mL/min) *Enoxaparin/Lovenox 30 mg SQ BID (WT < 150 kg, CrCl > 30 mL/min) AND/OR *Sequential Compression Device (SCD) 5 or more Highest Order ONE of the following medications: *Heparin 5000 units SQ TID (Preferred with Epidurals) *Enoxaparin/Lovenox 40 mg SQ daily (WT < 150 kg, CrCl > 30 mL/min) *Enoxaparin/Lovenox 30 mg SQ daily (WT < 150 kg, CrCl > 10-29 mL/min) *Enoxaparin/Lovenox 30 mg SQ BID (WT < 150 kg, CrCl > 30 mL/min) AND *Sequential Compression Device (SCD) Assessment and Plan - Assessment (1) Diverticulitis Code(s): K57.92 - Diverticulitis of intestine, part unspecified, without perforation or abscess without bleeding Status: Acute Plan: Presented with abdominal pain, found to have diverticulitis on CT. -Levaquin 750 mg daily -Flagyl 500 mg daily -Liquid diet -Appreciate GI recommendations. Currently stating liquid diet, continue antibiotics, they will speak with radiology concerning abnormal findings on CT (2) Abnormal CT of the abdomen Code(s): R93.5 - Abnormal findings on diagnostic imaging of other abdominal regions, including retroperitoneum Status: Acute Plan: CT abdomen reports "Abnormal small bowel left lower quadrant without obstruction. Malignancy is not excluded" -GI notes they will follow up with radiology to review -F/U radiology and GI recommendations (3) Acute kidney injury superimposed on CKD Code(s): N17.9 - Acute kidney failure, unspecified; N18.9 - Chronic kidney disease, unspecified Status: Acute Plan: Creatinine of 2.11 in the ED, historically around 1.2. Received 500 ml bolus in ED. -Follow up creatinine tomorrow - Tolerating PO hydration for now, gentle hydration due to CHF (4) COPD (chronic obstructive pulmonary disease) Code(s): J44.9 - Chronic obstructive pulmonary disease, unspecified Status: Chronic Plan: History of COPD -Continue home medications montelukast (5) CHF (congestive heart failure) Code(s): I50.9 - Heart failure, unspecified Status: Chronic Plan: History of CHF -Continue home medications furosemide, aspirin (6) HTN (hypertension) Code(s): I10 - Essential (primary) hypertension Status: Chronic Plan: History of hypertension -Continue home medications amlodipine 10mg, lisinopril 40mg (7) Anxiety Code(s): F41.9 - Anxiety disorder, unspecified Status: Chronic Plan: History of anxiety -Continue home medications lorazepam 0.5 mg every 8 hours - Assessment and Plan 72-year-old female with past history of CHF, COPD, HTN, who presented for abdominal pain, found to have diverticulitis without abscess. Discussed Condition With: ED physician
[2017-11-13] MEDS ORDERED: Morphine Inj 4 MG/ML Vial IV.PUSH PRN (19:36)
[2017-11-13] MEDS: LORazepam 0.5 MG Tablet PO SCH (22:51)
[2017-11-14] MEDS: Temazepam 15 MG Capsule PO PRN ×2 (02:20→22:24)
[2017-11-14] MEDS: LORazepam 0.5 MG Tablet PO SCH ×3 (05:50→20:04)
--- NOTE | 2017-11-14 06:49 | ECG ---
Date Performed: 11/13/2017 Time Performed: 07:33:17 PTAGE: 72 years EKG: SINUS TACHYCARDIA ABNORMAL RHYTHM ECG Compared to PREVIOUS TRACING nonspecific T wave changes have resolved PREVIOUS TRACIN10/01/2017 0 9.01 DOCTOR: Thad Buenrostro Interpretating Date/Time 11/14/2017 06:48:50
--- NOTE | 2017-11-14 08:51 | P.HPFP ---
History of Present Illness Primary Care Physician: No Primary Care Physician Chief Complaint: Abdominal pain History of Present Illness: Mrs. Townsend is a 72-year-old female with past history of CHF, COPD, HTN, who presented for abdominal pain. She reports that at approximately 3 AM she woke up and was dizzy, shaky, mild sweatiness, chills, had a single episode of yellow watery diarrhea without blood, had cough productive of white mucus and noted abdominal pain in the center of her abdomen. She states the pain is a cramping sensation, has been present in one spot for the entire time, is rated a 10/10. She did not take any medications to alleviate any of her symptoms which all started this morning. She denies headache, change in vision, coughing up blood, chest pain, arm or jaw pain, vomiting, fever. at approximately 6 AM she was brought by [facility] to the hospital. No other complaints today. She had multiple bouts of vomiting and was clinically dehydrated. Ms. Townsend had her blood pressure medicine held as her blood pressures were low today. She is feeling improved since admission. Her abdominal pain had been 10 out of 10 and today it is 1-2 out of 10. She is very thirsty and is starting clear liquids. She has had no further vomiting since coming she has had no further vomiting since coming to the hospital. - Diagnosis (1) Diverticulitis (2) Abnormal CT of the abdomen (3) Acute kidney injury superimposed on CKD (4) COPD (chronic obstructive pulmonary disease) (5) CHF (congestive heart failure) (6) HTN (hypertension) (7) Anxiety Inpatient Certification: I certify that the inpatient services were ordered in accordance with Medicare regulations governing the order. This includes certification that hospital inpatient services are reasonable and necessary and in the case of services not specified as inpatient-only under 42 CFR 419.22(n), that they are appropriately provided as inpatient services in accordance to with the 2-midnight benchmark under 43 CFR 412.3(e) Estimated Total Length of Stay (Days): 3 Plans for Post Hospital Care: Not yet determined (We will get a PT evaluation and she has difficulty walking) Review of Systems other (See the review of systems on her initial exam) PMFSH - History History Provided By: Patient - Medical History Medical History: Medical History (Last Reviewed 11/13/17 @ 19:32 by Helio Jimenes MD, R1) Anxiety CHF (congestive heart failure) COPD (chronic obstructive pulmonary disease) Hypertension - Tobacco History Second Hand Smoke Exposure: Yes Tobacco Use In Past 30 Days: Yes Smoking Status: Light tobacco smoker Tobacco Type: Cigarettes - Alcohol History How Often Do You Have a Drink Containing Alcohol: Monthly or less - Substance Use History Substance History: No History of Abuse - Travel History Recent Travel in the [place] Within the Last 8 Weeks: No Recent Travel Out of the Country Within the Last 8 Weeks: No - Immunization History Tetanus Immunization: Unsure Hx Influenza Vaccine This Season: No Medications and Allergies Active Medications: Active Medications Amlodipine Besylate (Norvasc) 10 mg PO DAILY [facility] Last Admin: 11/14/17 08:02 Dose: Not Given Aspirin (Ecotrin) 81 mg PO DAILY [facility] Atorvastatin Calcium (Lipitor) 40 mg PO DAILY [facility] Furosemide (Lasix) 40 mg PO DAILY [facility] Metronidazole/Sodium Chloride (Flagyl 500 Mg Inj) 100 mls @ 100 mls/hr IV.SIG Q8H [facility] Last Infusion: 11/14/17 07:03 Dose: Infused Levofloxacin/Dextrose (Levaquin 750 Mg Premix Inj) 150 mls @ 100 mls/hr IV.SIG Q24H [facility] Lisinopril (Prinivil) 40 mg PO DAILY [facility] Last Admin: 11/14/17 08:02 Dose: Not Given Lorazepam (Ativan) 0.5 mg PO Q8H [facility] Last Admin: 11/14/17 05:50 Dose: 0.5 mg Montelukast Sodium (Singulair) 10 mg PO DAILY [facility] Morphine Sulfate (Morphine Inj) 2 mg IV.PUSH Q4H PRN PRN Reason: PAIN SCALE 6 TO 10 Last Admin: 11/13/17 20:08 Dose: 2 mg Non-Formulary Medication (Esomeprazole Magnesium [Nexium]) 20 mg PO DAILY [facility] Ondansetron HCl (Zofran Odt) 4 mg PO Q6H PRN PRN Reason: NAUSEA OR VOMITING Last Admin: 11/14/17 01:26 Dose: 4 mg Sodium Chloride (Ns Flush) 2 ml IV.FLUSH PRN PRN PRN Reason: FLUSH AFTER USING IV ACCESS Temazepam (Restoril) 15 mg PO HS PRN PRN Reason: INSOMNIA Last Admin: 11/14/17 02:20 Dose: 15 mg Allergies Allergy/AdvReac Type Severity Reaction Status Date / Time No Known Allergies Allergy Unverified 11/13/17 07:35 Home Medications Medication Instructions Recorded Confirmed Type Lactobacillus acidoph-pectin 1 tab PO BID 11/13/17 11/13/17 History [Acidophilus-Pectin] amlodipine 10 mg PO DAILY 11/13/17 11/13/17 History aspirin [Aspir-81] 81 mg PO DAILY 11/13/17 11/13/17 History atorvastatin 40 mg PO DAILY 11/13/17 11/13/17 History esomeprazole magnesium [Nexium] 20 mg PO DAILY 11/13/17 11/13/17 History furosemide 40 mg PO DAILY 11/13/17 11/13/17 History lisinopril 40 mg PO DAILY 11/13/17 11/13/17 History lorazepam 0.5 mg PO 5XW 11/13/17 11/13/17 History montelukast 10 mg PO DAILY 11/13/17 11/13/17 History multivit-mins no.11-folic acid 1 cap DAILY 11/13/17 11/13/17 History [Dialyvite 5000] potassium chloride 20 meq PO BID 11/13/17 11/13/17 History tramadol 100 mg PO Q6H PRN 11/13/17 11/13/17 History Exam Vital signs: Vital Signs 11/13/17 09:31 11/13/17 11:08 11/13/17 13:20 Temperature 97.8 F Pulse Rate 116 H 126 H 116 H Respiratory Rate 16 18 20 Blood Pressure 95/62 L 104/73 95/58 L Pulse Oximetry 97 99 99 11/13/17 18:37 11/13/17 20:00 11/13/17 23:52 Temperature 97.5 F L 98.5 F 97.8 F Pulse Rate 115 H 106 H 103 H Respiratory Rate 19 16 16 Blood Pressure 129/51 L 96/53 L 94/54 L Pulse Oximetry 100 100 97 11/14/17 00:00 11/14/17 04:00 11/14/17 07:11 Temperature 98.1 F 98.3 F Pulse Rate 100 H 104 H 106 H Respiratory Rate 18 14 Blood Pressure 99/58 L 104/60 Pulse Oximetry 100 96 Intake & Output 11/13/17 11/14/17 11/14/17 18:59 06:59 18:59 Intake Total 950 / 950 100 / 100 340 / 340 Balance 950 / 950 100 / 100 340 / 340 Weight 82.3 kg Intake: IV 950 / 950 100 / 100 100 / 100 NS Inj 1,000 ML @ 125 mls/hr IV 250 / 250 .CONT .Q8H [facility] Rx#:[id number] Levaquin 500 mg Premix Inj 500 100 / 100 mg In 100 ml @ 100 mls/hr IV. SIG ONCE ONE Rx#:[id number] NS Inj 500 ML @ Wide Open IV. 500 / 500 SIG BOLUS ONE Rx#:[id number] Flagyl 500 MG Inj 100 ML @ 100 100 / 100 100 / 100 100 / 100 mls/hr IV.SIG Q8H [facility] Rx#: [id number] Oral 240 / 240 Other: # Voids 3 Date of Last Bowel Movement 11/13/17 # Bowel Movements 3 - Constitutional no acute distress, obese, cooperative - Routine HEENT Exam Head: Present: normocephalic, atraumatic. Absent: hematoma, facial swelling Eye: Present: EOMI, PERRL. Absent: scleral injection ENT: Present: mucous membranes dry. Absent: dentition normal (Teeth appear in very bad shape and is if they are about to fall out especially in the bottom jaw ) - Routine Neck Exam Present: supple, trachea midline - Routine Chest/Breast/Axilla Exam Chest wall: Absent: tenderness, mass, pacemaker, chest tube - Routine Respiratory Exam Absent: accessory muscle use, decreased breath sounds, prolonged expiratory phase, rales, respiratory distress, rhonchi, distant breath sounds - Routine Cardiovascular Exam Present: RRR. Absent: murmur, gallop, rubs, bradycardia, tachycardia, irregular rhythm, irregularly irregular - Routine Abdominal Exam Present: soft, normoactive bowel sounds. Absent: tenderness, distended, rebound , guarding, firm, rigid, organomegaly, mass, hernia, wound - Routine Extremities Exam Present: tenderness (Especially on the left lateral foot and ankle but no visible abnormality). Absent: cyanosis, clubbing, edema, extremity cold to touch, amputation - Routine Skin Exam Present: intact, dry. Absent: cyanosis, erythema, pallor, mottling, petechiae, gangrene - Routine Neurological Exam Present: alert, oriented X3, abnormal gait (It was difficult for her to get up and walk around the room because of her ankle pain). Absent: sensory deficit, motor deficit, altered mental status Results - Labs Result diagrams: 11/14/17 08:32 11/14/17 08:32 Abnormal lab results 11/13/17 11/13/17 Range/Units 07:48 09:20 Chloride 109 H (98-107) meq/L Carbon Dioxide 18.1 L (21.0-32.0) meq/L BUN 28 H (7-18) mg/dL Creatinine 2.11 H (0.50-1.00) mg/dL Estimated GFR 23 L (>89) mL/min Random Glucose 146 H (74-106) mg/dL Calcium 6.1 L* (8.5-10.1) mg/dL Prot Corrected Calcium 6.1 L* (8.5-10.1) mg/dL Total Creatine Kinase 433 H (26-192) U/L Troponin I Less than 0.02 L (0.02-0.05) ng/mL Urine Clarity Cloudy H (Clear) Urine Protein 100 H (Neg-Trace) mg/dL Ur Leukocyte Esterase Small H (Negative) Urine WBC 23 H (0-5) /hpf Urine WBC Clumps Occasional H (None) Amorphous Sediment Rare H (None) /hpf Urine Bacteria Many H (None) /hpf Urine Mucus Few H (Occasional) /lpf BMP 11/13/17 07:48 Sodium 141 Potassium 3.9 Chloride 109 H Carbon Dioxide 18.1 L BUN 28 H Creatinine 2.11 H Calcium 6.1 L* Cardiac Enzymes 11/13/17 Range/Units 07:48 Total Creatine Kinase 433 H (26-192) U/L CK-MB (CK-2) 1.0 (0.5-3.6) ng/mL Troponin I Less than 0.02 L (0.02-0.05) ng/mL Liver Function 11/13/17 Range/Units 07:48 Total Bilirubin 0.8 (0.2-1.0) mg/dL AST 15 (15-37) U/L ALT 20 (10-53) U/L Alkaline Phosphatase 64 (45-117) U/L Albumin 3.5 (3.4-5.0) g/dL Urine 11/13/17 Range/Units 09:20 Urine Color Yellow (Yellw/Straw) Urine Clarity Cloudy H (Clear) Urine pH 5.0 (5.0-8.5) Ur Specific [place] 1.012 (1.002-1.035) Urine Protein 100 H (Neg-Trace) mg/dL Urine Glucose (UA) Negative (Negative) mg/dL - Imaging Impressions Abdomen/Pelvis CT 11/13/17 07:46 CONCLUSION: Short segment diverticulitis without abscess involving the distal descending colon. Abnormal small bowel left lower quadrant without obstruction. Malignancy is not excluded. Caprini VTE Risk Assessment Caprini VTE Risk Assessment: Moderate/High Risk (score >= 2) Caprini Risk Assessment Model: Point Value = 1 Point Value = 2 Point Value = 3 Point Value = 5 Age 41-60 Minor surgery BMI > 25 kg/m2 Swollen legs Varicose veins or History of unexplained or recurrent spontaneous Oral contraceptives or hormone replacement Sepsis (< 1 month) Serious lung disease, including pneumonia (< 1 month) Abnormal pulmonary function Acute myocardial infarction Congestive heart failure (< 1 month) History of inflammatory bowel disease Medical patient at bed rest Age 61-74 Arthroscopic surgery Major open surgery (> 45 min) Laparoscopic surgery (> 45 min) Malignancy Confined to bed (> 72 hours) Immobilizing plaster cast Central venous access Age >= 75 History of VTE Family history of VTE Factor V Leiden Prothrombin [id number] Lupus anticoagulant Anticardiolipin antibodies Elevated serum homocysteine Heparin-induced thrombocytopenia Other congenital or acquired thrombophilia Stroke (< 1 month) Elective arthroplasty Hip, pelvis, or leg fracture Acute spinal cord injury (< 1 month) Prophylaxis Regimen: Total Risk Factor Score Risk Level Prophylaxis Regimen 0-1 Low Early ambulation 2 Moderate Order ONE of the following: *Sequential Compression Device (SCD) *Heparin 5000 units SQ BID 3-4 Higher Order ONE of the following medications: *Heparin 5000 units SQ TID *Enoxaparin/Lovenox 40 mg SQ daily (WT < 150 kg, CrCl > 30 mL/min) *Enoxaparin/Lovenox 30 mg SQ daily (WT < 150 kg, CrCl > 10-29 mL/min) *Enoxaparin/Lovenox 30 mg SQ BID (WT < 150 kg, CrCl > 30 mL/min) AND/OR *Sequential Compression Device (SCD) 5 or more Highest Order ONE of the following medications: *Heparin 5000 units SQ TID (Preferred with Epidurals) *Enoxaparin/Lovenox 40 mg SQ daily (WT < 150 kg, CrCl > 30 mL/min) *Enoxaparin/Lovenox 30 mg SQ daily (WT < 150 kg, CrCl > 10-29 mL/min) *Enoxaparin/Lovenox 30 mg SQ BID (WT < 150 kg, CrCl > 30 mL/min) AND *Sequential Compression Device (SCD) Assessment and Plan - Assessment (1) Diverticulitis Code(s): K57.92 - Diverticulitis of intestine, part unspecified, without perforation or abscess without bleeding Status: Acute Plan: Presented with abdominal pain, found to have diverticulitis on CT. -Levaquin 750 mg daily -Flagyl 500 mg daily -Liquid diet -Appreciate GI recommendations. Currently stating liquid diet, continue antibiotics, they will speak with radiology concerning abnormal findings on CT (2) Abnormal CT of the abdomen Code(s): R93.5 - Abnormal findings on diagnostic imaging of other abdominal regions, including retroperitoneum Status: Acute Plan: CT abdomen reports "Abnormal small bowel left lower quadrant without obstruction. Malignancy is not excluded" -GI notes they will follow up with radiology to review -F/U radiology and GI recommendations (3) Acute kidney injury superimposed on CKD Code(s): N17.9 - Acute kidney failure, unspecified; N18.9 - Chronic kidney disease, unspecified Status: Acute Plan: Creatinine of 2.11 in the ED, historically around 1.2. Received 500 ml bolus in ED. -Follow up creatinine tomorrow - Tolerating PO hydration for now, gentle hydration due to CHF We will hold her BELLA inhibitor and Lasix until she is rehydrated. If she becomes short of breath or develops any pulmonary edema she can easily be given some IV Lasix (4) COPD (chronic obstructive pulmonary disease) Code(s): J44.9 - Chronic obstructive pulmonary disease, unspecified Status: Chronic Plan: History of COPD -Continue home medications montelukast (5) CHF (congestive heart failure) Code(s): I50.9 - Heart failure, unspecified Status: Chronic Plan: History of CHF -Continue home medications aspirin hold furosemide until rehydrated (6) HTN (hypertension) Code(s): I10 - Essential (primary) hypertension Status: Chronic Plan: History of hypertension -Continue home medications amlodipine 10mg, lisinopril 40mg (7) Anxiety Code(s): F41.9 - Anxiety disorder, unspecified Status: Chronic Plan: History of anxiety -Continue home medications lorazepam 0.5 mg every 8 hours - Assessment and Plan 72-year-old female with past history of CHF, COPD, HTN, who presented for abdominal pain, found to have diverticulitis without abscess. We will admit her to the hospital because she is requiring IV antibiotics for her diverticulitis H&P: Quality - VTE Deep Vein Thrombosis/Pulmonary Embolism Present on Admission: No (5) CHF (congestive heart failure) Qualifiers: Heart failure type: systolic Heart failure chronicity: chronic Qualified Code(s): I50.22 - Chronic systolic (congestive) heart failure (6) HTN (hypertension) Qualifiers: Hypertension type: essential hypertension Qualified Code(s): I10 - Essential (primary) hypertension
[2017-11-14] MEDS ORDERED: Furosemide 40 MG Tablet PO SCH (09:00)
[2017-11-14] MEDS ORDERED: amLODIPine 10 MG Tablet PO SCH (09:00)
[2017-11-14] MEDS ORDERED: Lisinopril 20 MG Tablet PO SCH (09:00)
--- NOTE | 2017-11-14 09:07 | P.PNGI ---
Subjective Interval history: Pt sitting in chair. States abd pain better but not gone. States she vomitied some water last PM but denies any nausea now. I reviewed CT scan with radiologist. Questionable small bowel mass may be inflammatory changes from diverticulitis and he suggested repeating CT scan after resolution diverticulitis. Physical Exam Vital signs: Vital Signs 11/13/17 09:31 11/13/17 11:08 11/13/17 13:20 Temperature 97.8 F Pulse Rate 116 H 126 H 116 H Respiratory Rate 16 18 20 Blood Pressure 95/62 L 104/73 95/58 L Pulse Oximetry 97 99 99 11/13/17 18:37 11/13/17 20:00 11/13/17 23:52 Temperature 97.5 F L 98.5 F 97.8 F Pulse Rate 115 H 106 H 103 H Respiratory Rate 19 16 16 Blood Pressure 129/51 L 96/53 L 94/54 L Pulse Oximetry 100 100 97 11/14/17 00:00 11/14/17 04:00 11/14/17 07:11 Temperature 98.1 F 98.3 F Pulse Rate 100 H 104 H 106 H Respiratory Rate 18 14 Blood Pressure 99/58 L 104/60 Pulse Oximetry 100 96 Intake & Output 11/13/17 11/14/17 11/14/17 18:59 06:59 18:59 Intake Total 950 / 950 100 / 100 340 / 340 Balance 950 / 950 100 / 100 340 / 340 Weight 82.3 kg Intake: IV 950 / 950 100 / 100 100 / 100 NS Inj 1,000 ML @ 125 mls/hr IV 250 / 250 .CONT .Q8H [facility] Rx#:[id number] Levaquin 500 mg Premix Inj 500 100 / 100 mg In 100 ml @ 100 mls/hr IV. SIG ONCE ONE Rx#:[id number] NS Inj 500 ML @ Wide Open IV. 500 / 500 SIG BOLUS ONE Rx#:[id number] Flagyl 500 MG Inj 100 ML @ 100 100 / 100 100 / 100 100 / 100 mls/hr IV.SIG Q8H [facility] Rx#: [id number] Oral 240 / 240 Other: # Voids 3 Date of Last Bowel Movement 11/13/17 # Bowel Movements 3 - Constitutional no acute distress - Routine Cardiovascular Exam Present: tachycardia - Routine Abdominal Exam Present: soft (Minimal LLQ tenderness) Results - Labs CBC & Chem 7: 11/13/17 07:48 11/13/17 07:48 Laboratory Results - last 24 hr 11/13/17 11/13/17 07:48 09:20 Sodium 141 Potassium 3.9 Chloride 109 H Carbon Dioxide 18.1 L Anion Gap 14 BUN 28 H Creatinine 2.11 H Estimated GFR 23 L Random Glucose 146 H Calcium 6.1 L* Prot Corrected Calcium 6.1 L* Total Bilirubin 0.8 AST 15 ALT 20 Alkaline Phosphatase 64 Total Creatine Kinase 433 H CK-MB (CK-2) 1.0 CK-MB (CK-2) % 0.2 Troponin I Less than 0.02 L Total Protein 7.2 Albumin 3.5 Lipase 149 Urine Color Yellow Urine Clarity Cloudy H Urine pH 5.0 Ur Specific [place] 1.012 Urine Protein 100 H Urine Glucose (UA) Negative Urine Ketones Negative Urine Occult Blood Negative Urine Nitrate Negative Urine Bilirubin Negative Urine Urobilinogen Less than 2 Ur Leukocyte Esterase Small H Urine RBC 1 Urine WBC 23 H Urine WBC Clumps Occasional H Ur Squamous Epith Cells 1 Amorphous Sediment Rare H Urine Bacteria Many H Hyaline Casts 5 Urine Mucus Few H Micro UA Comment Culture indicated Urine Culture Comments Culture indicated Microbiology 11/13/17 09:24 Stool Enteric Pathogens (PCR) - Final No enteric pathogens detected by PCR (No Salmonella sp., Shigella sp., Campylobacter sp., Yersinia enterocolitica, Vibrio sp., Norovirus, or EHEC (Shiga Toxin 1 or Shiga Toxin 2) detected. - Imaging Impressions Abdomen/Pelvis CT 11/13/17 07:46 CONCLUSION: Short segment diverticulitis without abscess involving the distal descending colon. Abnormal small bowel left lower quadrant without obstruction. Malignancy is not excluded. Assessment and Plan (1) Diverticulitis Status: Acute Code(s): K57.92 - Diverticulitis of intestine, part unspecified , without perforation or abscess without bleeding - Plan Continue Antibiotics. Advance diet as tolerated. If continues to improve could send home next day or two on oral antibiotics and repeat CT A&P in a few weeks. F/U with DR Dbuois 2weeks after discharge. Will sign off, call if needed.
[2017-11-14 09:17] LABS: Baso # (Auto) 0.1 th/mm3 (0.0-0.2); Baso % (Auto) 0.4 % (0.0-2.0); Eos % (Auto) 0.2 % (0.0-4.0); Hematocrit 30.7 % (35.0-46.0); Hemoglobin 10.5 gm/dL (11.6-15.3); Lymph # (Auto) 3.1 th/mm3 (1.0-4.8); Mean Corpuscular HGB Conc 34.4 % (32.0-36.0); Mean Corpuscular Hemoglobin 31.4 pg (27.0-34.0); Mean Corpuscular Volume 91.3 fL (80.0-100.0); Mean Platelet Volume 9.6 fL (7.0-11.0); Mono # (Auto) 1.2 th/mm3 (0.0-0.9); Mono % (Auto) 8.2 % (0.0-8.0); Neut # (Auto) 10.4 th/mm3 (1.8-7.7); Neut % (Auto) 70.2 % (16.0-70.0); Platelet Count 279 th/mm3 (150-450); Red Blood Count 3.36 mil/mm3 (4.00-5.30); Red Cell Distribution Width 14.2 % (11.6-17.2); White Blood Count 14.8 th/mm3 (4.0-11.0)
[2017-11-14] MEDS ORDERED: Sodium Chlor 0.9% Inj 500 ML IV.SIG ONE (09:17)
[2017-11-14 09:36] LABS: Albumin 3.1 g/dL (3.4-5.0); Calcium 6.1 mg/dL (8.5-10.1); Carbon Dioxide 15.2 meq/L (21.0-32.0); Potassium 3.7 meq/L (3.5-5.1); Total Protein 6.9 g/dL (6.4-8.2)
[2017-11-14] MEDS: Montelukast 10 MG Tablet PO SCH (09:39)
[2017-11-14 10:08] LABS: Acanthocytes Occ
[2017-11-14] MEDS ORDERED: Levofloxacin 500 mg Premix Inj 500 MG/100 ML PIGGYBACK IV.SIG SCH (14:36)
[2017-11-14 15:46] LABS: Calcium 5.4 mg/dL (8.5-10.1); Carbon Dioxide 16.3 meq/L (21.0-32.0); Potassium 3.3 meq/L (3.5-5.1)
[2017-11-14 16:02] LABS: Total Protein 6.5 g/dL (6.4-8.2)
[2017-11-14] MEDS: Calcium Carbonate 500 MG Tablet PO SCH (20:03)
[2017-11-14] MEDS ORDERED: Calcium Carbonate 500 MG Tablet PO SCH (21:00)
[2017-11-15] MEDS: LORazepam 0.5 MG Tablet PO SCH ×3 (03:12→20:20)
[2017-11-15] MEDS: Calcium Carbonate 500 MG Tablet PO SCH ×2 (08:06→22:36)
[2017-11-15] MEDS: Montelukast 10 MG Tablet PO SCH (08:06)
[2017-11-15] MEDS ORDERED: Naloxone Inj 0.4 MG/ML Vial IV.PUSH PRN (09:10)
[2017-11-15] MEDS ORDERED: Acetaminophen 500 MG Tablet PO PRN (09:13)
[2017-11-15 10:43] LABS: Albumin 2.8 g/dL (3.4-5.0); Calcium 5.9 mg/dL (8.5-10.1); Carbon Dioxide 14.3 meq/L (21.0-32.0); Total Protein 6.5 g/dL (6.4-8.2)
[2017-11-15] MEDS ORDERED: Calcium Gluconate Inj 1 GM in Sodium Chlor 0.9% Inj 90 ML IV.SIG ONE (11:00)
[2017-11-15] MEDS: Pantoprazole Sodium 20 MG DR Tablet PO SCH (11:12)
--- NOTE | 2017-11-15 11:43 | P.PNFP ---
Subjective Interval history: Patient was seen and examined this morning. She reports that she does not have any significant shortness of breath, chest pain, abdominal pain, lower extremity edema, nausea, or vomiting. However she does have 2 loose stools, brown in color. Her main concern today is bilateral mid foot pain with ambulation. She notes she has a right foot bone spur and worries that she has a left spur now. She is hesitant to walk due to the pain. <PorterJessica L - 11/15/17 11:43> Results - Labs Result diagrams: 11/15/17 11:41 11/15/17 08:33 <ScottJoanna M - 11/15/17 13:55> Abnormal lab results 11/14/17 11/15/17 11/15/17 Range/Units 14:49 08:33 11:41 RBC 2.66 L (4.00-5.30) mil/mm3 Hgb 8.3 L D (11.6-15.3) gm/dL Hct 24.2 L (35.0-46.0) % Dare % (Auto) 11.7 H (0.0-8.0) % Dare # (Auto) 1.1 H (0.0-0.9) th/mm3 Potassium 3.3 L (3.5-5.1) meq/L Chloride 111 H 114 H (98-107) meq/L Carbon Dioxide 16.3 L 14.3 L (21.0-32.0) meq/L BUN 35 H 25 H (7-18) mg/dL Creatinine 2.77 H 1.81 H (0.50-1.00) mg/dL Estimated GFR 17 L 27 L (>89) mL/min Random Glucose 113 H 121 H (74-106) mg/dL Calcium 5.4 L* 5.9 L* (8.5-10.1) mg/dL Prot Corrected Calcium 5.6 L* 6.2 L* (8.5-10.1) mg/dL Magnesium (1.5-2.5) mg/dL Albumin 2.8 L (3.4-5.0) g/dL 11/15/17 Range/Units 12:47 RBC (4.00-5.30) mil/mm3 Hgb (11.6-15.3) gm/dL Hct (35.0-46.0) % Dare % (Auto) (0.0-8.0) % Dare # (Auto) (0.0-0.9) th/mm3 Potassium (3.5-5.1) meq/L Chloride (98-107) meq/L Carbon Dioxide (21.0-32.0) meq/L BUN (7-18) mg/dL Creatinine (0.50-1.00) mg/dL Estimated GFR (>89) mL/min Random Glucose (74-106) mg/dL Calcium (8.5-10.1) mg/dL Prot Corrected Calcium (8.5-10.1) mg/dL Magnesium 0.4 L (1.5-2.5) mg/dL Albumin (3.4-5.0) g/dL Short CBC 11/15/17 Range/Units 11:41 WBC 9.1 (4.0-11.0) th/mm3 Hgb 8.3 L D (11.6-15.3) gm/dL Hct 24.2 L (35.0-46.0) % Plt Count 207 (150-450) th/mm3 BMP 11/14/17 11/15/17 14:49 08:33 Sodium 142 143 Potassium 3.3 L 4.0 Chloride 111 H 114 H Carbon Dioxide 16.3 L 14.3 L BUN 35 H 25 H Creatinine 2.77 H 1.81 H Calcium 5.4 L* 5.9 L* Liver Function 11/15/17 Range/Units 08:33 Total Bilirubin 0.5 (0.2-1.0) mg/dL AST 18 (15-37) U/L ALT 16 (10-53) U/L Alkaline Phosphatase 49 (45-117) U/L Albumin 2.8 L (3.4-5.0) g/dL <Joanna Chavez - 11/15/17 13:55> Abnormal lab results 11/14/17 11/15/17 Range/Units 14:49 08:33 Potassium 3.3 L (3.5-5.1) meq/L Chloride 111 H 114 H (98-107) meq/L Carbon Dioxide 16.3 L 14.3 L (21.0-32.0) meq/L BUN 35 H 25 H (7-18) mg/dL Creatinine 2.77 H 1.81 H (0.50-1.00) mg/dL Estimated GFR 17 L 27 L (>89) mL/min Random Glucose 113 H 121 H (74-106) mg/dL Calcium 5.4 L* 5.9 L* (8.5-10.1) mg/dL Prot Corrected Calcium 5.6 L* 6.2 L* (8.5-10.1) mg/dL Albumin 2.8 L (3.4-5.0) g/dL BMP 11/14/17 11/15/17 14:49 08:33 Sodium 142 143 Potassium 3.3 L 4.0 Chloride 111 H 114 H Carbon Dioxide 16.3 L 14.3 L BUN 35 H 25 H Creatinine 2.77 H 1.81 H Calcium 5.4 L* 5.9 L* Liver Function 11/15/17 Range/Units 08:33 Total Bilirubin 0.5 (0.2-1.0) mg/dL AST 18 (15-37) U/L ALT 16 (10-53) U/L Alkaline Phosphatase 49 (45-117) U/L Albumin 2.8 L (3.4-5.0) g/dL <Jessica Buenrostro L - 11/15/17 11:43> Physical Exam Vital signs: Vital Signs 11/14/17 16:00 11/14/17 19:39 11/14/17 22:39 Temperature 97.7 F 97.9 F 98.4 F Pulse Rate 96 H 101 H 91 H Respiratory Rate 14 16 17 Blood Pressure 112/56 L 106/55 L 89/53 L Pulse Oximetry 100 100 99 11/15/17 03:05 11/15/17 07:13 11/15/17 12:00 Temperature 97.9 F 99.3 F 98.3 F Pulse Rate 104 H 103 H 95 H Respiratory Rate 16 14 18 Blood Pressure 108/57 L 116/60 122/66 Pulse Oximetry 100 96 99 Intake & Output 11/14/17 11/15/17 11/15/17 18:59 06:59 18:59 Intake Total 940 / 940 2350 / 2350 580 / 580 Balance 940 / 940 2350 / 2350 580 / 580 Intake: IV 700 / 700 2350 / 2350 100 / 100 NS + KCl 20 mEq Inj 1,000 ML @ 1999 / 1999 125 mls/hr IV.CONT .Q8H [facility] Rx# :[id number] Calcium Gluconate Inj 1 GM In 100 / 100 NS Inj 90 ML @ 100 mls/hr IV. SIG ONCE ONE Rx#:[id number] Levaquin 750 mg Premix Inj 150 150 / 150 ML @ 100 mls/hr IV.SIG Q24H [facility] Rx#:[id number] NS Inj 500 ML @ Wide Open IV. 500 / 500 SIG BOLUS ONE Rx#:[id number] Flagyl 500 MG Inj 100 ML @ 100 200 / 200 200 / 200 mls/hr IV.SIG Q8H [facility] Rx#: [id number] Oral 240 / 240 480 / 480 Other: # Voids 4 5 Date of Last Bowel Movement 11/14/17 11/14/17 # Bowel Movements 4 4 <Joanna Chavez M - 11/15/17 13:55> Vital Signs 11/14/17 11:51 11/14/17 16:00 11/14/17 19:39 Temperature 97.5 F L 97.7 F 97.9 F Pulse Rate 104 H 96 H 101 H Respiratory Rate 14 14 16 Blood Pressure 109/57 L 112/56 L 106/55 L Pulse Oximetry 98 100 100 11/14/17 22:39 11/15/17 03:05 11/15/17 07:13 Temperature 98.4 F 97.9 F 99.3 F Pulse Rate 91 H 104 H 103 H Respiratory Rate 17 16 14 Blood Pressure 89/53 L 108/57 L 116/60 Pulse Oximetry 99 100 96 Intake & Output 11/14/17 11/15/17 11/15/17 18:59 06:59 18:59 Intake Total 940 / 940 2350 / 2350 480 / 480 Balance 940 / 940 2350 / 2350 480 / 480 Intake: IV 700 / 700 2350 / 2350 NS + KCl 20 mEq Inj 1,000 ML @ 1999 / 1999 125 mls/hr IV.CONT .Q8H [facility] Rx# :[id number] Levaquin 750 mg Premix Inj 150 150 / 150 ML @ 100 mls/hr IV.SIG Q24H [facility] Rx#:[id number] NS Inj 500 ML @ Wide Open IV. 500 / 500 SIG BOLUS ONE Rx#:[id number] Flagyl 500 MG Inj 100 ML @ 100 200 / 200 200 / 200 mls/hr IV.SIG Q8H [facility] Rx#: [id number] Oral 240 / 240 480 / 480 Other: # Voids 4 5 Date of Last Bowel Movement 11/14/17 11/14/17 # Bowel Movements 4 4 <Jessica Buenrostro - 11/15/17 11:43> Narrative: GENERAL: Elderly female in no apparent distress. Sitting in a chair. SKIN: Warm and dry. No rashes or ecchymoses noted HEAD: Atraumatic. Normocephalic. EYES: Pupils equal round and reactive to light. Extraocular movement intact. No conjunctival pallor or erythema ENT: No nasal bleeding or discharge. Mucous membranes are pink and moist. Poor dentition noted. NECK: Trachea midline. No JVD. Full range of motion. CARDIOVASCULAR: Normal rhythm. Mild tachycardia noted, rate approximately 90 RESPIRATORY: No accessory muscle use. Clear to auscultation without wheezes or rhonchi.. Breath sounds equal bilaterally. GASTROINTESTINAL: Abdomen obese, nontender to palpation. Bowel sounds are normal to hyperactive. Nondistended. Hepatic and splenic margins not palpable. MUSCULOSKELETAL: Extremities without clubbing, cyanosis, or edema. Bilateral foot exam reveals tenderness to palpation over the medial arch of each foot worse on the right. Limited range of motion at ankle but effort may be playing a role at this. Transfer from bed to chair is markedly limited due to her pain , and patient require significant assistance here. No obvious deformities. NEUROLOGICAL: Awake and alert. No obvious cranial nerve deficits. Motor grossly within normal limits. Limited strength in lower extremities but this is likely related to pain. Normal speech. No tetany or abnormal reflexes noted PSYCHIATRIC: Appropriate mood and affect; insight and judgment normal. <Jessica Buenrostro - 11/15/17 11:43> Assessment and Plan - Assessment (1) Diverticulitis Code(s): K57.92 - Diverticulitis of intestine, part unspecified, without perforation or abscess without bleeding Status: Acute (2) Hypocalcemia Code(s): E83.51 - Hypocalcemia Status: Acute (3) Abnormal CT of the abdomen Code(s): R93.5 - Abnormal findings on diagnostic imaging of other abdominal regions, including retroperitoneum Status: Acute (4) Acute kidney injury superimposed on CKD Code(s): N17.9 - Acute kidney failure, unspecified; N18.9 - Chronic kidney disease, unspecified Status: Acute (5) COPD (chronic obstructive pulmonary disease) Code(s): J44.9 - Chronic obstructive pulmonary disease, unspecified Status: Chronic (6) CHF (congestive heart failure) Code(s): I50.9 - Heart failure, unspecified Status: Chronic (7) HTN (hypertension) Code(s): I10 - Essential (primary) hypertension Status: Chronic (8) Anxiety Code(s): F41.9 - Anxiety disorder, unspecified Status: Chronic (9) Foot pain, bilateral Code(s): M79.671 - Pain in right foot; M79.672 - Pain in left foot Status: Acute <Joanna Chavez Maria Teresa - 11/15/17 13:55> (1) Diverticulitis Code(s): K57.92 - Diverticulitis of intestine, part unspecified, without perforation or abscess without bleeding Status: Acute Plan: Presented with abdominal pain, found to have diverticulitis on CT. she also did have a questionable area, possible lesion in her small bowel. -Levaquin 750 mg daily -Flagyl 500 mg daily -Liquid diet -Appreciate GI recommendations. Currently stating liquid diet, continue antibiotics, plan is to repeat CT in 2-3 weeks as outpatient (2) Hypocalcemia Code(s): E83.51 - Hypocalcemia Status: Acute Plan: Patient is not obviously symptomatic. On admission calcium 6.1 with normal albumin and protein levels. Calcium has been serially monitored with most recent calcium level 5.9, overall stable. She is status post p.o. calcium 1000 twice daily with IV 1 g infusion ordered on 11/15, will repeat calcium level this afternoon and administer additional IV dose as indicated. Goal potassium greater than 7.5 at this time, as p.o. repletion may be safely continued at that time Assess magnesium and vitamin D level (3) Abnormal CT of the abdomen Code(s): R93.5 - Abnormal findings on diagnostic imaging of other abdominal regions, including retroperitoneum Status: Acute Plan: CT abdomen reports "Abnormal small bowel left lower quadrant without obstruction. Malignancy is not excluded" -GI notes they will follow-up CT as an outpatient in 2-3 weeks (4) Acute kidney injury superimposed on CKD Code(s): N17.9 - Acute kidney failure, unspecified; N18.9 - Chronic kidney disease, unspecified Status: Acute Plan: Creatinine of 1.81 today, improved from 2.11 on admission 11/13. Historically baseline appears to be approximately 1.2. Patient received normal saline at 125 cc/hour over the last 24 hours. Given CHF will reduce to half maintenance rate today. Will continue given patient continues to have diarrhea. - Tolerating PO hydration for now, gentle hydration due to CHF We will hold her BELLA inhibitor and Lasix until she is rehydrated. If she becomes short of breath or develops any pulmonary edema she can easily be given some IV Lasix (5) COPD (chronic obstructive pulmonary disease) Code(s): J44.9 - Chronic obstructive pulmonary disease, unspecified Status: Chronic Plan: History of COPD -Continue home medications montelukast (6) CHF (congestive heart failure) Code(s): I50.9 - Heart failure, unspecified Status: Chronic Plan: History of CHF -Continue home medications aspirin hold furosemide until rehydrated (7) HTN (hypertension) Code(s): I10 - Essential (primary) hypertension Status: Chronic Plan: History of hypertension -Continue home medications amlodipine 10mg, lisinopril 40mg (8) Anxiety Code(s): F41.9 - Anxiety disorder, unspecified Status: Chronic Plan: History of anxiety -Continue home medications lorazepam 0.5 mg every 8 hours (9) Foot pain, bilateral Code(s): M79.671 - Pain in right foot; M79.672 - Pain in left foot Status: Acute Plan: Unclear etiology of foot pain. Suspect osteoarthritis or bone spurs however it is limiting patient's related to ambulate at this time. She is noted to have x-ray of the right foot on 03/01/17 showing mild to moderate osteopenia, mild to moderate bone spur, no acute fracture. If symptoms persist we will consider x-ray of bilateral foot and I would also consider podiatry consultation. PT ordered. Pain control with acetaminophen pain 1-5 , [place] 5/325 pain 6-10, with morphine IV for breakthrough pain <Jessica Buenrostro - 11/15/17 11:23> - Assessment and Plan 72-year-old female with past history of CHF, COPD, HTN, who presented for abdominal pain, found to have diverticulitis without abscess. We will admit her to the hospital because she is requiring IV antibiotics for her diverticulitis <Jayson Buenrostroalka Hayes - 11/15/17 11:43> Discussed Condition With: Dr. Chavez, attending <Jayson Buenrostroalka Hayes - 11/15/17 11:43> Discharge Planning: Anticipate discharge in 1-2 days pending correction of hypocalcemia, improvement of dehydration, management of bilateral foot pain <PorterJessica L - 11/15/17 11:43> - Attending Attestation The exam, history, and the medical decision-making described in the above note were completed with the assistance of the resident physician. I reviewed and agree with the findings presented. I attest that I had a [id number] encounter with the patient on the same day, and personally performed and documented my assessment and findings in the medical record. She was tearful as she has had one illness after another recently. she needs continued treatment so will admit her and agree with checking for C diff <Joanna Chavez - 11/15/17 13:55> <Jayson Buenrostroa L - Last Filed: 11/15/17 11:23> (6) CHF (congestive heart failure) Qualifiers: Heart failure type: systolic Heart failure chronicity: chronic Qualified Code(s): I50.22 - Chronic systolic (congestive) heart failure (7) HTN (hypertension) Qualifiers: Hypertension type: essential hypertension Qualified Code(s): I10 - Essential (primary) hypertension <Joanna Chavez M - Last Filed: 11/15/17 13:55> (6) CHF (congestive heart failure) Qualifiers: Heart failure type: systolic Heart failure chronicity: chronic Qualified Code(s): I50.22 - Chronic systolic (congestive) heart failure (7) HTN (hypertension) Qualifiers: Hypertension type: essential hypertension Qualified Code(s): I10 - Essential (primary) hypertension <Jessica Buenrostro - Last Filed: 11/15/17 11:23> (6) CHF (congestive heart failure) Qualifiers: Heart failure type: systolic Heart failure chronicity: chronic Qualified Code(s): I50.22 - Chronic systolic (congestive) heart failure (7) HTN (hypertension) Qualifiers: Hypertension type: essential hypertension Qualified Code(s): I10 - Essential (primary) hypertension <Joanna Chavez M - Last Filed: 11/15/17 13:55> (6) CHF (congestive heart failure) Qualifiers: Heart failure type: systolic Heart failure chronicity: chronic Qualified Code(s): I50.22 - Chronic systolic (congestive) heart failure (7) HTN (hypertension) Qualifiers: Hypertension type: essential hypertension Qualified Code(s): I10 - Essential (primary) hypertension
[2017-11-15 12:11] LABS: Baso % (Auto) 0.4 % (0.0-2.0); Eos % (Auto) 0.3 % (0.0-4.0); Hematocrit 24.2 % (35.0-46.0); Hemoglobin 8.3 gm/dL (11.6-15.3); Lymph # (Auto) 1.6 th/mm3 (1.0-4.8); Lymph % (Auto) 17.8 % (9.0-44.0); Mean Corpuscular HGB Conc 34.3 % (32.0-36.0); Mean Corpuscular Hemoglobin 31.2 pg (27.0-34.0); Mean Platelet Volume 8.9 fL (7.0-11.0); Mono # (Auto) 1.1 th/mm3 (0.0-0.9); Mono % (Auto) 11.7 % (0.0-8.0); Neut # (Auto) 6.3 th/mm3 (1.8-7.7); Neut % (Auto) 69.8 % (16.0-70.0); Platelet Count 207 th/mm3 (150-450); Red Blood Count 2.66 mil/mm3 (4.00-5.30); White Blood Count 9.1 th/mm3 (4.0-11.0)
[2017-11-15] MEDS ORDERED: Calcium Carbonate 500 MG Tablet PO SCH (13:00)
[2017-11-15 15:25] LABS: Hematocrit 23.7 % (35.0-46.0); Hemoglobin 8.1 gm/dL (11.6-15.3)
[2017-11-15] MEDS ORDERED: Magnesium Sulfate Inj 2 GM in Sodium Chlor 0.9% Inj 96 ML IV.SIG ONE (17:00)
[2017-11-15 20:15] LABS: Hematocrit 27.1 % (35.0-46.0); Hemoglobin 9.4 gm/dL (11.6-15.3)
--- NOTE | 2017-11-15 20:19 | P.CONNP ---
History of Present Illness Service: Nephrology Consult date: 11/15/17 Requesting Physician: Srini Robin III Reason for Consult: Acute on Chronic Renal Decline, Hypocalcemia, Hypomagnesemia Primary Care Provider: No Primary Care Physician Family Provider: No Primary Care Physician Chief Complaint: Abdominal pain History of Present Illness: The patient is a 72 yo [place] female who presented to this facility on 11/13/17 with complaints of abdominal pain and diarrhea. CT imaging showed diverticulitis and has been placed on Levaquin and Flagyl. Still with diarrhea, but pain improved. We have been consulted for evaluation of renal decline and hypocalcemia. Reviewed labs from previous admissions showing baseline SCr of 1.1-1.3 and eGFR in the 50s-60s all of 2018. States she has been unaware of renal decline in the past. Has had longstanding hypocalcemia as per her. Recent visit in October showed PCC of 6.3-7.3 throughout. She is chronically on Nexium for GERD. On Lasix 40mg QD for hx of CHF States she does use Advil at home for generalized aches and pains approximately 1-2x per week. Admitting SCr of 2.11 that initially worsened to 2.90, but has subsequently improved to 1.81 at time of consult. PCC 6.2 at the present. Mg significantly low at 0.4 Review of Systems Gastrointestinal: Reports abdominal pain, Reports loose stools Musculoskeletal: Reports body aches Comments: pain in bilat feet PMFSH - History History Provided By: Patient - Medical History Medical History: Medical History (Last Updated 11/15/17 @ 20:06 by GLADYS Eli) Anxiety CHF (congestive heart failure) COPD (chronic obstructive pulmonary disease) Chronic kidney disease, stage III (moderate) GERD (gastroesophageal reflux disease) Hypertension Hypocalcemia Hypomagnesemia - Tobacco History Second Hand Smoke Exposure: Yes Tobacco Use In Past 30 Days: Yes Smoking Status: Light tobacco smoker Tobacco Type: Cigarettes - Alcohol History How Often Do You Have a Drink Containing Alcohol: Monthly or less - Substance Use History Substance History: No History of Abuse - Travel History Recent Travel in the [place] Within the Last 8 Weeks: No Recent Travel Out of the Country Within the Last 8 Weeks: No - Immunization History Tetanus Immunization: Unsure Hx Influenza Vaccine This Season: No Medications and Allergies Active Medications: Active Medications Acetaminophen (Tylenol) 500 mg PO Q4H PRN PRN Reason: PAIN SCALE 3 TO 5 Hydrocodone Bitart/Acetaminophen ([place] 5/325) 1 tab PO Q4H PRN PRN Reason: PAIN SCALE 6 TO 10 Last Admin: 11/15/17 11:12 Dose: 1 tab Amlodipine Besylate (Norvasc) 10 mg PO DAILY [facility] Last Admin: 11/14/17 08:02 Dose: Not Given Aspirin (Ecotrin) 81 mg PO DAILY [facility] Last Admin: 11/15/17 08:05 Dose: 81 mg Atorvastatin Calcium (Lipitor) 40 mg PO DAILY [facility] Last Admin: 11/15/17 08:05 Dose: 40 mg Metronidazole/Sodium Chloride (Flagyl 500 Mg Inj) 100 mls @ 100 mls/hr IV.SIG Q8H [facility] Last Infusion: 11/15/17 15:05 Dose: Infused Levofloxacin/Dextrose (Levaquin 750 Mg Premix Inj) 150 mls @ 100 mls/hr IV.SIG Q24H [facility] Last Admin: 11/15/17 19:12 Dose: 100 mls/hr Potassium Chloride/Sodium Chloride (Ns + Kcl 20 Meq Inj) 1,000 mls @ 75 mls/hr IV.CONT .[id number] [facility] Last Admin: 11/15/17 18:32 Dose: 125 mls/hr Lactobacillus Acidophilus (Lactinex Pkt) 1 gm PO TID [facility] Last Admin: 11/15/17 18:32 Dose: 1 gm Lorazepam (Ativan) 0.5 mg PO Q8H [facility] Last Admin: 11/15/17 12:27 Dose: 0.5 mg Montelukast Sodium (Singulair) 10 mg PO DAILY [facility] Last Admin: 11/15/17 08:06 Dose: 10 mg Morphine Sulfate (Morphine Inj) 2 mg IV.PUSH Q4H PRN PRN Reason: BREAKTHROUGH PAIN Last Admin: 11/13/17 20:08 Dose: 2 mg Naloxone HCl (Narcan Inj) 0.4 mg IV.PUSH UNSCH PRN PRN Reason: SEE LABEL COMMENTS Ondansetron HCl (Zofran Odt) 4 mg PO Q6H PRN PRN Reason: NAUSEA OR VOMITING Last Admin: 11/14/17 01:26 Dose: 4 mg Pantoprazole Sodium (Protonix) 20 mg PO DAILY [facility] Last Admin: 11/15/17 11:12 Dose: 20 mg Sodium Chloride (Ns Flush) 2 ml IV.FLUSH PRN PRN PRN Reason: FLUSH AFTER USING IV ACCESS Temazepam (Restoril) 15 mg PO HS PRN PRN Reason: INSOMNIA Last Admin: 11/14/17 22:24 Dose: 15 mg Allergies Allergy/AdvReac Type Severity Reaction Status Date / Time No Known Allergies Allergy Unverified 11/13/17 07:35 Home Medications Medication Instructions Recorded Confirmed Type Lactobacillus acidoph-pectin 1 tab PO BID 11/13/17 11/13/17 History [Acidophilus-Pectin] amlodipine 10 mg PO DAILY 11/13/17 11/13/17 History aspirin [Aspir-81] 81 mg PO DAILY 11/13/17 11/13/17 History atorvastatin 40 mg PO DAILY 11/13/17 11/13/17 History esomeprazole magnesium [Nexium] 20 mg PO DAILY 11/13/17 11/13/17 History furosemide 40 mg PO DAILY 11/13/17 11/13/17 History lisinopril 40 mg PO DAILY 11/13/17 11/13/17 History lorazepam 0.5 mg PO 5XW 11/13/17 11/13/17 History montelukast 10 mg PO DAILY 11/13/17 11/13/17 History multivit-mins no.11-folic acid 1 cap DAILY 11/13/17 11/13/17 History [Dialyvite 5000] potassium chloride 20 meq PO BID 11/13/17 11/13/17 History tramadol 100 mg PO Q6H PRN 11/13/17 11/13/17 History Exam Vital signs: Vital Signs 11/14/17 22:39 11/15/17 03:05 11/15/17 07:13 Temperature 98.4 F 97.9 F 99.3 F Pulse Rate 91 H 104 H 103 H Respiratory Rate 17 16 14 Blood Pressure 89/53 L 108/57 L 116/60 Pulse Oximetry 99 100 96 11/15/17 12:00 11/15/17 16:00 Temperature 98.3 F 99.3 F Pulse Rate 95 H 95 H Respiratory Rate 18 14 Blood Pressure 122/66 138/67 Pulse Oximetry 99 99 Intake & Output 11/15/17 11/15/17 11/16/17 06:59 18:59 06:59 Intake Total 2350 / 2350 680 / 680 100 / 100 Balance 2350 / 2350 680 / 680 100 / 100 Intake: IV 2350 / 2350 200 / 200 100 / 100 NS + KCl 20 mEq Inj 1,000 ML @ 2000 / 2000 125 mls/hr IV.CONT .Q8H [facility] Rx# :[id number] Calcium Gluconate Inj 1 GM In 100 / 100 NS Inj 90 ML @ 100 mls/hr IV. SIG ONCE ONE Rx#:[id number] Levaquin 750 mg Premix Inj 150 150 / 150 ML @ 100 mls/hr IV.SIG Q24H [facility] Rx#:[id number] Magnesium Sulfate Inj 2 GM In 100 / 100 NS Inj 96 ML @ 50 mls/hr IV.SIG ONCE ONE Rx#:[id number] Flagyl 500 MG Inj 100 ML @ 100 200 / 200 100 / 100 mls/hr IV.SIG Q8H [facility] Rx#: [id number] Oral 480 / 480 Other: # Voids 4 Date of Last Bowel Movement 11/14/17 # Bowel Movements 4 - Constitutional no acute distress - Routine HEENT Exam Head: Present: normocephalic, atraumatic - Routine Neck Exam Present: supple - Routine Respiratory Exam Present: CTA bilaterally - Routine Cardiovascular Exam Present: tachycardia - Routine Abdominal Exam Present: soft, tenderness - Routine Skin Exam Present: intact - Routine Neurological Exam Present: alert, oriented X3 Results - Lab Results 11/15/17 15:00 11/15/17 08:33 Most recent lab results Calcium 5.9 mg/dL (8.5-10.1) L* 11/15/17 08:33 Magnesium 0.4 mg/dL (1.5-2.5) L 11/15/17 12:47 Assessment and Plan - Assessment (1) Acute kidney injury superimposed on CKD Code(s): N17.9 - Acute kidney failure, unspecified; N18.9 - Chronic kidney disease, unspecified Status: Acute Plan: Baseline SCr as per previous admissions 1.1-1.3 likely related to sclerosis of hypertension and aging. Acute decline likely related to volume depletion 2/2 to diarrhea and poor oral intake coupled with continued diuretic use, ACEi, and reported Advil use at home. Relative hypotension on admission may have also caused some renal hypoperfusion. Renal functions have improved with IVF. Continue to hold diuretic and ACEi. No evidence of fluid retention. Echo from September 2017 showed mild cardiomyopathy with EF 50% No evidence of obstruction on CT scan. Check renal US to assess parenchyma. Check serology given anemia and renal decline. Mild hypoalbuminemia with proteinuria. Check UPCR Advised to utilize APAP at home for pain instead of NSAIDs. Medications should be adjusted for the patient's renal decline. Avoid nephrotoxic agents such as iodinated contrast dyes and NSAIDs. (2) Hypocalcemia Code(s): E83.51 - Hypocalcemia Status: Acute Plan: Likely related to severe hypomagnesemia. Hypomagnesemia likely related to PPI use. Can also be associated with loop diuretics. Replete Mg Check PCC in the AM. Check iPTH as well as Vit D 25-OH levels. (3) Hypomagnesemia Code(s): E83.42 - Hypomagnesemia Status: Acute Plan: As above Will check spot urine tests for wasting. (4) Anemia Code(s): D64.9 - Anemia, unspecified Status: Acute Plan: Repeat CBC with Fe panel As above, check serology Check FOBT (5) Diverticulitis Code(s): K57.92 - Diverticulitis of intestine, part unspecified, without perforation or abscess without bleeding Status: Acute Plan: Mgmt as per primary (6) HTN (hypertension) Code(s): I10 - Essential (primary) hypertension Status: Chronic Plan: Hold ACEi for the present. (6) HTN (hypertension) Qualifiers: Hypertension type: essential hypertension Qualified Code(s): I10 - Essential (primary) hypertension
--- NOTE | 2017-11-15 22:44 | US ---
EXAM DATE: 11/15/2017 9:57 PM EDT AGE/SEX: 72 years / Female INDICATIONS: Chronic kidney disease, stage III. CLINICAL DATA: This is the patient's initial encounter. Patient reports that signs and symptoms have been present for 1 day and indicates a pain score of 0/10. MEDICAL/SURGICAL HISTORY: . Hypertension. Congestive heart failure. Chronic kidney disease II I. COPD. GERD. Hypocalcemia. Hypomagnesemia. Former smoker. None. COMPARISON: [facility] – [place]BDOMEN & PELVIS W/O CONTRAST, 11/13/2017. . MEASUREMENTS: Right Kidney:__11.0 x 5.1 x 4.9 cm Left Kidney:__10.4 x 4.9 x 4.8 cm FINDINGS: Right Kidney: The right kidney demonstrates normal echogenicity without hydronephrosis. There is a 1. 3 cm cyst at the lower pole. Left Kidney: The left kidney demonstrates normal echogenicity without hydronephrosis. There is a 2.2 cm cyst seen at the lower pole. Bladder: There is a posterior right lateral bladder diverticulum. Other: None. CONCLUSION: 1. Bilateral renal cysts. 2. Right posterior lateral bladder diverticulum. Electronically signed by: Teo Rendon MD 11/15/2017 10:42 PM EDT
[2017-11-16] MEDS: LORazepam 0.5 MG Tablet PO SCH ×3 (04:03→18:45)
[2017-11-16 07:39] LABS: Bilirubin,Urine Negative (Negative); Clarity,Urine Clear (Clear); Color,Urine Straw (Yellw/Straw); Glucose,Urine (UA) 50 mg/dL (Negative); Leukocyte Esterase,Urine Small (Negative); Mucus,Urine Few /lpf (Occasional); Nitrite,Urine Negative (Negative); Specific Gravity,Urine 1.005 (1.002-1.035); Squamous Epithelial Cell,Urine 1 /hpf (0-5)
[2017-11-16 07:55] LABS: Protein/Creatinine Ratio,Urine 1.37 (0.00-0.14)
--- NOTE | 2017-11-16 09:26 | P.PNFP ---
Subjective Interval history: Patient was seen and examined this morning. She reports feeling much better in regard to abdominal symptoms. No reported nausea, vomiting, and abdominal pain this morning. Stools are reportedly loose but better formed over the last 24hr. She reports they are brown in color and frequency over 24hr is 3 times. She notes her bilateral foot pain is preventing her from walking but she denies problems with strength. PT evaluated patient this morning, report pending. <PorterJessica L - 11/16/17 12:26> Results - Labs Result diagrams: 11/18/17 05:45 11/18/17 05:45 <Joanna Chavez - 11/18/17 12:57> Abnormal lab results 11/16/17 11/17/17 11/17/17 Range/Units 06:00 10:36 21:28 RBC (4.00-5.30) mil/mm3 Hgb 8.7 L (11.6-15.3) gm/dL Hct 25.7 L (35.0-46.0) % Chloride 112 H (98-107) meq/L Carbon Dioxide 18.9 L (21.0-32.0) meq/L Creatinine 1.14 H (0.50-1.00) mg/dL Estimated GFR 47 L (>89) mL/min Calcium 7.9 L D (8.5-10.1) mg/dL Phosphorus (2.5-4.9) mg/dL AST (15-37) U/L Total Protein (6.4-8.2) g/dL Albumin (3.4-5.0) g/dL Ur Random Magnesium 18 L (22-130) 11/18/17 11/18/17 Range/Units 05:45 05:45 RBC 2.55 L (4.00-5.30) mil/mm3 Hgb 8.1 L (11.6-15.3) gm/dL Hct 23.4 L (35.0-46.0) % Chloride 112 H (98-107) meq/L Carbon Dioxide 20.2 L (21.0-32.0) meq/L Creatinine 1.05 H (0.50-1.00) mg/dL Estimated GFR 52 L (>89) mL/min Calcium 7.9 L (8.5-10.1) mg/dL Phosphorus 2.3 L (2.5-4.9) mg/dL AST 13 L (15-37) U/L Total Protein 6.0 L (6.4-8.2) g/dL Albumin 2.4 L (3.4-5.0) g/dL Ur Random Magnesium (22-130) Short CBC 11/17/17 11/18/17 Range/Units 10:36 05:45 WBC 7.0 (4.0-11.0) th/mm3 Hgb 8.7 L 8.1 L (11.6-15.3) gm/dL Hct 25.7 L 23.4 L (35.0-46.0) % Plt Count 211 (150-450) th/mm3 BMP 11/17/17 11/18/17 21:28 05:45 Sodium 142 143 Potassium 4.9 D 4.6 Chloride 112 H 112 H Carbon Dioxide 18.9 L 20.2 L BUN 11 10 Creatinine 1.14 H 1.05 H Calcium 7.9 L D 7.9 L Liver Function 11/18/17 Range/Units 05:45 Total Bilirubin 0.3 (0.2-1.0) mg/dL AST 13 L (15-37) U/L ALT 12 (10-53) U/L Alkaline Phosphatase 52 (45-117) U/L Albumin 2.4 L (3.4-5.0) g/dL <Joanna Chavez - 11/18/17 12:57> Abnormal lab results 11/15/17 11/15/17 11/15/17 Range/Units 08:33 11:41 12:47 RBC 2.66 L (4.00-5.30) mil/mm3 Hgb 8.3 L D (11.6-15.3) gm/dL Hct 24.2 L (35.0-46.0) % [place] % (Auto) 11.7 H (0.0-8.0) % [place] # (Auto) 1.1 H (0.0-0.9) th/mm3 Chloride 114 H (98-107) meq/L Carbon Dioxide 14.3 L (21.0-32.0) meq/L BUN 25 H (7-18) mg/dL Creatinine 1.81 H (0.50-1.00) mg/dL Estimated GFR 27 L (>89) mL/min Random Glucose 121 H (74-106) mg/dL Calcium 5.9 L* (8.5-10.1) mg/dL Prot Corrected Calcium 6.2 L* (8.5-10.1) mg/dL Magnesium 0.4 L (1.5-2.5) mg/dL Albumin 2.8 L (3.4-5.0) g/dL Urine Protein (Neg-Trace) mg/dL Ur Leukocyte Esterase (Negative) Urine Mucus (Occasional) /lpf Ur Random Creatinine (27-300) mg/dL U Random Total Protein (0-11.8) mg/dL Protein/Creatinin Ratio (0.00-0.14) 11/15/17 11/15/17 11/16/17 Range/Units 15:00 19:55 06:00 RBC (4.00-5.30) mil/mm3 Hgb 8.1 L 9.4 L (11.6-15.3) gm/dL Hct 23.7 L 27.1 L (35.0-46.0) % [place] % (Auto) (0.0-8.0) % [place] # (Auto) (0.0-0.9) th/mm3 Chloride (98-107) meq/L Carbon Dioxide (21.0-32.0) meq/L BUN (7-18) mg/dL Creatinine (0.50-1.00) mg/dL Estimated GFR (>89) mL/min Random Glucose (74-106) mg/dL Calcium (8.5-10.1) mg/dL Prot Corrected Calcium (8.5-10.1) mg/dL Magnesium (1.5-2.5) mg/dL Albumin (3.4-5.0) g/dL Urine Protein (Neg-Trace) mg/dL Ur Leukocyte Esterase (Negative) Urine Mucus (Occasional) /lpf Ur Random Creatinine 20 L (27-300) mg/dL U Random Total Protein 27.3 H (0-11.8) mg/dL Protein/Creatinin Ratio 1.37 H (0.00-0.14) 11/16/17 Range/Units 06:00 RBC (4.00-5.30) mil/mm3 Hgb (11.6-15.3) gm/dL Hct (35.0-46.0) % [place] % (Auto) (0.0-8.0) % [place] # (Auto) (0.0-0.9) th/mm3 Chloride (98-107) meq/L Carbon Dioxide (21.0-32.0) meq/L BUN (7-18) mg/dL Creatinine (0.50-1.00) mg/dL Estimated GFR (>89) mL/min Random Glucose (74-106) mg/dL Calcium (8.5-10.1) mg/dL Prot Corrected Calcium (8.5-10.1) mg/dL Magnesium (1.5-2.5) mg/dL Albumin (3.4-5.0) g/dL Urine Protein 100 H (Neg-Trace) mg/dL Ur Leukocyte Esterase Small H (Negative) Urine Mucus Few H (Occasional) /lpf Ur Random Creatinine (27-300) mg/dL U Random Total Protein (0-11.8) mg/dL Protein/Creatinin Ratio (0.00-0.14) Short CBC 11/15/17 11/15/17 11/15/17 Range/Units 11:41 15:00 19:55 WBC 9.1 (4.0-11.0) th/mm3 Hgb 8.3 L D 8.1 L 9.4 L (11.6-15.3) gm/dL Hct 24.2 L 23.7 L 27.1 L (35.0-46.0) % Plt Count 207 (150-450) th/mm3 BMP 11/15/17 08:33 Sodium 143 Potassium 4.0 Chloride 114 H Carbon Dioxide 14.3 L BUN 25 H Creatinine 1.81 H Calcium 5.9 L* Liver Function 11/15/17 Range/Units 08:33 Total Bilirubin 0.5 (0.2-1.0) mg/dL AST 18 (15-37) U/L ALT 16 (10-53) U/L Alkaline Phosphatase 49 (45-117) U/L Albumin 2.8 L (3.4-5.0) g/dL Urine 11/16/17 Range/Units 06:00 Urine Color Straw (Yellw/Straw) Urine Clarity Clear (Clear) Urine pH 5.0 (5.0-8.5) Ur Specific [place] 1.005 (1.002-1.035) Urine Protein 100 H (Neg-Trace) mg/dL Urine Glucose (UA) 50 (Negative) mg/dL <Jessica Buenrostro L - 11/16/17 09:26> - Imaging Impressions Abdomen/Bladder Ultrasound 11/15/17 20:23 CONCLUSION: 1. Bilateral renal cysts. 2. Right posterior lateral bladder diverticulum. <Jessica Buenrostro - 11/16/17 09:26> Physical Exam Vital signs: Vital Signs 11/17/17 12:47 11/17/17 16:40 11/17/17 20:00 Temperature 97.2 F L 97.9 F 98.0 F Pulse Rate 68 70 94 H Respiratory Rate 20 18 18 Blood Pressure 128/62 138/62 124/56 L Pulse Oximetry 98 100 11/18/17 00:00 11/18/17 08:00 Temperature 97.5 F L 97.8 F Pulse Rate 92 H 86 Respiratory Rate 18 18 Blood Pressure 137/60 137/95 H Pulse Oximetry 98 99 Intake & Output 11/17/17 11/18/17 11/18/17 18:59 06:59 18:59 Intake Total 710 / 710 540 / 540 Balance 710 / 710 540 / 540 Weight 92.7 kg Intake: IV 710 / 710 NS + KCl 20 mEq Inj 1,000 ML @ 500 / 500 84 mls/hr IV.CONT .[id number] [facility] Rx#:[id number] Calcium Chloride Inj 1 GM In 110 / 110 D5W Inj 100 ML @ 110 mls/hr IV. SIG ONCE ONE Rx#:[id number] Magnesium Sulfate 1 gm/D5W 100 100 / 100 ml Premix 100 ML @ 100 mls/hr IV.SIG ONCE ONE Rx#:[id number] Oral 540 / 540 Other: # Voids 3 Date of Last Bowel Movement 11/15/17 11/16/17 11/17/17 # Bowel Movements 2 <Joanna Chavez M - 11/18/17 12:57> Vital Signs 11/15/17 12:00 11/15/17 16:00 11/15/17 20:00 Temperature 98.3 F 99.3 F 98.2 F Pulse Rate 95 H 95 H 115 H Respiratory Rate 18 14 15 Blood Pressure 122/66 138/67 108/51 L Pulse Oximetry 99 99 100 11/15/17 23:43 11/16/17 03:31 11/16/17 08:00 Temperature 98.2 F 98.8 F 98.2 F Pulse Rate 97 H 88 98 H Respiratory Rate 16 16 16 Blood Pressure 105/52 L 108/54 L 118/59 L Pulse Oximetry 98 97 100 Intake & Output 11/15/17 11/16/17 11/16/17 18:59 06:59 18:59 Intake Total 680 / 680 200 / 200 730 / 730 Balance 680 / 680 200 / 200 730 / 730 Intake: IV 200 / 200 200 / 200 250 / 250 Calcium Gluconate Inj 1 GM In 100 / 100 NS Inj 90 ML @ 100 mls/hr IV. SIG ONCE ONE Rx#:[id number] Levaquin 750 mg Premix Inj 150 150 / 150 ML @ 100 mls/hr IV.SIG Q24H [facility] Rx#:[id number] Magnesium Sulfate Inj 2 GM In 100 / 100 NS Inj 96 ML @ 50 mls/hr IV.SIG ONCE ONE Rx#:[id number] Flagyl 500 MG Inj 100 ML @ 100 100 / 100 100 / 100 100 / 100 mls/hr IV.SIG Q8H K[facility]ERINE Rx#: [id number] Oral 480 / 480 480 / 480 Other: # Voids 4 3 Date of Last Bowel Movement 11/15/17 # Bowel Movements 4 <Jessica Buenrostro L - 11/16/17 09:26> Narrative: GENERAL: Elderly female in no apparent distress. Sitting in a chair. SKIN: Warm and dry. No rashes or ecchymoses noted HEAD: Atraumatic. Normocephalic. EYES: Pupils equal round and reactive to light. Extraocular movement intact. No conjunctival pallor or erythema ENT: No nasal bleeding or discharge. Mucous membranes are pink and moist. Poor dentition noted. NECK: Trachea midline. No JVD. Full range of motion. CARDIOVASCULAR: Normal rhythm. Mild tachycardia noted, rate approximately 90 RESPIRATORY: No accessory muscle use. Clear to auscultation without wheezes or rhonchi.. Breath sounds equal bilaterally. GASTROINTESTINAL: Abdomen obese, nontender to palpation. Bowel sounds are normal. Nondistended. Hepatic and splenic margins not palpable. MUSCULOSKELETAL: Extremities without clubbing, cyanosis, or edema. Bilateral foot exam reveals tenderness to palpation over the medial arch of each foot worse on the right. She also has tenderness over the top of the foot. Limited range of motion at ankle but effort may be playing a role at this. No obvious deformities. NEUROLOGICAL: Awake and alert. No obvious cranial nerve deficits. Motor grossly within normal limits. Limited strength in lower extremities but this is likely related to pain. Normal speech. No tetany or abnormal reflexes noted PSYCHIATRIC: Appropriate mood and affect; insight and judgment normal. <Jessica Buenrostro - 11/16/17 09:26> Assessment and Plan - Assessment (1) Diverticulitis Code(s): K57.92 - Diverticulitis of intestine, part unspecified, without perforation or abscess without bleeding Status: Acute Plan: Presented with abdominal pain, found to have diverticulitis on CT. she also did have a questionable area, possible lesion in her small bowel. -Levaquin 750 mg daily -Flagyl 500 mg daily -Advance to heart healthy diet -Appreciate GI recommendations. Currently stating liquid diet, continue antibiotics, plan is to repeat CT in 2-3 weeks as outpatient (2) Abnormal CT of the abdomen Code(s): R93.5 - Abnormal findings on diagnostic imaging of other abdominal regions, including retroperitoneum Status: Acute Plan: CT abdomen reports "Abnormal small bowel left lower quadrant without obstruction. Malignancy is not excluded" -GI notes they will follow-up CT as an outpatient in 2-3 weeks (3) Hypocalcemia Code(s): E83.51 - Hypocalcemia Status: Acute Plan: Patient is not obviously symptomatic. On admission calcium 6.1 with normal albumin and protein levels. Calcium has been serially monitored with most recent calcium level overall stable. She is status post p.o. calcium 1000 twice daily with IV 1 g infusion ordered on 11/15, will repeat calcium level this afternoon and administer additional IV dose as indicated during hospital course. Goal potassium greater than 7.5 at this time, as p.o. repletion may be safely continued at that time Assess magnesium and vitamin D level - Mg level low, replete carefully given JESUS ALBERTO which is also improving (4) UTI due to Klebsiella species Code(s): N39.0 - Urinary tract infection, site not specified; B96.1 - Klebsiella pneumoniae [K. pneumoniae] as the cause of diseases classified elsewhere Status: Acute Plan: Patient with UA which was abnormal on admission, with culture showing Klebsiella UTI. She is asymptomatic. She has been on Levaquin and Flagyl this hospitalization. Will likely continue Levaquin as species appears to be sensitive to this to complete 7 day course given diverticulitis however UTI itself would only require 3 day course (5) Acute kidney injury superimposed on CKD Code(s): N17.9 - Acute kidney failure, unspecified; N18.9 - Chronic kidney disease, unspecified Status: Resolved Plan: Creatinine of 1.22, resolving well with IVF and PO hydration. Was 2.11 on admission 11/13. Historically baseline appears to be approximately 1.2. Patient received normal saline at 125 cc/hour over the last 24 hours. Given CHF will reduce to 84cc/hr today. Will continue given patient continues to have mild dehydration and UTI - Tolerating PO hydration for now, gentle hydration due to CHF We will hold her BELLA inhibitor and Lasix until she is rehydrated. If she becomes short of breath or develops any pulmonary edema she can easily be given some IV Lasix (6) COPD (chronic obstructive pulmonary disease) Code(s): J44.9 - Chronic obstructive pulmonary disease, unspecified Status: Chronic Plan: History of COPD -Continue home medications montelukast (7) CHF (congestive heart failure) Code(s): I50.9 - Heart failure, unspecified Status: Chronic Plan: History of CHF -Continue home medications aspirin hold furosemide until rehydrated (8) HTN (hypertension) Code(s): I10 - Essential (primary) hypertension Status: Chronic Plan: History of hypertension -Continue home medications amlodipine 10mg, lisinopril 40mg (9) Anxiety Code(s): F41.9 - Anxiety disorder, unspecified Status: Chronic Plan: History of anxiety -Continue home medications lorazepam 0.5 mg every 8 hours (10) Foot pain, bilateral Code(s): M79.671 - Pain in right foot; M79.672 - Pain in left foot Status: Acute Plan: Unclear etiology of foot pain. Suspect osteoarthritis or bone spurs however it is limiting patient's related to ambulate at this time. PT of note recommending rehab, pt has medical scientist as outpt She is noted to have x-ray of the right foot on 03/01/17 showing mild to moderate osteopenia, mild to moderate bone spur, no acute fracture. If symptoms persist we will consider x-ray of bilateral foot and I would also consider podiatry consultation. PT ordered. Pain control with acetaminophen pain 1-5 , [place] 5/325 pain 6-10, with morphine IV for breakthrough pain <Jessica Buenrostro Abigail - 11/16/17 12:16> (1) Anemia Code(s): D64.9 - Anemia, unspecified Status: Acute (2) Hypocalcemia Code(s): E83.51 - Hypocalcemia Status: Acute (3) Hypomagnesemia Code(s): E83.42 - Hypomagnesemia Status: Acute (4) Diverticulitis Code(s): K57.92 - Diverticulitis of intestine, part unspecified, without perforation or abscess without bleeding Status: Acute (5) Abnormal CT of the abdomen Code(s): R93.5 - Abnormal findings on diagnostic imaging of other abdominal regions, including retroperitoneum Status: Acute (6) Osteoarthritis of feet, bilateral Code(s): M19.071 - Primary osteoarthritis, right ankle and foot; M19.072 - Primary osteoarthritis, left ankle and foot Status: Acute (7) UTI due to Klebsiella species Code(s): N39.0 - Urinary tract infection, site not specified; B96.1 - Klebsiella pneumoniae [K. pneumoniae] as the cause of diseases classified elsewhere Status: Acute (8) Acute kidney injury superimposed on CKD Code(s): N17.9 - Acute kidney failure, unspecified; N18.9 - Chronic kidney disease, unspecified Status: Resolved (9) COPD (chronic obstructive pulmonary disease) Code(s): J44.9 - Chronic obstructive pulmonary disease, unspecified Status: Chronic (10) CHF (congestive heart failure) Code(s): I50.9 - Heart failure, unspecified Status: Chronic (11) HTN (hypertension) Code(s): I10 - Essential (primary) hypertension Status: Chronic (12) Anxiety Code(s): F41.9 - Anxiety disorder, unspecified Status: Chronic <Joanna Chavez - 11/18/17 12:57> - Assessment and Plan 72-year-old female with past history of CHF, COPD, HTN, who presented for abdominal pain, found to have diverticulitis without abscess. We will admit her to the hospital because she is requiring IV antibiotics for her diverticulitis <PorterJessica L - 11/16/17 12:26> Discharge Planning: Anticipate discharge in 1-2 days to SNF pending correction of hypocalcemia, improvement of dehydration, management of bilateral foot pain Case mgmt consulted 11/16 for placement assistance <Jessica Buenrostro - 11/16/17 12:26> - Attending Attestation The exam, history, and the medical decision-making described in the above note were completed with the assistance of the resident physician. I reviewed and agree with the findings presented. I attest that I had a [id number] encounter with the patient on the same day, and personally performed and documented my assessment and findings in the medical record. It has taken some time but she is improving with her renal function and electrolytes. <Joanna Chavez - 11/18/17 10:58> <Jessica Buenrostro - Last Filed: 11/16/17 12:16> (7) CHF (congestive heart failure) Qualifiers: Heart failure type: systolic Heart failure chronicity: chronic Qualified Code(s): I50.22 - Chronic systolic (congestive) heart failure (8) HTN (hypertension) Qualifiers: Hypertension type: essential hypertension Qualified Code(s): I10 - Essential (primary) hypertension <Joanna Chavez - Last Filed: 11/18/17 12:57> (10) CHF (congestive heart failure) Qualifiers: Heart failure type: systolic Heart failure chronicity: chronic Qualified Code(s): I50.22 - Chronic systolic (congestive) heart failure (11) HTN (hypertension) Qualifiers: Hypertension type: essential hypertension Qualified Code(s): I10 - Essential (primary) hypertension <Jessica Buenrostro L - Last Filed: 11/16/17 12:16> (7) CHF (congestive heart failure) Qualifiers: Heart failure type: systolic Heart failure chronicity: chronic Qualified Code(s): I50.22 - Chronic systolic (congestive) heart failure (8) HTN (hypertension) Qualifiers: Hypertension type: essential hypertension Qualified Code(s): I10 - Essential (primary) hypertension <Joanna Chavez M - Last Filed: 11/18/17 12:57> (10) CHF (congestive heart failure) Qualifiers: Heart failure type: systolic Heart failure chronicity: chronic Qualified Code(s): I50.22 - Chronic systolic (congestive) heart failure (11) HTN (hypertension) Qualifiers: Hypertension type: essential hypertension Qualified Code(s): I10 - Essential (primary) hypertension
[2017-11-16] MEDS: Montelukast 10 MG Tablet PO SCH (10:06)
[2017-11-16] MEDS: Calcium Carbonate 500 MG Tablet PO SCH ×2 (10:08→21:33)
[2017-11-16] MEDS: Pantoprazole Sodium 20 MG DR Tablet PO SCH (10:09)
[2017-11-16 10:26] LABS: % Iron Saturation 16.1 % (20-50); Albumin 2.7 g/dL (3.4-5.0); Calcium 6.3 mg/dL (8.5-10.1); Carbon Dioxide 15.9 meq/L (21.0-32.0); Kappa Lambda Ratio 1.84 (1.57-3.93); Magnesium 0.9 mg/dL (1.5-2.5); Phosphorus 2.8 mg/dL (2.5-4.9); Potassium 3.3 meq/L (3.5-5.1); Total Protein 6.1 g/dL (6.4-8.2)
[2017-11-16] MEDS ORDERED: Calcium Gluconate Inj 1 GM in Sodium Chlor 0.9% Inj 90 ML IV.SIG ONE (12:19)
[2017-11-16] MEDS: metroNIDAZOLE 500 MG Tablet PO SCH ×2 (13:02→21:33)
[2017-11-16] MEDS ORDERED: Calcium Carbonate 500 MG Tablet PO ONE (13:15)
[2017-11-16] MEDS: Magnesium Oxide 400 MG Tablet PO SCH ×2 (13:37→21:33)
[2017-11-16 14:50] LABS: Baso % (Auto) 0.5 % (0.0-2.0); Eos # (Auto) 0.1 th/mm3 (0.0-0.4); Eos % (Auto) 0.8 % (0.0-4.0); Hematocrit 24.4 % (35.0-46.0); Hemoglobin 8.6 gm/dL (11.6-15.3); Lymph # (Auto) 1.5 th/mm3 (1.0-4.8); Mean Corpuscular HGB Conc 35.2 % (32.0-36.0); Mean Corpuscular Hemoglobin 32.5 pg (27.0-34.0); Mean Corpuscular Volume 92.2 fL (80.0-100.0); Mean Platelet Volume 8.9 fL (7.0-11.0); Mono # (Auto) 0.7 th/mm3 (0.0-0.9); Mono % (Auto) 9.9 % (0.0-8.0); Neut # (Auto) 5.2 th/mm3 (1.8-7.7); Neut % (Auto) 68.8 % (16.0-70.0); Platelet Count 213 th/mm3 (150-450); Red Blood Count 2.64 mil/mm3 (4.00-5.30); Red Cell Distribution Width 13.8 % (11.6-17.2); White Blood Count 7.5 th/mm3 (4.0-11.0)
[2017-11-16] MEDS: Mag Sulf 1 gm/100 ml Premix 100 ML IV.SIG SCH ×2 (14:50→16:50)
--- NOTE | 2017-11-16 19:44 | P.PNNP ---
Subjective Interval history: Patient indicated that she is feeling better. by bedside. Physical Exam Vital signs: Vital Signs 11/15/17 20:00 11/15/17 23:43 11/16/17 03:31 Temperature 98.2 F 98.2 F 98.8 F Pulse Rate 115 H 97 H 88 Respiratory Rate 15 16 16 Blood Pressure 108/51 L 105/52 L 108/54 L Pulse Oximetry 100 98 97 11/16/17 08:00 11/16/17 12:00 11/16/17 16:00 Temperature 98.2 F 98.3 F 98.7 F Pulse Rate 98 H 97 H 96 H Respiratory Rate 16 16 Blood Pressure 118/59 L 118/58 L 106/55 L Pulse Oximetry 100 16 L 98 11/16/17 19:25 Temperature 97.9 F Pulse Rate 103 H Respiratory Rate 18 Blood Pressure 125/59 L Pulse Oximetry 99 Intake & Output 11/16/17 11/16/17 11/17/17 06:59 18:59 06:59 Intake Total 200 / 200 1930 / 1930 Balance 200 / 200 1930 / 1930 Intake: IV 200 / 200 1450 / 1450 NS + KCl 20 mEq Inj 1,000 ML @ 1000 / 1000 75 mls/hr IV.CONT .[id number] [facility] Rx#:[id number] Levaquin 750 mg Premix Inj 150 150 / 150 ML @ 100 mls/hr IV.SIG Q24H [facility] Rx#:[id number] Magnesium Sulfate 1 gm/D5W 100 200 / 200 ml Premix 100 ML @ 100 mls/hr IV.SIG Q1H [facility] Rx#:[id number] Magnesium Sulfate Inj 2 GM In 100 / 100 NS Inj 96 ML @ 50 mls/hr IV.SIG ONCE ONE Rx#:[id number] Flagyl 500 MG Inj 100 ML @ 100 100 / 100 100 / 100 mls/hr IV.SIG Q8H [facility] Rx#: [id number] Oral 480 / 480 Other: # Voids 3 Date of Last Bowel Movement 11/15/17 11/15/17 # Bowel Movements 1 Narrative: GENERAL: Lying in bed not in respiratory distress. SKIN: Warm and dry. HEAD: Normocephalic. EYES: No scleral icterus. No injection or drainage. NECK: Supple, trachea midline. No JVD or lymphadenopathy. CARDIOVASCULAR: Regular rate and rhythm without murmurs, gallops, or rubs. RESPIRATORY: Breath sounds equal bilaterally. No accessory muscle use. GASTROINTESTINAL: Abdomen soft, non-tender, nondistended. MUSCULOSKELETAL: No cyanosis, or edema. Assessment and Plan - Assessment (1) Acute kidney injury superimposed on CKD Code(s): N17.9 - Acute kidney failure, unspecified; N18.9 - Chronic kidney disease, unspecified Status: Resolved Plan: Baseline SCr as per previous admissions 1.1-1.3 likely related to sclerosis of hypertension and aging. Acute decline likely related to volume depletion 2/2 to diarrhea and poor oral intake coupled with continued diuretic use, ACEi, and reported Advil use at home. Acute renal insufficiency is improving with IV hydration. Renal ultrasound shows bilateral renal cysts otherwise unremarkable. Advised to utilize APAP at home for pain instead of NSAIDs. Medications should be adjusted for the patient's renal decline. Avoid nephrotoxic agents such as iodinated contrast dyes and NSAIDs. (2) Hypocalcemia Code(s): E83.51 - Hypocalcemia Status: Acute Plan: Suspect primarily related to hypomagnesemia. Vitamin D level however is also low. Supplement as ordered. (3) Hypomagnesemia Code(s): E83.42 - Hypomagnesemia Status: Acute Plan: Suspected chronic hypomagnesemia is related to the use of the proton pump inhibitor. Urinary studies however still pending despite ordered. We will also order 24-hour urine magnesium If urinary studies do suggest malabsorption doubtful oral supplementation will improve same. Believe GI opinion regarding alternative management for acid reflux will be required in the hope of discontinuing usage of proton pump inhibitor. The above was discussed with the patient and by the bedside. (4) Anemia Code(s): D64.9 - Anemia, unspecified Status: Acute Plan: Repeat CBC with Fe panel As above, check serology Check FOBT (5) Diverticulitis Code(s): K57.92 - Diverticulitis of intestine, part unspecified, without perforation or abscess without bleeding Status: Acute Plan: Mgmt as per primary (6) HTN (hypertension) Code(s): I10 - Essential (primary) hypertension Status: Chronic Qualifiers: Hypertension type: essential hypertension Qualified Code(s): I10 - Essential (primary) hypertension Plan: Hold ACEi for the present.
[2017-11-17] MEDS: Temazepam 15 MG Capsule PO PRN (01:26)
[2017-11-17] MEDS: LORazepam 0.5 MG Tablet PO SCH ×3 (04:48→20:56)
[2017-11-17] MEDS: metroNIDAZOLE 500 MG Tablet PO SCH ×3 (05:10→22:25)
[2017-11-17 07:49] LABS: Baso % (Auto) 0.4 % (0.0-2.0); Eos # (Auto) 0.1 th/mm3 (0.0-0.4); Eos % (Auto) 2.1 % (0.0-4.0); Hematocrit 21.2 % (35.0-46.0); Hemoglobin 7.3 gm/dL (11.6-15.3); Lymph # (Auto) 2.1 th/mm3 (1.0-4.8); Lymph % (Auto) 31.8 % (9.0-44.0); Mean Corpuscular HGB Conc 34.4 % (32.0-36.0); Mean Corpuscular Hemoglobin 31.5 pg (27.0-34.0); Mean Corpuscular Volume 91.5 fL (80.0-100.0); Mean Platelet Volume 8.6 fL (7.0-11.0); Mono # (Auto) 0.6 th/mm3 (0.0-0.9); Mono % (Auto) 8.7 % (0.0-8.0); Neut # (Auto) 3.7 th/mm3 (1.8-7.7); Platelet Count 188 th/mm3 (150-450); Red Blood Count 2.32 mil/mm3 (4.00-5.30); Red Cell Distribution Width 13.7 % (11.6-17.2); White Blood Count 6.5 th/mm3 (4.0-11.0)
[2017-11-17 08:06] LABS: Calcium 6.1 mg/dL (8.5-10.1); Carbon Dioxide 17.4 meq/L (21.0-32.0); Magnesium 1.2 mg/dL (1.5-2.5); Phosphorus 1.8 mg/dL (2.5-4.9)
[2017-11-17 08:19] LABS: Total Protein 5.5 g/dL (6.4-8.2)
[2017-11-17] MEDS: Magnesium Oxide 400 MG Tablet PO SCH ×2 (09:46→20:56)
[2017-11-17] MEDS: Montelukast 10 MG Tablet PO SCH (09:47)
[2017-11-17] MEDS: Pantoprazole Sodium 20 MG DR Tablet PO SCH (09:47)
[2017-11-17] MEDS: Calcium Carbonate 500 MG Tablet PO SCH ×2 (09:47→20:56)
[2017-11-17] MEDS: levoFLOXacin 750 MG Tablet PO SCH (09:47)
--- NOTE | 2017-11-17 10:06 | P.PNFP ---
Subjective Interval history: Patient was seen and examined this morning. She continues to complain of severe but chronic bilateral foot and ankle pain, which prohibits her ambulation. She denies fevers, chills, nausea, vomiting, and abdominal pain. She reports only 1-2 well formed brown stools in the last 24hr. Hemoccult was negative. <Jessica Buenrostro Abigail - 11/17/17 10:06> Results - Labs Result diagrams: 11/18/17 05:45 11/18/17 05:45 <Joanna Chavez - 11/18/17 13:14> Abnormal lab results 11/16/17 11/17/17 11/18/17 Range/Units 06:00 21:28 05:45 RBC 2.55 L (4.00-5.30) mil/mm3 Hgb 8.1 L (11.6-15.3) gm/dL Hct 23.4 L (35.0-46.0) % Chloride 112 H (98-107) meq/L Carbon Dioxide 18.9 L (21.0-32.0) meq/L Creatinine 1.14 H (0.50-1.00) mg/dL Estimated GFR 47 L (>89) mL/min Calcium 7.9 L D (8.5-10.1) mg/dL Phosphorus (2.5-4.9) mg/dL AST (15-37) U/L Total Protein (6.4-8.2) g/dL Albumin (3.4-5.0) g/dL Ur Random Magnesium 18 L (22-130) 11/18/17 Range/Units 05:45 RBC (4.00-5.30) mil/mm3 Hgb (11.6-15.3) gm/dL Hct (35.0-46.0) % Chloride 112 H (98-107) meq/L Carbon Dioxide 20.2 L (21.0-32.0) meq/L Creatinine 1.05 H (0.50-1.00) mg/dL Estimated GFR 52 L (>89) mL/min Calcium 7.9 L (8.5-10.1) mg/dL Phosphorus 2.3 L (2.5-4.9) mg/dL AST 13 L (15-37) U/L Total Protein 6.0 L (6.4-8.2) g/dL Albumin 2.4 L (3.4-5.0) g/dL Ur Random Magnesium (22-130) Short CBC 11/18/17 Range/Units 05:45 WBC 7.0 (4.0-11.0) th/mm3 Hgb 8.1 L (11.6-15.3) gm/dL Hct 23.4 L (35.0-46.0) % Plt Count 211 (150-450) th/mm3 BMP 11/17/17 11/18/17 21:28 05:45 Sodium 142 143 Potassium 4.9 D 4.6 Chloride 112 H 112 H Carbon Dioxide 18.9 L 20.2 L BUN 11 10 Creatinine 1.14 H 1.05 H Calcium 7.9 L D 7.9 L Liver Function 11/18/17 Range/Units 05:45 Total Bilirubin 0.3 (0.2-1.0) mg/dL AST 13 L (15-37) U/L ALT 12 (10-53) U/L Alkaline Phosphatase 52 (45-117) U/L Albumin 2.4 L (3.4-5.0) g/dL <Joanna Chavez - 11/18/17 13:14> Abnormal lab results 11/16/17 11/16/17 11/17/17 Range/Units 08:18 14:05 06:25 RBC 2.64 L 2.32 L (4.00-5.30) mil/mm3 Hgb 8.6 L 7.3 L (11.6-15.3) gm/dL Hct 24.4 L 21.2 L (35.0-46.0) % [place] % (Auto) 9.9 H 8.7 H (0.0-8.0) % Potassium 3.3 L (3.5-5.1) meq/L Chloride 114 H (98-107) meq/L Carbon Dioxide 15.9 L (21.0-32.0) meq/L Creatinine 1.22 H (0.50-1.00) mg/dL Estimated GFR 43 L (>89) mL/min Calcium 6.3 L* (8.5-10.1) mg/dL Prot Corrected Calcium 6.8 L* (8.5-10.1) mg/dL Phosphorus (2.5-4.9) mg/dL Magnesium 0.9 L (1.5-2.5) mg/dL Iron 29 L (50-170) mcg/dL TIBC 181 L (250-450) mcg/dL % Saturation 16.1 L (20-50) % Ferritin 609 H (8-252) ng/mL Total Protein 6.1 L (6.4-8.2) g/dL Total Protein (PEP) 6.1 L (6.4-8.2) gm/dL Albumin 2.7 L (3.4-5.0) g/dL Albumin (PEP) 3.39 L (3.50-5.00) gm/dL Albumin/Globulin Ratio 1.25 L (1.39-2.23) Snjox-1-Rbnndmctz 1.01 H (0.22-1.00) gm/dL Vitamin D 25-Hydroxy 23.6 L (30-100) ng/mL IgG 628 L (650-1610) mg/dL 11/17/17 Range/Units 06:25 RBC (4.00-5.30) mil/mm3 Hgb (11.6-15.3) gm/dL Hct (35.0-46.0) % [place] % (Auto) (0.0-8.0) % Potassium (3.5-5.1) meq/L Chloride 116 H (98-107) meq/L Carbon Dioxide 17.4 L (21.0-32.0) meq/L Creatinine (0.50-1.00) mg/dL Estimated GFR 57 L (>89) mL/min Calcium 6.1 L* (8.5-10.1) mg/dL Prot Corrected Calcium 6.8 L* (8.5-10.1) mg/dL Phosphorus 1.8 L D (2.5-4.9) mg/dL Magnesium 1.2 L (1.5-2.5) mg/dL Iron (50-170) mcg/dL TIBC (250-450) mcg/dL % Saturation (20-50) % Ferritin (8-252) ng/mL Total Protein 5.5 L D (6.4-8.2) g/dL Total Protein (PEP) (6.4-8.2) gm/dL Albumin (3.4-5.0) g/dL Albumin (PEP) (3.50-5.00) gm/dL Albumin/Globulin Ratio (1.39-2.23) Seifa-5-Jpxeyzewi (0.22-1.00) gm/dL Vitamin D 25-Hydroxy (30-100) ng/mL IgG (650-1610) mg/dL Short CBC 11/16/17 11/17/17 Range/Units 14:05 06:25 WBC 7.5 6.5 (4.0-11.0) th/mm3 Hgb 8.6 L 7.3 L (11.6-15.3) gm/dL Hct 24.4 L 21.2 L (35.0-46.0) % Plt Count 213 188 (150-450) th/mm3 BMP 11/16/17 11/17/17 08:18 06:25 Sodium 144 144 Potassium 3.3 L 4.0 Chloride 114 H 116 H Carbon Dioxide 15.9 L 17.4 L BUN 13 10 Creatinine 1.22 H 0.96 Calcium 6.3 L* 6.1 L* Liver Function 11/16/17 Range/Units 08:18 Total Bilirubin 0.5 (0.2-1.0) mg/dL AST 16 (15-37) U/L ALT 13 (10-53) U/L Alkaline Phosphatase 49 (45-117) U/L Albumin 2.7 L (3.4-5.0) g/dL <Jessica Buenrostro L - 11/17/17 10:06> Physical Exam Vital signs: Vital Signs 11/17/17 16:40 11/17/17 20:00 11/18/17 00:00 Temperature 97.9 F 98.0 F 97.5 F L Pulse Rate 70 94 H 92 H Respiratory Rate 18 18 18 Blood Pressure 138/62 124/56 L 137/60 Pulse Oximetry 98 100 98 11/18/17 08:00 11/18/17 12:00 Temperature 97.8 F 97.0 F L Pulse Rate 86 108 H Respiratory Rate 18 18 Blood Pressure 137/95 H 149/6 H Pulse Oximetry 99 99 Intake & Output 11/17/17 11/18/17 11/18/17 18:59 06:59 18:59 Intake Total 710 / 710 540 / 540 Balance 710 / 710 540 / 540 Weight 92.7 kg Intake: IV 710 / 710 NS + KCl 20 mEq Inj 1,000 ML @ 500 / 500 84 mls/hr IV.CONT .[id number] KATHERINE Rx#:[id number] Calcium Chloride Inj 1 GM In 110 / 110 D5W Inj 100 ML @ 110 mls/hr IV. SIG ONCE ONE Rx#:[id number] Magnesium Sulfate 1 gm/D5W 100 100 / 100 ml Premix 100 ML @ 100 mls/hr IV.SIG ONCE ONE Rx#:[id number] Oral 540 / 540 Other: # Voids 3 Date of Last Bowel Movement 11/15/17 11/16/17 11/17/17 # Bowel Movements 2 <Joanna Chavez M - 11/18/17 13:14> Vital Signs 11/16/17 12:00 11/16/17 16:00 11/16/17 19:25 Temperature 98.3 F 98.7 F 97.9 F Pulse Rate 97 H 96 H 103 H Respiratory Rate 16 18 Blood Pressure 118/58 L 106/55 L 125/59 L Pulse Oximetry 16 L 98 99 11/16/17 23:41 11/17/17 03:17 11/17/17 08:21 Temperature 98.4 F 97.8 F 98.2 F Pulse Rate 98 H 92 H 70 Respiratory Rate 18 16 20 Blood Pressure 110/53 L 113/51 L Pulse Oximetry 96 96 95 Intake & Output 11/16/17 11/17/17 11/17/17 18:59 06:59 18:59 Intake Total 1930 / 1930 1000 / 1000 Balance 1930 / 1930 1000 / 1000 Intake: IV 1450 / 1450 1000 / 1000 NS + KCl 20 mEq Inj 1,000 ML @ 1000 / 1000 1000 / 1000 84 mls/hr IV.CONT .[id number] KATHERINE Rx#:[id number] Levaquin 750 mg Premix Inj 150 150 / 150 ML @ 100 mls/hr IV.SIG Q24H KATHERINE Rx#:[id number] Magnesium Sulfate 1 gm/D5W 100 200 / 200 ml Premix 100 ML @ 100 mls/hr IV.SIG Q1H KATHERINE Rx#:[id number] Flagyl 500 MG Inj 100 ML @ 100 100 / 100 mls/hr IV.SIG Q8H KATHERINE Rx#: [id number] Oral 480 / 480 Other: # Voids 3 Date of Last Bowel Movement 11/15/17 # Bowel Movements 1 <Jessica Buenrostro - 11/17/17 10:06> Narrative: GENERAL: Patient lying in bed comfortably. SCDs in place. SKIN: Warm and dry. No rashes or ecchymoses noted HEAD: Atraumatic. Normocephalic. EYES: Pupils equal and round. EOMI. ENT: No nasal bleeding or discharge. Mucous membranes are pink and moist. Poor dentition noted. NECK: Full range of motion. CARDIOVASCULAR: Normal rhythm. Mildly tachycardic RESPIRATORY: No accessory muscle use. Clear to auscultation without wheezes or rhonchi. GASTROINTESTINAL: Abdomen obese, normoactive bowel sounds, nontender. No masses on palpation, soft. MUSCULOSKELETAL: Extremities without clubbing, cyanosis, edema, or obvious deformity aside mild internal rotation bilaterally. Palpation reveals bilateral tenderness to palpation over the medial arch of each foot, a little worse on the right. She also has tenderness over the top of the foot and moderate tenderness of the ankle. Limited range of motion at ankle and this elicits pain as well. NEUROLOGICAL: Awake and alert. No obvious cranial nerve deficits. Motor grossly within normal limits. Limited strength in lower extremities but this is likely related to pain. Normal speech. No tetany or abnormal reflexes noted PSYCHIATRIC: Appropriate mood and affect; insight and judgment normal. <Jessica Buenrostro - 11/17/17 10:06> Assessment and Plan - Assessment (1) Anemia Code(s): D64.9 - Anemia, unspecified Status: Acute (2) Hypocalcemia Code(s): E83.51 - Hypocalcemia Status: Acute (3) Hypomagnesemia Code(s): E83.42 - Hypomagnesemia Status: Acute (4) Diverticulitis Code(s): K57.92 - Diverticulitis of intestine, part unspecified, without perforation or abscess without bleeding Status: Acute (5) Abnormal CT of the abdomen Code(s): R93.5 - Abnormal findings on diagnostic imaging of other abdominal regions, including retroperitoneum Status: Acute (6) Osteoarthritis of feet, bilateral Code(s): M19.071 - Primary osteoarthritis, right ankle and foot; M19.072 - Primary osteoarthritis, left ankle and foot Status: Acute (7) UTI due to Klebsiella species Code(s): N39.0 - Urinary tract infection, site not specified; B96.1 - Klebsiella pneumoniae [K. pneumoniae] as the cause of diseases classified elsewhere Status: Acute (8) Acute kidney injury superimposed on CKD Code(s): N17.9 - Acute kidney failure, unspecified; N18.9 - Chronic kidney disease, unspecified Status: Resolved (9) COPD (chronic obstructive pulmonary disease) Code(s): J44.9 - Chronic obstructive pulmonary disease, unspecified Status: Chronic (10) CHF (congestive heart failure) Code(s): I50.9 - Heart failure, unspecified Status: Chronic (11) HTN (hypertension) Code(s): I10 - Essential (primary) hypertension Status: Chronic (12) Anxiety Code(s): F41.9 - Anxiety disorder, unspecified Status: Chronic <Joanna Chavez - 11/18/17 13:14> (1) Anemia Code(s): D64.9 - Anemia, unspecified Status: Acute Plan: Asymptomatic. Patient with history of anemia with Hgb 12.2 on admission. No obvious source of bleeding; however patient has diverticulitis per CT. Hemoccult was negative 11/16. Will recheck H&H and if <8, will consider 1-2 unit PRBCs, with caution given CHF and unclear source. Patient has had IVF this hospitalization so possible dilutional effect but would not expect this significant drop. Consider supplemental iron Check b12, folate, retic count. Ferritin high, iron levels low on prior labs with low TIBC (2) Hypocalcemia Code(s): E83.51 - Hypocalcemia Status: Acute Plan: Asymptomatic Calcium continues to be low at 6.1, prot corrected 6.8 suggests mild improvement Nephrology consulted, appreciate assistance; PPI therapy suspected etiology for malabsorption of dietary calcium Continue PO Calcium carbonate 1000mg BID. IV calcium gluconate given x 1 on however pharmacy has shortage at this time. Calcium chloride is an option but patient has elevated chloride levels at this time. Will continue to try correction of magnesium levels by IV route today, monitor electrolytes closely Impression Patient is not obviously symptomatic. On admission calcium 6.1 with normal albumin and protein levels. Calcium has been serially monitored. She is status post p.o. calcium 1000 twice daily with IV 1 g infusion ordered on 11/15. Goal potassium greater than 7.5 at this time, as p.o. repletion may be safely continued at that time. Assess magnesium and vitamin D levels - both low, to replete (3) Hypomagnesemia Code(s): E83.42 - Hypomagnesemia Status: Acute Plan: Plan as noted for Hypocalcemia (4) Diverticulitis Code(s): K57.92 - Diverticulitis of intestine, part unspecified, without perforation or abscess without bleeding Status: Acute Plan: Abdominal Pain resolved. Presented with abdominal pain, found to have diverticulitis on CT. she also did have a questionable area, possible lesion in her small bowel. -Levaquin 750 mg daily - to complete 10 days -Flagyl 500 mg daily - to complete 10 days -Tolerating heart healthy diet -Appreciate GI recommendations. Plan is to repeat CT in 2-3 weeks as outpatient (5) Abnormal CT of the abdomen Code(s): R93.5 - Abnormal findings on diagnostic imaging of other abdominal regions, including retroperitoneum Status: Acute Plan: CT abdomen reports "Abnormal small bowel left lower quadrant without obstruction. Malignancy is not excluded" -GI notes they will follow-up CT as an outpatient in 2-3 weeks, patient aware (6) Osteoarthritis of feet, bilateral (7) UTI due to Klebsiella species Code(s): N39.0 - Urinary tract infection, site not specified; B96.1 - Klebsiella pneumoniae [K. pneumoniae] as the cause of diseases classified elsewhere Status: Acute Plan: Patient with UA which was abnormal on admission, with culture showing Klebsiella UTI. She is asymptomatic. She has been on Levaquin and Flagyl this hospitalization. Will likely continue Levaquin as species appears to be sensitive to this to complete 7 day course given diverticulitis however UTI itself would only require 3 day course (8) Acute kidney injury superimposed on CKD Code(s): N17.9 - Acute kidney failure, unspecified; N18.9 - Chronic kidney disease, unspecified Status: Resolved Plan: Creatinine normal 0.89 today. DC IVF. Restart home dose Lasix Impression/Course: Creatinine was 2.11 on admission 11/13. Patient received normal saline at 125 cc/ hour over the last 24 hours. Given CHF we reduced rate to 84cc/hr on 11/16. Transition to PO hydration only on 11/17 Restart ACEI 11/17. Continue to hold Lasix If she becomes short of breath or develops any pulmonary edema she can easily be given some IV Lasix (9) COPD (chronic obstructive pulmonary disease) Code(s): J44.9 - Chronic obstructive pulmonary disease, unspecified Status: Chronic Plan: History of COPD -Continue home medications montelukast (10) CHF (congestive heart failure) Code(s): I50.9 - Heart failure, unspecified Status: Chronic Plan: History of CHF -Continue home medications aspirin hold furosemide for now (11) HTN (hypertension) Code(s): I10 - Essential (primary) hypertension Status: Chronic Plan: History of hypertension -Continue home medications amlodipine 10mg. Lisinopril 40mg to restart 11/17 (12) Anxiety Code(s): F41.9 - Anxiety disorder, unspecified Status: Chronic Plan: History of anxiety -Continue home medications lorazepam 0.5 mg every 8 hours (13) Foot pain, bilateral Code(s): M79.671 - Pain in right foot; M79.672 - Pain in left foot Status: Acute Plan: Unclear etiology of foot pain. Suspect osteoarthritis or bone spurs however it is limiting patient's related to ambulate at this time. 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 Will order Xrays of foot and ankle bilaterally today given this is main pt complaint and she requests imaging. Impression/Course: She is noted to have x-ray of the right foot on 03/01/17 showing mild to moderate osteopenia, mild to moderate bone spur, no acute fracture. If symptoms persist we will consider x-ray of bilateral foot and I would also consider podiatry consultation. PT ordered and recommending rehab. Pain control with acetaminophen pain 1-5 , [place] 5/325 pain 6-10, with morphine IV for breakthrough pain <Jessica Buenrostro - 11/17/17 09:34> - Assessment and Plan The exam, history, and the medical decision-making described in the above note were completed with the assistance of the resident physician. I reviewed and agree with the findings presented. I attest that I had a [id number] encounter with the patient on the same day, and personally performed and documented my assessment and findings in the medical record. appreciate help of podiatry as she is not walking well <Joanna Chavez - 11/18/17 13:14> 72-year-old female with past history of CHF, COPD, HTN, who presented for abdominal pain, found to have diverticulitis without abscess. She is under admit status with continued workup of lab dyscrasias (anemia, hypocalcemia, hypomagnesemia, hypophosphatemia). <Jessica Buenrostro Abigail - 11/17/17 10:06> Discharge Planning: Anticipate discharge in 1-2 days to SNF pending correction of electrolytes and management of bilateral foot pain. Case mgmt consulted 11/16 for placement assistance <Jayson Buenrostroalka Hayes - 11/17/17 10:06> <Jessica Buenrostro L - Last Filed: 11/17/17 09:34> (10) CHF (congestive heart failure) Qualifiers: Heart failure type: systolic Heart failure chronicity: chronic Qualified Code(s): I50.22 - Chronic systolic (congestive) heart failure (11) HTN (hypertension) Qualifiers: Hypertension type: essential hypertension Qualified Code(s): I10 - Essential (primary) hypertension <Joanna Chavez - Last Filed: 11/18/17 13:14> (1) Anemia Qualifiers: Anemia type: other cause Other causes of anemia: sideroblastic, secondary to disease Qualified Code(s): 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 <Jessica Buenrostro - Last Filed: 11/17/17 09:34> (10) CHF (congestive heart failure) Qualifiers: Heart failure type: systolic Heart failure chronicity: chronic Qualified Code(s): I50.22 - Chronic systolic (congestive) heart failure (11) HTN (hypertension) Qualifiers: Hypertension type: essential hypertension Qualified Code(s): I10 - Essential (primary) hypertension <Joanna Chavez - Last Filed: 11/18/17 13:14> (1) Anemia Qualifiers: Anemia type: other cause Other causes of anemia: sideroblastic, secondary to disease Qualified Code(s): 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
--- NOTE | 2017-11-17 10:47 | XR ---
EXAM DATE: 11/17/2017 10:43 AM EDT AGE/SEX: 72 years / Female INDICATIONS: Right ankle pain, no injury. CLINICAL DATA: This is the patient's initial encounter. Patient reports that signs and symptoms have been present for 1 day and indicates a pain score of 10/10. MEDICAL/SURGICAL HISTORY: None. None. [place] [facility] [place]17[place]. . FINDINGS: Generalized soft tissue swelling. Anatomic alignment. No fracture. Minimal plantar spurring. CONCLUSION: Generalized soft tissue swelling, no fracture Electronically signed by: uHgo Gonsales MD 11/17/2017 10:46 AM EDT
--- NOTE | 2017-11-17 10:48 | XR ---
EXAM DATE: 11/17/2017 10:41 AM EDT AGE/SEX: 72 years / Female INDICATIONS: Left ankle pain, no injury. CLINICAL DATA: This is the patient's initial encounter. Patient reports that signs and symptoms have been present for 1 week and indicates a pain score of 10/10. MEDICAL/SURGICAL HISTORY: None. None. COMPARISON: No prior exams available for comparison. FINDINGS: Generalized soft tissue swelling. Osteopenia with minimal plantar spurring. Mild degenerative changes in the tarsals. No fracture. CONCLUSION: Osteopenia with generalized soft tissue swelling, no fracture Electronically signed by: Hugo Gonsales MD 11/17/2017 10:47 AM EDT
--- NOTE | 2017-11-17 10:50 | XR ---
EXAM DATE: 11/17/2017 10:45 AM EDT AGE/SEX: 72 years / Female INDICATIONS: Left foot pain, no injury. CLINICAL DATA: This is the patient's initial encounter. Patient reports that signs and symptoms have been present for 1 week and indicates a pain score of 10/10. MEDICAL/SURGICAL HISTORY: None. None. COMPARISON: [facility], ANKLE COMPLETE LEFT MIN 3V, 11/17/2017. . FINDINGS: Marked soft tissue swelling with osteopenia. Anatomic alignment. No fracture. CONCLUSION: Marked soft tissue swelling without fracture. Electronically signed by: Hugo Gonsales MD 11/17/2017 10:49 AM EDT
--- NOTE | 2017-11-17 10:51 | XR ---
EXAM DATE: 11/17/2017 10:47 AM EDT AGE/SEX: 72 years / Female INDICATIONS: Right foot pain, fall. CLINICAL DATA: This is the patient's initial encounter. Patient reports that signs and symptoms have been present for 1 day and indicates a pain score of 10/10. MEDICAL/SURGICAL HISTORY: None. None. COMPARISON: [facility] – [place], FOOT RIGHT COMPLETE ([id number]), 03/01/2017. . FINDINGS: Osteopenia with moderate soft tissue swelling. Bone density normal alignment anatomic fracture not ap preciated. Minimal plantar spurring. CONCLUSION: Osteopenia with soft tissue swelling. Electronically signed by: Hugo Gonsales MD 11/17/2017 10:50 AM EDT
[2017-11-17] MEDS ORDERED: Mag Sulf 1 gm/100 ml Premix 100 ML IV.SIG ONE (11:30)
[2017-11-17 11:52] LABS: Hematocrit 25.7 % (35.0-46.0); Hemoglobin 8.7 gm/dL (11.6-15.3)
[2017-11-17] MEDS ORDERED: Potassium Phosphate Inj 30 MMOL in Sodium Chlor 0.9% Inj 250 ML IV.SIG ONE (12:00)
[2017-11-17] MEDS ORDERED: Calcium Chloride Inj 1 GM in Dextrose 5% in Water Inj 100 ML IV.SIG ONE ×2 (12:30)
[2017-11-17 13:57] LABS: Reticulocyte Percent 2.5 % (0.4-3.0)
[2017-11-17 17:13] LABS: Folate 8.9 ng/mL (3.1-17.5)
--- NOTE | 2017-11-17 19:03 | MB ---
cc: Jay Foreman DPM DATE: 11/17/2017 REASON FOR CONSULTATION: Diffuse pain and swelling, bilateral feet and ankle. HISTORY OF PRESENT ILLNESS: This is a pleasant 72-year-old female who had worsening abdominal pain and diarrhea. I was consulted because she was having issues walking; however, in the last 24 hours, it significantly improved. The patient does have a history of seeing a talent development coordinator, at [facility], for toenail trimming and was diagnosed with arthritis of her feet. She denies any obvious incident or injury associated with the onset of her foot pain. Her vomiting has actually gotten better as well. PAST MEDICAL HISTORY: History of anxiety, CHF, COPD, hypertension, and apparently onychomycosis, needing nail trimming from podiatry outpatient. SOCIAL HISTORY: History of cigarettes. Light alcohol use, monthly or less. No substance abuse. She lives with her . OUTPATIENT MEDICATIONS: Reviewed. INPATIENT MEDICATIONS: Also reviewed. She is on Levaquin. ALLERGIES: NO KNOWN DRUG ALLERGIES. PHYSICAL EXAMINATION: VITAL SIGNS: Temperature 97.9, pulse rate 70, respiratory rate 18, blood pressure 138/62. She is sating 98% on room air. GENERAL: This is an alert and oriented female seen at bedside, exhibiting nonlabored respirations. EXTREMITIES: Bilateral lower extremities are examined. There is noted to be mild 2+ pitting edema of the dorsum of the foot to pretibial area; however, no obvious crepitus and stability. No increased warmth. No signs of infection, cellulitis. Upon attempting range of motion, there is good range of motion of the ankle bilateral with minimal pain. There is pain upon palpating the bilateral Lisfranc joint, but this is minimal. The patient has mildly thickened toenails; however, no obvious signs of infection or pain. Pedal pulses are palpable. Sensation is intact. LABORATORY FINDINGS: White blood cell 6.5, hemoglobin and hematocrit 8 and 25, platelet count is 188. Chem-7: Sodium 144, potassium 4.0, chloride 116, CO2 of 17.6, BUN is 10, creatinine is 0.96. Random glucose is 92, calcium is 6.1, total protein is 5.5, vitamin D 25-hydroxy is 23.6. IMAGING STUDIES: X-rays bilateral feet and ankles. Diffuse osteopenia noted with moderate decreased joint space narrowing at the level of the bilateral Lisfranc joint. Mild asymmetric joint space narrowing of the medial and lateral gutter of the ankle joint; however, no obvious signs of fracture, tumor or malalignment. ASSESSMENT AND PLAN: Bilateral Lisfranc osteoarthritis with edema of the bilateral lower extremities. My recommendation is continued range of motion, physical therapy. The patient may benefit from an anti-inflammatory such as a brief Medrol Dosepak; however, given the patient has significantly improved in the last 24 hours, observation is only indicated at this point. Please reconsult as needed. ELFEGO Gutierrez/KOFI , 06:48 PM , 07:01 PM
[2017-11-17 22:16] LABS: Calcium 7.9 mg/dL (8.5-10.1); Carbon Dioxide 18.9 meq/L (21.0-32.0); Phosphorus 2.7 mg/dL (2.5-4.9); Potassium 4.9 meq/L (3.5-5.1)
[2017-11-18] MEDS: Temazepam 15 MG Capsule PO PRN (00:14)
[2017-11-18 03:51] LABS: Creatinine Urine 28 mg/dL (20-320)
[2017-11-18] MEDS: LORazepam 0.5 MG Tablet PO SCH ×3 (06:17→20:37)
[2017-11-18 06:19] LABS: Baso % (Auto) 0.5 % (0.0-2.0); Eos # (Auto) 0.1 th/mm3 (0.0-0.4); Hematocrit 23.4 % (35.0-46.0); Hemoglobin 8.1 gm/dL (11.6-15.3); Lymph # (Auto) 1.6 th/mm3 (1.0-4.8); Lymph % (Auto) 23.2 % (9.0-44.0); Mean Corpuscular HGB Conc 34.6 % (32.0-36.0); Mean Corpuscular Hemoglobin 31.8 pg (27.0-34.0); Mean Corpuscular Volume 91.9 fL (80.0-100.0); Mean Platelet Volume 8.3 fL (7.0-11.0); Mono # (Auto) 0.5 th/mm3 (0.0-0.9); Mono % (Auto) 7.6 % (0.0-8.0); Neut # (Auto) 4.7 th/mm3 (1.8-7.7); Neut % (Auto) 66.7 % (16.0-70.0); Platelet Count 211 th/mm3 (150-450); Red Blood Count 2.55 mil/mm3 (4.00-5.30); Red Cell Distribution Width 13.8 % (11.6-17.2)
[2017-11-18] MEDS: metroNIDAZOLE 500 MG Tablet PO SCH ×3 (06:28→21:41)
[2017-11-18] MEDS: Magnesium Oxide 400 MG Tablet PO SCH ×2 (08:07→20:36)
[2017-11-18] MEDS: levoFLOXacin 750 MG Tablet PO SCH (08:07)
[2017-11-18] MEDS: Calcium Carbonate 500 MG Tablet PO SCH ×2 (08:07→20:37)
[2017-11-18] MEDS: Montelukast 10 MG Tablet PO SCH (08:07)
[2017-11-18] MEDS: Pantoprazole Sodium 20 MG DR Tablet PO SCH (08:08)
[2017-11-18 08:15] LABS: Alanine Aminotransferase 12 U/L (10-53); Albumin 2.4 g/dL (3.4-5.0); Alkaline Phosphatase 52 U/L (45-117); Anion Gap 11 meq/L (5-15); Aspartate Aminotransferase 13 U/L (15-37); Blood Urea Nitrogen 10 mg/dL (7-18); Calcium 7.9 mg/dL (8.5-10.1); Carbon Dioxide 20.2 meq/L (21.0-32.0); Chloride 112 meq/L (98-107); Glomerular Filtration Rate 52 mL/min (>89); Glucose,Random 96 mg/dL (74-106); Magnesium 1.6 mg/dL (1.5-2.5); Phosphorus 2.3 mg/dL (2.5-4.9); Potassium 4.6 meq/L (3.5-5.1); Sodium 143 meq/L (136-145)
[2017-11-18] MEDS ORDERED: Mag Sulf 1 gm/100 ml Premix 100 ML IV.SIG ONE (09:10)
--- NOTE | 2017-11-18 09:35 | P.PNFP ---
Addendum entered and electronically signed by Jessica Buenrostro MD, R2 11/18/17 10:35: Prescription Drug Monitoring site reviewed and notable for regular scripts for this medication from the [facility] family and sports medicine clinic providers only for Tramadol and Lorazepam. Tramadol discontinued at discharge, given Avenel was prescribed. 3 day supply of Avenel 5-325mg tabs were given at discharge (18 tabs). She may continue her chronic pain medication which has already been prescribed to her if indicated after she completes acute pain medications. She is consulted to preference acetaminophen for pain control if tolerated. Recommending routine f/u with her body builder as well as PCP and GI as outpt. Last outpatient script for Tramadol 50mg tablets was filled 11/01/2017 with 120 tablets. Last outpatient script for Lorazepam 0.5 mg tablets was filled 09/21/2017 with 90 tablets. Original Note: Subjective Interval history: Patient was seen and examined this morning. She has been moved to [address] [place] [address] and notes she has had no acute issues. She reports that she worked with physical therapy and ambulated a little bit more yesterday. Podiatry did evaluate patient regarding her bilateral foot and discussed recommendations with her. She states the pain is improved this morning but she is taking Avenel. The patient denies fevers, chills, nausea, vomiting, headaches , chest pain, abdominal pain, lower extremity edema. She had 2 bowel movements , well formed, in the last 24 hours. She picked 2 rehab facilities yesterday and case management has sent her information to these locations. <Jessica Buenrostro - 11/18/17 09:34> Results - Labs Result diagrams: 11/18/17 05:45 11/19/17 07:01 <Joanna Chavez - 11/19/17 12:18> Abnormal lab results 11/18/17 11/19/17 Range/Units 20:05 07:01 Chloride 111 H (98-107) meq/L Estimated GFR 58 L (>89) mL/min Calcium 8.2 L (8.5-10.1) mg/dL Magnesium 1.3 L 1.3 L (1.5-2.5) mg/dL Albumin 2.5 L (3.4-5.0) g/dL BMP 11/19/17 07:01 Sodium 143 Potassium 4.6 Chloride 111 H Carbon Dioxide 23.1 BUN 14 Creatinine 0.95 Calcium 8.2 L Liver Function 11/19/17 Range/Units 07:01 Albumin 2.5 L (3.4-5.0) g/dL <Joanna Chavez - 11/19/17 12:18> Abnormal lab results 11/16/17 11/17/17 11/17/17 Range/Units 06:00 10:36 21:28 RBC (4.00-5.30) mil/mm3 Hgb 8.7 L (11.6-15.3) gm/dL Hct 25.7 L (35.0-46.0) % Chloride 112 H (98-107) meq/L Carbon Dioxide 18.9 L (21.0-32.0) meq/L Creatinine 1.14 H (0.50-1.00) mg/dL Estimated GFR 47 L (>89) mL/min Calcium 7.9 L D (8.5-10.1) mg/dL Phosphorus (2.5-4.9) mg/dL AST (15-37) U/L Total Protein (6.4-8.2) g/dL Albumin (3.4-5.0) g/dL Ur Random Magnesium 18 L (22-130) 11/18/17 11/18/17 Range/Units 05:45 05:45 RBC 2.55 L (4.00-5.30) mil/mm3 Hgb 8.1 L (11.6-15.3) gm/dL Hct 23.4 L (35.0-46.0) % Chloride 112 H (98-107) meq/L Carbon Dioxide 20.2 L (21.0-32.0) meq/L Creatinine 1.05 H (0.50-1.00) mg/dL Estimated GFR 52 L (>89) mL/min Calcium 7.9 L (8.5-10.1) mg/dL Phosphorus 2.3 L (2.5-4.9) mg/dL AST 13 L (15-37) U/L Total Protein 6.0 L (6.4-8.2) g/dL Albumin 2.4 L (3.4-5.0) g/dL Ur Random Magnesium (22-130) Short CBC 11/17/17 11/18/17 Range/Units 10:36 05:45 WBC 7.0 (4.0-11.0) th/mm3 Hgb 8.7 L 8.1 L (11.6-15.3) gm/dL Hct 25.7 L 23.4 L (35.0-46.0) % Plt Count 211 (150-450) th/mm3 BMP 11/17/17 11/18/17 21:28 05:45 Sodium 142 143 Potassium 4.9 D 4.6 Chloride 112 H 112 H Carbon Dioxide 18.9 L 20.2 L BUN 11 10 Creatinine 1.14 H 1.05 H Calcium 7.9 L D 7.9 L Liver Function 11/18/17 Range/Units 05:45 Total Bilirubin 0.3 (0.2-1.0) mg/dL AST 13 L (15-37) U/L ALT 12 (10-53) U/L Alkaline Phosphatase 52 (45-117) U/L Albumin 2.4 L (3.4-5.0) g/dL <Jessica Buenrostro - 11/18/17 09:34> - Imaging Impressions Ankle X-Ray 11/17/17 00:00 CONCLUSION: Osteopenia with generalized soft tissue swelling, no fracture Ankle X-Ray 11/17/17 00:00 CONCLUSION: Generalized soft tissue swelling, no fracture Foot X-Ray 11/17/17 00:00 CONCLUSION: Marked soft tissue swelling without fracture. Foot X-Ray 11/17/17 00:00 CONCLUSION: Osteopenia with soft tissue swelling. <Jessica Bunerostro - 11/18/17 09:34> Physical Exam Vital signs: Vital Signs 11/18/17 16:00 11/18/17 17:50 11/18/17 20:00 Temperature 97.6 F 97.5 F L Pulse Rate 88 90 Respiratory Rate 18 18 18 Blood Pressure 116/67 135/78 Pulse Oximetry 99 100 11/19/17 00:00 11/19/17 08:00 11/19/17 08:37 Temperature 97.6 F 96.5 F L Pulse Rate 84 91 H Respiratory Rate 20 12 18 Blood Pressure 150/72 H 106/66 Pulse Oximetry 96 97 Intake & Output 11/18/17 11/19/17 11/19/17 18:59 06:59 18:59 Intake Total 780 / 780 Output Total 1200 / 1200 1700 / 1700 Balance 780 / 780 -1200 / -1200 -1700 / -1700 Intake: Oral 780 / 780 Output: Urine 1200 / 1200 1700 / 1700 Other: # Voids 5 Date of Last Bowel Movement 11/17/17 11/18/17 11/18/17 # Bowel Movements 3 <Joanna Chavez M - 11/19/17 12:18> Vital Signs 11/17/17 12:47 11/17/17 16:40 11/17/17 20:00 Temperature 97.2 F L 97.9 F 98.0 F Pulse Rate 68 70 94 H Respiratory Rate 20 18 18 Blood Pressure 128/62 138/62 124/56 L Pulse Oximetry 98 100 11/18/17 00:00 Temperature 97.5 F L Pulse Rate 92 H Respiratory Rate 18 Blood Pressure 137/60 Pulse Oximetry 98 Intake & Output 11/17/17 11/18/17 11/18/17 18:59 06:59 18:59 Intake Total 710 / 710 540 / 540 Balance 710 / 710 540 / 540 Weight 92.7 kg Intake: IV 710 / 710 NS + KCl 20 mEq Inj 1,000 ML @ 500 / 500 84 mls/hr IV.CONT .[id number] [facility] Rx#:[id number] Calcium Chloride Inj 1 GM In 110 / 110 D5W Inj 100 ML @ 110 mls/hr IV. SIG ONCE ONE Rx#:[id number] Magnesium Sulfate 1 gm/D5W 100 100 / 100 ml Premix 100 ML @ 100 mls/hr IV.SIG ONCE ONE Rx#:[id number] Oral 540 / 540 Other: # Voids 3 Date of Last Bowel Movement 11/15/17 11/16/17 # Bowel Movements 2 <Jessica Buenrostro - 11/18/17 09:34> Narrative: GENERAL: Patient lying in bed comfortably. SCDs in place. SKIN: Warm and dry. No rashes or ecchymoses noted HEAD: Atraumatic. Normocephalic. EYES: Pupils equal and round. EOMI. ENT: No nasal bleeding or discharge. Mucous membranes are pink and moist. Poor dentition noted. NECK: Full range of motion. CARDIOVASCULAR: Normal rhythm. Mildly tachycardic RESPIRATORY: No accessory muscle use. Clear to auscultation without wheezes or rhonchi. GASTROINTESTINAL: Abdomen obese, normoactive bowel sounds, nontender. No masses on palpation, soft. MUSCULOSKELETAL: Extremities without clubbing, cyanosis, edema, or obvious deformity aside mild internal rotation bilaterally. Palpation reveals bilateral tenderness to palpation over the medial arch of each foot, a little worse on the right. She also has tenderness over the top of the foot and moderate tenderness of the ankle. Limited range of motion at ankle and this elicits pain as well. Loss of ankle landmarks due to swelling is noted. NEUROLOGICAL: Awake and alert. No obvious cranial nerve deficits. Motor grossly within normal limits. Grossly normal ROM of UE and LE bilaterally. Strength difficult to assess in LEs due to pain but full in UEs. Normal speech. No tetany or abnormal reflexes noted PSYCHIATRIC: Appropriate mood and affect; insight and judgment normal. <Jessica Buenrostro - 11/18/17 09:34> Assessment and Plan - Assessment (1) Anemia Code(s): D64.9 - Anemia, unspecified Status: Acute (2) Hypocalcemia Code(s): E83.51 - Hypocalcemia Status: Acute (3) Hypomagnesemia Code(s): E83.42 - Hypomagnesemia Status: Acute (4) Diverticulitis Code(s): K57.92 - Diverticulitis of intestine, part unspecified, without perforation or abscess without bleeding Status: Acute (5) Abnormal CT of the abdomen Code(s): R93.5 - Abnormal findings on diagnostic imaging of other abdominal regions, including retroperitoneum Status: Acute (6) Osteoarthritis of feet, bilateral Code(s): M19.071 - Primary osteoarthritis, right ankle and foot; M19.072 - Primary osteoarthritis, left ankle and foot Status: Acute (7) UTI due to Klebsiella species Code(s): N39.0 - Urinary tract infection, site not specified; B96.1 - Klebsiella pneumoniae [K. pneumoniae] as the cause of diseases classified elsewhere Status: Acute (8) Acute kidney injury superimposed on CKD Code(s): N17.9 - Acute kidney failure, unspecified; N18.9 - Chronic kidney disease, unspecified Status: Resolved (9) COPD (chronic obstructive pulmonary disease) Code(s): J44.9 - Chronic obstructive pulmonary disease, unspecified Status: Chronic (10) CHF (congestive heart failure) Code(s): I50.9 - Heart failure, unspecified Status: Chronic (11) HTN (hypertension) Code(s): I10 - Essential (primary) hypertension Status: Chronic (12) Anxiety Code(s): F41.9 - Anxiety disorder, unspecified Status: Chronic <Joanna Chavez - 11/19/17 12:18> (1) Anemia Code(s): D64.9 - Anemia, unspecified Status: Acute Plan: Asymptomatic. No evidence of acute blood loss given hemoccult is negative on , reticulocyte count is normal, the anemia is normocytic with normal MCH. She is noted to have a high ferritin value with low iron and TIBC. Admitting diagnosis noted to be diverticulitis, however, hemoccult is negative and stools are reportedly not melenic or bloody. Plan to recheck CBC as an outpatient in 3 days Other workup notable: B12 normal, folate normal, PTH 70.9, vitamin D normal at 57pg/ml (nl 18-78). Hemoglobin ranging from 12.2 on 11/13 2 7.3 on 11/17. Suspect spurious result with bladder value as 4 hour repeat was 8.7. Today hemoglobin is 8.1. For this patient goal hemoglobin is greater than 8 given cardiac history however given she is asymptomatic do not suspect urgent intervention is needed. If patient does require transfusion caution volume overload given history of CHF Type and screen was drawn 11/17 in case patient needs blood transfusion. (2) Hypocalcemia Code(s): E83.51 - Hypocalcemia Status: Acute Plan: Resolved per labs at this time. We will continue magnesium oxide and calcium carbonate at discharge Plan to recheck BMP, magnesium, and phosphorus levels in 3 days Medications: Calcium carbonate p.o. 1000 mg twice daily with additional 500 mg p.o. dose given on 11/16. (11/14-current) Calcium gluconate 1 g IV 1 on 11/15 Calcium chloride 1 g IV 1 on 11/17 Aggressive Magnesium management Impression/Course: On admission calcium 6.1 with normal albumin and protein levels. Calcium has been serially monitored. Asymptomatic. Nephrology consulted, appreciate assistance; PPI therapy suspected etiology for malabsorption of dietary calcium Continue PO Calcium carbonate 1000mg BID. She is status post PO and IV repletion as noted. Goal potassium greater than 7.5 at this time, as p.o. repletion may be safely continued at that time. Assess magnesium and vitamin D levels - both low, to replete (3) Hypomagnesemia Code(s): E83.42 - Hypomagnesemia Status: Acute Plan: Aggressive magnesium management given hypocalcemia. JESUS ALBERTO has resolved but continue to monitor renal fx given electrolyte repletion Magnesium 0.4 on 11/15, 1.6 on 11/18 Of note patient is on Levaquin and it is necessary to allow 2-4 hr spacing between this antibiotic and magnesium to improve absorption At discharge, recommend dietary adjustments (e.g., brush loader and handle attacher support) or transitioning to magnesium citrate oral supplementation given increased bioavailable per literature. Caution with use in patients with CHF Will continue magnesium oxide at discharge Medications: Magnesium oxide 400 mg p.o. twice daily (11/16-current) Magnesium sulfate 1 g IV 11/16 Magnesium sulfate 1 g IV 11/17 (4) Diverticulitis Code(s): K57.92 - Diverticulitis of intestine, part unspecified, without perforation or abscess without bleeding Status: Acute Plan: Abdominal Pain resolved. Management as below Impression/Course: Presented with abdominal pain, found to have diverticulitis on CT. She also did have a questionable area, possible lesion in her small bowel. -Levaquin 750 mg daily - to complete 10 days -Flagyl 500 mg daily - to complete 10 days -Tolerating heart healthy diet -Appreciate GI recommendations. Plan is to repeat CT in 2-3 weeks as outpatient (5) Abnormal CT of the abdomen Code(s): R93.5 - Abnormal findings on diagnostic imaging of other abdominal regions, including retroperitoneum Status: Acute Plan: CT abdomen on 11/10 report states "Abnormal small bowel left lower quadrant without obstruction. Malignancy is not excluded" -GI notes they will follow-up CT as an outpatient in 2-3 weeks, patient aware (6) Osteoarthritis of feet, bilateral Code(s): M19.071 - Primary osteoarthritis, right ankle and foot; M19.072 - Primary osteoarthritis, left ankle and foot Status: Acute Plan: Podiatry consulted, with diagnosis of bilateral Lisfranc osteoarthritis and soft tissue swelling, recommending ROM and PT which is amenable to previous discharge planning at rehab X-rays of bialteral foot and ankle 11/17 showing osteopenia, mild spurring, and soft tissue swelling PT of note recommending rehab, pt has body builder as outpatient. Impression/Course: She is noted to have x-ray of the right foot on 03/01/17 showing mild to moderate osteopenia, mild to moderate bone spur, no acute fracture. If symptoms persist we will consider x-ray of bilateral foot and I would also consider podiatry consultation. PT ordered and recommending rehab. Pain control with acetaminophen pain 1-5 , Avenel 5/325 pain 6-10, with morphine IV for breakthrough pain (7) UTI due to Klebsiella species Code(s): N39.0 - Urinary tract infection, site not specified; B96.1 - Klebsiella pneumoniae [K. pneumoniae] as the cause of diseases classified elsewhere Status: Acute Plan: Patient with UA which was abnormal on admission, with culture showing Klebsiella UTI. She is asymptomatic. She has been on Levaquin and Flagyl this hospitalization. Will likely continue Levaquin as species appears to be sensitive to this to complete 7 day course given diverticulitis however UTI itself would only require 3 day course (8) Acute kidney injury superimposed on CKD Code(s): N17.9 - Acute kidney failure, unspecified; N18.9 - Chronic kidney disease, unspecified Status: Resolved Plan: Creatinine 1.05 today, wnl. DC'd IVF 11/17. Restart home dose Lasix as outpatient Impression/Course: Creatinine was 2.11 on admission 11/13. Patient received normal saline at 125 cc/ hour over the last 24 hours. Given CHF we reduced rate to 84cc/hr on 11/16. Transition to PO hydration only on 11/17 Restart ACEI 11/17. Continue to hold Lasix If she becomes short of breath or develops any pulmonary edema she can easily be given some IV Lasix (9) COPD (chronic obstructive pulmonary disease) Code(s): J44.9 - Chronic obstructive pulmonary disease, unspecified Status: Chronic Plan: History of COPD -Continue home medications montelukast (10) CHF (congestive heart failure) Code(s): I50.9 - Heart failure, unspecified Status: Chronic Plan: History of CHF -Continue home medications aspirin, hold furosemide for now (11) HTN (hypertension) Code(s): I10 - Essential (primary) hypertension Status: Chronic Plan: History of hypertension -Continue home medications amlodipine 10mg. Lisinopril 40mg to restart 11/17 (12) Anxiety Code(s): F41.9 - Anxiety disorder, unspecified Status: Chronic Plan: History of anxiety -Continue home medications lorazepam 0.5 mg every 8 hours as needed <Jessica Buenrostro - 11/18/17 08:50> - Assessment and Plan The exam, history, and the medical decision-making described in the above note were completed with the assistance of the resident physician. I reviewed and agree with the findings presented. I attest that I had a [id number] encounter with the patient on the same day, and personally performed and documented my assessment and findings in the medical record. Unsure exactly why she has been admitted to the hospital multiple times with similar electrolyte abnormalities. She has had diarrhea on and off for some months and has been seen by GI. She even according to her previous records had a small bowel follow-through. However her CT scan is abnormal. Nephrology is evaluating her to determine if her electrolyte losses are due to her renal problem. However with her diarrhea and her abnormality on T of her intestines that seems the more likely problem. <Joanna Chavez M - 11/19/17 12:18> 72-year-old female with past history of CHF, COPD, HTN, who presented for abdominal pain, found to have diverticulitis without abscess. She is under admit status with continued workup of lab dyscrasias (anemia, hypocalcemia, hypomagnesemia, hypophosphatemia). <Jessica Buenrostro - 11/18/17 09:34> Discharge Planning: Patient stable for discharge 11/18, pending SNF placement. Will place order discharge today and remove if no placement can be secured today. 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 <Jessica Buenrostro - Last Filed: 11/18/17 08:50> (10) CHF (congestive heart failure) Qualifiers: Heart failure type: systolic Heart failure chronicity: chronic Qualified Code(s): I50.22 - Chronic systolic (congestive) heart failure (11) HTN (hypertension) Qualifiers: Hypertension type: essential hypertension Qualified Code(s): I10 - Essential (primary) hypertension <Joanna Chavez - Last Filed: 11/19/17 12:18> (1) Anemia Qualifiers: Anemia type: other cause Other causes of anemia: sideroblastic, secondary to disease Qualified Code(s): 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
--- NOTE | 2017-11-18 10:13 | P.DS ---
Date of admission: 11/13/17 14:39 Primary care physician: Toñito Gong MD - [facility] Brief History from admission: Mrs. Townsend is a 72-year-old female with past history of CHF, COPD, HTN, who presented for abdominal pain. She reports that at approximately 3 AM she woke up and was dizzy, shaky, mild sweatiness, chills, had a single episode of yellow watery diarrhea without blood, had cough productive of white mucus and noted abdominal pain in the center of her abdomen. She states the pain is a cramping sensation, has been present in one spot for the entire time, is rated a 10/10. She did not take any medications to alleviate any of her symptoms which all started this morning. She denies headache, change in vision, coughing up blood, chest pain, arm or jaw pain, vomiting, fever. at approximately 6 AM she was brought by [facility] to the hospital. No other complaints today. She had multiple bouts of vomiting and was clinically dehydrated. Ms. Townsend had her blood pressure medicine held as her blood pressures were low today. She is feeling improved since admission. Her abdominal pain had been 10 out of 10 and today it is 1-2 out of 10. She is very thirsty and is starting clear liquids. She has had no further vomiting since coming she has had no further vomiting since coming to the hospital. DS: Diagnosis - Discharge Diagnosis (1) Anemia Status: Acute (2) Hypocalcemia Status: Acute (3) Hypomagnesemia Status: Acute (4) Diverticulitis Status: Acute (5) Abnormal CT of the abdomen Status: Acute (6) Osteoarthritis of feet, bilateral Status: Acute (7) UTI due to Klebsiella species Status: Acute (8) Acute kidney injury superimposed on CKD Status: Resolved (9) COPD (chronic obstructive pulmonary disease) Status: Chronic (10) CHF (congestive heart failure) Status: Chronic (11) HTN (hypertension) Status: Chronic (12) Anxiety Status: Chronic DS: Medications - Discharge Medications Prescriptions: hydrocodone-acetaminophen 1 tab PO Q4H PRN #18 tab PRN Reason: Breakthrough Pain lorazepam 0.5 mg PO Q8HR PRN #45 tab PRN Reason: Anxiety DS: Summary Hospital Course: 72-year-old female with past history of CHF, COPD, HTN, who presented for abdominal pain, found to have diverticulitis without abscess. Discharge Planning: Patient stable for discharge 11/18, pending SNF placement. Will place order discharge and remove if no placement can be secured today. Case mgmt consulted for placement assistance. Patient was seen and examined this morning 11/18. She has been moved to [address] [place] [address] and notes she has had no acute issues. She reports that she worked with physical therapy and ambulated a little bit more yesterday. Podiatry did evaluate patient regarding her bilateral foot and discussed recommendations with her. She states the pain is improved this morning but she is taking Hardin. The patient denies fevers, chills, nausea, vomiting, headaches, chest pain, abdominal pain, lower extremity edema. She had 2 bowel movements, well formed, in the last 24 hours. She picked 2 rehab facilities yesterday and case management has sent her information to these locations. Assessment and Plan (1) Anemia Code(s): D64.9 - Anemia, unspecified Status: Acute Plan: Asymptomatic. No evidence of acute blood loss given hemoccult is negative on , reticulocyte count is normal, the anemia is normocytic with normal MCH. She is noted to have a high ferritin value with low iron and TIBC. Admitting diagnosis noted to be diverticulitis, however, hemoccult is negative and stools are reportedly not melenic or bloody. Plan to recheck CBC as an outpatient in 3 days Other workup notable: B12 normal, folate normal, PTH 70.9, vitamin D normal at 57pg/ml (nl 18-78). Hemoglobin ranging from 12.2 on 11/13 2 7.3 on 11/17. Suspect spurious result with bladder value as 4 hour repeat was 8.7. Today hemoglobin is 8.1. For this patient goal hemoglobin is greater than 8 given cardiac history however given she is asymptomatic do not suspect urgent intervention is needed. If patient does require transfusion caution volume overload given history of CHF Type and screen was drawn 11/17 in case patient needs blood transfusion. (2) Hypocalcemia Code(s): E83.51 - Hypocalcemia Status: Acute Plan: Resolved per labs at this time. We will continue magnesium oxide and calcium carbonate at discharge Plan to recheck BMP, magnesium, and phosphorus levels in 3 days Medications: Calcium carbonate p.o. 1000 mg twice daily with additional 500 mg p.o. dose given on 11/16. (11/14-current) Calcium gluconate 1 g IV 1 on 11/15 Calcium chloride 1 g IV 1 on 11/17 Aggressive Magnesium management Impression/Course: On admission calcium 6.1 with normal albumin and protein levels. Calcium has been serially monitored. Asymptomatic. Nephrology consulted, appreciate assistance; PPI therapy suspected etiology for malabsorption of dietary calcium Continue PO Calcium carbonate 1000mg BID. She is status post PO and IV repletion as noted. Goal potassium greater than 7.5 at this time, as p.o. repletion may be safely continued at that time. Assess magnesium and vitamin D levels - both low, to replete (3) Hypomagnesemia Code(s): E83.42 - Hypomagnesemia Status: Acute Plan: Aggressive magnesium management given hypocalcemia. JESUS ALBERTO has resolved but continue to monitor renal fx given electrolyte repletion Magnesium 0.4 on 11/15, 1.6 on 11/18 Of note patient is on Levaquin and it is necessary to allow 2-4 hr spacing between this antibiotic and magnesium to improve absorption At discharge, recommend dietary adjustments (e.g., strategic buyer support) or transitioning to magnesium citrate oral supplementation given increased bioavailable per literature. Caution with use in patients with CHF Will continue magnesium oxide at discharge Medications: Magnesium oxide 400 mg p.o. twice daily (11/16-current) Magnesium sulfate 1 g IV 11/16 Magnesium sulfate 1 g IV 11/17 (4) Diverticulitis Code(s): K57.92 - Diverticulitis of intestine, part unspecified, without perforation or abscess without bleeding Status: Acute Plan: Abdominal Pain resolved. Management as below Impression/Course: Presented with abdominal pain, found to have diverticulitis on CT. She also did have a questionable area, possible lesion in her small bowel. -Levaquin 750 mg daily - to complete 10 days -Flagyl 500 mg daily - to complete 10 days -Tolerating heart healthy diet -Appreciate GI recommendations. Plan is to repeat CT in 2-3 weeks as outpatient (5) Abnormal CT of the abdomen Code(s): R93.5 - Abnormal findings on diagnostic imaging of other abdominal regions, including retroperitoneum Status: Acute Plan: CT abdomen on 11/10 report states "Abnormal small bowel left lower quadrant without obstruction. 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 Impression/Course: She is noted to have x-ray of the right foot on 03/01/17 showing mild to moderate osteopenia, mild to moderate bone spur, no acute fracture. If symptoms persist we will consider x-ray of bilateral foot and I would also consider podiatry consultation. PT ordered and recommending rehab. Pain control with acetaminophen pain 1-5 , Hardin 5/325 pain 6-10, with morphine IV for breakthrough pain while inpatient (7) UTI due to Klebsiella species Code(s): N39.0 - Urinary tract infection, site not specified; B96.1 - Klebsiella pneumoniae [K. pneumoniae] as the cause of diseases classified elsewhere Status: Acute Plan: Patient with UA which was abnormal on admission, with culture showing Klebsiella UTI. She is asymptomatic. She has been on Levaquin and Flagyl this hospitalization. Will likely continue Levaquin as species appears to be sensitive to this to complete 7 day course given diverticulitis however UTI itself would only require 3 day course (8) Acute kidney injury superimposed on CKD Code(s): N17.9 - Acute kidney failure, unspecified; N18.9 - Chronic kidney disease, unspecified Status: Resolved Plan: Creatinine 1.05 today, wnl. DC'd IVF 11/17. Restart home dose Lasix as outpatient Impression/Course: Creatinine was 2.11 on admission 11/13. Patient received normal saline at 125 cc/ hour over the last 24 hours. Given CHF we reduced rate to 84cc/hr on 11/16. Transition to PO hydration only on 11/17 Restart ACEI 11/17. Continue to hold Lasix If she becomes short of breath or develops any pulmonary edema she can easily be given some IV Lasix (9) COPD (chronic obstructive pulmonary disease) Code(s): J44.9 - Chronic obstructive pulmonary disease, unspecified Status: Chronic Plan: History of COPD -Continue home medications montelukast (10) CHF (congestive heart failure) Code(s): I50.9 - Heart failure, unspecified Status: Chronic Plan: History of CHF -Continue home medications aspirin, hold furosemide for now (11) HTN (hypertension) Code(s): I10 - Essential (primary) hypertension Status: Chronic Plan: History of hypertension -Continue home medications amlodipine 10mg. Lisinopril 40mg to restart 11/17 (12) Anxiety Code(s): F41.9 - Anxiety disorder, unspecified Status: Chronic Plan: History of anxiety -Continue home medications lorazepam 0.5 mg every 8 hours as needed Prescription Drug Monitoring site reviewed 11/18 and notable for regular scripts for this medication from the [facility] providers only for Tramadol and Lorazepam. Tramadol discontinued at discharge, given Hardin was prescribed. 3 day supply of Hardin 5-325mg tabs were given at discharge (18 tabs). She may continue her chronic pain medication which has already been prescribed to her if indicated after she completes acute pain medications. She is consulted to preference acetaminophen for pain control if tolerated. Recommending routine f/u with her casting house worker as well as PCP and GI as outpt. Last outpatient script for Tramadol 50mg tablets was filled 11/01/2017 with 120 tablets. Last outpatient script for Lorazepam 0.5 mg tablets was filled 09/21/2017 with 90 tablets. - Time Spent with Patient Total time spent providing and/or coordinating discharge services: - Quality: VTE Deep Vein Thrombosis/Pulmonary Embolism Present on Admission: No Exam Vital signs: Vital Signs 11/17/17 12:47 11/17/17 16:40 11/17/17 20:00 Temperature 97.2 F L 97.9 F 98.0 F Pulse Rate 68 70 94 H Respiratory Rate 20 18 18 Blood Pressure 128/62 138/62 124/56 L Pulse Oximetry 98 100 11/18/17 00:00 11/18/17 08:00 Temperature 97.5 F L 97.8 F Pulse Rate 92 H 86 Respiratory Rate 18 18 Blood Pressure 137/60 137/95 H Pulse Oximetry 98 99 Intake & Output 11/17/17 11/18/1711/18/18 18:59 06:59 18:59 Intake Total 710 / 710 540 / 540 Balance 710 / 710 540 / 540 Weight 92.7 kg Intake: IV 710 / 710 NS + KCl 20 mEq Inj 1,000 ML @ 500 / 500 84 mls/hr IV.CONT .[id number] [facility] Rx#:[id number] Calcium Chloride Inj 1 GM In 110 / 110 D5W Inj 100 ML @ 110 mls/hr IV. SIG ONCE ONE Rx#:[id number] Magnesium Sulfate 1 gm/D5W 100 100 / 100 ml Premix 100 ML @ 100 mls/hr IV.SIG ONCE ONE Rx#:[id number] Oral 540 / 540 Other: # Voids 3 Date of Last Bowel Movement 11/15/17 11/16/17 11/17/17 # Bowel Movements 2 Narrative: GENERAL: Patient lying in bed comfortably. SCDs in place. SKIN: Warm and dry. No rashes or ecchymoses noted HEAD: Atraumatic. Normocephalic. EYES: Pupils equal and round. EOMI. ENT: No nasal bleeding or discharge. Mucous membranes are pink and moist. Poor dentition noted. NECK: Full range of motion. CARDIOVASCULAR: Normal rhythm. Mildly tachycardic RESPIRATORY: No accessory muscle use. Clear to auscultation without wheezes or rhonchi. GASTROINTESTINAL: Abdomen obese, normoactive bowel sounds, nontender. No masses on palpation, soft. MUSCULOSKELETAL: Extremities without clubbing, cyanosis, edema, or obvious deformity aside mild internal rotation bilaterally. Palpation reveals bilateral tenderness to palpation over the medial arch of each foot, a little worse on the right. She also has tenderness over the top of the foot and moderate tenderness of the ankle. Limited range of motion at ankle and this elicits pain as well. Loss of ankle landmarks due to swelling is noted. NEUROLOGICAL: Awake and alert. No obvious cranial nerve deficits. Motor grossly within normal limits. Grossly normal ROM of UE and LE bilaterally. Strength difficult to assess in LEs due to pain but full in UEs. Normal speech. No tetany or abnormal reflexes noted PSYCHIATRIC: Appropriate mood and affect; insight and judgment normal. Results Procedures completed during hospitalization: None Labs on day of discharge: Labs from last 24 hours 11/18/17 11/18/17 11/17/17 05:45 05:45 21:28 WBC 7.0 RBC 2.55 L Hgb 8.1 L Hct 23.4 L MCV 91.9 MCH 31.8 MCHC 34.6 RDW 13.8 Plt Count 211 MPV 8.3 Neut % (Auto) 66.7 Lymph % (Auto) 23.2 Parker % (Auto) 7.6 Eos % (Auto) 2.0 Baso % (Auto) 0.5 Neut # (Auto) 4.7 Lymph # (Auto) 1.6 Parker # (Auto) 0.5 Eos # (Auto) 0.1 Baso # (Auto) 0.0 WBC Differential . Differential Comment Auto diff final Retic Count Absolute Retic Sodium 143 142 Potassium 4.6 4.9 D Chloride 112 H 112 H Carbon Dioxide 20.2 L 18.9 L Anion Gap 11 11 BUN 10 11 Creatinine 1.05 H 1.14 H Estimated GFR 52 L 47 L Random Glucose 96 99 Calcium 7.9 L 7.9 L D Phosphorus 2.3 L 2.7 Magnesium 1.6 Total Bilirubin 0.3 AST 13 L ALT 12 Alkaline Phosphatase 52 Total Protein 6.0 L Albumin 2.4 L PEP Pathologist Comment Vitamin B12 Vit D 1,25-Dihydroxy Folate Ur Random Magnesium Urine Creatinine [place] Interpretation Urine Immunofixation Blood Type Blood Type Recheck Antibody Screen 11/17/17 11/17/17 11/17/17 15:50 13:45 10:36 WBC RBC Hgb 8.7 L Hct 25.7 L MCV MCH MCHC RDW Plt Count MPV Neut % (Auto) Lymph % (Auto) Parker % (Auto) Eos % (Auto) Baso % (Auto) Neut # (Auto) Lymph # (Auto) Parker # (Auto) Eos # (Auto) Baso # (Auto) WBC Differential Differential Comment Retic Count 2.5 Absolute Retic 60.4 Sodium Potassium Chloride Carbon Dioxide Anion Gap BUN Creatinine Estimated GFR Random Glucose Calcium Phosphorus Magnesium Total Bilirubin AST ALT Alkaline Phosphatase Total Protein Albumin PEP Pathologist Comment Vitamin B12 Vit D 1,25-Dihydroxy Folate Ur Random Magnesium Urine Creatinine [place] Interpretation Urine Immunofixation Blood Type O Negative Blood Type Recheck Required Antibody Screen Negative 11/17/17 11/16/17 11/16/17 06:25 08:18 06:00 WBC RBC Hgb Hct MCV MCH MCHC RDW Plt Count MPV Neut % (Auto) Lymph % (Auto) Parker % (Auto) Eos % (Auto) Baso % (Auto) Neut # (Auto) Lymph # (Auto) Parker # (Auto) Eos # (Auto) Baso # (Auto) WBC Differential Differential Comment Retic Count Absolute Retic Sodium Potassium Chloride Carbon Dioxide Anion Gap BUN Creatinine Estimated GFR Random Glucose Calcium Phosphorus Magnesium Total Bilirubin AST ALT Alkaline Phosphatase Total Protein Albumin PEP Pathologist Comment Vitamin B12 256 Vit D 1,25-Dihydroxy Folate 8.9 Ur Random Magnesium Urine Creatinine [place] Interpretation Urine Immunofixation Blood Type Blood Type Recheck Antibody Screen 11/16/17 11/15/17 06:00 12:47 WBC RBC Hgb Hct MCV MCH MCHC RDW Plt Count MPV Neut % (Auto) Lymph % (Auto) Parker % (Auto) Eos % (Auto) Baso % (Auto) Neut # (Auto) Lymph # (Auto) Parker # (Auto) Eos # (Auto) Baso # (Auto) WBC Differential Differential Comment Retic Count Absolute Retic Sodium Potassium Chloride Carbon Dioxide Anion Gap BUN Creatinine Estimated GFR Random Glucose Calcium Phosphorus Magnesium Total Bilirubin AST ALT Alkaline Phosphatase Total Protein Albumin PEP Pathologist Comment Vitamin B12 Vit D 1,25-Dihydroxy 57 Folate Ur Random Magnesium 18 L Urine Creatinine 28 [place] Interpretation Urine Immunofixation Blood Type Blood Type Recheck Antibody Screen - Impressions ITS Impressions Abdomen/Pelvis CT 11/13/17 07:46 CONCLUSION: Short segment diverticulitis without abscess involving the distal descending colon. Abnormal small bowel left lower quadrant without obstruction. Malignancy is not excluded. Chest X-Ray 11/13/17 07:46 CONCLUSION: 1. Focal area of increased density in the right upper lung appears to be associated with the first costochondral junction and is probably degenerative. 2. Otherwise, lungs are clear with no acute infiltrate to explain current clinical symptoms. Abdomen/Bladder Ultrasound 11/15/17 20:23 CONCLUSION: 1. Bilateral renal cysts. 2. Right posterior lateral bladder diverticulum. Ankle X-Ray 11/17/17 00:00 CONCLUSION: Osteopenia with generalized soft tissue swelling, no fracture Foot X-Ray 11/17/17 00:00 CONCLUSION: Osteopenia with soft tissue swelling. Discharge Plan - Discharge Disposition Patient Disposition: 03 Discharge to SNF - Discharge Condition Condition: Stable - Discharge Order Discharge Orders: Discharge Order (Routine); Ordered 11/18/17 Ordered By: Jessica Buenrostro - Discharge Details Anticipated Discharge Date: 11/18/17 - Physicians Team Primary Care Provider: Primary Care [facility]ici,No Attending Provider: Joanna Chavez Other Providers: Gus Orr MD ; [employer],Insurance ; Ivette Borges MD ; Jay Velásquez DPM
--- NOTE | 2017-11-18 14:52 | P.PNNP ---
Subjective Interval history: Pt overall says she is feeling well. <Eva Hunt R - Last Filed: 11/18/17 14:40> Physical Exam Vital signs: Vital Signs 11/17/17 16:40 11/17/17 20:00 11/18/17 00:00 Temperature 97.9 F 98.0 F 97.5 F L Pulse Rate 70 94 H 92 H Respiratory Rate 18 18 18 Blood Pressure 138/62 124/56 L 137/60 Pulse Oximetry 98 100 98 11/18/17 08:00 11/18/17 12:00 Temperature 97.8 F 97.0 F L Pulse Rate 86 108 H Respiratory Rate 18 18 Blood Pressure 137/95 H 149/6 H Pulse Oximetry 99 99 Intake & Output 11/17/17 11/18/17 11/18/17 18:59 06:59 18:59 Intake Total 710 / 710 540 / 540 Balance 710 / 710 540 / 540 Weight 92.7 kg Intake: IV 710 / 710 NS + KCl 20 mEq Inj 1,000 ML @ 500 / 500 84 mls/hr IV.CONT .[id number] [facility] Rx#:[id number] Calcium Chloride Inj 1 GM In 110 / 110 D5W Inj 100 ML @ 110 mls/hr IV. SIG ONCE ONE Rx#:[id number] Magnesium Sulfate 1 gm/D5W 100 100 / 100 ml Premix 100 ML @ 100 mls/hr IV.SIG ONCE ONE Rx#:[id number] Oral 540 / 540 Other: # Voids 3 Date of Last Bowel Movement 11/15/17 11/16/17 11/17/17 # Bowel Movements 2 - Constitutional no acute distress - Routine HEENT Exam Head: Present: normocephalic - Routine Neck Exam Present: supple - Routine Respiratory Exam Present: CTA bilaterally - Routine Cardiovascular Exam Present: RRR, S1, S2 - Routine Abdominal Exam Present: soft, normoactive bowel sounds - Routine Skin Exam Present: intact - Routine Neurological Exam Present: alert, oriented X3 <Eva Hunt R - Last Filed: 11/18/17 14:40> Vital signs: Vital Signs 11/18/17 16:00 11/18/17 17:50 11/18/17 20:00 Temperature 97.6 F 97.5 F L Pulse Rate 88 90 Respiratory Rate 18 18 18 Blood Pressure 116/67 135/78 Pulse Oximetry 99 100 11/19/17 00:00 11/19/17 08:00 11/19/17 08:37 Temperature 97.6 F 96.5 F L Pulse Rate 84 91 H Respiratory Rate 20 12 18 Blood Pressure 150/72 H 106/66 Pulse Oximetry 96 97 11/19/17 12:00 Temperature 98.4 F Pulse Rate 96 H Respiratory Rate 12 Blood Pressure 133/60 Pulse Oximetry 100 Intake & Output 11/18/17 11/19/17 11/19/17 18:59 06:59 18:59 Intake Total 780 / 780 Output Total 1200 / 1200 1700 / 1700 Balance 780 / 780 -1200 / -1200 -1700 / -1700 Intake: Oral 780 / 780 Output: Urine 1200 / 1200 1700 / 1700 Other: # Voids 5 Date of Last Bowel Movement 11/17/17 11/18/17 11/18/17 # Bowel Movements 3 <Ivette Borges - Last Filed: 11/19/17 15:05> Assessment and Plan - Assessment (1) Acute kidney injury superimposed on CKD Code(s): N17.9 - Acute kidney failure, unspecified; N18.9 - Chronic kidney disease, unspecified Status: Resolved Plan: Baseline SCr as per previous admissions 1.1-1.3 likely related to sclerosis of hypertension and aging. Acute decline likely related to volume depletion 2/2 to diarrhea and poor oral intake coupled with continued diuretic use, ACEi, and reported Advil use at home. Acute renal insufficiency is improving with IV hydration. Renal ultrasound shows bilateral renal cysts otherwise unremarkable. Advised to utilize APAP at home for pain instead of NSAIDs. Medications should be adjusted for the patient's renal decline. Avoid nephrotoxic agents such as iodinated contrast dyes and NSAIDs. (2) Hypocalcemia Code(s): E83.51 - Hypocalcemia Status: Acute Plan: Suspect primarily related to hypomagnesemia. Vitamin D level however is also low. Supplement as ordered. (3) Hypomagnesemia Code(s): E83.42 - Hypomagnesemia Status: Acute Plan: Fractional excretion of magnesium calculated at 83% c/w renal wasting. Will check 24h urine quantification for further analysis. Consideration to be given to start Amiloride, but this can be done as outpatient if impending discharge. Would like 24h urine collection prior to discharge however. Levels normal at the present. Would still recommend consideration to discontinue PPI if GI agreeable as this can exacerbated hypomagnesemia. Suspected chronic hypomagnesemia is related to the use of the proton pump inhibitor. Urinary studies however still pending despite ordered. 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 Start on po iron. Would be prudent to check FOBT---will defer to primary team. (5) Diverticulitis Code(s): K57.92 - Diverticulitis of intestine, part unspecified, without perforation or abscess without bleeding Status: Acute Plan: Mgmt as per primary (6) HTN (hypertension) Code(s): I10 - Essential (primary) hypertension Status: Chronic Qualifiers: Hypertension type: essential hypertension Qualified Code(s): I10 - Essential (primary) hypertension Plan: Hold ACEi for the present. 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 I reviewed and agree with the findings presented. I attest that I had a [id number] encounter with the patient on the same day, and personally performed and documented my assessment and findings in the medical record. <Ivette Borges - Last Filed: 11/19/17 15:05>
[2017-11-18] MEDS: Ferrous Sulfate 325 MG Tablet PO SCH (17:20)
[2017-11-19] MEDS: metroNIDAZOLE 500 MG Tablet PO SCH ×4 (05:00→21:41)
[2017-11-19] MEDS: LORazepam 0.5 MG Tablet PO SCH ×3 (05:01→21:41)
[2017-11-19 07:49] LABS: Albumin 2.5 g/dL (3.4-5.0); Calcium 8.2 mg/dL (8.5-10.1); Carbon Dioxide 23.1 meq/L (21.0-32.0); Magnesium 1.3 mg/dL (1.5-2.5); Potassium 4.6 meq/L (3.5-5.1)
[2017-11-19] MEDS: levoFLOXacin 750 MG Tablet PO SCH (08:07)
[2017-11-19] MEDS: Ferrous Sulfate 325 MG Tablet PO SCH (08:07)
[2017-11-19] MEDS: Pantoprazole Sodium 20 MG DR Tablet PO SCH (08:07)
[2017-11-19] MEDS: Calcium Carbonate 500 MG Tablet PO SCH ×2 (08:07→21:41)
[2017-11-19] MEDS: Montelukast 10 MG Tablet PO SCH (08:07)
--- NOTE | 2017-11-19 09:09 | P.PNFP ---
Subjective Interval history: Patient was seen and examined this morning. She feels well. She is noting improvement in her bilateral foot pain and notes increased level of ambulation since yesterday. The patient denies fevers, chills, nausea, vomiting, headaches, chest pain, abdominal pain, lower extremity edema. <PorterJessica Abigail - 11/19/17 09:08> Results - Labs Result diagrams: 11/19/17 12:07 11/19/17 07:01 <Joanna Chavez - 11/19/17 14:37> Abnormal lab results 11/18/17 11/19/17 11/19/17 Range/Units 20:05 07:01 12:07 Hgb 9.3 L (11.6-15.3) gm/dL Hct 27.2 L (35.0-46.0) % Chloride 111 H (98-107) meq/L Estimated GFR 58 L (>89) mL/min Calcium 8.2 L (8.5-10.1) mg/dL Magnesium 1.3 L 1.3 L (1.5-2.5) mg/dL Albumin 2.5 L (3.4-5.0) g/dL Short CBC 11/19/17 Range/Units 12:07 Hgb 9.3 L (11.6-15.3) gm/dL Hct 27.2 L (35.0-46.0) % [facility] 11/19/17 07:01 Sodium 143 Potassium 4.6 Chloride 111 H Carbon Dioxide 23.1 BUN 14 Creatinine 0.95 Calcium 8.2 L Liver Function 11/19/17 Range/Units 07:01 Albumin 2.5 L (3.4-5.0) g/dL <Joanna Chavez - 11/19/17 14:37> Abnormal lab results 11/18/17 11/19/17 Range/Units 20:05 07:01 Chloride 111 H (98-107) meq/L Estimated GFR 58 L (>89) mL/min Calcium 8.2 L (8.5-10.1) mg/dL Magnesium 1.3 L 1.3 L (1.5-2.5) mg/dL Albumin 2.5 L (3.4-5.0) g/dL BMP 11/19/17 07:01 Sodium 143 Potassium 4.6 Chloride 111 H Carbon Dioxide 23.1 BUN 14 Creatinine 0.95 Calcium 8.2 L Liver Function 11/19/17 Range/Units 07:01 Albumin 2.5 L (3.4-5.0) g/dL <Jessica Buenrostro - 11/19/17 09:08> Physical Exam Vital signs: Vital Signs 11/18/17 16:00 11/18/17 17:50 11/18/17 20:00 Temperature 97.6 F 97.5 F L Pulse Rate 88 90 Respiratory Rate 18 18 18 Blood Pressure 116/67 135/78 Pulse Oximetry 99 100 11/19/17 00:00 11/19/17 08:00 11/19/17 08:37 Temperature 97.6 F 96.5 F L Pulse Rate 84 91 H Respiratory Rate 20 12 18 Blood Pressure 150/72 H 106/66 Pulse Oximetry 96 97 11/19/17 12:00 Temperature 98.4 F Pulse Rate 96 H Respiratory Rate 12 Blood Pressure 133/60 Pulse Oximetry 100 Intake & Output 11/18/17 11/19/17 11/19/17 18:59 06:59 18:59 Intake Total 780 / 780 Output Total 1200 / 1200 1700 / 1700 Balance 780 / 780 -1200 / -1200 -1700 / -1700 Intake: Oral 780 / 780 Output: Urine 1200 / 1200 1700 / 1700 Other: # Voids 5 Date of Last Bowel Movement 11/17/17 11/18/17 11/18/17 # Bowel Movements 3 <Joanna Chavez M - 11/19/17 14:37> Vital Signs 11/18/17 12:00 11/18/17 16:00 11/18/17 17:50 Temperature 97.0 F L 97.6 F Pulse Rate 108 H 88 Respiratory Rate 18 18 18 Blood Pressure 149/6 H 116/67 Pulse Oximetry 99 99 11/18/17 20:00 11/19/17 00:00 Temperature 97.5 F L 97.6 F Pulse Rate 90 84 Respiratory Rate 18 20 Blood Pressure 135/78 150/72 H Pulse Oximetry 100 96 Intake & Output 11/18/17 11/19/17 11/19/17 18:59 06:59 18:59 Intake Total 780 / 780 Output Total 1200 / 1200 1700 / 1700 Balance 780 / 780 -1200 / -1200 -1700 / -1700 Intake: Oral 780 / 780 Output: Urine 1200 / 1200 1700 / 1700 Other: # Voids 5 Date of Last Bowel Movement 11/17/17 11/18/17 11/18/17 # Bowel Movements 3 <Jessica Buenrostro - 11/19/17 09:08> Narrative: GENERAL: Patient lying in bed comfortably. SCDs in place. SKIN: Warm and dry. No rashes or ecchymoses noted HEAD: Atraumatic. Normocephalic. EYES: Pupils equal and round. EOMI. ENT: No nasal bleeding or discharge. Mucous membranes are pink and moist. Poor dentition noted. NECK: Full range of motion. CARDIOVASCULAR: Normal rhythm. Mildly tachycardic RESPIRATORY: No accessory muscle use. Clear to auscultation without wheezes or rhonchi. GASTROINTESTINAL: Abdomen obese, normoactive bowel sounds, nontender. No masses on palpation, soft. MUSCULOSKELETAL: Extremities without clubbing, cyanosis, edema, or obvious deformity aside mild internal rotation bilaterally. Reduced tenderness to palpation on bilateral dorsal and plantar foot and ankle with left foot soft tissue slightly more swollen than right but nontender. She continues to have limited range of motion at ankle and this elicits pain as well. Loss of ankle landmarks due to swelling is noted. NEUROLOGICAL: Awake and alert. No obvious cranial nerve deficits. Motor grossly within normal limits. Grossly normal ROM of UE and LE bilaterally. Strength difficult to assess in LEs due to pain but full in UEs. Normal speech. No tetany or abnormal reflexes noted PSYCHIATRIC: Appropriate mood and affect; insight and judgment normal. <Jessica Buenrostro - 11/19/17 09:08> Assessment and Plan - Assessment (1) Anemia Code(s): D64.9 - Anemia, unspecified Status: Acute (2) Hypocalcemia Code(s): E83.51 - Hypocalcemia Status: Acute (3) Hypomagnesemia Code(s): E83.42 - Hypomagnesemia Status: Acute (4) Diverticulitis Code(s): K57.92 - Diverticulitis of intestine, part unspecified, without perforation or abscess without bleeding Status: Acute (5) Abnormal CT of the abdomen Code(s): R93.5 - Abnormal findings on diagnostic imaging of other abdominal regions, including retroperitoneum Status: Acute (6) Osteoarthritis of feet, bilateral Code(s): M19.071 - Primary osteoarthritis, right ankle and foot; M19.072 - Primary osteoarthritis, left ankle and foot Status: Acute (7) UTI due to Klebsiella species Code(s): N39.0 - Urinary tract infection, site not specified; B96.1 - Klebsiella pneumoniae [K. pneumoniae] as the cause of diseases classified elsewhere Status: Acute (8) Acute kidney injury superimposed on CKD Code(s): N17.9 - Acute kidney failure, unspecified; N18.9 - Chronic kidney disease, unspecified Status: Resolved (9) COPD (chronic obstructive pulmonary disease) Code(s): J44.9 - Chronic obstructive pulmonary disease, unspecified Status: Chronic (10) CHF (congestive heart failure) Code(s): I50.9 - Heart failure, unspecified Status: Chronic (11) HTN (hypertension) Code(s): I10 - Essential (primary) hypertension Status: Chronic (12) Anxiety Code(s): F41.9 - Anxiety disorder, unspecified Status: Chronic <Joanna Chavez - 11/19/17 14:37> (1) Anemia Code(s): D64.9 - Anemia, unspecified Status: Acute Plan: Asymptomatic. No evidence of acute blood loss given hemoccult/FOBT is negative on 11/16, reticulocyte count is normal, the anemia is normocytic with normal MCH. She is noted to have a high ferritin value with low iron and TIBC. Admitting diagnosis noted to be diverticulitis, however, hemoccult is negative and stools are reportedly not melenic or bloody. Recheck H&H this morning 11/19 as we are awaiting urine studies, if stable we will still plan to recheck CBC as an outpatient in 3 days. Iron (ferrous sulfate 325mg) initiated once daily per nephrology yesterday. Will add stool softener. Given her hemoglobin was normal at admission she may require scope as outpatient if H&H does not improve. Other workup notable: B12 normal, folate normal, PTH 70.9, vitamin D normal at 57pg/ml (nl 18-78). Hemoglobin ranging from 12.2 on 11/13 2 7.3 on 11/17. Suspect spurious result with bladder value as 4 hour repeat was 8.7. Today hemoglobin is 8.1. For this patient goal hemoglobin is greater than 8 given cardiac history however given she is asymptomatic do not suspect urgent intervention is needed. If patient does require transfusion caution volume overload given history of CHF Type and screen was drawn 11/17 in case patient needs blood transfusion. (2) Hypocalcemia Code(s): E83.51 - Hypocalcemia Status: Acute Plan: Resolved per labs at this time. We will continue magnesium oxide and calcium carbonate at discharge Plan to recheck BMP, magnesium, and phosphorus levels in 3 days Medications: Calcium carbonate p.o. 1000 mg twice daily with additional 500 mg p.o. dose given on 11/16. (11/14-current) Calcium gluconate 1 g IV 1 on 11/15 Calcium chloride 1 g IV 1 on 11/17 Aggressive Magnesium management Impression/Course: On admission calcium 6.1 with normal albumin and protein levels. Calcium has been serially monitored. Asymptomatic. Nephrology consulted, appreciate assistance; PPI therapy suspected etiology for malabsorption of dietary calcium Continue PO Calcium carbonate 1000mg BID. She is status post PO and IV repletion as noted. Goal potassium greater than 7.5 at this time, as p.o. repletion may be safely continued at that time. Assess magnesium and vitamin D levels - both low, to replete (3) Hypomagnesemia Code(s): E83.42 - Hypomagnesemia Status: Acute Plan: 24 hr urine Mg pending, to be completed @ 1530 today, will f/u with nephrology regarding discharge planning Aggressive magnesium management given hypocalcemia. 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 Caution with use in patients with CHF Will continue magnesium oxide at discharge Medications: Magnesium oxide 400 mg p.o. twice daily (11/16-current) Magnesium sulfate 1 g IV 11/16 Magnesium sulfate 1 g IV 11/17 (4) Diverticulitis Code(s): K57.92 - Diverticulitis of intestine, part unspecified, without perforation or abscess without bleeding Status: Acute Plan: Abdominal Pain resolved. Management as below Impression/Course: Presented with abdominal pain, found to have diverticulitis on CT. She also did have a questionable area, possible lesion in her small bowel. -Levaquin 750 mg daily - to complete 10 days -Flagyl 500 mg daily - to complete 10 days -Tolerating heart healthy diet -Appreciate GI recommendations. Plan is to repeat CT in 2-3 weeks as outpatient (5) Abnormal CT of the abdomen Code(s): R93.5 - Abnormal findings on diagnostic imaging of other abdominal regions, including retroperitoneum Status: Acute Plan: CT abdomen on 11/10 report states "Abnormal small bowel left lower quadrant without obstruction. 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 Impression/Course: She is noted to have x-ray of the right foot on 03/01/17 showing mild to moderate osteopenia, mild to moderate bone spur, no acute fracture. If symptoms persist we will consider x-ray of bilateral foot and I would also consider podiatry consultation. PT ordered and recommending rehab. Pain control with acetaminophen pain 1-5 , Carson 5/325 pain 6-10, with morphine IV for breakthrough pain (7) UTI due to Klebsiella species Code(s): N39.0 - Urinary tract infection, site not specified; B96.1 - Klebsiella pneumoniae [K. pneumoniae] as the cause of diseases classified elsewhere Status: Acute Plan: Patient with UA which was abnormal on admission, with culture showing Klebsiella UTI. She is asymptomatic. She has been on Levaquin and Flagyl this hospitalization. Will likely continue Levaquin as species appears to be sensitive to this to complete 7 day course given diverticulitis however UTI itself would only require 3 day course (8) Acute kidney injury superimposed on CKD Code(s): N17.9 - Acute kidney failure, unspecified; N18.9 - Chronic kidney disease, unspecified Status: Resolved Plan: Creatinine 0.95 today, wnl. DC'd IVF 11/17. Restart home dose Lasix as outpatient Impression/Course: Creatinine was 2.11 on admission 11/13. Patient received normal saline at 125 cc/ hour over the last 24 hours. Given CHF we reduced rate to 84cc/hr on 11/16. Transition to PO hydration only on 11/17 Restart ACEI 11/17. Continue to hold Lasix If she becomes short of breath or develops any pulmonary edema she can easily be given some IV Lasix (9) COPD (chronic obstructive pulmonary disease) Code(s): J44.9 - Chronic obstructive pulmonary disease, unspecified Status: Chronic Plan: History of COPD -Continue home medications montelukast (10) CHF (congestive heart failure) Code(s): I50.9 - Heart failure, unspecified Status: Chronic Plan: History of CHF -Continue home medications aspirin, hold furosemide for now (11) HTN (hypertension) Code(s): I10 - Essential (primary) hypertension Status: Chronic Plan: History of hypertension -Continue home medications amlodipine 10mg. Lisinopril 40mg to restart 11/17 (12) Anxiety Code(s): F41.9 - Anxiety disorder, unspecified Status: Chronic Plan: History of anxiety -Continue home medications lorazepam 0.5 mg every 8 hours as needed <Jessica Buenrostro - 11/19/17 08:54> - Assessment and Plan 72-year-old female with past history of CHF, COPD, HTN, who presented for abdominal pain, found to have diverticulitis without abscess. She has significant electrolyte dyscrasias which were managed as noted above <Jessica Buenrostro - 11/19/17 09:08> Discharge Planning: Patient stable for discharge 11/18, pending SNF placement. Will place order discharge today and remove if no placement can be secured today. Case mgmt consulted 11/16 for placement assistance <Jessica Buenrostro - 11/19/17 09:08> - Attending Attestation The exam, history, and the medical decision-making described in the above note were completed with the assistance of the resident physician. I reviewed and agree with the findings presented. I attest that I had a [id number] encounter with the patient on the same day, and personally performed and documented my assessment and findings in the medical record. she has literally had many grams of iv mag and her levels remain low. appreciate help of Nephrology as she is not on diuretics that could cause this.wondering about some chronic diarrhea causing losses. 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 <Joanna Chavez - Last Filed: 11/19/17 14:37> (1) Anemia Qualifiers: Anemia type: other cause Other causes of anemia: sideroblastic, secondary to disease Qualified Code(s): 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 <Jessica Buenrostro - Last Filed: 11/19/17 08:54> (1) Anemia Qualifiers: Anemia type: other cause Other causes of anemia: sideroblastic, secondary to disease Qualified Code(s): 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 <Joanna Chavez - Last Filed: 11/19/17 14:37> (1) Anemia Qualifiers: Anemia type: other cause Other causes of anemia: sideroblastic, secondary to disease Qualified Code(s): 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
--- NOTE | 2017-11-19 12:13 | P.PNNP ---
Subjective Interval history: Overall feeling well. No new complaints. <HuntDemario marina R - Last Filed: 11/19/17 12:08> Physical Exam Vital signs: Vital Signs 11/18/17 16:00 11/18/17 17:50 11/18/17 20:00 Temperature 97.6 F 97.5 F L Pulse Rate 88 90 Respiratory Rate 18 18 18 Blood Pressure 116/67 135/78 Pulse Oximetry 99 100 11/19/17 00:00 11/19/17 08:00 11/19/17 08:37 Temperature 97.6 F 96.5 F L Pulse Rate 84 91 H Respiratory Rate 20 12 18 Blood Pressure 150/72 H 106/66 Pulse Oximetry 96 97 Intake & Output 11/18/17 11/19/17 11/19/17 18:59 06:59 18:59 Intake Total 780 / 780 Output Total 1200 / 1200 1700 / 1700 Balance 780 / 780 -1200 / -1200 -1700 / -1700 Intake: Oral 780 / 780 Output: Urine 1200 / 1200 1700 / 1700 Other: # Voids 5 Date of Last Bowel Movement 11/17/17 11/18/17 11/18/17 # Bowel Movements 3 - Constitutional no acute distress - Routine HEENT Exam Head: Present: normocephalic - Routine Neck Exam Present: supple - Routine Respiratory Exam Present: CTA bilaterally - Routine Cardiovascular Exam Present: RRR, S1, S2 - Routine Abdominal Exam Present: soft - Routine Extremities Exam Absent: edema - Routine Skin Exam Present: intact - Routine Neurological Exam Present: alert, oriented X3 - Routine Psychiatric Exam Present: normal affect, normal thought process <HuntDemario marina R - Last Filed: 11/19/17 12:08> Vital signs: Vital Signs 11/18/17 16:00 11/18/17 17:50 11/18/17 20:00 Temperature 97.6 F 97.5 F L Pulse Rate 88 90 Respiratory Rate 18 18 18 Blood Pressure 116/67 135/78 Pulse Oximetry 99 100 11/19/17 00:00 11/19/17 08:00 11/19/17 08:37 Temperature 97.6 F 96.5 F L Pulse Rate 84 91 H Respiratory Rate 20 12 18 Blood Pressure 150/72 H 106/66 Pulse Oximetry 96 97 11/19/17 12:00 Temperature 98.4 F Pulse Rate 96 H Respiratory Rate 12 Blood Pressure 133/60 Pulse Oximetry 100 Intake & Output 11/18/17 11/19/17 11/19/17 18:59 06:59 18:59 Intake Total 780 / 780 Output Total 1200 / 1200 1700 / 1700 Balance 780 / 780 -1200 / -1200 -1700 / -1700 Intake: Oral 780 / 780 Output: Urine 1200 / 1200 1700 / 1700 Other: # Voids 5 Date of Last Bowel Movement 11/17/17 11/18/17 11/18/17 # Bowel Movements 3 <Ivette Borges - Last Filed: 11/19/17 15:06> Assessment and Plan - Assessment (1) Acute kidney injury superimposed on CKD Code(s): N17.9 - Acute kidney failure, unspecified; N18.9 - Chronic kidney disease, unspecified Status: Resolved Plan: Baseline SCr as per previous admissions 1.1-1.3 likely related to sclerosis of hypertension and aging. Acute decline likely related to volume depletion 2/2 to diarrhea and poor oral intake coupled with continued diuretic use, ACEi, and reported Advil use at home. Advised to utilize APAP at home for pain instead of NSAIDs. Renal functions appear to be at baseline. Would be OK to discharge from renal standpoint after 24h urine collected. Was advise to f/u in office within 1-2 weeks. Was given card to contact office for appointment. Medications should be adjusted for the patient's renal decline. Avoid nephrotoxic agents such as iodinated contrast dyes and NSAIDs. (2) Hypocalcemia Code(s): E83.51 - Hypocalcemia Status: Acute Plan: Suspect primarily related to hypomagnesemia. Resolving. (3) Hypomagnesemia Code(s): E83.42 - Hypomagnesemia Status: Acute Plan: 24h urine results pending. To continue on po supplementation. 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 I reviewed and agree with the findings presented. <Ivette Borges - Last Filed: 11/19/17 15:06>
[2017-11-19] MEDS: Magnesium Oxide 400 MG Tablet PO SCH ×3 (12:36→22:46)
[2017-11-19 13:03] LABS: Hematocrit 27.2 % (35.0-46.0); Hemoglobin 9.3 gm/dL (11.6-15.3)
[2017-11-19] MEDS: Mag Sulf 1 gm/100 ml Premix 100 ML IV.SIG SCH ×2 (14:53→16:08)
[2017-11-20] MEDS: LORazepam 0.5 MG Tablet PO SCH (05:20)
[2017-11-20] MEDS: metroNIDAZOLE 500 MG Tablet PO SCH (05:20)
[2017-11-20] MEDS: levoFLOXacin 750 MG Tablet PO SCH (08:05)
[2017-11-20] MEDS: Pantoprazole Sodium 20 MG DR Tablet PO SCH (08:05)
[2017-11-20] MEDS: Montelukast 10 MG Tablet PO SCH (08:05)
[2017-11-20] MEDS: Calcium Carbonate 500 MG Tablet PO SCH (08:06)
[2017-11-20] MEDS: Ferrous Sulfate 325 MG Tablet PO SCH (08:06)
--- NOTE | 2017-11-20 08:33 | P.PNFP ---
Subjective Interval history: Patient seen and examined this morning. No concerns reported. She denies fevers, chills, n/v/d/c, abdominal pain, LE edema. <Jessica Buenrostro L - 11/20/17 08:33> Results - Labs Result diagrams: 11/19/17 12:07 11/19/17 07:01 <Joanna Chavez - 11/21/17 13:36> Abnormal lab results 11/19/17 Range/Units 12:07 Hgb 9.3 L (11.6-15.3) gm/dL Hct 27.2 L (35.0-46.0) % Short CBC 11/19/17 Range/Units 12:07 Hgb 9.3 L (11.6-15.3) gm/dL Hct 27.2 L (35.0-46.0) % <Jessica Buenrostro L - 11/20/17 08:33> Physical Exam Vital signs: Intake & Output 11/20/17 11/21/17 11/21/17 18:59 06:59 18:59 Intake Total 300 / 300 Balance 300 / 300 Intake: Oral 300 / 300 Other: Date of Last Bowel Movement 11/19/17 <Joanna Chavez Maria Teresa - 11/21/17 13:36> Vital Signs 11/19/17 08:37 11/19/17 12:00 11/19/17 16:00 Temperature 98.4 F 97.7 F Pulse Rate 96 H 94 H Respiratory Rate 18 12 16 Blood Pressure 133/60 121/55 L Pulse Oximetry 100 100 11/19/17 20:00 11/20/17 00:00 Temperature 97.6 F 97.5 F L Pulse Rate 94 H 77 Respiratory Rate 17 17 Blood Pressure 128/63 131/62 Pulse Oximetry 100 97 Intake & Output 11/19/17 11/20/17 11/20/17 18:59 06:59 18:59 Intake Total 100 / 100 580 / 580 Output Total 1700 / 1700 Balance -1600 / -1600 580 / 580 Weight 91.1 kg Intake: IV 100 / 100 100 / 100 Magnesium Sulfate 1 gm/D5W 100 100 / 100 100 / 100 ml Premix 100 ML @ 100 mls/hr IV.SIG Q1H KATHERINE Rx#:[id number] Oral 480 / 480 Output: Urine 1700 / 1700 Other: # Voids 2 2 Date of Last Bowel Movement 11/18/17 11/18/17 # Bowel Movements 2 <Jessica Buenrostro - 11/20/17 08:33> Narrative: GENERAL: Patient lying in bed comfortably. Eating breakfast. SKIN: Warm and dry. No rashes or ecchymoses noted HEAD: Atraumatic. Normocephalic. EYES: Pupils equal and round. EOMI. ENT: No nasal bleeding or discharge. Mucous membranes are pink and moist. Poor dentition noted. NECK: Full range of motion. CARDIOVASCULAR: Normal rhythm. Mildly tachycardic RESPIRATORY: No accessory muscle use. Clear to auscultation without wheezes or rhonchi. GASTROINTESTINAL: Abdomen obese, normoactive bowel sounds, nontender. No masses on palpation, soft. MUSCULOSKELETAL: Extremities without clubbing, cyanosis, edema, or obvious deformity aside mild internal rotation bilaterally. NEUROLOGICAL: Awake and alert. No obvious cranial nerve deficits. Motor grossly within normal limits. Grossly normal ROM of UE and LE bilaterally. Strength difficult to assess in LEs due to pain but full in UEs. Normal speech. No tetany or abnormal reflexes noted PSYCHIATRIC: Appropriate mood and affect; insight and judgment normal. <Jessica Buenrostro - 11/20/17 08:33> Assessment and Plan - Assessment (1) Anemia Code(s): D64.9 - Anemia, unspecified Status: Acute (2) Hypocalcemia Code(s): E83.51 - Hypocalcemia Status: Acute (3) Hypomagnesemia Code(s): E83.42 - Hypomagnesemia Status: Acute (4) Diverticulitis Code(s): K57.92 - Diverticulitis of intestine, part unspecified, without perforation or abscess without bleeding Status: Acute (5) Abnormal CT of the abdomen Code(s): R93.5 - Abnormal findings on diagnostic imaging of other abdominal regions, including retroperitoneum Status: Acute (6) Osteoarthritis of feet, bilateral Code(s): M19.071 - Primary osteoarthritis, right ankle and foot; M19.072 - Primary osteoarthritis, left ankle and foot Status: Acute (7) UTI due to Klebsiella species Code(s): N39.0 - Urinary tract infection, site not specified; B96.1 - Klebsiella pneumoniae [K. pneumoniae] as the cause of diseases classified elsewhere Status: Acute (8) Acute kidney injury superimposed on CKD Code(s): N17.9 - Acute kidney failure, unspecified; N18.9 - Chronic kidney disease, unspecified Status: Resolved (9) COPD (chronic obstructive pulmonary disease) Code(s): J44.9 - Chronic obstructive pulmonary disease, unspecified Status: Chronic (10) CHF (congestive heart failure) Code(s): I50.9 - Heart failure, unspecified Status: Chronic (11) HTN (hypertension) Code(s): I10 - Essential (primary) hypertension Status: Chronic (12) Anxiety Code(s): F41.9 - Anxiety disorder, unspecified Status: Chronic <Joanna Chavez - 11/21/17 13:36> (1) Anemia Code(s): D64.9 - Anemia, unspecified Status: Acute Plan: Hgb improved to 9.3/27. Continue to monitor as outpt Course: Asymptomatic. No evidence of acute blood loss given hemoccult/FOBT is negative on 11/16, reticulocyte count is normal, the anemia is normocytic with normal MCH. She is noted to have a high ferritin value with low iron and TIBC. Admitting diagnosis noted to be diverticulitis, however, hemoccult is negative and stools are reportedly not melenic or bloody. Recheck H&H this morning 11/19 as we are awaiting urine studies, if stable we will still plan to recheck CBC as an outpatient in 3 days. Iron (ferrous sulfate 325mg) initiated once daily per nephrology yesterday. Will add stool softener. Given her hemoglobin was normal at admission she may require scope as outpatient if H&H does not improve. Other workup notable: B12 normal, folate normal, PTH 70.9, vitamin D normal at 57pg/ml (nl 18-78). Hemoglobin ranging from 12.2 on 11/13 2 7.3 on 11/17. Suspect spurious result with bladder value as 4 hour repeat was 8.7. Today hemoglobin is 8.1. For this patient goal hemoglobin is greater than 8 given cardiac history however given she is asymptomatic do not suspect urgent intervention is needed. If patient does require transfusion caution volume overload given history of CHF Type and screen was drawn 11/17 in case patient needs blood transfusion. (2) Hypocalcemia Code(s): E83.51 - Hypocalcemia Status: Acute Plan: Resolved per labs at this time. We will continue magnesium oxide and calcium carbonate at discharge Plan to recheck BMP, magnesium, and phosphorus levels in 3 days Medications: Calcium carbonate p.o. 1000 mg twice daily with additional 500 mg p.o. dose given on 11/16. (11/14-current) Calcium gluconate 1 g IV 1 on 11/15 Calcium chloride 1 g IV 1 on 11/17 Aggressive Magnesium management Impression/Course: On admission calcium 6.1 with normal albumin and protein levels. Calcium has been serially monitored. Asymptomatic. Nephrology consulted, appreciate assistance; PPI therapy suspected etiology for malabsorption of dietary calcium Continue PO Calcium carbonate 1000mg BID. She is status post PO and IV repletion as noted. Goal potassium greater than 7.5 at this time, as p.o. repletion may be safely continued at that time. Assess magnesium and vitamin D levels - both low, to replete (3) Hypomagnesemia Code(s): E83.42 - Hypomagnesemia Status: Acute Plan: 24 hr urine Mg pending results, patient to follow up as outpatient with nephrology Course: Aggressive magnesium management given hypocalcemia. JESUS ALBERTO has resolved but continue to monitor renal fx given electrolyte repletion Magnesium 0.4 on 11/15, 1.6 on 11/18 Of note patient is on Levaquin and it is necessary to allow 2-4 hr spacing between this antibiotic and magnesium to improve absorption At discharge, recommend dietary adjustments (e.g., casework specialist support) or transitioning to magnesium citrate oral supplementation given increased bioavailable per literature. Caution with use in patients with CHF Will continue magnesium oxide at discharge Medications: Magnesium oxide 400 mg p.o. twice daily (11/16-current) Magnesium sulfate 1 g IV 11/16 Magnesium sulfate 1 g IV 11/17 (4) Diverticulitis Code(s): K57.92 - Diverticulitis of intestine, part unspecified, without perforation or abscess without bleeding Status: Acute Plan: Abdominal Pain resolved. Management as below Impression/Course: Presented with abdominal pain, found to have diverticulitis on CT. She also did have a questionable area, possible lesion in her small bowel. -Levaquin 750 mg daily - to complete 10 days -Flagyl 500 mg daily - to complete 10 days -Tolerating heart healthy diet -Appreciate GI recommendations. Plan is to repeat CT in 2-3 weeks as outpatient (5) Abnormal CT of the abdomen Code(s): R93.5 - Abnormal findings on diagnostic imaging of other abdominal regions, including retroperitoneum Status: Acute Plan: CT abdomen on 11/10 report states "Abnormal small bowel left lower quadrant without obstruction. Malignancy is not excluded" -GI notes they will follow-up CT as an outpatient in 2-3 weeks, patient aware (6) Osteoarthritis of feet, bilateral Code(s): M19.071 - Primary osteoarthritis, right ankle and foot; M19.072 - Primary osteoarthritis, left ankle and foot Status: Acute Plan: Pain improved. Podiatry consulted, with diagnosis of bilateral Lisfranc osteoarthritis and soft tissue swelling, recommending ROM and PT which is amenable to previous discharge planning at rehab X-rays of bilateral foot and ankle 11/17 showing osteopenia, mild spurring, and soft tissue swelling PT of note recommending rehab, pt has paper tube cutter as outpatient. Impression/Course: She is noted to have x-ray of the right foot on 03/01/17 showing mild to moderate osteopenia, mild to moderate bone spur, no acute fracture. If symptoms persist we will consider x-ray of bilateral foot and I would also consider podiatry consultation. PT ordered and recommending rehab. Pain control with acetaminophen pain 1-5 , [place] 5/325 pain 6-10, with morphine IV for breakthrough pain (7) UTI due to Klebsiella species Code(s): N39.0 - Urinary tract infection, site not specified; B96.1 - Klebsiella pneumoniae [K. pneumoniae] as the cause of diseases classified elsewhere Status: Acute Plan: Patient with UA which was abnormal on admission, with culture showing Klebsiella UTI. She is asymptomatic. She has been on Levaquin and Flagyl this hospitalization. Will likely continue Levaquin as species appears to be sensitive to this to complete 7 day course given diverticulitis however UTI itself would only require 3 day course (8) Acute kidney injury superimposed on CKD Code(s): N17.9 - Acute kidney failure, unspecified; N18.9 - Chronic kidney disease, unspecified Status: Resolved Plan: Creatinine wnl. DC'd IVF 11/17. Restart home dose Lasix as outpatient Impression/Course: Creatinine was 2.11 on admission 7/9. Patient received normal saline at 125 cc/ hour over the last 24 hours. Given CHF we reduced rate to 84cc/hr on 11/16. Transition to PO hydration only on 11/17 Restart ACEI 11/17. Continue to hold Lasix If she becomes short of breath or develops any pulmonary edema she can easily be given some IV Lasix (9) COPD (chronic obstructive pulmonary disease) Code(s): J44.9 - Chronic obstructive pulmonary disease, unspecified Status: Chronic Plan: History of COPD -Continue home medications montelukast (10) CHF (congestive heart failure) Code(s): I50.9 - Heart failure, unspecified Status: Chronic Plan: History of CHF -Continue home medications aspirin, hold furosemide for now (11) HTN (hypertension) Code(s): I10 - Essential (primary) hypertension Status: Chronic Plan: History of hypertension -Continue home medications amlodipine 10mg. Lisinopril 40mg to restart 11/17 (12) Anxiety Code(s): F41.9 - Anxiety disorder, unspecified Status: Chronic Plan: History of anxiety -Continue home medications lorazepam 0.5 mg every 8 hours as needed <Jessica Buenrostro - 11/20/17 08:33> - Assessment and Plan The exam, history, and the medical decision-making described in the above note were completed with the assistance of the resident physician. I reviewed and agree with the findings presented. I attest that I had a [id number] encounter with the patient on the same day, and personally performed and documented my assessment and findings in the medical record. She is definitely improved since admission and is ready to go to rehab. <Joanna Chavez - 11/21/17 13:36> The exam, history, and the medical decision-making described in the above note were completed with the assistance of the resident physician. I reviewed and agree with the findings presented. I attest that I had a [id number] encounter with the patient on the same day, and personally performed and documented my assessment and findings in the medical record. Unsure exactly why she has been admitted to the hospital multiple times with similar electrolyte abnormalities. She has had diarrhea on and off for some months and has been seen by GI. She even according to her previous records had a small bowel follow-through. However her CT scan is abnormal. Nephrology is evaluating her to determine if her electrolyte losses are due to her renal problem. However with her diarrhea and her abnormality on T of her intestines that seems the more likely problem. <Jessica Buenrostro Abigail - 11/20/17 08:33> Discharge Planning: Patient stable for discharge 11/18, pending SNF placement. Will place order discharge today and remove if no placement can be secured today. 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 <Joanna Chavez - Last Filed: 11/21/17 13:36> (1) Anemia Qualifiers: Anemia type: other cause Other causes of anemia: sideroblastic, secondary to disease Qualified Code(s): 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 <Jessica Buenrostro - Last Filed: 11/20/17 08:33> (1) Anemia Qualifiers: Anemia type: other cause Other causes of anemia: sideroblastic, secondary to disease Qualified Code(s): 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 <Joanna Chavez - Last Filed: 11/21/17 13:36> (1) Anemia Qualifiers: Anemia type: other cause Other causes of anemia: sideroblastic, secondary to disease Qualified Code(s): 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
== END 2017-11-20 10:50 ==
LOC: NEPE 07:24 → NEDA 14:39 → NEPGCP 18:22 → N06 11-17 20:18
PROVIDERS: ADMIT Family Medicine; ATTEND Family Medicine
DX: E86.0 Dehydration; I42.9 Cardiomyopathy, unspecified; M19.071 Primary osteoarthritis, right ankle and foot; I50.32 Chronic diastolic (congestive) heart failure; J44.9 Chronic obstructive pulmonary disease, unspecified; R26.2 Difficulty in walking, not elsewhere classified; K57.32 Diverticulitis of large intestine without perforation or abscess without bleeding; K21.9 Gastro-esophageal reflux disease without esophagitis; M19.072 Primary osteoarthritis, left ankle and foot; N17.9 Acute kidney failure, unspecified; F17.210 Nicotine dependence, cigarettes, uncomplicated; D64.9 Anemia, unspecified; N18.3 Chronic kidney disease, stage 3 (moderate); K63.89 Other specified diseases of intestine; E83.42 Hypomagnesemia; R80.9 Proteinuria, unspecified; N39.0 Urinary tract infection, site not specified; E83.51 Hypocalcemia; M77.9 Enthesopathy, unspecified; F41.9 Anxiety disorder, unspecified; I95.9 Hypotension, unspecified; B96.1 Klebsiella pneumoniae [K. pneumoniae] as the cause of diseases classified elsewhere; I13.0 Hypertensive heart and chronic kidney disease with heart failure and stage 1 through stage 4 chronic kidney disease, or unspecified chronic kidney disease; E88.09 Other disorders of plasma-protein metabolism, not elsewhere classified

== ENCOUNTER 2018-01-30 20:21 | Inpatient (IN) ==
--- NOTE | 2018-01-30 22:19 | XR ---
EXAM DATE: 01/30/2018 9:48 PM EDT AGE/SEX: 72 years / Female INDICATIONS: Short of breath. CLINICAL DATA: This is the patient's initial encounter. Patient reports that signs and symptoms have been present for 1 day and indicates a pain score of 0/10. MEDICAL/SURGICAL HISTORY: Chronic obstructive pulmonary disease. None. COMPARISON: [facility] [place], CHEST 1V SINGLE AP, 11/13/2017. . FINDINGS: A single AP view of the chest demonstrates the lungs to be symmetrically aerated without evidence of mass, infiltrate or effusion. The cardiomediastinal contours are unremarkable. Osseous structures a re intact. CONCLUSION: The lungs are clear. Electronically signed by: Robin Ferguson MD 01/30/2018 10:18 PM EDT
[2018-01-30 22:26] LABS: Baso # (Auto) 0.1 th/mm3 (0.0-0.2); Baso % (Auto) 0.9 % (0.0-2.0); Eos # (Auto) 0.3 th/mm3 (0.0-0.4); Eos % (Auto) 3.3 % (0.0-4.0); Hematocrit 33.7 % (35.0-46.0); Hemoglobin 11.6 gm/dL (11.6-15.3); Lymph % (Auto) 25.1 % (9.0-44.0); Mean Corpuscular HGB Conc 34.4 % (32.0-36.0); Mean Corpuscular Hemoglobin 31.9 pg (27.0-34.0); Mean Corpuscular Volume 92.6 fL (80.0-100.0); Mean Platelet Volume 8.7 fL (7.0-11.0); Mono # (Auto) 0.5 th/mm3 (0.0-0.9); Mono % (Auto) 6.5 % (0.0-8.0); Neut % (Auto) 64.2 % (16.0-70.0); Platelet Count 310 th/mm3 (150-450); Red Blood Count 3.64 mil/mm3 (4.00-5.30); Red Cell Distribution Width 13.2 % (11.6-17.2); White Blood Count 7.8 th/mm3 (4.0-11.0)
[2018-01-30 22:59] LABS: Albumin 3.1 g/dL (3.4-5.0); Carbon Dioxide 23.1 meq/L (21.0-32.0); Potassium 3.4 meq/L (3.5-5.1); Total Protein 6.5 g/dL (6.4-8.2)
[2018-01-30] MEDS ORDERED: Calcium Gluconate Inj 2 GM in Dextrose 5% in Water Inj 100 ML IV.SIG ONE ×2 (23:17)
[2018-01-30 23:37] LABS: Phosphorus 3.7 mg/dL (2.5-4.9)
[2018-01-31] LABS: Bacteria,Urine Many /hpf; Bilirubin,Urine Negative (Negative); Clarity,Urine Cloudy (Clear); Color,Urine Yellow (Yellw/Straw); Glucose,Urine (UA) Negative (Negative); Hyaline Casts,Urine 14 /lpf (0-3); Leukocyte Esterase,Urine Moderate (Negative); Mucus,Urine Moderate /lpf (Occasional); Nitrite,Urine Negative (Negative); Specific Gravity,Urine 1.014 (1.002-1.035); Squamous Epithelial Cell,Urine 12 /hpf (0-5)
--- NOTE | 2018-01-31 00:10 | ED ---
HPI General Chief complaint: Anxiety Stated complaint: Right arm pain/Nausea Time Seen by Provider: 01/30/18 21:33 Source: patient, family and old records reviewed Limitations: other (poor historian) History of Present Illness HPI narrative: The patient is a 72-year-old female with history of diverticulosis, chronic kidney disease, COPD, CHF, hypertension, presenting with complaint of nausea and tingling bilateral arms as well as feeling anxious. She has not taken her anxiety medications or any of her medications the past couple days because of nausea. Patient and the family member of very poor historians. She is hyperventilating feeling anxious. Onset (ago): unknown Severity: moderate Related Data Previous Rx's Medication Instructions Recorded Lactobacillus acidoph-pectin 1 tab PO BID #60 tab 11/18/17 [Acidophilus-Pectin] acetaminophen 500 mg PO Q4H PRN #120 tab 11/18/17 amlodipine 10 mg PO DAILY #30 tab 11/18/17 atorvastatin 40 mg PO DAILY #30 tab 11/18/17 calcium carbonate [Oyster Shell 1,000 mg PO BID #60 tab 11/18/17 Calcium 500] ergocalciferol (vitamin D2) 50,000 unit PO Q7D #3 cap 11/18/17 esomeprazole magnesium [Nexium] 20 mg PO DAILY #30 tab 11/18/17 hydrocodone-acetaminophen 1 tab PO Q4H PRN #18 tab 11/18/17 levofloxacin 750 mg PO DAILY #4 tab 11/18/17 lisinopril 40 mg PO DAILY #30 tab 11/18/17 lorazepam 0.5 mg PO Q8HR PRN #45 tab 11/18/17 magnesium oxide 400 mg PO BID@1400,2100 #60 tab 11/18/17 metronidazole 500 mg PO Q8HR #12 tab 11/18/17 montelukast 10 mg PO DAILY #30 tab 11/18/17 multivit-mins no.11-folic acid 1 cap PO DAILY #30 tab 11/18/17 [Dialyvite 5000] naloxone 0.4 mg IV.PUSH UNSCH PRN #1 ml 11/18/17 ondansetron 4 mg PO Q6H PRN #30 tab 11/18/17 potassium chloride 20 meq PO BID #60 tab 11/18/17 docusate sodium 50 mg PO BID #30 cap 11/19/17 ferrous sulfate [FeroSul] 325 mg PO DAILY #30 tab 11/19/17 Allergies Allergy/AdvReac Type Severity Reaction Status Date / Time No Known Allergies Allergy Unverified 11/13/17 07:35 Review of Systems ROS: all other systems reviewed are negative [facility] Medical History Medical History Anxiety (Acute) CHF (congestive heart failure) (Acute) COPD (chronic obstructive pulmonary disease) (Acute) Chronic kidney disease, stage III (moderate) (Acute) GERD (gastroesophageal reflux disease) (Acute) Hypertension (Acute) Hypocalcemia (Acute) Hypomagnesemia (Acute) Surgical History Surgical History No history of previous surgery (Acute) Family History Family History Father Heart attack Social History Social History Substance History: No History of Abuse Second Hand Smoke Exposure: Yes Smoking Status: Current every day smoker Tobacco Type: Cigarettes Packs Per Day: 0.5 Cigarettes Per Day: 10.0 Years Smoked: 55 Pack-Years: 27.50 How Often Do You Have a Drink Containing Alcohol: Never Hx Recent Travel: No Recent Travel in [facility] within the Last 8 Weeks: No Recent Out of Country Travel within the Last 8 Weeks: No Immunization History Tetanus Immunization: >5 Years Hx Influenza Vaccine This Season: No Exam Narrative Exam Narrative: GENERAL: Alert and oriented in no distress SKIN: Focused skin assessment warm/dry. Poor turgor HEAD: Atraumatic. Normocephalic. EYES: Pupils equal and round. No scleral icterus. No injection or drainage. ENT: No nasal bleeding or discharge. Mucous membranes pink and moist. NECK: Trachea midline. No JVD. CARDIOVASCULAR: Regular rate and rhythm. No murmur appreciated. RESPIRATORY: No accessory muscle use. Clear to auscultation. Breath sounds equal bilaterally. GASTROINTESTINAL: Abdomen soft, non-tender, nondistended. Hepatic and splenic margins not palpable. MUSCULOSKELETAL: No obvious deformities. No clubbing. No cyanosis. No edema. NEUROLOGICAL: Awake and alert. No obvious cranial nerve deficits. Motor grossly within normal limits. Normal speech. Resting tremors. PSYCHIATRIC: Appropriate mood and affect; insight and judgment normal. Course Hospital Course: Patient with profound hypocalcemia hypomagnesemia replace been initiated in the ED. likely secondary to not taking her medications. Potassium also low at 3.4. Patient will be admitted for further evaluation and treatment and replacement of electrolytes. Spent 15 minutes at bedside explained to her the importance of following her medication regimen. Initial Documented Vital Signs Temperature 98.9 F 01/30/18 20:30 Pulse Rate 99 H 01/30/18 20:30 Respiratory Rate 28 H 01/30/18 20:30 Blood Pressure 106/67 01/30/18 20:30 Pulse Oximetry 97 01/30/18 20:30 Last Documented Vital Signs Temperature 98 F 01/31/18 04:00 Pulse Rate 76 01/31/18 04:00 Respiratory Rate 17 01/31/18 04:00 Blood Pressure 132/63 01/31/18 04:00 Pulse Oximetry 96 01/31/18 04:00 Critical Care Time Critical Care Time: Yes Total Critical Care Time: 30 Attestation: Aggregate critical care time was 30 minutes. Time to perform other separately billable procedures was not included in the critical care time. My time did not include minutes spent treating any other patients simultaneously or on activities that did not directly contribute to the patient's treatment. The services I provided to this patient were to treat and/or prevent clinically significant deterioration that could result in: Permanent disability loss of current living style. I provided critical care services requiring my management, as noted below: Chart data review, documentation time, medication orders and management, vital sign assessments/reviewing monitor data, ordering and reviewing lab tests, ordering and interpreting/reviewing x-rays and diagnostic studies, care of the patient and discussion of the patient with the admitting physicians. Medical Decision Making MDM Narrative Medical decision making narrative: Hypomagnesemia with hypocalcemia electrolytes replace and non-compliant patient with medications. Kidney function appears within normal limits. Medical Screen Exam Complete: Yes Emergency Medical Condition: Yes Medical Records Medical records reviewed: Yes I reviewed the patient's medical records. Lab Data Lab results reviewed: Yes I reviewed the patient's lab results. Result diagrams: 01/30/18 22:05 01/30/18 22:05 Lab Results 01/30/18 01/30/18 01/30/18 Range/Units 22:05 22:05 22:05 WBC 7.8 (4.0-11.0) th/mm3 RBC 3.64 L (4.00-5.30) mil/mm3 Hgb 11.6 (11.6-15.3) gm/dL Hct 33.7 L (35.0-46.0) % MCV 92.6 (80.0-100.0) fL MCH 31.9 (27.0-34.0) pg MCHC 34.4 (32.0-36.0) % RDW 13.2 (11.6-17.2) % Plt Count 310 (150-450) th/mm3 MPV 8.7 (7.0-11.0) fL Neut % (Auto) 64.2 (16.0-70.0) % Lymph % (Auto) 25.1 (9.0-44.0) % [place] % (Auto) 6.5 (0.0-8.0) % Eos % (Auto) 3.3 (0.0-4.0) % Baso % (Auto) 0.9 (0.0-2.0) % Neut # (Auto) 5.0 (1.8-7.7) th/mm3 Lymph # (Auto) 2.0 (1.0-4.8) th/mm3 [place] # (Auto) 0.5 (0.0-0.9) th/mm3 Eos # (Auto) 0.3 (0.0-0.4) th/mm3 Baso # (Auto) 0.1 (0.0-0.2) th/mm3 WBC Differential . Differential Comment Auto diff final Sodium 148 H (136-145) meq/L Potassium 3.4 L (3.5-5.1) meq/L Chloride 111 H (98-107) meq/L Carbon Dioxide 23.1 (21.0-32.0) meq/L Anion Gap 14 (5-15) meq/L BUN 11 (7-18) mg/dL Creatinine 1.14 H (0.50-1.00) mg/dL Estimated GFR 47 L (>89) mL/min Random Glucose 79 (74-106) mg/dL Calcium 5.0 L* (8.5-10.1) mg/dL Prot Corrected Calcium 5.2 L* (8.5-10.1) mg/dL Phosphorus 3.7 (2.5-4.9) mg/dL Magnesium Less than 0.3 L (1.5-2.5) mg/dL Total Bilirubin 0.6 (0.2-1.0) mg/dL AST 19 (15-37) U/L ALT 13 (10-53) U/L Alkaline Phosphatase 57 (45-117) U/L Troponin I Total Protein 6.5 (6.4-8.2) g/dL Albumin 3.1 L (3.4-5.0) g/dL Lipase 71 L (73-393) U/L Vitamin D 25-Hydroxy (30-100) ng/mL TSH (0.358-3.740) uIU/mL PTH Intact (12.4-76.8) pg/mL Urine Color (Yellw/Straw) Urine Clarity (Clear) Urine pH (5.0-8.5) Ur Specific [place] (1.002-1.035) Urine Protein (Neg-Trace) mg/dL Urine Glucose (UA) (Negative) mg/dL Urine Ketones (Negative) mg/dL Urine Occult Blood (Negative) Urine Nitrate (Negative) Urine Bilirubin (Negative) Urine Urobilinogen (Less than 2) mg/dL Ur Leukocyte Esterase (Negative) Urine RBC (0-3) /hpf Urine WBC (0-5) /hpf Urine WBC Clumps (None) Ur Squamous Epith Cells (0-5) /hpf Urine Bacteria (None) /hpf Hyaline Casts (0-3) /lpf Urine Mucus (Occasional) /lpf Micro UA Comment Ur Microscopic Review Urine Culture Comments 01/30/18 01/30/18 01/31/18 Range/Units 22:05 23:47 02:30 WBC (4.0-11.0) th/mm3 RBC (4.00-5.30) mil/mm3 Hgb (11.6-15.3) gm/dL Hct (35.0-46.0) % MCV (80.0-100.0) fL MCH (27.0-34.0) pg MCHC (32.0-36.0) % RDW (11.6-17.2) % Plt Count (150-450) th/mm3 MPV (7.0-11.0) fL Neut % (Auto) (16.0-70.0) % Lymph % (Auto) (9.0-44.0) % [place] % (Auto) (0.0-8.0) % Eos % (Auto) (0.0-4.0) % Baso % (Auto) (0.0-2.0) % Neut # (Auto) (1.8-7.7) th/mm3 Lymph # (Auto) (1.0-4.8) th/mm3 [place] # (Auto) (0.0-0.9) th/mm3 Eos # (Auto) (0.0-0.4) th/mm3 Baso # (Auto) (0.0-0.2) th/mm3 WBC Differential Differential Comment Sodium (136-145) meq/L Potassium (3.5-5.1) meq/L Chloride (98-107) meq/L Carbon Dioxide (21.0-32.0) meq/L Anion Gap (5-15) meq/L BUN (7-18) mg/dL Creatinine (0.50-1.00) mg/dL Estimated GFR (>89) mL/min Random Glucose (74-106) mg/dL Calcium (8.5-10.1) mg/dL Prot Corrected Calcium (8.5-10.1) mg/dL Phosphorus (2.5-4.9) mg/dL Magnesium 0.9 L D (1.5-2.5) mg/dL Total Bilirubin (0.2-1.0) mg/dL AST (15-37) U/L ALT (10-53) U/L Alkaline Phosphatase (45-117) U/L Troponin I Cancelled Less than 0.02 L Total Protein (6.4-8.2) g/dL Albumin (3.4-5.0) g/dL Lipase (73-393) U/L Vitamin D 25-Hydroxy 54.3 (30-100) ng/mL TSH (0.358-3.740) uIU/mL PTH Intact (12.4-76.8) pg/mL Urine Color Yellow (Yellw/Straw) Urine Clarity Cloudy H (Clear) Urine pH 6.0 (5.0-8.5) Ur Specific [place] 1.014 (1.002-1.035) Urine Protein Negative (Neg-Trace) mg/dL Urine Glucose (UA) Negative (Negative) mg/dL Urine Ketones Negative (Negative) mg/dL Urine Occult Blood Negative (Negative) Urine Nitrate Negative (Negative) Urine Bilirubin Negative (Negative) Urine Urobilinogen Less than 2 (Less than 2) mg/dL Ur Leukocyte Esterase Moderate H (Negative) Urine RBC 2 (0-3) /hpf Urine WBC 81 H (0-5) /hpf Urine WBC Clumps Rare H (None) Ur Squamous Epith Cells 12 (0-5) /hpf Urine Bacteria Many H (None) /hpf Hyaline Casts 14 (0-3) /lpf Urine Mucus Moderate H (Occasional) /lpf Micro UA Comment Culture indicated Ur Microscopic Review Not Reportable Urine Culture Comments Culture indicated 01/31/18 01/31/18 01/31/18 Range/Units 02:30 02:48 03:05 WBC (4.0-11.0) th/mm3 RBC (4.00-5.30) mil/mm3 Hgb (11.6-15.3) gm/dL Hct (35.0-46.0) % MCV (80.0-100.0) fL MCH (27.0-34.0) pg MCHC (32.0-36.0) % RDW (11.6-17.2) % Plt Count (150-450) th/mm3 MPV (7.0-11.0) fL Neut % (Auto) (16.0-70.0) % Lymph % (Auto) (9.0-44.0) % [place] % (Auto) (0.0-8.0) % Eos % (Auto) (0.0-4.0) % Baso % (Auto) (0.0-2.0) % Neut # (Auto) (1.8-7.7) th/mm3 Lymph # (Auto) (1.0-4.8) th/mm3 [place] # (Auto) (0.0-0.9) th/mm3 Eos # (Auto) (0.0-0.4) th/mm3 Baso # (Auto) (0.0-0.2) th/mm3 WBC Differential Differential Comment Sodium (136-145) meq/L Potassium (3.5-5.1) meq/L Chloride (98-107) meq/L Carbon Dioxide (21.0-32.0) meq/L Anion Gap (5-15) meq/L BUN (7-18) mg/dL Creatinine (0.50-1.00) mg/dL Estimated GFR (>89) mL/min Random Glucose (74-106) mg/dL Calcium (8.5-10.1) mg/dL Prot Corrected Calcium (8.5-10.1) mg/dL Phosphorus (2.5-4.9) mg/dL Magnesium Cancelled (1.5-2.5) mg/dL Total Bilirubin (0.2-1.0) mg/dL AST (15-37) U/L ALT (10-53) U/L Alkaline Phosphatase (45-117) U/L Troponin I Total Protein (6.4-8.2) g/dL Albumin (3.4-5.0) g/dL Lipase (73-393) U/L Vitamin D 25-Hydroxy (30-100) ng/mL TSH 1.360 (0.358-3.740) uIU/mL PTH Intact 203.1 H (12.4-76.8) pg/mL Urine Color (Yellw/Straw) Urine Clarity (Clear) Urine pH (5.0-8.5) Ur Specific [place] (1.002-1.035) Urine Protein (Neg-Trace) mg/dL Urine Glucose (UA) (Negative) mg/dL Urine Ketones (Negative) mg/dL Urine Occult Blood (Negative) Urine Nitrate (Negative) Urine Bilirubin (Negative) Urine Urobilinogen (Less than 2) mg/dL Ur Leukocyte Esterase (Negative) Urine RBC (0-3) /hpf Urine WBC (0-5) /hpf Urine WBC Clumps (None) Ur Squamous Epith Cells (0-5) /hpf Urine Bacteria (None) /hpf Hyaline Casts (0-3) /lpf Urine Mucus (Occasional) /lpf Micro UA Comment Ur Microscopic Review Urine Culture Comments Imaging Data Radiologist's impression: Chest X-Ray 01/30/18 21:48 CONCLUSION: The lungs are clear. Discharge Plan Discharge Disposition Patient Disposition: 30 Still Patient Discharge Condition Condition: Stable Discharge Details Diagnosis: Hypomagnesemia, Hypocalcemia, Bacteriuria, asymptomatic Physicians Team ED Provider: Adan Leigh Primary Care Provider: Toñito Gong Attending Provider: Laura Kemp Other Providers: [facility],Insurance Discharge Interventions Interventions: ED Discharge Assessment Last Done: 01/31/18 03:41 Status ED Status: Left Department Discharge Information Discharge Date/Time: 01/31/18 04:21
[2018-01-31] MEDS ORDERED: Magnesium Sulfate Inj 2 GM in Sodium Chlor 0.9% Inj 96 ML IV.SIG ONE ×2 (00:26→04:00)
[2018-01-31] MEDS ORDERED: Naloxone Inj 0.4 MG/ML Vial IV.PUSH PRN (01:40)
--- NOTE | 2018-01-31 01:48 | P.HPFP ---
Addendum entered and electronically signed by Srini Robin III, MD, R2 04:00: Add: PLAN: Item 1 -Measure 24hr urine Calcium Original Note: History of Present Illness Primary Care Physician: Toñito Gong MD, R2 <GabriellatessaLaura R - 01/31/18 16:11> Toñito Gong MD, R2 <Lobito ALBERTSrini - 01/31/18 01:48> Chief Complaint: nausea <Srini Robin III - 01/31/18 01:48> History of Present Illness: Ms Townsend is a 72 YO female followed by Dr Gong with PMHx of HTN, COPD, CHF, CKD3, GERD, and chronic low back pain who presents with 1 day of nausea and did not take her medications this morning. On arrival in the ED she was found with severe hypocalcemia and hypomagnesemia and mild hypokalemia. She is attended by her and they are both not very good at reporting her history. There has been no emesis or diarrhea, CP, SOB, coughing, fever, dysuria, LEE, but she admits to chills earlier. She ate around noon time. She had abdominal pain that isn't bothering her now; however, she felt like her abdomen was bloated earlier today with pain 7/10. She states there is numbness and tingling in her legs and arms. Last BM was yesterday and was normal in color with no blood or dark in color. She denies VB or vaginal discharge. She states her feet swelled up about two weeks ago and she could not walk for a week, but they are better now and she can walk without assistance. She has not been dizzy. She could not recall all of her medications and did not know why levaquin and flagyl were on her medication list. SurgHx: denies FamHx: Father - from heart attack at 56; Mother - from natural causes in her 80s SocHx: smokes cigarettes, 3-4 per day; has smoked 1/2 ppd since 18 years of age ; no EtOH and no drugs NKA <Srini Robin III - 01/31/18 03:55> - Diagnosis (1) Hypomagnesemia with secondary hypocalcemia (2) Hypokalemia (3) UTI (urinary tract infection) (4) Nausea (5) CKD (chronic kidney disease) stage 2, GFR 60-89 ml/min <JermainekrystleLaura 01/31/18 16:11> (1) Hypomagnesemia with secondary hypocalcemia (2) Hypokalemia (3) UTI (urinary tract infection) (4) Nausea (5) CKD (chronic kidney disease) stage 2, GFR 60-89 ml/min <[facility] IIISrini 01/31/18 02:30> Inpatient Certification: I certify that the inpatient services were ordered in accordance with Medicare regulations governing the order. This includes certification that hospital inpatient services are reasonable and necessary and in the case of services not specified as inpatient-only under 42 CFR 419.22(n), that they are appropriately provided as inpatient services in accordance to with the 2-midnight benchmark under 43 CFR 412.3(e) <ViridianaLaura 01/31/18 16:11> Review of Systems Constitutional: Denies chills, Denies fever(s), Denies headache(s), Denies weakness, Denies weight gain, Denies weight loss <Blanke III,Srini 01:48> Eyes: Denies change in vision <Blanke III,Srini 01/31/18 01:48> Ears, Nose, Mouth, and Throat: Denies dizziness, Denies pain with swallowing < Blanke III,Srini 01/31/18 01:48> Cardiovascular: Denies chest pain, Denies irregular heart rhythm, Denies shortness of breath [facility] 01/[facility] 01:48> Respiratory: Reports cough (occasional), Denies excessive phlegm production, Denies shortness of breath <Blanke III,[facility] 01/31/18 01:48> Gastrointestinal: Reports abdominal pain, Reports bloating, Denies black, tarry stools, Denies bright, red blood in stools, Denies change in bowel habits, Denies change in stools, Denies heartburn, Denies loose stools, Denies nausea, Denies vomiting <Blanke III,[facility] 01/31/18 01:48> Genitourinary: Denies abnormal vaginal bleeding, Denies painful urination, Denies urinary incontinence <Lobito ALBERTSrini Jones 01/31/18 01:48> Skin/Breast: Denies lesions, Denies rash <Lobito ALBERTSrini Jones 01/31/18 01:48> Neurologic: Reports tingling/numbness/burning sensations (in arms and legs), Denies dizziness, Denies localized weakness <Lobito ALBERTSrini Jones 01/31/18 01: 48> PMFSH - History History Provided By: Patient <Lobito ALBERTSrini Jones 01/31/18 01:48> - Medical History Medical History: Medical History (Last Updated 01/31/18 @ 16:04 by Laura Kemp MD) Tobacco abuse (Acute) Obesity (BMI 30-39.9) (Acute) Hypomagnesemia (Acute) Hypocalcemia (Acute) GERD (gastroesophageal reflux disease) (Acute) Chronic kidney disease, stage III (moderate) (Acute) Anxiety (Acute) COPD (chronic obstructive pulmonary disease) (Acute) Hypertension (Acute) CHF (congestive heart failure) (Acute) <Laura Kemp Mary[place] 01/31/18 16:11> Medical History (Last Reviewed 11/16/17 @ 10:05 by Nancie Poe PT) Anxiety CHF (congestive heart failure) COPD (chronic obstructive pulmonary disease) Chronic kidney disease, stage III (moderate) GERD (gastroesophageal reflux disease) Hypertension Hypocalcemia Hypomagnesemia <Lobito ALBERTSrini Jones 01/31/18 01:48> - Surgical History Surgical History: Surgical History (Last Updated 01/31/18 @ 16:04 by Laura Kemp MD) No history of previous surgery (Acute) <Laura Kemp 01/31/18 16:11> Surgical History (Last Updated 01/30/18 @ 20:32 by Cristóbal Garnett) No history of previous surgery <Lobito ALBERTSrini Karen 01/31/18 01:48> - Family History Family History: Family History (Last Updated 01/31/18 @ 02:35 by Srini Robin III, MD, R2) Father Heart attack <Laura Kemp 01/31/18 16:11> Family History (Last Updated 01/31/18 @ 02:35 by Srini Robin III, MD, R2) Father Heart attack <Lobito ALBERTSrini Jones 01/31/18 03:55> - Social History I have reviewed the patient's Social History: Yes <Lobito ALBERTSrini Jones 03:55> - Tobacco History Second Hand Smoke Exposure: Yes <Lobito ALBERTSrini Merritt 01/31/18 01:48> Tobacco Use In Past 30 Days: Yes <Lobito ALBERTSrini Jones 01/31/18 01:48> Smoking Status: Current every day smoker <Lobito ALBERTSrini Jones 01/31/18 01:48> Tobacco Type: Cigarettes <Lobito ALBERTSrini Merritt 01/31/18 01:48> Packs Per Day: 0.5 <Lobito ALBERTSrini 01/31/18 03:55> Cigarettes Per Day: 4 (cut down from 1/2 ppd) <Lobito ALBERTSrini 01/31/18 03:55> Years Smoked: 55 <Lobito ALBERTSrini Jones 01/31/18 03:55> - Alcohol History How Often Do You Have a Drink Containing Alcohol: Never <Lobito ALBERTSrini Jones 01/31/18 01:48> - Substance Use History Substance History: No History of Abuse <Lobito ALBERTSrini Jones 01/31/18 01:48> - Travel History History of Recent Travel: No <Lobito ALBERTSrini Jones 01/31/18 03:55> Recent Travel in the [facility] Within the Last 8 Weeks: No <Lobito ALBERTSrini Jones 03:55> - Immunization History Tetanus Immunization: >5 Years <Lobito ALBERTSrini Jones 01/31/18 01:48> Hx Influenza Vaccine This Season: No <Lobito ALBERTSrini Jones 01/31/18 01:48> Medications and Allergies Allergies Allergy/AdvReac Type Severity Reaction Status Date / Time No Known Allergies Allergy Unverified 11/13/17 07:35 <Laura Kemp 01/31/18 16:11> Active Medications: Active Medications Hydrocodone Bitart/Acetaminophen ([place] 5/325) 1 tab PO Q4H PRN PRN Reason: PAIN 1-10 Last Admin: 01/31/18 15:12 Dose: 1 tab Amlodipine Besylate (Norvasc) 10 mg PO DAILY [facility] Last Admin: 01/31/18 08:53 Dose: 10 mg Atorvastatin Calcium (Lipitor) 40 mg PO DAILY [facility] Last Admin: 01/31/18 08:50 Dose: 40 mg Calcium Carbonate (Oscal) 1,000 mg PO BID [facility] Last Admin: 01/31/18 08:50 Dose: 1,000 mg Docusate Sodium (Colace Liq) 50 mg PO BID [facility] Last Admin: 01/31/18 08:53 Dose: 50 mg Ferrous Sulfate (Ferosul) 325 mg PO DAILY [facility] Last Admin: 01/31/18 08:50 Dose: 325 mg Folic Acid (Folic Acid) 1 mg PO DAILY [facility] Last Admin: 01/31/18 08:53 Dose: 1 mg Ceftriaxone Sodium 1,000 mg/ (Sodium Chloride) 100 mls @ 200 mls/hr IV.SIG Q24H [facility] Last Infusion: 01/31/18 06:33 Dose: Infused Lactobacillus Acidophilus (Lactinex) 1 tab PO BID [facility] Last Admin: 01/31/18 08:51 Dose: 1 tab Lisinopril (Prinivil) 40 mg PO DAILY [facility] Last Admin: 01/31/18 08:53 Dose: 40 mg Lorazepam (Ativan) 0.5 mg PO Q8HR PRN PRN Reason: Anxiety Last Admin: 01/31/18 15:12 Dose: 0.5 mg Magnesium Oxide (Mag-Ox) 400 mg PO BID@1400,2100 [facility] Last Admin: 01/31/18 15:12 Dose: 400 mg Montelukast Sodium (Singulair) 10 mg PO DAILY [facility] Last Admin: 01/31/18 08:53 Dose: 10 mg Multivitamins (Theragran) 1 tab PO DAILY [facility] Last Admin: 01/31/18 08:52 Dose: 1 tab Naloxone HCl (Narcan Inj) 0.4 mg IV.PUSH UNSCH PRN PRN Reason: See Label Comments Ondansetron HCl (Zofran Odt) 4 mg PO Q6H PRN PRN Reason: Nausea Or Vomiting Pantoprazole Sodium (Protonix) 20 mg PO DAILY [facility] Last Admin: 01/31/18 08:50 Dose: 20 mg Potassium Chloride (K-Dur) 20 meq PO BID [facility] Last Admin: 01/31/18 08:52 Dose: 20 meq Vitamin D (Vitamin D3) 5,000 unit PO DAILY [facility] Last Admin: 01/31/18 08:52 Dose: 5,000 unit <Laura Kemp R - 01/31/18 16:11> Active Medications Magnesium Sulfate 2 gm/ Sodium (Chloride) 100 mls @ 50 mls/hr IV.SIG ONCE ONE Stop: 01/31/18 02:25 Last Admin: 01/31/18 01:16 Dose: 50 mls/hr <PepperSrini marie III H - 01/31/18 03:55> Exam Vital signs: Vital Signs 01/30/18 20:30 01/30/18 21:30 01/31/18 03:33 Temperature 98.9 F Pulse Rate 99 H 91 H 83 Respiratory Rate 28 H 18 17 Blood Pressure 106/67 137/74 117/60 Pulse Oximetry 97 18 L 01/31/18 04:00 01/31/18 08:00 01/31/18 11:03 Temperature 98 F 98.6 F Pulse Rate 76 72 Respiratory Rate 17 16 20 Blood Pressure 132/63 111/57 L Pulse Oximetry 96 95 01/31/18 12:00 Temperature 98.6 F Pulse Rate 93 H Respiratory Rate 16 Blood Pressure 98/55 L Pulse Oximetry 97 Intake & Output 01/30/18 01/31/18 01/31/18 18:59 06:59 18:59 Intake Total 420 / 420 Output Total 150 / 150 Balance 420 / 420 -150 / -150 Weight 90 kg Intake: IV 420 / 420 Calcium Gluconate Inj 2 GM In 120 / 120 D5W Inj 100 ML @ 120 mls/hr IV. SIG ONCE ONE Rx#:[id number] Magnesium Sulfate Inj 2 GM In 200 / 200 NS Inj 96 ML @ 50 mls/hr IV.SIG ONCE ONE Rx#:[id number] Rocephin Inj 1,000 MG In NS Inj 100 / 100 100 ML @ 200 mls/hr IV.SIG Q24H [facility] Rx#:[id number] Output: Urine 150 / 150 Other: Date of Last Bowel Movement 01/30/18 01/30/18 <Laura Kemp R - 01/31/18 16:11> Vital Signs 01/30/18 20:30 01/30/18 21:30 Temperature 98.9 F Pulse Rate 99 H 91 H Respiratory Rate 28 H 18 Blood Pressure 106/67 137/74 Pulse Oximetry 97 18 L Intake & Output 01/30/18 01/30/18 01/31/18 06:59 18:59 06:59 Intake Total 120 / 120 Balance 120 / 120 Weight 90 kg Intake: IV 120 / 120 Calcium Gluconate Inj 2 GM In 120 / 120 D5W Inj 100 ML @ 120 mls/hr IV. SIG ONCE ONE Rx#:[id number] <Srini Robin III - 01/31/18 01:48> Narrative: GENERAL: Elderly female with hirsutism lying in bed in [facility]. SKIN: Skin is thin, warm and dry. No lesion or rash. HEAD: Normocephalic. Atraumatic. Poor dentition. Oropharynx clear with no mouth sores. MMM. EYES: No scleral icterus. No injection or drainage. NECK: Supple, trachea midline. Normal ROM. No lymphadenopathy. CARDIOVASCULAR: Regular rate and rhythm without murmur, gallop, or rub. Radial pulses 1+, but pedal pulses weak to non-palpable. RESPIRATORY: Diminished breath sounds bilaterally with no air movement in lower lobes. No accessory muscle use. No wheezes, rales, or rhonchi. GASTROINTESTINAL: Abdomen soft, non-tender to palpation, nondistended. BS+. No guarding or rebound. MUSCULOSKELETAL: No cyanosis, or edema. Moves all extremities spontaneously. BACK: Nontender without obvious deformity. No CVA tenderness. <Srini Robin III - 01/31/18 03:55> Results - Labs Result diagrams: 01/30/18 22:05 01/30/18 22:05 <Laura Kemp - 01/31/18 16:11> Abnormal lab results 01/30/18 01/30/18 01/30/18 Range/Units 22:05 22:05 22:05 RBC 3.64 L (4.00-5.30) mil/mm3 Hct 33.7 L (35.0-46.0) % Sodium 148 H (136-145) meq/L Potassium 3.4 L (3.5-5.1) meq/L Chloride 111 H (98-107) meq/L Creatinine 1.14 H (0.50-1.00) mg/dL Estimated GFR 47 L (>89) mL/min Calcium 5.0 L* (8.5-10.1) mg/dL Prot Corrected Calcium 5.2 L* (8.5-10.1) mg/dL Magnesium Less than 0.3 L (1.5-2.5) mg/dL Troponin I (0.02-0.05) ng/mL Albumin 3.1 L (3.4-5.0) g/dL Lipase 71 L (73-393) U/L PTH Intact (12.4-76.8) pg/mL Urine Clarity (Clear) Ur Leukocyte Esterase (Negative) Urine WBC (0-5) /hpf Urine WBC Clumps (None) Urine Bacteria (None) /hpf Urine Mucus (Occasional) /lpf 01/30/18 01/31/18 01/31/18 Range/Units 23:47 02:30 02:48 RBC (4.00-5.30) mil/mm3 Hct (35.0-46.0) % Sodium (136-145) meq/L Potassium (3.5-5.1) meq/L Chloride (98-107) meq/L Creatinine (0.50-1.00) mg/dL Estimated GFR (>89) mL/min Calcium (8.5-10.1) mg/dL Prot Corrected Calcium (8.5-10.1) mg/dL Magnesium 0.9 L D (1.5-2.5) mg/dL Troponin I Less than 0.02 L (0.02-0.05) ng/mL Albumin (3.4-5.0) g/dL Lipase (73-393) U/L PTH Intact 203.1 H (12.4-76.8) pg/mL Urine Clarity Cloudy H (Clear) Ur Leukocyte Esterase Moderate H (Negative) Urine WBC 81 H (0-5) /hpf Urine WBC Clumps Rare H (None) Urine Bacteria Many H (None) /hpf Urine Mucus Moderate H (Occasional) /lpf 01/31/18 01/31/18 Range/Units 03:05 12:41 RBC (4.00-5.30) mil/mm3 Hct (35.0-46.0) % Sodium (136-145) meq/L Potassium (3.5-5.1) meq/L Chloride (98-107) meq/L Creatinine (0.50-1.00) mg/dL Estimated GFR (>89) mL/min Calcium 6.2 L* D 6.7 L* (8.5-10.1) mg/dL Prot Corrected Calcium 6.2 L* (8.5-10.1) mg/dL Magnesium (1.5-2.5) mg/dL Troponin I (0.02-0.05) ng/mL Albumin (3.4-5.0) g/dL Lipase (73-393) U/L PTH Intact (12.4-76.8) pg/mL Urine Clarity (Clear) Ur Leukocyte Esterase (Negative) Urine WBC (0-5) /hpf Urine WBC Clumps (None) Urine Bacteria (None) /hpf Urine Mucus (Occasional) /lpf Short CBC 01/30/18 Range/Units 22:05 WBC 7.8 (4.0-11.0) th/mm3 Hgb 11.6 (11.6-15.3) gm/dL Hct 33.7 L (35.0-46.0) % Plt Count 310 (150-450) th/mm3 BMP 01/30/18 01/31/18 01/31/18 22:05 03:05 12:41 Sodium 148 H Potassium 3.4 L Chloride 111 H Carbon Dioxide 23.1 BUN 11 Creatinine 1.14 H Calcium 5.0 L* 6.2 L* D 6.7 L* Cardiac Enzymes 01/30/18 01/31/18 Range/Units 22:05 02:30 Troponin I Cancelled Less than 0.02 L Liver Function 01/30/18 Range/Units 22:05 Total Bilirubin 0.6 (0.2-1.0) mg/dL AST 19 (15-37) U/L ALT 13 (10-53) U/L Alkaline Phosphatase 57 (45-117) U/L Albumin 3.1 L (3.4-5.0) g/dL Urine 01/30/18 Range/Units 23:47 Urine Color Yellow (Yellw/Straw) Urine Clarity Cloudy H (Clear) Urine pH 6.0 (5.0-8.5) Ur Specific [place] 1.014 (1.002-1.035) Urine Protein Negative (Neg-Trace) mg/dL Urine Glucose (UA) Negative (Negative) mg/dL <Vandemark,Laura R - 01/31/18 16:11> Abnormal lab results 01/30/18 01/30/18 01/30/18 Range/Units 22:05 22:05 22:05 RBC 3.64 L (4.00-5.30) mil/mm3 Hct 33.7 L (35.0-46.0) % Sodium 148 H (136-145) meq/L Potassium 3.4 L (3.5-5.1) meq/L Chloride 111 H (98-107) meq/L Creatinine 1.14 H (0.50-1.00) mg/dL Estimated GFR 47 L (>89) mL/min Calcium 5.0 L* (8.5-10.1) mg/dL Prot Corrected Calcium 5.2 L* (8.5-10.1) mg/dL Magnesium Less than 0.3 L (1.5-2.5) mg/dL Albumin 3.1 L (3.4-5.0) g/dL Lipase 71 L (73-393) U/L Urine Clarity (Clear) Ur Leukocyte Esterase (Negative) Urine WBC (0-5) /hpf Urine WBC Clumps (None) Urine Bacteria (None) /hpf Urine Mucus (Occasional) /lpf 01/30/18 Range/Units 23:47 RBC (4.00-5.30) mil/mm3 Hct (35.0-46.0) % Sodium (136-145) meq/L Potassium (3.5-5.1) meq/L Chloride (98-107) meq/L Creatinine (0.50-1.00) mg/dL Estimated GFR (>89) mL/min Calcium (8.5-10.1) mg/dL Prot Corrected Calcium (8.5-10.1) mg/dL Magnesium (1.5-2.5) mg/dL Albumin (3.4-5.0) g/dL Lipase (73-393) U/L Urine Clarity Cloudy H (Clear) Ur Leukocyte Esterase Moderate H (Negative) Urine WBC 81 H (0-5) /hpf Urine WBC Clumps Rare H (None) Urine Bacteria Many H (None) /hpf Urine Mucus Moderate H (Occasional) /lpf Short CBC 01/30/18 Range/Units 22:05 WBC 7.8 (4.0-11.0) th/mm3 Hgb 11.6 (11.6-15.3) gm/dL Hct 33.7 L (35.0-46.0) % Plt Count 310 (150-450) th/mm3 BMP 01/30/18 22:05 Sodium 148 H Potassium 3.4 L Chloride 111 H Carbon Dioxide 23.1 BUN 11 Creatinine 1.14 H Calcium 5.0 L* Liver Function 01/30/18 Range/Units 22:05 Total Bilirubin 0.6 (0.2-1.0) mg/dL AST 19 (15-37) U/L ALT 13 (10-53) U/L Alkaline Phosphatase 57 (45-117) U/L Albumin 3.1 L (3.4-5.0) g/dL Urine 01/30/18 Range/Units 23:47 Urine Color Yellow (Yellw/Straw) Urine Clarity Cloudy H (Clear) Urine pH 6.0 (5.0-8.5) Ur Specific [place] 1.014 (1.002-1.035) Urine Protein Negative (Neg-Trace) mg/dL Urine Glucose (UA) Negative (Negative) mg/dL <Lobito ALBERTSrini - 01/31/18 01:48> - Imaging Impressions Chest X-Ray 01/30/18 21:48 CONCLUSION: The lungs are clear. <Laura Kemp - 01/31/18 16:11> Impressions Chest X-Ray 01/30/18 21:48 CONCLUSION: The lungs are clear. <Lobito ALBERTSrini [facility] 01/31/18 03:55> - EKG Rate & rhythm: NSR [facility] 01/31/18 03:55> Caprini VTE Risk Assessment Caprini VTE Risk Assessment: Moderate/High Risk (score >= 2) <Lobito ALBERT Srini [facility] 01/31/18 03:55> Caprini Risk Assessment Model: Point Value = 1 Point Value = 2 Point Value = 3 Point Value = 5 Age 41-60 Minor surgery BMI > 25 kg/m2 Swollen legs Varicose veins or History of unexplained or recurrent spontaneous Oral contraceptives or hormone replacement Sepsis (< 1 month) Serious lung disease, including pneumonia (< 1 month) Abnormal pulmonary function Acute myocardial infarction Congestive heart failure (< 1 month) History of inflammatory bowel disease Medical patient at bed rest Age 61-74 Arthroscopic surgery Major open surgery (> 45 min) Laparoscopic surgery (> 45 min) Malignancy Confined to bed (> 72 hours) Immobilizing plaster cast Central venous access Age >= 75 History of VTE Family history of VTE Factor V Leiden Prothrombin [id number] Lupus anticoagulant Anticardiolipin antibodies Elevated serum homocysteine Heparin-induced thrombocytopenia Other congenital or acquired thrombophilia Stroke (< 1 month) Elective arthroplasty Hip, pelvis, or leg fracture Acute spinal cord injury (< 1 month) <Laura Kemp 01/31/18 16:11> Prophylaxis Regimen: Total Risk Factor Score Risk Level Prophylaxis Regimen 0-1 Low Early ambulation 2 Moderate Order ONE of the following: *Sequential Compression Device (SCD) *Heparin 5000 units SQ BID 3-4 Higher Order ONE of the following medications: *Heparin 5000 units SQ TID *Enoxaparin/Lovenox 40 mg SQ daily (WT < 150 kg, CrCl > 30 mL/min) *Enoxaparin/Lovenox 30 mg SQ daily (WT < 150 kg, CrCl > 10-29 mL/min) *Enoxaparin/Lovenox 30 mg SQ BID (WT < 150 kg, CrCl > 30 mL/min) AND/OR *Sequential Compression Device (SCD) 5 or more Highest Order ONE of the following medications: *Heparin 5000 units SQ TID (Preferred with Epidurals) *Enoxaparin/Lovenox 40 mg SQ daily (WT < 150 kg, CrCl > 30 mL/min) *Enoxaparin/Lovenox 30 mg SQ daily (WT < 150 kg, CrCl > 10-29 mL/min) *Enoxaparin/Lovenox 30 mg SQ BID (WT < 150 kg, CrCl > 30 mL/min) AND *Sequential Compression Device (SCD) <Laura Kemp 01/31/18 16:11> Assessment and Plan - Assessment (1) Hypomagnesemia with secondary hypocalcemia Code(s): E83.42 - Hypomagnesemia; E83.51 - Hypocalcemia Status: Acute (2) Hypokalemia Code(s): E87.6 - Hypokalemia Status: Acute (3) UTI (urinary tract infection) Code(s): N39.0 - Urinary tract infection, site not specified Status: Acute (4) Nausea Code(s): R11.0 - Nausea Status: Acute (5) CKD (chronic kidney disease) stage 2, GFR 60-89 ml/min Code(s): N18.2 - Chronic kidney disease, stage 2 (mild) Status: Acute <Laura Kemp R - 01/31/18 16:11> (1) Hypomagnesemia with secondary hypocalcemia Code(s): E83.42 - Hypomagnesemia; E83.51 - Hypocalcemia Status: Acute (2) Hypokalemia Code(s): E87.6 - Hypokalemia Status: Acute (3) UTI (urinary tract infection) Code(s): N39.0 - Urinary tract infection, site not specified Status: Acute (4) Nausea Code(s): R11.0 - Nausea Status: Acute (5) CKD (chronic kidney disease) stage 2, GFR 60-89 ml/min Code(s): N18.2 - Chronic kidney disease, stage 2 (mild) Status: Acute <Srini Robin III H - 01/31/18 02:30> - Assessment and Plan 72 YO female followed by Dr Gong with PMHx HTN, COPD, CHF, CKD3, diverticulosis, GERD, anxiety and chronic back pain who presents with UTI, nausea, severe hypomagnesemia and hypocalcemia, and mild hypokalemia after missing her medications this morning likely has chronic malabsorption possibly 2 /2 chronic PPI use although familial renal magnesium wasting, Gitelman or Bartter syndromes cannot be ruled out. Pt is not diabetic, denies EtOH, is not on loop or thiazide diuretic, not on aminoglycoside, chemo, no Hx of transplant , and no digoxin; however, CT abdomen/pelvis from Jun 2015 does show 1.8 cm left adrenal mass assessed as an adenoma. Impression: -CBC wnl -EKG revealing NSR, HR 79, QT 369ms/QTc 409ms -CMP with multiple metabolic derangement: * Na 148 * K+ 3.4 * Cr 1.14 with baseline ~1.1 * Ca 5.0 and corrected Ca 5.2 --> pt given Calcium gluconate 2g IV once in ED * Mag 0.3 --> pt given Mag sulfate 2g IV once in ED * Normal LFTs * Albumin 3.1 * Lipase 71 -Vitamin D (25-OH-D) pending -PTH pending -UA w/moderate LE, neg nitrate, 81 WBC with few clumps, many bacteria, hyaline casts -Urine Cx pending -CXR w/o sign of infiltrate -TSH pending PLAN: 1. Severe hypomagnesemia with hypocalemia with previous hospitalization with similar findings--suspect chronic *Plan to replete and monitor serially; will follow 24 hour Mag level in urine to evaluate etiology -Mag sulfate and calcium gluconate as above -Check serial mag levels -Mag sulfate 2g IV at 0500; slower repletion over 8-12 hours warranted due to CKD -Check Ca/corrected Ca level in AM before ordering additional Ca -Vitamin D 5,000 IU daily -Continue home Calcium carbonate 1000mg BID -Continue home Mag Oxide 400 mg BID -Check PTH -Check 25(OH)D -Check urine Creatinine -Urine magnesium for 24 hours -Consider GI consult in AM -Heme occult test pending -Consider CT abdomen/pelvis to assess change in adrenal mass -Consider PPI holiday 2. UTI -Pt has Hx of Klebsiella UTI in September 2017, pansensitive except Macrobid -UA with pyuria and moderate LE; cx pending -Rocephin 1g IV q24h 3. Nausea -Zofran 4 mg IV PRN nausea 4. Hypokalcemia -Continue home KCl 20 meq BID -Monitor with AM labs and replete as necessary 5. GERD -Protonix 20 mg daily -Consider discontinuing 6. Anxiety -Continue home Lorazepam 0.5mg q8h -Lorazepam 1 mg once given in ED 7. HTN -Continue home Lisinopril 40 mg daily -Continue home amlodipine 10 mg daily -Consider substituting amiloride for amlodipine for potassium sparing 7. Chronic back pain -Continue home [place] 5-325 q4h 8. CKD -Cr 1.14 and baseline ~1.1 -Estimated CrCl 63 mL/min 9. COPD -Montelukast 10 mg daily 10 FEN/GI/PPx Fluids: PO fluids Electrolytes: as above Nutrition: Cardiac diet GI: Protonix as above -Continue home probiotic PPx: SCDs -Continue home: * Ferrous sulfate 325 mg daily * Folic acid 1 mg daily * Docusate 50 mg BID * Atorvastatin 40 mg daily Pt DW Dr Leigh <Lobito ALBETRSrini H - 01/31/18 03:55> - Attending Attestation Patient was discussed with the resident team. Agree with inpatient admission and assessment and plan as above. <Laura Kemp R - 01/31/18 16:11> <Laura Kemp R - Last Filed: 01/31/18 16:11> (3) UTI (urinary tract infection) Qualifiers: Urinary tract infection type: acute cystitis Hematuria presence: with hematuria Qualified Code(s): N30.01 - Acute cystitis with hematuria <Laura Kemp R - Last Filed: 01/31/18 16:11> (3) UTI (urinary tract infection) Qualifiers: Urinary tract infection type: acute cystitis Hematuria presence: with hematuria Qualified Code(s): N30.01 - Acute cystitis with hematuria
[2018-01-31 03:04] LABS: Magnesium 0.9 mg/dL (1.5-2.5)
[2018-01-31 06:07] LABS: Calcium 6.2 mg/dL (8.5-10.1); Total Protein 7.1 g/dL (6.4-8.2)
[2018-01-31] MEDS ORDERED: LORazepam 0.5 MG Tablet PO PRN (07:00)
[2018-01-31] MEDS: Ferrous Sulfate 325 MG Tablet PO SCH (08:50)
[2018-01-31] MEDS: Calcium Carbonate 500 MG Tablet PO SCH ×2 (08:50→21:26)
[2018-01-31] MEDS: Lactobacillus Acidophilus/L. Spores Tablet PO SCH ×2 (08:51→21:26)
[2018-01-31] MEDS: Lisinopril 20 MG Tablet PO SCH (08:53)
[2018-01-31] MEDS: amLODIPine 10 MG Tablet PO SCH (08:53)
[2018-01-31] MEDS: Montelukast 10 MG Tablet PO SCH (08:53)
[2018-01-31] MEDS: Folic Acid 1 MG Tablet PO SCH (08:53)
[2018-01-31] MEDS: Docusate Sodium Liq 100 MG/10 ML UDC PO SCH ×2 (08:53→21:28)
[2018-01-31] MEDS ORDERED: Pantoprazole Sodium 20 MG DR Tablet PO SCH (09:00)
[2018-01-31] MEDS ORDERED: Enoxaparin Inj 40 MG/0.4 ML Syringe SQ SCH (09:00)
[2018-01-31 13:19] LABS: Magnesium 1.6 mg/dL (1.5-2.5)
[2018-01-31 13:42] LABS: Calcium 6.7 mg/dL (8.5-10.1)
[2018-01-31] MEDS: Magnesium Oxide 400 MG Tablet PO SCH ×2 (15:12→22:07)
--- NOTE | 2018-01-31 21:04 | ECG ---
Date Performed: 01/30/2018 Time Performed: 21:27:06 PTAGE: 72 years EKG: Sinus rhythm NORMAL ECG Since the PREVIOUS TRACING , no significant change noted DOCTOR: Sampson Cardoza Interpretating Date/Time 01/31/2018 21:02:24
[2018-02-01 05:50] LABS: Hematocrit 30.1 % (35.0-46.0); Hemoglobin 10.7 gm/dL (11.6-15.3); Mean Corpuscular HGB Conc 35.5 % (32.0-36.0); Mean Corpuscular Hemoglobin 32.7 pg (27.0-34.0); Mean Platelet Volume 8.9 fL (7.0-11.0); Platelet Count 271 th/mm3 (150-450); Red Blood Count 3.27 mil/mm3 (4.00-5.30); Red Cell Distribution Width 13.5 % (11.6-17.2); White Blood Count 8.6 th/mm3 (4.0-11.0)
[2018-02-01 05:56] LABS: INR 1.2 Ratio; Prothrombin Time 12.3 sec (9.8-11.6)
[2018-02-01 06:15] LABS: Albumin 3.5 g/dL (3.4-5.0); Calcium 6.7 mg/dL (8.5-10.1); Carbon Dioxide 23.7 meq/L (21.0-32.0); Magnesium 1.3 mg/dL (1.5-2.5); Potassium 3.7 meq/L (3.5-5.1); Total Protein 7.1 g/dL (6.4-8.2)
[2018-02-01] MEDS ORDERED: Calcium Gluconate Inj 2 GM in Dextrose 5% in Water Inj 100 ML IV.SIG ONE ×2 (08:00)
[2018-02-01] MEDS: Mag Sulf 1 gm/100 ml Premix 100 ML IV.SIG SCH ×2 (09:00→10:26)
[2018-02-01] MEDS: Lisinopril 20 MG Tablet PO SCH (09:00)
[2018-02-01] MEDS: Montelukast 10 MG Tablet PO SCH (09:01)
[2018-02-01] MEDS: Folic Acid 1 MG Tablet PO SCH (09:01)
[2018-02-01] MEDS: Lactobacillus Acidophilus/L. Spores Tablet PO SCH ×2 (09:01→22:46)
[2018-02-01] MEDS: amLODIPine 10 MG Tablet PO SCH (09:01)
[2018-02-01] MEDS: Calcium Carbonate 500 MG Tablet PO SCH ×2 (09:01→22:48)
[2018-02-01] MEDS: Ferrous Sulfate 325 MG Tablet PO SCH (09:02)
[2018-02-01] MEDS: Docusate Sodium Liq 100 MG/10 ML UDC PO SCH (09:03)
--- NOTE | 2018-02-01 16:07 | P.PNADD ---
Addendum to Inpatient Note Reason for Addendum: Additional Documentation Additional information: Please see resident H&P from 01/31/18 for further information regarding the patients history and her admission information. Patient was seen and assessed around 10:00am. SHe reports she overall feels better since her admission. Her tingling sensation in her arm and pain have improved. She is eating her diet without any concerns. SHe has not been able to collect the 24 hour urine because she has had several episodes of diarrhea since admission. She reports loose stools, no cramping, no fevers, non-bloody. She denies CP, SOB, etc. Vital Signs Temp Pulse Resp BP Pulse Ox 02/01/18 12:00 98.0 F 82 18 114/62 95 02/01/18 08:50 98 02/01/18 07:42 97.8 F 89 18 133/64 95 02/01/18 04:08 86 02/01/18 03:36 98.6 F 91 H 16 120/61 96 01/31/18 23:55 98.6 F 87 16 148/83 H 97 01/31/18 20:00 97.7 F 97 H 16 116/65 98 01/31/18 18:11 20 01/31/18 16:00 97.9 F 78 16 111/58 L 96 Intake and Output 02/01/18 02/01/18 02/01/18 06:59 14:59 22:59 Intake Total 270 / 270 100 / 100 Output Total 320 / 320 Balance -50 / -50 100 / 100 Intake: IV 100 / 100 Magnesium Sulfate 1 gm/D5W 100 100 / 100 ml Premix 100 ML @ 100 mls/hr IV.SIG Q1H [facility] Rx#:[id number] Oral 270 / 270 Output: Urine 320 / 320 Abnormal lab results 02/01/18 02/01/18 02/01/18 Range/Units 05:21 05:21 05:21 RBC 3.27 L (4.00-5.30) mil/mm3 Hgb 10.7 L (11.6-15.3) gm/dL Hct 30.1 L (35.0-46.0) % PT 12.3 H (9.8-11.6) sec Chloride 110 H (98-107) meq/L Creatinine 1.20 H (0.50-1.00) mg/dL Estimated GFR 44 L (>89) mL/min Calcium 6.7 L* (8.5-10.1) mg/dL Prot Corrected Calcium 6.7 L* D (8.5-10.1) mg/dL Magnesium 1.3 L (1.5-2.5) mg/dL GENERAL: SKIN: Warm and dry. HEAD: Normocephalic. EYES: No scleral icterus. No injection or drainage. NECK: Supple, trachea midline. No JVD or lymphadenopathy. CARDIOVASCULAR: Regular rate and rhythm without murmurs, gallops, or rubs. RESPIRATORY: Breath sounds equal bilaterally. No accessory muscle use. GASTROINTESTINAL: Abdomen soft, non-tender, nondistended. MUSCULOSKELETAL: No cyanosis, or edema. BACK: Nontender without obvious deformity. No CVA tenderness. A/P Electrolyte disturbance -- she has both hypocalcemia and hypomagnesemia -- likely the magnesium is causing the hypocalcemia. Her PTH is elevated which is appropriate and expected in this setting. Waiting for 24 hour urine to help with finding cause of her electrolyte disturbance. Hopson cath placed for 24 hours to obtain this collection as it is imperative we get this. IN the interim continue to attempt to replete and stabilize her electrolytes. Stop her PPI as this might be a causative factor. UTI -- klebsiella -- sensitive to bactrim. Continue her antibiotics. Other medical issues appear to be stable. No changes Patient was seen and discussed with the resident team -- Dr. Johnston, Dr Wright, Dr. Gibbs
[2018-02-01] MEDS: Magnesium Oxide 400 MG Tablet PO SCH ×2 (16:23→22:50)
[2018-02-02 06:00] LABS: Hematocrit 29.8 % (35.0-46.0); Hemoglobin 10.5 gm/dL (11.6-15.3); Mean Corpuscular HGB Conc 35.4 % (32.0-36.0); Mean Corpuscular Hemoglobin 32.8 pg (27.0-34.0); Mean Corpuscular Volume 92.7 fL (80.0-100.0); Mean Platelet Volume 8.6 fL (7.0-11.0); Platelet Count 272 th/mm3 (150-450); Red Blood Count 3.22 mil/mm3 (4.00-5.30); Red Cell Distribution Width 13.4 % (11.6-17.2); White Blood Count 8.5 th/mm3 (4.0-11.0)
[2018-02-02 06:16] LABS: Calcium 8.5 mg/dL (8.5-10.1); Carbon Dioxide 23.5 meq/L (21.0-32.0); Potassium 4.7 meq/L (3.5-5.1)
[2018-02-02] MEDS: Folic Acid 1 MG Tablet PO SCH (08:29)
[2018-02-02] MEDS: Calcium Carbonate 500 MG Tablet PO SCH ×2 (08:29→21:57)
[2018-02-02] MEDS: Lisinopril 20 MG Tablet PO SCH (08:29)
[2018-02-02] MEDS: amLODIPine 10 MG Tablet PO SCH (08:30)
[2018-02-02] MEDS: Lactobacillus Acidophilus/L. Spores Tablet PO SCH ×2 (08:30→21:57)
[2018-02-02] MEDS: Ferrous Sulfate 325 MG Tablet PO SCH (08:30)
[2018-02-02] MEDS: Montelukast 10 MG Tablet PO SCH (08:30)
[2018-02-02] MEDS: Magnesium Oxide 400 MG Tablet PO SCH ×2 (14:22→21:58)
--- NOTE | 2018-02-02 16:22 | P.PN ---
Subjective Interval history: Ms Townsend was seen and evaluated this morning. She states she is feeling a lot better and has no complains this morning. She is eating and drinking plenty of fluids. She denies any complications from her urinary catheter. She denies N/V, fever, chills, her diarrhea has improved and is almost resolved. Physical Exam Vital signs: Vital Signs 02/01/18 20:00 02/02/18 00:00 02/02/18 04:00 Temperature 97.5 F L 97.8 F 97.7 F Pulse Rate 84 86 86 Respiratory Rate 16 16 16 Blood Pressure 137/64 125/70 128/74 Pulse Oximetry 98 94 L 97 02/02/18 08:00 02/02/18 11:53 02/02/18 16:00 Temperature 98.4 F 98.5 F 97.3 F L Pulse Rate 105 H 84 98 H Respiratory Rate 20 20 20 Blood Pressure 144/77 H 139/63 124/67 Pulse Oximetry 98 97 98 Intake & Output 02/01/18 02/02/18 02/02/18 18:59 06:59 18:59 Intake Total 100 / 100 Output Total 1974 900 / 900 Balance 100 / 100 -1974 / -1974 -900 / -900 Weight 89 kg Intake: IV 100 / 100 Magnesium Sulfate 1 gm/D5W 100 100 / 100 ml Premix 100 ML @ 100 mls/hr IV.SIG Q1H [facility] Rx#:[id number] Output: Urine Amount (Catheter) 1974 900 / 900 Indwelling Urethral Catheter 1974 900 / 900 Other: Date of Last Bowel Movement 01/31/18 02/01/18 Weight On Admission 89.811 kg Narrative: GENERAL: Well-nourished, well-developed patient, laying comfortably in bed, in NAD SKIN: Warm and dry. HEAD: Normocephalic and atraumatic. EYES: No scleral icterus. No injection or drainage. ENT: No nasal drainage noted. Mucous membranes pink. Airway patent. CARDIOVASCULAR: Regular rate and rhythm without murmurs, gallops, or rubs. RESPIRATORY: Breath sounds equal bilaterally. No accessory muscle use. ABDOMEN/GI: Abdomen soft, non-tender, bowel sounds present, no rebound, no guarding. Catheter noted at bedside with clear yellow urine. EXTREMITIES: No cyanosis or edema. NEUROLOGICAL: Awake and alert. Motor and sensory grossly within normal limits. Normal speech. - Urinary Catheter Management Indwelling Urethral Catheter Cath placed during this visit: yes Reason for continuing: Other continuation reason Insertion date: 02/01/18 Insertion time: 12:00 Results - Labs CBC & Chem 7: 02/03/18 06:07 02/03/18 06:07 Laboratory Results - last 24 hr 02/01/18 02/02/18 02/02/18 18:12 04:44 04:44 WBC 8.5 RBC 3.22 L Hgb 10.5 L Hct 29.8 L MCV 92.7 MCH 32.8 MCHC 35.4 RDW 13.4 Plt Count 272 MPV 8.6 Sodium 141 Potassium 4.7 D Chloride 110 H Carbon Dioxide 23.5 Anion Gap 8 BUN 10 Creatinine 1.07 H Estimated GFR 50 L Random Glucose 83 Calcium 8.0 L D 8.5 Magnesium 2.0 D 02/02/18 04:44 WBC RBC Hgb Hct MCV MCH MCHC RDW Plt Count MPV Sodium Potassium Chloride Carbon Dioxide Anion Gap BUN Creatinine Estimated GFR Random Glucose Calcium Magnesium 2.1 Microbiology 02/02/18 07:54 Stool Stool Occult Blood ([place]OR[place]) - Final Hemoccult negative Assessment and Plan - Assessment (1) Hypomagnesemia with secondary hypocalcemia Code(s): E83.42 - Hypomagnesemia; E83.51 - Hypocalcemia Status: Acute (2) Hypokalemia Code(s): E87.6 - Hypokalemia Status: Acute (3) UTI (urinary tract infection) Code(s): N39.0 - Urinary tract infection, site not specified Status: Acute (4) Nausea Code(s): R11.0 - Nausea Status: Acute (5) CKD (chronic kidney disease) stage 2, GFR 60-89 ml/min Code(s): N18.2 - Chronic kidney disease, stage 2 (mild) Status: Acute - Plan 72 yr old female w/ PMH COPD, CHF, HTN, CKD, GERD, anxiety and tobacco use, presented to ED with tingling of hands, arm pain, and nausea. Admitted for severe hypocalcemia and hypomagnesemia. Calcium on admission was 5.0, today 8.5 after several doses of Ca/gluconate. Magnesium on admission <0.2, today 2.1. The etiology of hypomagnesemia is unknown at this time, hypocalcemia can be explained due to low magnesium. We hypothesized this could be related to taking a PPI, this medication was stopped and will not be restarted upon discharge. She has an appropriately elevated PTH. Normal phospate, Vit D, and TSH levels. We collected a 24 hr urine to measure Ca and Mg, which is currently pending. Endocrinology is not available for a consult at this time and patient will have to follow up as an outpatient. Pt also found to have an UTI with cultures growing Klebsiella. Currently on day 3/3 of Bactrim. She has remained stable during this hospitalization and her electrolytes have improved and stabilized. We anticipate DC home tomorrow after reviewing 24hr urine labs. Plan: - Continue to monitor electrolytes and replace as needed - Follow up on 24hr urine labs - Endocrinology referral as outpatient - Chronic conditions stable, continue current regimen. - Tolerating diet well, PO fluids for hydration. Pt seen with Dr. Wright and discussed with Dr. Kemp. - Attending Attestation The exam, history, and the medical decision-making described in the above note were completed with the assistance of the resident physician. I reviewed and agree with the findings presented. I attest that I had a [id number] encounter with the patient on the same day, and personally performed and documented my assessment and findings in the medical record. (3) UTI (urinary tract infection) Qualifiers: Urinary tract infection type: acute cystitis Hematuria presence: with hematuria Qualified Code(s): N30.01 - Acute cystitis with hematuria
[2018-02-03 06:48] LABS: Hematocrit 36.9 % (35.0-46.0); Hemoglobin 12.9 gm/dL (11.6-15.3); Mean Corpuscular Hemoglobin 32.2 pg (27.0-34.0); Mean Platelet Volume 8.3 fL (7.0-11.0); Platelet Count 315 th/mm3 (150-450); Red Blood Count 4.01 mil/mm3 (4.00-5.30); Red Cell Distribution Width 13.3 % (11.6-17.2); White Blood Count 9.8 th/mm3 (4.0-11.0)
[2018-02-03 07:05] LABS: Calcium 9.6 mg/dL (8.5-10.1); Carbon Dioxide 21.9 meq/L (21.0-32.0); Magnesium 2.3 mg/dL (1.5-2.5); Potassium 5.5 meq/L (3.5-5.1)
[2018-02-03] MEDS: Folic Acid 1 MG Tablet PO SCH (08:44)
[2018-02-03] MEDS: Calcium Carbonate 500 MG Tablet PO SCH (08:44)
[2018-02-03] MEDS: Ferrous Sulfate 325 MG Tablet PO SCH (08:45)
[2018-02-03] MEDS: Montelukast 10 MG Tablet PO SCH (08:45)
[2018-02-03] MEDS: amLODIPine 10 MG Tablet PO SCH (08:45)
[2018-02-03] MEDS: Lactobacillus Acidophilus/L. Spores Tablet PO SCH (08:45)
[2018-02-03] MEDS: Lisinopril 20 MG Tablet PO SCH (08:46)
--- NOTE | 2018-02-03 12:21 | P.PNFP ---
Subjective Interval history: Patient is sitting up in a chair at the time of our exam. She is awake, happy and appears well. She states she overall feels great, she no longer has any of the symptom she was admitted for and is ready to go home. Denies fevers/chills/ nausea/vomiting/diarrhea/CP or SOB. Results - Labs Result diagrams: 02/03/18 06:07 02/03/18 06:07 Abnormal lab results 02/01/18 02/03/18 Range/Units 05:21 06:07 Potassium 5.5 H D (3.5-5.1) meq/L Chloride 109 H (98-107) meq/L Creatinine 1.23 H (0.50-1.00) mg/dL Estimated GFR 43 L (>89) mL/min Ionized Calcium 4.0 L (4.8-5.6) mg/dL Short CBC 02/03/18 Range/Units 06:07 WBC 9.8 (4.0-11.0) th/mm3 Hgb 12.9 D (11.6-15.3) gm/dL Hct 36.9 (35.0-46.0) % Plt Count 315 (150-450) th/mm3 BMP 02/03/18 06:07 Sodium 141 Potassium 5.5 H D Chloride 109 H Carbon Dioxide 21.9 BUN 12 Creatinine 1.23 H Calcium 9.6 D Physical Exam Vital signs: Vital Signs 02/02/18 16:00 02/02/18 20:00 02/02/18 23:59 Temperature 97.3 F L 98.1 F 97.8 F Pulse Rate 98 H 87 87 Respiratory Rate 20 22 20 Blood Pressure 124/67 157/77 H 144/69 H Pulse Oximetry 98 96 96 02/03/18 04:00 02/03/18 08:00 Temperature 98.7 F 98.3 F Pulse Rate 90 102 H Respiratory Rate 20 16 Blood Pressure 138/71 138/70 Pulse Oximetry 98 97 Intake & Output 02/02/18 02/03/18 02/03/18 18:59 06:59 18:59 Intake Total 960 / 960 960 / 960 Output Total 1175 / 1175 1325 / 1325 Balance -215 / -215 -365 / -365 Weight 87 kg Intake: Oral 960 / 960 960 / 960 Output: Urine 275 / 275 1325 / 1325 Urine Amount (Catheter) 900 / 900 Indwelling Urethral Catheter 900 / 900 Other: Date of Last Bowel Movement 02/02/18 02/02/18 02/03/18 # Bowel Movements 3 Narrative: GENERAL: SKIN: Warm and dry. HEAD: Normocephalic. EYES: No scleral icterus. No injection or drainage. NECK: Supple, trachea midline. No JVD or lymphadenopathy. CARDIOVASCULAR: Regular rate and rhythm without murmurs, gallops, or rubs. RESPIRATORY: Breath sounds equal bilaterally. No accessory muscle use. GASTROINTESTINAL: Abdomen soft, non-tender, nondistended. MUSCULOSKELETAL: No cyanosis, or edema. BACK: Nontender without obvious deformity. No CVA tenderness. - Urinary Catheter Management Indwelling Urethral Catheter Cath placed during this visit: yes, but has since been removed by the nurse Reason for continuing: Other continuation reason Insertion date: 02/01/18 Insertion time: 12:00 Removal date: 01/27/18 Removal time: 05:30 Assessment and Plan - Assessment (1) Hypomagnesemia with secondary hypocalcemia Code(s): E83.42 - Hypomagnesemia; E83.51 - Hypocalcemia Status: Acute (2) Hypokalemia Code(s): E87.6 - Hypokalemia Status: Acute (3) UTI (urinary tract infection) Code(s): N39.0 - Urinary tract infection, site not specified Status: Acute (4) Nausea Code(s): R11.0 - Nausea Status: Acute (5) CKD (chronic kidney disease) stage 2, GFR 60-89 ml/min Code(s): N18.2 - Chronic kidney disease, stage 2 (mild) Status: Acute - Assessment and Plan 72 YO female followed by Dr Gong with PMHx HTN, COPD, CHF, CKD3, diverticulosis, GERD, anxiety and chronic back pain who was admitted with symptoms related to hypocalcemia and hypomagnesia. She was also found to have UTI. 1. Electrolyte disturbance -- her electrolytes have stablized with supplementation and stopping the PPI. It could be that the hypomagnesia from the PPI caused the hypocalcemia. Her 24 urine is still pending. For now she is stable - continue her current supplements. FU with repeat labs in a few days -- if this continues to normalize then likely solely secondary to the PPI. IF her electrolytes are low again then she will likely need workup as outpatient with endocrinology. 2. UTI -- treatment completed. 3. GERD -- she has been asymptomatic off her PPI, consider H2 mario instead of PPI in the future if her symptoms return Her other chronic medical issues are stable. Continue home medications. DC home today with close fu with PCP in a week and labs in a few days. Discussed Condition With: Resident team -- Dr. Gibbs (3) UTI (urinary tract infection) Qualifiers: Urinary tract infection type: acute cystitis Hematuria presence: with hematuria Qualified Code(s): N30.01 - Acute cystitis with hematuria
[2018-02-03] MEDS: Magnesium Oxide 400 MG Tablet PO SCH (13:26)
[2018-02-03 14:16] VITALS: BP 126/67; PULSE 95; RESP 14; TEMP 98.1; O2SAT 99
--- NOTE | 2018-02-21 10:03 | P.DS ---
Date of admission: 01/31/18 02:49 Primary care physician: Toñito Gong MD, R2 Brief History from admission: Ms Townsend is a 72 YO female followed by Dr Gong with PMHx of HTN, COPD, CHF, CKD3, GERD, and chronic low back pain who presents with 1 day of nausea and did not take her medications this morning. On arrival in the ED she was found with severe hypocalcemia and hypomagnesemia and mild hypokalemia. She is attended by her and they are both not very good at reporting her history. There has been no emesis or diarrhea, CP, SOB, coughing, fever, dysuria, LEE, but she admits to chills earlier. She ate around noon time. She had abdominal pain that isn't bothering her now; however, she felt like her abdomen was bloated earlier today with pain 7/10. She states there is numbness and tingling in her legs and arms. Last BM was yesterday and was normal in color with no blood or dark in color. She denies VB or vaginal discharge. She states her feet swelled up about two weeks ago and she could not walk for a week, but they are better now and she can walk without assistance. She has not been dizzy. She could not recall all of her medications and did not know why levaquin and flagyl were on her medication list. SurgHx: denies FamHx: Father - from heart attack at 56; Mother - from natural causes in her 80s SocHx: smokes cigarettes, 3-4 per day; has smoked 1/2 ppd since 18 years of age ; no EtOH and no drugs NKA DS: Diagnosis - Discharge Diagnosis (1) Hypomagnesemia with secondary hypocalcemia Status: Acute (2) Hypokalemia Status: Acute (3) UTI (urinary tract infection) Status: Acute (4) Nausea Status: Acute (5) CKD (chronic kidney disease) stage 2, GFR 60-89 ml/min Status: Acute DS: Summary Hospital Course: Ms Townsend is a 72 yr old female w/ PMH COPD, CHF, HTN, CKD, GERD, anxiety and tobacco use, admitted for severe hypocalcemia and hypomagnesemia. Calcium on admission was 5.0, today 8.5 after several doses of Ca/gluconate. Magnesium on admission <0.2, today 2.1. The etiology of hypomagnesemia is unknown at this time, hypocalcemia can be explained due to low magnesium. We hypothesized this could be related to taking a PPI, this medication was stopped and will not be restarted upon discharge. She has an appropriately elevated PTH. Normal phospate , Vit D, and TSH levels. We collected a 24 hr urine to measure Ca and Mg, which is currently pending. Endocrinology was not available for a consult during her hospital stay and was recommended upon discharge. Pt also found to have an UTI with cultures growing Klebsiella, treated with 3 days of Bactrim. She remained stable during this hospitalization and her electrolytes improved and stabilized. Pt was discharge home in a stable condition with follow up labs the following week, and instructions to see her PCP. - Time Spent with Patient Total time spent providing and/or coordinating discharge services: Less than 30 minutes - Quality: VTE Deep Vein Thrombosis/Pulmonary Embolism Present on Admission: No Exam Narrative: GENERAL: Well-nourished, well-developed patient, laying comfortably in bed, in NAD SKIN: Warm and dry. HEAD: Normocephalic and atraumatic. EYES: No scleral icterus. No injection or drainage. ENT: No nasal drainage noted. Mucous membranes pink. Airway patent. CARDIOVASCULAR: Regular rate and rhythm without murmurs, gallops, or rubs. RESPIRATORY: Breath sounds equal bilaterally. No accessory muscle use. ABDOMEN/GI: Abdomen soft, non-tender, bowel sounds present, no rebound, no guarding. Catheter noted at bedside with clear yellow urine. EXTREMITIES: No cyanosis or edema. NEUROLOGICAL: Awake and alert. Motor and sensory grossly within normal limits. Normal speech. Results Procedures completed during hospitalization: none - Impressions ITS Impressions Chest X-Ray 01/30/18 21:48 CONCLUSION: The lungs are clear. Discharge Plan - Discharge Disposition Patient Disposition: Discharge Home - Discharge Condition Condition: Stable - Discharge Order Discharge Orders: Discharge Order (Routine); Ordered 02/03/18 Ordered By: Patricia Fritz - Physicians Team Primary Care Provider: Toñito Gong Attending Provider: Laura Kemp Other Providers: [employer],Insurance
== END 2018-02-03 14:38 | disposition home or self-care (01) ==
LOC: NEPC 20:21 → INTOOBSV 01-31 01:30 → NEDA 01-31 01:30 → NEPGCP 01-31 04:52 → N06 02-01 16:53
PROVIDERS: ADMIT Family Medicine; ATTEND Family Medicine

== ENCOUNTER 2018-02-08 14:52 | Inpatient (IN) ==
[2018-02-08] MEDS ORDERED: Sod Chloride 0.9% Inj 700 ML IV.SIG SCH (15:30)
[2018-02-08] MEDS ORDERED: Sod Chloride 0.9% Inj 1,000 ML IV.SIG SCH ×2 (15:30)
--- NOTE | 2018-02-08 15:43 | XR ---
EXAM DATE: 02/08/2018 3:25 PM EDT AGE/SEX: 72 years / Female INDICATIONS: Fever. Short of breath. CLINICAL DATA: This is the patient's initial encounter. Patient reports that signs and symptoms have been present for 4 - 6 days and indicates a pain score of 0/10. MEDICAL/SURGICAL HISTORY: Chronic obstructive pulmonary disease. Hypertension. None. COMPARISON: [facility] [place], CHEST 1V SINGLE AP, 01/30/2018. . FINDINGS: A single AP view of the chest demonstrates the lungs to be symmetrically aerated without evidence of mass, infiltrate or effusion. The cardiomediastinal contours are unremarkable. Osseous structures a re intact. CONCLUSION: Negative examination. Electronically signed by: Andrea Simon MD 02/08/2018 3:42 PM EDT
--- NOTE | 2018-02-08 15:43 | ED ---
HPI General Chief complaint: Weakness Stated complaint: Medical Time Seen by Provider: 02/08/18 15:10 Source: patient, family and old records reviewed Mode of arrival: ambulatory Limitations: no limitations History of Present Illness HPI Narrative: The patient is a 72-year-old female with recent admission for profound hypomagnesemia hypocalcemia and vitamin D deficiency that was admitted last week and was discharged this past Monday at home returning with complaint of nausea dizziness and vomiting. The patient's blood pressure on arrival was 89/52 and on recheck was 74/46. She was also diagnosed with a UTI at that time and was on antibiotics but was not discharged with any. MD Complaint: Reports generalized weakness Duration: constant Location: Reports generalized Migration: Reports none Severity: moderate Relieving factors: none Exacerbating factors: movement Related Data Previous Rx's Medication Instructions Recorded Lactobacillus acidoph-pectin 1 tab PO BID #60 tab 11/18/17 [Acidophilus-Pectin] acetaminophen 500 mg PO Q4H PRN #120 tab 11/18/17 amlodipine 10 mg PO DAILY #30 tab 11/18/17 atorvastatin 40 mg PO DAILY #30 tab 11/18/17 calcium carbonate [Oyster Shell 1,000 mg PO BID #60 tab 11/18/17 Calcium 500] hydrocodone-acetaminophen 1 tab PO Q4H PRN #18 tab 11/18/17 lisinopril 40 mg PO DAILY #30 tab 11/18/17 lorazepam 0.5 mg PO Q8HR PRN #45 tab 11/18/17 magnesium oxide 400 mg PO BID@1400,2100 #60 tab 11/18/17 montelukast 10 mg PO DAILY #30 tab 11/18/17 multivit-mins no.11-folic acid 1 cap PO DAILY #30 tab 11/18/17 [Dialyvite 5000] naloxone 0.4 mg IV.PUSH UNSCH PRN #1 ml 11/18/17 ondansetron 4 mg PO Q6H PRN #30 tab 11/18/17 potassium chloride 20 meq PO BID #60 tab 11/18/17 docusate sodium 50 mg PO BID #30 cap 11/19/17 ferrous sulfate [FeroSul] 325 mg PO DAILY #30 tab 11/19/17 folic acid 1 mg PO DAILY tab 02/03/18 Allergies Allergy/AdvReac Type Severity Reaction Status Date / Time No Known Allergies Allergy Unverified 11/13/17 07:35 Review of Systems ROS: all other systems reviewed are negative Constitutional Reports body ache(s), Denies chills, Denies excessive sweating, Reports fatigue , Denies fever(s), Denies headache(s), Denies increased appetite, Reports malaise, Denies poor appetite and Reports weakness [facility] Medical History Medical History Tobacco abuse (Acute) Obesity (BMI 30-39.9) (Acute) Hypomagnesemia (Acute) Hypocalcemia (Acute) GERD (gastroesophageal reflux disease) (Acute) Chronic kidney disease, stage III (moderate) (Acute) Anxiety (Acute) COPD (chronic obstructive pulmonary disease) (Acute) Hypertension (Acute) CHF (congestive heart failure) (Acute) Surgical History Surgical History No history of previous surgery (Acute) Family History Family History Father Heart attack Social History Social History Substance History: No History of Abuse Second Hand Smoke Exposure: No Smoking Status: Current every day smoker Tobacco Type: Cigarettes Packs Per Day: 0.5 Cigarettes Per Day: 10.0 Years Smoked: 55 Pack-Years: 27.50 How Often Do You Have a Drink Containing Alcohol: Never Hx Recent Travel: No Recent Travel in [facility] within the Last 8 Weeks: No Recent Out of Country Travel within the Last 8 Weeks: No Immunization History Tetanus Immunization: Unsure Hx Influenza Vaccine This Season: No Exam Narrative Exam Narrative: GENERAL: Alert and oriented in no distress SKIN: Focused skin assessment warm/dry. Poor skin turgor. HEAD: Atraumatic. Normocephalic. EYES: Pupils equal and round. No scleral icterus. No injection or drainage. ENT: No nasal bleeding or discharge. Mucous membranes dry. Poor dentition NECK: Trachea midline. No JVD. CARDIOVASCULAR: Regular rate and rhythm. No murmur appreciated. RESPIRATORY: No accessory muscle use. Clear to auscultation. Breath sounds equal bilaterally. GASTROINTESTINAL: Abdomen soft, non-tender, nondistended. Hepatic and splenic margins not palpable. MUSCULOSKELETAL: No obvious deformities. No clubbing. No cyanosis. No edema. NEUROLOGICAL: Awake and alert. No obvious cranial nerve deficits. Motor grossly within normal limits. Normal speech. PSYCHIATRIC: Appropriate mood and affect; insight and judgment normal. Course Reevaluation(s) Reevaluation #1: 1 L of normal saline infused already and her repeat blood pressure is 92 systolic. Patient improved clinically while in the ED with fluids. She does have persistent hypertension however her map is above 65 and she appears to be doing much better from presentation. She did receive several liters of fluids. There is no sepsis. She does have a leukocytosis and since the UA specimen was catheterized and there was some bacteria will treat with Rocephin after we reviewed previous cultures. Magnesium is at appropriate levels at this time and so his calcium. Parathyroid level is elevated as expected for the patient. No nausea vomiting in the ED no episodes of diarrhea in the ED. Generalized weakness noted by the patient however she does not have any focal neurologic deficits. Will admit to stepdown continue hydration and further evaluation and treatment. Time: 16:01 Initial Documented Vital Signs Temperature 97.1 F L 02/08/18 14:53 Pulse Rate 71 02/08/18 14:53 Respiratory Rate 18 02/08/18 14:53 Blood Pressure 89/52 L 02/08/18 14:53 Pulse Oximetry 98 02/08/18 14:53 Last Documented Vital Signs Temperature 97.1 F L 02/08/18 14:53 Pulse Rate 70 02/08/18 17:45 Respiratory Rate 20 02/08/18 17:45 Blood Pressure 85/46 L 02/08/18 17:45 Pulse Oximetry 100 02/08/18 17:45 Critical Care Time Critical Care Time: Yes Total Critical Care Time: 30 Attestation: Aggregate critical care time was 30 minutes. Time to perform other separately billable procedures was not included in the critical care time. My time did not include minutes spent treating any other patients simultaneously or on activities that did not directly contribute to the patient's treatment. The services I provided to this patient were to treat and/or prevent clinically significant deterioration that could result in: permanent disability and or . I provided critical care services requiring my management, as noted below: Chart data review, documentation time, medication orders and management, vital sign assessments/reviewing monitor data, ordering and reviewing lab tests, ordering and interpreting/reviewing x-rays and diagnostic studies, care of the patient and discussion of the patient with the admitting physicians. Medical Decision Making MDM Narrative Medical Screen Exam Complete: Yes Emergency Medical Condition: Yes Lab Data Result diagrams: 02/08/18 15:32 02/08/18 15:32 Lab Results 02/08/18 02/08/18 02/08/18 Range/Units 15:32 15:32 15:32 WBC 12.2 H (4.0-11.0) th/mm3 RBC 3.58 L (4.00-5.30) mil/mm3 Hgb 11.5 L (11.6-15.3) gm/dL Hct 33.4 L (35.0-46.0) % MCV 93.2 (80.0-100.0) fL MCH 32.0 (27.0-34.0) pg MCHC 34.4 (32.0-36.0) % RDW 13.6 (11.6-17.2) % Plt Count 347 (150-450) th/mm3 MPV 8.9 (7.0-11.0) fL Neut % (Auto) 69.3 (16.0-70.0) % Lymph % (Auto) 21.3 (9.0-44.0) % [place] % (Auto) 6.9 (0.0-8.0) % Eos % (Auto) 2.1 (0.0-4.0) % Baso % (Auto) 0.4 (0.0-2.0) % Neut # (Auto) 8.4 H (1.8-7.7) th/mm3 Lymph # (Auto) 2.6 (1.0-4.8) th/mm3 [place] # (Auto) 0.8 (0.0-0.9) th/mm3 Eos # (Auto) 0.3 (0.0-0.4) th/mm3 Baso # (Auto) 0.1 (0.0-0.2) th/mm3 WBC Differential . Differential Comment Auto diff final PT 11.1 (9.8-11.6) sec INR 1.1 Ratio APTT 24.8 (24.3-30.1) sec Sodium 134 L (136-145) meq/L Potassium 6.0 H (3.5-5.1) meq/L Chloride 102 (98-107) meq/L Carbon Dioxide 22.1 (21.0-32.0) meq/L Anion Gap 10 (5-15) meq/L BUN 37 H (7-18) mg/dL Creatinine 2.25 H (0.50-1.00) mg/dL Estimated GFR 21 L (>89) mL/min Random Glucose 88 (74-106) mg/dL Lactic Acid (0.4-2.0) mmol/L Calcium 9.0 (8.5-10.1) mg/dL Magnesium 1.9 (1.5-2.5) mg/dL Total Bilirubin 0.5 (0.2-1.0) mg/dL AST 12 L (15-37) U/L ALT 20 (10-53) U/L Alkaline Phosphatase 80 (45-117) U/L Total Creatine Kinase 38 (26-192) U/L Troponin I Less than 0.02 L (0.02-0.05) ng/mL B-Natriuretic Peptide (0-100) pg/mL Total Protein 7.7 (6.4-8.2) g/dL Albumin 3.6 (3.4-5.0) g/dL PTH Intact (12.4-76.8) pg/mL Urine Color (Yellw/Straw) Urine Clarity (Clear) Urine pH (5.0-8.5) Ur Specific [place] (1.002-1.035) Urine Protein (Neg-Trace) mg/dL Urine Glucose (UA) (Negative) mg/dL Urine Ketones (Negative) mg/dL Urine Occult Blood (Negative) Urine Nitrate (Negative) Urine Bilirubin (Negative) Urine Urobilinogen (Less than 2) mg/dL Ur Leukocyte Esterase (Negative) Urine WBC (0-5) /hpf Ur Squamous Epith Cells (0-5) /hpf Urine Bacteria (None) /hpf Hyaline Casts (0-3) /lpf Micro UA Comment Ur Microscopic Review Urine Culture Comments 02/08/18 02/08/18 02/08/18 Range/Units 15:32 15:46 15:46 WBC (4.0-11.0) th/mm3 RBC (4.00-5.30) mil/mm3 Hgb (11.6-15.3) gm/dL Hct (35.0-46.0) % MCV (80.0-100.0) fL MCH (27.0-34.0) pg MCHC (32.0-36.0) % RDW (11.6-17.2) % Plt Count (150-450) th/mm3 MPV (7.0-11.0) fL Neut % (Auto) (16.0-70.0) % Lymph % (Auto) (9.0-44.0) % [place] % (Auto) (0.0-8.0) % Eos % (Auto) (0.0-4.0) % Baso % (Auto) (0.0-2.0) % Neut # (Auto) (1.8-7.7) th/mm3 Lymph # (Auto) (1.0-4.8) th/mm3 [place] # (Auto) (0.0-0.9) th/mm3 Eos # (Auto) (0.0-0.4) th/mm3 Baso # (Auto) (0.0-0.2) th/mm3 WBC Differential Differential Comment PT (9.8-11.6) sec INR Ratio APTT (24.3-30.1) sec Sodium (136-145) meq/L Potassium (3.5-5.1) meq/L Chloride (98-107) meq/L Carbon Dioxide (21.0-32.0) meq/L Anion Gap (5-15) meq/L BUN (7-18) mg/dL Creatinine (0.50-1.00) mg/dL Estimated GFR (>89) mL/min Random Glucose (74-106) mg/dL Lactic Acid 1.3 (0.4-2.0) mmol/L Calcium (8.5-10.1) mg/dL Magnesium (1.5-2.5) mg/dL Total Bilirubin (0.2-1.0) mg/dL AST (15-37) U/L ALT (10-53) U/L Alkaline Phosphatase (45-117) U/L Total Creatine Kinase (26-192) U/L Troponin I (0.02-0.05) ng/mL B-Natriuretic Peptide 13 (0-100) pg/mL Total Protein (6.4-8.2) g/dL Albumin (3.4-5.0) g/dL PTH Intact 266.1 H (12.4-76.8) pg/mL Urine Color (Yellw/Straw) Urine Clarity (Clear) Urine pH (5.0-8.5) Ur Specific [place] (1.002-1.035) Urine Protein (Neg-Trace) mg/dL Urine Glucose (UA) (Negative) mg/dL Urine Ketones (Negative) mg/dL Urine Occult Blood (Negative) Urine Nitrate (Negative) Urine Bilirubin (Negative) Urine Urobilinogen (Less than 2) mg/dL Ur Leukocyte Esterase (Negative) Urine WBC (0-5) /hpf Ur Squamous Epith Cells (0-5) /hpf Urine Bacteria (None) /hpf Hyaline Casts (0-3) /lpf Micro UA Comment Ur Microscopic Review Urine Culture Comments 02/08/18 Range/Units 17:08 WBC (4.0-11.0) th/mm3 RBC (4.00-5.30) mil/mm3 Hgb (11.6-15.3) gm/dL Hct (35.0-46.0) % MCV (80.0-100.0) fL MCH (27.0-34.0) pg MCHC (32.0-36.0) % RDW (11.6-17.2) % Plt Count (150-450) th/mm3 MPV (7.0-11.0) fL Neut % (Auto) (16.0-70.0) % Lymph % (Auto) (9.0-44.0) % [place] % (Auto) (0.0-8.0) % Eos % (Auto) (0.0-4.0) % Baso % (Auto) (0.0-2.0) % Neut # (Auto) (1.8-7.7) th/mm3 Lymph # (Auto) (1.0-4.8) th/mm3 [place] # (Auto) (0.0-0.9) th/mm3 Eos # (Auto) (0.0-0.4) th/mm3 Baso # (Auto) (0.0-0.2) th/mm3 WBC Differential Differential Comment PT (9.8-11.6) sec INR Ratio APTT (24.3-30.1) sec Sodium (136-145) meq/L Potassium (3.5-5.1) meq/L Chloride (98-107) meq/L Carbon Dioxide (21.0-32.0) meq/L Anion Gap (5-15) meq/L BUN (7-18) mg/dL Creatinine (0.50-1.00) mg/dL Estimated GFR (>89) mL/min Random Glucose (74-106) mg/dL Lactic Acid (0.4-2.0) mmol/L Calcium (8.5-10.1) mg/dL Magnesium (1.5-2.5) mg/dL Total Bilirubin (0.2-1.0) mg/dL AST (15-37) U/L ALT (10-53) U/L Alkaline Phosphatase (45-117) U/L Total Creatine Kinase (26-192) U/L Troponin I (0.02-0.05) ng/mL B-Natriuretic Peptide (0-100) pg/mL Total Protein (6.4-8.2) g/dL Albumin (3.4-5.0) g/dL PTH Intact (12.4-76.8) pg/mL Urine Color Straw (Yellw/Straw) Urine Clarity Clear (Clear) Urine pH 5.0 (5.0-8.5) Ur Specific [place] 1.003 (1.002-1.035) Urine Protein Negative (Neg-Trace) mg/dL Urine Glucose (UA) Negative (Negative) mg/dL Urine Ketones Negative (Negative) mg/dL Urine Occult Blood Small H (Negative) Urine Nitrate Negative (Negative) Urine Bilirubin Negative (Negative) Urine Urobilinogen Less than 2 (Less than 2) mg/dL Ur Leukocyte Esterase Negative (Negative) Urine WBC 1 (0-5) /hpf Ur Squamous Epith Cells 1 (0-5) /hpf Urine Bacteria Occasional H (None) /hpf Hyaline Casts 1 (0-3) /lpf Micro UA Comment Cath-culture ind Ur Microscopic Review Not Reportable Urine Culture Comments Cath-cult indicated Imaging Data Radiologist's impression: Chest X-Ray 02/08/18 15:25 CONCLUSION: Negative examination. Discharge Plan Discharge Disposition Patient Disposition: 30 Still Patient Discharge Condition Condition: Stable Discharge Details Diagnosis: JESUS ALBERTO (acute kidney injury), Acute dehydration, Hyperkalemia, Acute hypotension Physicians Team ED Provider: Adan Leigh Primary Care Provider: Toñito Gong Attending Provider: Karen Mcgill Status ED Status: Admitted Patient
[2018-02-08 15:55] LABS: Baso # (Auto) 0.1 th/mm3 (0.0-0.2); Baso % (Auto) 0.4 % (0.0-2.0); Eos # (Auto) 0.3 th/mm3 (0.0-0.4); Eos % (Auto) 2.1 % (0.0-4.0); Hematocrit 33.4 % (35.0-46.0); Hemoglobin 11.5 gm/dL (11.6-15.3); Lymph # (Auto) 2.6 th/mm3 (1.0-4.8); Lymph % (Auto) 21.3 % (9.0-44.0); Mean Corpuscular HGB Conc 34.4 % (32.0-36.0); Mean Corpuscular Volume 93.2 fL (80.0-100.0); Mean Platelet Volume 8.9 fL (7.0-11.0); Mono # (Auto) 0.8 th/mm3 (0.0-0.9); Mono % (Auto) 6.9 % (0.0-8.0); Neut # (Auto) 8.4 th/mm3 (1.8-7.7); Neut % (Auto) 69.3 % (16.0-70.0); Platelet Count 347 th/mm3 (150-450); Red Blood Count 3.58 mil/mm3 (4.00-5.30); Red Cell Distribution Width 13.6 % (11.6-17.2); White Blood Count 12.2 th/mm3 (4.0-11.0)
[2018-02-08 16:05] LABS: Activated Partial Thrombo Time 24.8 sec (24.3-30.1); INR 1.1 Ratio; Prothrombin Time 11.1 sec (9.8-11.6)
[2018-02-08 16:30] LABS: Alanine Aminotransferase 20 U/L (10-53); Albumin 3.6 g/dL (3.4-5.0); Anion Gap 10 meq/L (5-15); Aspartate Aminotransferase 12 U/L (15-37); Blood Urea Nitrogen 37 mg/dL (7-18); Carbon Dioxide 22.1 meq/L (21.0-32.0); Chloride 102 meq/L (98-107); Glomerular Filtration Rate 21 mL/min (>89); Glucose,Random 88 mg/dL (74-106); Magnesium 1.9 mg/dL (1.5-2.5); Sodium 134 meq/L (136-145)
[2018-02-08 16:34] LABS: Alkaline Phosphatase 80 U/L (45-117); Creatine Kinase 38 U/L (26-192); Total Protein 7.7 g/dL (6.4-8.2)
[2018-02-08] MEDS ORDERED: Dextrose 50% in Water 50 ML Vial IV.PUSH ONE (17:00)
[2018-02-08 17:18] LABS: Bacteria,Urine Occasional /hpf; Bilirubin,Urine Negative (Negative); Clarity,Urine Clear (Clear); Color,Urine Straw (Yellw/Straw); Glucose,Urine (UA) Negative (Negative); Hyaline Casts,Urine 1 /lpf (0-3); Leukocyte Esterase,Urine Negative (Negative); Nitrite,Urine Negative (Negative); Specific Gravity,Urine 1.003 (1.002-1.035); Squamous Epithelial Cell,Urine 1 /hpf (0-5)
[2018-02-08] MEDS ORDERED: Sod Chloride 0.9% Inj 1,000 ML IV.SIG ONE (17:52)
[2018-02-08] MEDS: Sod Chloride 0.9% Inj 1,000 ML IV.CONT SCH (19:39)
[2018-02-08] MEDS ORDERED: Sodium Polystyrene Sulfonate/Sorbitol Liq 15 GM/60 ML UDC PO ONE (19:43)
[2018-02-08] MEDS ORDERED: LORazepam 0.5 MG Tablet PO PRN (19:46)
[2018-02-08] MEDS ORDERED: Acetaminophen 325 MG Tablet PO PRN (19:48)
--- NOTE | 2018-02-08 19:59 | P.HP ---
History of Present Illness Service: [facility] Primary Care Physician: Toñito Gong MD, R2 History of Present Illness: 72-year-old female with a past medical history significant for CHF (last EF of 50%), chronic kidney disease stage III, COPD, GERD, hypertension and anxiety presents to the emergency department for the evaluation of dizziness, lightheadedness and nausea. The patient was in the hospital last week for severe hypocalcemia and hypomagnesemia with accompanying urinary tract infection. She was discharged home on Monday and reports that she felt fine until Monday when she began to feel lightheaded. On Monday she had nausea and accompanying dizziness. Denies any emesis but endorses nonbloody diarrhea. Denies any fever/chills. Reports shortness of breath that is similar to baseline. Denies any chest pain. No lateralizing signs/symptoms. Inpatient Certification: I certify that the inpatient services were ordered in accordance with Medicare regulations governing the order. This includes certification that hospital inpatient services are reasonable and necessary and in the case of services not specified as inpatient-only under 42 CFR 419.22(n), that they are appropriately provided as inpatient services in accordance to with the 2-midnight benchmark under 43 CFR 412.3(e) Estimated Total Length of Stay (Days): 2 Plans for Post Hospital Care: Not yet determined Review of Systems All other systems reviewed negative except as stated in HPI [facility] - History History Provided By: Patient - Medical History Medical History: Medical History (Last Reviewed 02/08/18 @ 19:52 by Pham Lauren MD) Tobacco abuse (Acute) Obesity (BMI 30-39.9) (Acute) Hypomagnesemia (Acute) Hypocalcemia (Acute) GERD (gastroesophageal reflux disease) (Acute) Chronic kidney disease, stage III (moderate) (Acute) Anxiety (Acute) COPD (chronic obstructive pulmonary disease) (Acute) Hypertension (Acute) CHF (congestive heart failure) (Acute) - Surgical History Surgical History: Surgical History (Last Reviewed 02/08/18 @ 19:52 by Pham Lauren MD) No history of previous surgery (Acute) - Family History Family History: Family History (Last Reviewed 02/08/18 @ 19:52 by Pham Lauren MD) Father Heart attack - Tobacco History Second Hand Smoke Exposure: No Tobacco Use In Past 30 Days: Yes Smoking Status: Current every day smoker Tobacco Type: Cigarettes Packs Per Day: 0.5 Cigarettes Per Day: 4 (cut down from 1/2 ppd) Years Smoked: 55 - Alcohol History How Often Do You Have a Drink Containing Alcohol: Never - Substance Use History Substance History: No History of Abuse - Travel History History of Recent Travel: No Recent Travel in the [place] Within the Last 8 Weeks: No Recent Travel Out of the Country Within the Last 8 Weeks: No - Immunization History Tetanus Immunization: Unsure Hx Influenza Vaccine This Season: No Medications and Allergies Active Medications: Active Medications Sodium Chloride (Ns Inj) 1,000 mls @ 0 mls/hr IV.SIG .Q0M KATHERINE Last Infusion: 02/08/18 18:18 Dose: Infused Sodium Chloride (Ns Inj) 1,000 mls @ 0 mls/hr IV.SIG .Q0M KATHERINE Last Infusion: 02/08/18 18:18 Dose: Infused Sodium Chloride (Ns Inj) 700 mls @ 0 mls/hr IV.SIG .Q0M KATHERINE Last Infusion: 02/08/18 18:18 Dose: Infused Sodium Chloride (Ns Inj) 1,000 mls @ 100 mls/hr IV.CONT .Q10H KATHERINE Last Admin: 02/08/18 19:39 Dose: 100 mls/hr Allergies Allergy/AdvReac Type Severity Reaction Status Date / Time No Known Allergies Allergy Unverified 11/13/17 07:35 Exam Vital signs: Vital Signs 02/08/18 14:53 02/08/18 15:18 02/08/18 15:30 Temperature 97.1 F L Pulse Rate 71 69 64 Respiratory Rate 18 19 Blood Pressure 89/52 L 74/46 L 82/45 L Pulse Oximetry 98 94 L 02/08/18 16:00 02/08/18 16:21 02/08/18 16:30 Temperature Pulse Rate 70 64 70 Respiratory Rate 19 Blood Pressure 87/51 L 95/54 L Pulse Oximetry 100 98 100 02/08/18 17:00 02/08/18 17:45 02/08/18 19:15 Temperature 98 F Pulse Rate 72 70 87 Respiratory Rate 20 24 Blood Pressure 94/53 L 85/46 L 103/57 L Pulse Oximetry 100 100 Intake & Output 02/08/18 02/08/18 02/09/18 06:59 18:59 06:59 Intake Total 2700 / 2700 1100 / 1100 Balance 2700 / 2700 1100 / 1100 Weight 90.718 kg Intake: IV 2700 / 2700 1100 / 1100 NS Inj 1,000 ML @ Wide Open IV. 2700 / 2700 1000 / 1000 SIG BOLUS ONE Rx#:[id number] Rocephin Inj 1,000 MG In NS Inj 100 / 100 100 ML @ 200 mls/hr IV.SIG ONCE ONE Rx#:[id number] Narrative: Gen.: No acute distress Head: Normocephalic. Atraumatic. EENT: Pupils equal round and reactive to light. Nose without drainage. Airway intact. Throat without injection. Cardiovascular: Regular rate and rhythm. No murmurs, rubs or gallops. Respiratory: Lungs clear to auscultation bilaterally. No wheezes or rhonchi. Abdomen: Soft, nontender, nondistended. No peritoneal signs. Musculoskeletal: No gross deformities. No edema. Skin: No obvious rashes or erythema. Neuro: Sensory and motor grossly intact. Cranial nerves II through XII grossly intact. Results - Labs CBC & Chem 7: 02/08/18 15:32 02/08/18 15:32 Labs: Laboratory Results - last 24 hr 02/08/18 02/08/18 02/08/18 15:32 15:32 15:32 WBC 12.2 H RBC 3.58 L Hgb 11.5 L Hct 33.4 L MCV 93.2 MCH 32.0 MCHC 34.4 RDW 13.6 Plt Count 347 MPV 8.9 Neut % (Auto) 69.3 Lymph % (Auto) 21.3 [place] % (Auto) 6.9 Eos % (Auto) 2.1 Baso % (Auto) 0.4 Neut # (Auto) 8.4 H Lymph # (Auto) 2.6 [place] # (Auto) 0.8 Eos # (Auto) 0.3 Baso # (Auto) 0.1 WBC Differential . Differential Comment Auto diff final PT 11.1 INR 1.1 APTT 24.8 Sodium 134 L Potassium 6.0 H Chloride 102 Carbon Dioxide 22.1 Anion Gap 10 BUN 37 H Creatinine 2.25 H Estimated GFR 21 L Random Glucose 88 Lactic Acid Calcium 9.0 Magnesium 1.9 Total Bilirubin 0.5 AST 12 L ALT 20 Alkaline Phosphatase 80 Total Creatine Kinase 38 Troponin I Less than 0.02 L B-Natriuretic Peptide Total Protein 7.7 Albumin 3.6 PTH Intact Urine Color Urine Clarity Urine pH Ur Specific [place] Urine Protein Urine Glucose (UA) Urine Ketones Urine Occult Blood Urine Nitrate Urine Bilirubin Urine Urobilinogen Ur Leukocyte Esterase Urine WBC Ur Squamous Epith Cells Urine Bacteria Hyaline Casts Micro UA Comment Ur Microscopic Review Urine Culture Comments 02/08/18 02/08/18 02/08/18 15:32 15:46 15:46 WBC RBC Hgb Hct MCV MCH MCHC RDW Plt Count MPV Neut % (Auto) Lymph % (Auto) [place] % (Auto) Eos % (Auto) Baso % (Auto) Neut # (Auto) Lymph # (Auto) [place] # (Auto) Eos # (Auto) Baso # (Auto) WBC Differential Differential Comment PT INR APTT Sodium Potassium Chloride Carbon Dioxide Anion Gap BUN Creatinine Estimated GFR Random Glucose Lactic Acid 1.3 Calcium Magnesium Total Bilirubin AST ALT Alkaline Phosphatase Total Creatine Kinase Troponin I B-Natriuretic Peptide 13 Total Protein Albumin PTH Intact 266.1 H Urine Color Urine Clarity Urine pH Ur Specific [place] Urine Protein Urine Glucose (UA) Urine Ketones Urine Occult Blood Urine Nitrate Urine Bilirubin Urine Urobilinogen Ur Leukocyte Esterase Urine WBC Ur Squamous Epith Cells Urine Bacteria Hyaline Casts Micro UA Comment Ur Microscopic Review Urine Culture Comments 02/08/18 17:08 WBC RBC Hgb Hct MCV MCH MCHC RDW Plt Count MPV Neut % (Auto) Lymph % (Auto) [place] % (Auto) Eos % (Auto) Baso % (Auto) Neut # (Auto) Lymph # (Auto) [place] # (Auto) Eos # (Auto) Baso # (Auto) WBC Differential Differential Comment PT INR APTT Sodium Potassium Chloride Carbon Dioxide Anion Gap BUN Creatinine Estimated GFR Random Glucose Lactic Acid Calcium Magnesium Total Bilirubin AST ALT Alkaline Phosphatase Total Creatine Kinase Troponin I B-Natriuretic Peptide Total Protein Albumin PTH Intact Urine Color Straw Urine Clarity Clear Urine pH 5.0 Ur Specific [place] 1.003 Urine Protein Negative Urine Glucose (UA) Negative Urine Ketones Negative Urine Occult Blood Small H Urine Nitrate Negative Urine Bilirubin Negative Urine Urobilinogen Less than 2 Ur Leukocyte Esterase Negative Urine WBC 1 Ur Squamous Epith Cells 1 Urine Bacteria Occasional H Hyaline Casts 1 Micro UA Comment Cath-culture ind Ur Microscopic Review Not Reportable Urine Culture Comments Cath-cult indicated - Imaging Impressions Chest X-Ray 02/08/18 15:25 CONCLUSION: Negative examination. Caprini VTE Risk Assessment Caprini VTE Risk Assessment: Moderate/High Risk (score >= 2) Caprini Risk Assessment Model: Point Value = 1 Point Value = 2 Point Value = 3 Point Value = 5 Age 41-60 Minor surgery BMI > 25 kg/m2 Swollen legs Varicose veins or History of unexplained or recurrent spontaneous Oral contraceptives or hormone replacement Sepsis (< 1 month) Serious lung disease, including pneumonia (< 1 month) Abnormal pulmonary function Acute myocardial infarction Congestive heart failure (< 1 month) History of inflammatory bowel disease Medical patient at bed rest Age 61-74 Arthroscopic surgery Major open surgery (> 45 min) Laparoscopic surgery (> 45 min) Malignancy Confined to bed (> 72 hours) Immobilizing plaster cast Central venous access Age >= 75 History of VTE Family history of VTE Factor V Leiden Prothrombin [id number] Lupus anticoagulant Anticardiolipin antibodies Elevated serum homocysteine Heparin-induced thrombocytopenia Other congenital or acquired thrombophilia Stroke (< 1 month) Elective arthroplasty Hip, pelvis, or leg fracture Acute spinal cord injury (< 1 month) Prophylaxis Regimen: Total Risk Factor Score Risk Level Prophylaxis Regimen 0-1 Low Early ambulation 2 Moderate Order ONE of the following: *Sequential Compression Device (SCD) *Heparin 5000 units SQ BID 3-4 Higher Order ONE of the following medications: *Heparin 5000 units SQ TID *Enoxaparin/Lovenox 40 mg SQ daily (WT < 150 kg, CrCl > 30 mL/min) *Enoxaparin/Lovenox 30 mg SQ daily (WT < 150 kg, CrCl > 10-29 mL/min) *Enoxaparin/Lovenox 30 mg SQ BID (WT < 150 kg, CrCl > 30 mL/min) AND/OR *Sequential Compression Device (SCD) 5 or more Highest Order ONE of the following medications: *Heparin 5000 units SQ TID (Preferred with Epidurals) *Enoxaparin/Lovenox 40 mg SQ daily (WT < 150 kg, CrCl > 30 mL/min) *Enoxaparin/Lovenox 30 mg SQ daily (WT < 150 kg, CrCl > 10-29 mL/min) *Enoxaparin/Lovenox 30 mg SQ BID (WT < 150 kg, CrCl > 30 mL/min) AND *Sequential Compression Device (SCD) Assessment and Plan - Plan Assessment/plan: 1. Hypotension May be secondary to medication as patient on amlodipine and lisinopril home Status post 4 L IV fluids in the emergency department with mild improvement Monitor closely Holding additional IV fluids at this time given patient's history of CHF 2. Hyperkalemia Status post insulin in the emergency department Kayexalate Repeat BMP at midnight No peaked T waves on EKG, personally reviewed 3. Urinary tract infection UA consistent with UTI Urine culture pending Rocephin 4. Hypertension Holding home antihypertensives secondary to above 5. Hypocalcemia/hypomagnesemia Continue p.o. calcium and magnesium 6. CHF Caution with IV fluids Last EF 50% 7. Acute on chronic renal insufficiency Creatinine 2.25, baseline 1.2 Status post IV fluid hydration Monitor renal function 8. COPD Duo nebs as needed Supplemental oxygen as needed 9. Anxiety Continue home Ativan FEN Healthy diet Electrolytes: As above Heparin
[2018-02-08] MEDS: Magnesium Oxide 400 MG Tablet PO SCH (21:26)
[2018-02-08] MEDS: Heparin - SQ 10,000 UNITS/ML Vial SQ SCH (23:05)
[2018-02-08] MEDS: Calcium Carbonate 500 MG Tablet PO SCH (23:33)
[2018-02-09 02:11] LABS: Calcium 8.5 mg/dL (8.5-10.1); Carbon Dioxide 20.9 meq/L (21.0-32.0); Potassium 4.8 meq/L (3.5-5.1)
[2018-02-09] MEDS: Heparin - SQ 10,000 UNITS/ML Vial SQ SCH ×3 (05:15→21:01)
[2018-02-09] MEDS: Sod Chloride 0.9% Inj 1,000 ML IV.CONT SCH ×3 (05:16→17:23)
[2018-02-09 05:49] LABS: Baso # (Auto) 0.1 th/mm3 (0.0-0.2); Baso % (Auto) 0.6 % (0.0-2.0); Eos # (Auto) 0.2 th/mm3 (0.0-0.4); Eos % (Auto) 1.7 % (0.0-4.0); Hematocrit 30.9 % (35.0-46.0); Hemoglobin 10.7 gm/dL (11.6-15.3); Lymph # (Auto) 1.9 th/mm3 (1.0-4.8); Lymph % (Auto) 19.8 % (9.0-44.0); Mean Corpuscular HGB Conc 34.8 % (32.0-36.0); Mean Corpuscular Hemoglobin 32.5 pg (27.0-34.0); Mean Corpuscular Volume 93.4 fL (80.0-100.0); Mean Platelet Volume 8.2 fL (7.0-11.0); Mono # (Auto) 0.5 th/mm3 (0.0-0.9); Mono % (Auto) 5.6 % (0.0-8.0); Neut # (Auto) 6.9 th/mm3 (1.8-7.7); Neut % (Auto) 72.3 % (16.0-70.0); Platelet Count 289 th/mm3 (150-450); Red Blood Count 3.31 mil/mm3 (4.00-5.30); Red Cell Distribution Width 13.8 % (11.6-17.2); White Blood Count 9.6 th/mm3 (4.0-11.0)
[2018-02-09 06:14] LABS: Calcium 8.5 mg/dL (8.5-10.1); Potassium 4.8 meq/L (3.5-5.1)
[2018-02-09] MEDS: Calcium Carbonate 500 MG Tablet PO SCH ×2 (08:02→20:54)
--- NOTE | 2018-02-09 08:05 | P.PNIM ---
Subjective Interval history: f/u; hyperkalemia in no acute distress. but complaining of nausea. no emesis, abdominal pain. no fever. BP is better. d/w the RN at the bedside. Physical Exam Vital signs: Vital Signs 02/08/18 14:53 02/08/18 15:18 02/08/18 15:30 Temperature 97.1 F L Pulse Rate 71 69 64 Respiratory Rate 18 19 Blood Pressure 89/52 L 74/46 L 82/45 L Pulse Oximetry 98 94 L 02/08/18 16:00 02/08/18 16:21 02/08/18 16:30 Temperature Pulse Rate 70 64 70 Respiratory Rate 19 Blood Pressure 87/51 L 95/54 L Pulse Oximetry 100 98 100 02/08/18 17:00 02/08/18 17:45 02/08/18 19:15 Temperature 98 F Pulse Rate 72 70 87 Respiratory Rate 20 24 Blood Pressure 94/53 L 85/46 L 103/57 L Pulse Oximetry 100 100 02/08/18 22:11 02/09/18 00:00 02/09/18 04:00 Temperature 97.5 F L 98 F 98.3 F Pulse Rate 80 92 H 85 Respiratory Rate 18 20 20 Blood Pressure 131/60 140/79 134/68 Pulse Oximetry 100 100 100 02/09/18 07:50 Temperature 98.3 F Pulse Rate 100 H Respiratory Rate 18 Blood Pressure 147/69 H Pulse Oximetry 100 Intake & Output 02/08/18 02/09/18 02/09/18 18:59 06:59 18:59 Intake Total 2700 / 2700 2340 / 2340 Balance 2700 / 2700 2340 / 2340 Weight 90.718 kg 83.5 kg Intake: IV 2700 / 2700 2100 / 2100 NS Inj 1,000 ML @ 100 mls/hr IV 1000 / 1000 .CONT .Q10H [facility] Rx#:[id number] NS Inj 1,000 ML @ Wide Open IV. 2700 / 2700 1000 / 1000 [facility] Rx#:[id number] Rocephin Inj 1,000 MG In NS Inj 100 / 100 100 ML @ 200 mls/hr IV.SIG ONCE ONE Rx#:[id number] Oral 240 / 240 Other: # Voids 3 Date of Last Bowel Movement 02/08/18 # Bowel Movements 4 - Constitutional no acute distress - Routine Respiratory Exam Present: CTA bilaterally - Routine Cardiovascular Exam Present: RRR - Routine Abdominal Exam Present: soft - Routine Extremities Exam Comments: mild bilateral pedal edema. - Routine Neurological Exam Present: alert, oriented X3 Results - Labs CBC & Chem 7: 02/09/18 05:38 02/09/18 05:38 Laboratory Results - last 24 hr 02/08/18 02/08/18 02/08/18 15:32 15:32 15:32 WBC 12.2 H RBC 3.58 L Hgb 11.5 L Hct 33.4 L MCV 93.2 MCH 32.0 MCHC 34.4 RDW 13.6 Plt Count 347 MPV 8.9 Neut % (Auto) 69.3 Lymph % (Auto) 21.3 [place] % (Auto) 6.9 Eos % (Auto) 2.1 Baso % (Auto) 0.4 Neut # (Auto) 8.4 H Lymph # (Auto) 2.6 [place] # (Auto) 0.8 Eos # (Auto) 0.3 Baso # (Auto) 0.1 WBC Differential . Differential Comment Auto diff final PT 11.1 INR 1.1 APTT 24.8 Sodium 134 L Potassium 6.0 H Chloride 102 Carbon Dioxide 22.1 Anion Gap 10 BUN 37 H Creatinine 2.25 H Estimated GFR 21 L Random Glucose 88 Lactic Acid Calcium 9.0 Magnesium 1.9 Total Bilirubin 0.5 AST 12 L ALT 20 Alkaline Phosphatase 80 Total Creatine Kinase 38 Troponin I Less than 0.02 L B-Natriuretic Peptide Total Protein 7.7 Albumin 3.6 PTH Intact Urine Color Urine Clarity Urine pH Ur Specific [place] Urine Protein Urine Glucose (UA) Urine Ketones Urine Occult Blood Urine Nitrate Urine Bilirubin Urine Urobilinogen Ur Leukocyte Esterase Urine WBC Ur Squamous Epith Cells Urine Bacteria Hyaline Casts Micro UA Comment Ur Microscopic Review Urine Culture Comments 02/08/18 02/08/18 02/08/18 15:32 15:46 15:46 WBC RBC Hgb Hct MCV MCH MCHC RDW Plt Count MPV Neut % (Auto) Lymph % (Auto) [place] % (Auto) Eos % (Auto) Baso % (Auto) Neut # (Auto) Lymph # (Auto) [place] # (Auto) Eos # (Auto) Baso # (Auto) WBC Differential Differential Comment PT INR APTT Sodium Potassium Chloride Carbon Dioxide Anion Gap BUN Creatinine Estimated GFR Random Glucose Lactic Acid 1.3 Calcium Magnesium Total Bilirubin AST ALT Alkaline Phosphatase Total Creatine Kinase Troponin I B-Natriuretic Peptide 13 Total Protein Albumin PTH Intact 266.1 H Urine Color Urine Clarity Urine pH Ur Specific [place] Urine Protein Urine Glucose (UA) Urine Ketones Urine Occult Blood Urine Nitrate Urine Bilirubin Urine Urobilinogen Ur Leukocyte Esterase Urine WBC Ur Squamous Epith Cells Urine Bacteria Hyaline Casts Micro UA Comment Ur Microscopic Review Urine Culture Comments 02/08/18 02/09/18 02/09/18 17:08 01:38 05:38 WBC 9.6 RBC 3.31 L Hgb 10.7 L Hct 30.9 L MCV 93.4 MCH 32.5 MCHC 34.8 RDW 13.8 Plt Count 289 MPV 8.2 Neut % (Auto) 72.3 H Lymph % (Auto) 19.8 [place] % (Auto) 5.6 Eos % (Auto) 1.7 Baso % (Auto) 0.6 Neut # (Auto) 6.9 Lymph # (Auto) 1.9 [place] # (Auto) 0.5 Eos # (Auto) 0.2 Baso # (Auto) 0.1 WBC Differential . Differential Comment Auto diff final PT INR APTT Sodium 143 Potassium 4.8 D Chloride 111 H D Carbon Dioxide 20.9 L Anion Gap 11 BUN 27 H Creatinine 1.58 H Estimated GFR 32 L Random Glucose 89 Lactic Acid Calcium 8.5 Magnesium Total Bilirubin AST ALT Alkaline Phosphatase Total Creatine Kinase Troponin I B-Natriuretic Peptide Total Protein Albumin PTH Intact Urine Color Straw Urine Clarity Clear Urine pH 5.0 Ur Specific [place] 1.003 Urine Protein Negative Urine Glucose (UA) Negative Urine Ketones Negative Urine Occult Blood Small H Urine Nitrate Negative Urine Bilirubin Negative Urine Urobilinogen Less than 2 Ur Leukocyte Esterase Negative Urine WBC 1 Ur Squamous Epith Cells 1 Urine Bacteria Occasional H Hyaline Casts 1 Micro UA Comment Cath-culture ind Ur Microscopic Review Not Reportable Urine Culture Comments Cath-cult indicated 02/09/18 05:38 WBC RBC Hgb Hct MCV MCH MCHC RDW Plt Count MPV Neut % (Auto) Lymph % (Auto) [place] % (Auto) Eos % (Auto) Baso % (Auto) Neut # (Auto) Lymph # (Auto) [place] # (Auto) Eos # (Auto) Baso # (Auto) WBC Differential Differential Comment PT INR APTT Sodium 142 Potassium 4.8 Chloride 112 H Carbon Dioxide 20.0 L Anion Gap 10 BUN 25 H Creatinine 1.40 H Estimated GFR 37 L Random Glucose 86 Lactic Acid Calcium 8.5 Magnesium Total Bilirubin AST ALT Alkaline Phosphatase Total Creatine Kinase Troponin I B-Natriuretic Peptide Total Protein Albumin PTH Intact Urine Color Urine Clarity Urine pH Ur Specific [place] Urine Protein Urine Glucose (UA) Urine Ketones Urine Occult Blood Urine Nitrate Urine Bilirubin Urine Urobilinogen Ur Leukocyte Esterase Urine WBC Ur Squamous Epith Cells Urine Bacteria Hyaline Casts Micro UA Comment Ur Microscopic Review Urine Culture Comments - Imaging Impressions Chest X-Ray 02/08/18 15:25 CONCLUSION: Negative examination. Assessment and Plan - Plan 1. Hypotension May be secondary to medication as patient on amlodipine and lisinopril home Status post 4 L IV fluids in the emergency department with improvement Monitor closely Holding additional IV fluids at this time given patient's history of CHF 2. Hyperkalemia- resolved Status post insulin in the emergency department/Kayexalate 3. Urinary tract infection UA consistent with UTI Urine culture pending Rocephin 4. Hypertension Holding home antihypertensives secondary to above 5. Hypocalcemia/hypomagnesemia Continue p.o. calcium and magnesium 6. CHF Caution with IV fluids Last EF 50% 7. Acute kidney injury superimposed on chronic renal insufficiency- now has improved. Status post IV fluid hydration Monitor renal function 8. COPD Duo nebs as needed Supplemental oxygen as needed 9. Anxiety Continue home Ativan 10. nausea continue with antiemetics for now- will monitor. FEN Healthy diet Electrolytes: As above Heparin PT consulted. Discharge Planning: possible tomorrow if stable- pending PT evaluation.
--- NOTE | 2018-02-09 11:55 | ECG ---
Date Performed: 02/08/2018 Time Performed: 15:48:27 PTAGE: 72 years EKG: SUPRAVENTRICULAR RHYTHM ATYPICAL ECG PREVIOUS TRACING : 01/30/2018 21.27 Since the previous tracing, no significant change noted DOCTOR: Thad Buenrostro Interpretating Date/Time 02/09/2018 11:54:16
[2018-02-09] MEDS: Magnesium Oxide 400 MG Tablet PO SCH ×2 (14:48→20:54)
[2018-02-10] MEDS: Heparin - SQ 10,000 UNITS/ML Vial SQ SCH ×3 (05:33→21:01)
[2018-02-10] MEDS: Sod Chloride 0.9% Inj 1,000 ML IV.CONT SCH ×3 (05:34→21:02)
[2018-02-10 07:36] LABS: Calcium 9.3 mg/dL (8.5-10.1); Carbon Dioxide 18.9 meq/L (21.0-32.0); Potassium 4.2 meq/L (3.5-5.1)
--- NOTE | 2018-02-10 08:42 | P.PNIM ---
Subjective Interval history: in no acute distress. nausea is better and looks better today. no abdominal pain or fever. Physical Exam Vital signs: Vital Signs 02/09/18 09:00 02/09/18 10:00 02/09/18 11:00 Temperature Pulse Rate 108 H 96 H 98 H Respiratory Rate Blood Pressure Pulse Oximetry 02/09/18 11:03 02/09/18 12:00 02/09/18 13:00 Temperature 98.2 F Pulse Rate 100 H 110 H 100 H Respiratory Rate 18 Blood Pressure 135/79 Pulse Oximetry 97 02/09/18 14:00 02/09/18 14:42 02/09/18 15:00 Temperature 98.1 F Pulse Rate 110 H 100 H 95 H Respiratory Rate 18 Blood Pressure 126/76 Pulse Oximetry 99 02/09/18 16:00 02/09/18 17:00 02/09/18 18:37 Temperature Pulse Rate 94 H 82 101 H Respiratory Rate Blood Pressure Pulse Oximetry 02/09/18 19:00 02/09/18 20:00 02/09/18 21:00 Temperature 98.2 F Pulse Rate 94 H 94 H 98 H Respiratory Rate 18 Blood Pressure 151/70 H Pulse Oximetry 100 02/09/18 22:00 02/09/18 23:00 02/10/18 00:00 Temperature 98.8 F Pulse Rate 98 H 93 H 88 Respiratory Rate 18 Blood Pressure 136/65 Pulse Oximetry 97 02/10/18 01:00 02/10/18 02:00 02/10/18 03:00 Temperature 98.3 F Pulse Rate 98 H 98 H 96 H Respiratory Rate 18 Blood Pressure 145/72 H Pulse Oximetry 99 02/10/18 04:00 02/10/18 05:00 02/10/18 06:01 Temperature Pulse Rate 96 H 94 H 98 H Respiratory Rate Blood Pressure Pulse Oximetry Intake & Output 02/09/18 02/10/18 02/10/18 18:59 06:59 18:59 Intake Total 2780 / 2780 1480 / 1480 Output Total 600 / 600 Balance 2780 / 2780 880 / 880 Weight 85.6 kg 83.5 kg Intake: IV 1100 / 1100 1000 / 1000 NS Inj 1,000 ML @ 100 mls/hr IV 1000 / 1000 1000 / 1000 .CONT .Q10H [facility] Rx#:[id number] Rocephin Inj 1,000 MG In NS Inj 100 / 100 100 ML @ 200 mls/hr IV.SIG Q24H [facility] Rx#:[id number] Oral 1680 / 1680 480 / 480 Output: Urine 600 / 600 Other: # Voids 5 Date of Last Bowel Movement 02/09/18 02/09/18 # Bowel Movements 4 1 Weight On Admission 83.5 kg - Constitutional no acute distress - Routine Respiratory Exam Present: CTA bilaterally - Routine Cardiovascular Exam Present: RRR - Routine Abdominal Exam Present: soft - Routine Extremities Exam Comments: no pedal edema. - Routine Neurological Exam Present: alert, oriented X3 Results - Labs CBC & Chem 7: 02/09/18 05:38 02/10/18 06:26 Laboratory Results - last 24 hr 02/09/18 02/10/18 10:38 06:26 Sodium 141 Potassium 4.2 Chloride 110 H Carbon Dioxide 18.9 L Anion Gap 12 BUN 15 Creatinine 1.10 H Estimated GFR 49 L POC Glucose 100 Random Glucose 92 Calcium 9.3 D Microbiology 02/08/18 17:08 Catheterized Urine Urine Culture - Preliminary Immature growth - reincubate 02/08/18 15:32 Blood - Peripheral Aerobic Blood Culture - Preliminary No growth in 1 day 02/08/18 15:32 Blood - Peripheral Anaerobic Blood Culture - Final QNS - See aerobic report. 02/08/18 15:37 Blood - Peripheral Aerobic Blood Culture - Preliminary No growth in 1 day 02/08/18 15:37 Blood - Peripheral Anaerobic Blood Culture - Preliminary No growth in 1 day Assessment and Plan - Plan 1. Hypotension- improved. May be secondary to medication as patient on amlodipine and lisinopril home Status post 4 L IV fluids in the emergency department with improvement Holding additional IV fluids at this time given patient's history of CHF 2. Hyperkalemia- resolved Status post insulin in the emergency department/Kayexalate 3. Urinary tract infection UA consistent with UTI Urine culture pending Rocephin 4. Hypertension Holding home antihypertensives secondary to above 5. Hypocalcemia/hypomagnesemia Continue p.o. calcium and magnesium 6. CHF Caution with IV fluids Last EF 50% 7. Acute kidney injury superimposed on chronic renal insufficiency- now has improved. Status post IV fluid hydration Monitor renal function 8. COPD Duo nebs as needed Supplemental oxygen as needed 9. Anxiety Continue home Ativan 10. nausea- better. continue with antiemetics for now- will monitor. FEN Healthy diet Electrolytes: As above Heparin PT consulted. Discharge Planning: dc home tomorrow if stable.
[2018-02-10] MEDS: Calcium Carbonate 500 MG Tablet PO SCH ×2 (09:27→21:01)
[2018-02-10] MEDS: Magnesium Oxide 400 MG Tablet PO SCH ×2 (14:11→21:04)
[2018-02-10 16:38] LABS: Carbon Dioxide 22.4 meq/L (21.0-32.0); Potassium 4.1 meq/L (3.5-5.1)
[2018-02-11] MEDS: Heparin - SQ 10,000 UNITS/ML Vial SQ SCH (05:16)
[2018-02-11 08:22] VITALS: BP 158/76; RESP 16; TEMP 98.3; O2SAT 100
[2018-02-11 08:28] VITALS: PULSE 98
--- NOTE | 2018-02-11 08:29 | P.PNIM ---
Subjective Interval history: in no acute distress. looks comfortable with no new complaints. wants to go home today. Physical Exam Vital signs: Vital Signs 02/10/18 09:00 02/10/18 10:00 02/10/18 11:00 Temperature 98.5 F Pulse Rate 89 90 98 H Respiratory Rate 18 Blood Pressure 155/74 H Pulse Oximetry 100 02/10/18 12:00 02/10/18 13:00 02/10/18 14:00 Temperature Pulse Rate 89 90 91 H Respiratory Rate Blood Pressure Pulse Oximetry 02/10/18 15:00 02/10/18 16:00 02/10/18 17:00 Temperature 98.4 F Pulse Rate 97 H 95 H 98 H Respiratory Rate 18 Blood Pressure 142/69 H Pulse Oximetry 98 02/10/18 18:00 02/10/18 19:00 02/10/18 20:00 Temperature 98.4 F Pulse Rate 100 H 90 101 H Respiratory Rate 20 Blood Pressure 147/70 H Pulse Oximetry 100 02/10/18 21:00 02/10/18 22:00 02/10/18 23:00 Temperature 98.6 F Pulse Rate 99 H 92 H 95 H Respiratory Rate 20 Blood Pressure 147/64 H Pulse Oximetry 98 02/11/18 00:00 02/11/18 01:00 02/11/18 02:00 Temperature Pulse Rate 93 H 98 H 100 H Respiratory Rate Blood Pressure Pulse Oximetry 02/11/18 03:00 02/11/18 03:57 02/11/18 05:00 Temperature 98.7 F Pulse Rate 100 H 98 H 92 H Respiratory Rate 20 Blood Pressure 137/93 H Pulse Oximetry 96 02/11/18 06:00 02/11/18 07:00 Temperature 98.3 F Pulse Rate 104 H 97 H Respiratory Rate 16 Blood Pressure 158/76 H Pulse Oximetry 100 Intake & Output 02/10/18 02/11/18 02/11/18 18:59 06:59 18:59 Intake Total 1100 / 1100 720 / 720 Output Total 850 / 850 600 / 600 Balance 250 / 250 120 / 120 Weight 83 kg Intake: IV 1100 / 1100 0 / 0 NS Inj 1,000 ML @ 100 mls/hr IV 1000 / 1000 0 / 0 .CONT .Q10H [facility] Rx#:[id number] Rocephin Inj 1,000 MG In NS Inj 100 / 100 100 ML @ 200 mls/hr IV.SIG Q24H [facility] Rx#:[id number] Oral 720 / 720 Output: Urine 850 / 850 600 / 600 Other: Date of Last Bowel Movement 02/10/18 02/11/18 # Bowel Movements 3 1 - Constitutional no acute distress - Routine Respiratory Exam Present: CTA bilaterally - Routine Cardiovascular Exam Present: RRR - Routine Abdominal Exam Present: soft - Routine Extremities Exam Comments: no pedal edema. - Routine Neurological Exam Present: alert, oriented X3 Results - Labs CBC & Chem 7: 02/09/18 05:38 02/10/18 16:00 Laboratory Results - last 24 hr 02/10/18 16:00 Sodium 139 Potassium 4.1 Chloride 107 Carbon Dioxide 22.4 Anion Gap 10 BUN 14 Creatinine 1.14 H Estimated GFR 47 L Random Glucose 89 Calcium 9.0 Microbiology 02/08/18 17:08 Catheterized Urine Urine Culture - Final 50-100,000 cfu/mL mixed gram positive mehran (probable contaminants) 02/08/18 15:32 Blood - Peripheral Aerobic Blood Culture - Preliminary No growth in 2 days 02/08/18 15:32 Blood - Peripheral Anaerobic Blood Culture - Final QNS - See aerobic report. 02/08/18 15:37 Blood - Peripheral Aerobic Blood Culture - Preliminary No growth in 2 days 02/08/18 15:37 Blood - Peripheral Anaerobic Blood Culture - Preliminary No growth in 2 days Assessment and Plan - Plan 1. Hypotension- resolved. May be secondary to medication as patient on amlodipine and lisinopril home will stop lisinopril and resume Amlodipine upon discharge. 2. Hyperkalemia- resolved Status post insulin in the emergency department/Kayexalate stopped lisinopril and her potassium supplement at home was decreased. 3. Urinary tract infection UC with mixed gram positive mehran will dc antibiotics. 4. Hypertension resume Amlodipine as noted above. 5. Hypocalcemia/hypomagnesemia Continue p.o. calcium and magnesium 6. CHF Caution with IV fluids Last EF 50% 7. Acute kidney injury superimposed on chronic renal insufficiency- now has improved. Status post IV fluid hydration 8. COPD Duo nebs as needed Supplemental oxygen as needed 9. Anxiety Continue home Ativan 10. nausea- better. FEN Healthy diet Electrolytes: As above Heparin PT consulted. Discharge Planning: dc home today. see med list. f/u; pcp. d/w the patient.
--- NOTE | 2018-02-11 08:31 | P.DS ---
Date of admission: 02/08/18 18:00 Primary care physician: Toñito Gong MD, R2 Brief History from admission: 72-year-old female with a past medical history significant for CHF (last EF of 50%), chronic kidney disease stage III, COPD, GERD, hypertension and anxiety presents to the emergency department for the evaluation of dizziness, lightheadedness and nausea. The patient was in the hospital last week for severe hypocalcemia and hypomagnesemia with accompanying urinary tract infection. She was discharged home on Monday and reports that she felt fine until Monday when she began to feel lightheaded. On Monday she had nausea and accompanying dizziness. Denies any emesis but endorses nonbloody diarrhea. Denies any fever/chills. Reports shortness of breath that is similar to baseline. Denies any chest pain. No lateralizing signs/symptoms. DS: Summary Hospital Course: patient was admitted with hypotension, JESUS ALBERTO and hyperkalemia. her BP meds were held and started on IV fluid. her BP improved along with her renal function. her lisinopril will be held at this time and will resume Amlodipine upon discharge. she will have a f/u with her PCP. - Time Spent with Patient Total time spent providing and/or coordinating discharge services: Less than 30 minutes - Quality: VTE Deep Vein Thrombosis/Pulmonary Embolism Present on Admission: No Exam Vital signs: Vital Signs 02/10/18 09:00 02/10/18 10:00 02/10/18 11:00 Temperature 98.5 F Pulse Rate 89 90 98 H Respiratory Rate 18 Blood Pressure 155/74 H Pulse Oximetry 100 02/10/18 12:00 02/10/18 13:00 02/10/18 14:00 Temperature Pulse Rate 89 90 91 H Respiratory Rate Blood Pressure Pulse Oximetry 02/10/18 15:00 02/10/18 16:00 02/10/18 17:00 Temperature 98.4 F Pulse Rate 97 H 95 H 98 H Respiratory Rate 18 Blood Pressure 142/69 H Pulse Oximetry 98 02/10/18 18:00 02/10/18 19:00 02/10/18 20:00 Temperature 98.4 F Pulse Rate 100 H 90 101 H Respiratory Rate 20 Blood Pressure 147/70 H Pulse Oximetry 100 02/10/18 21:00 02/10/18 22:00 02/10/18 23:00 Temperature 98.6 F Pulse Rate 99 H 92 H 95 H Respiratory Rate 20 Blood Pressure 147/64 H Pulse Oximetry 98 02/11/18 00:00 02/11/18 01:00 02/11/18 02:00 Temperature Pulse Rate 93 H 98 H 100 H Respiratory Rate Blood Pressure Pulse Oximetry 02/11/18 03:00 02/11/18 03:57 02/11/18 05:00 Temperature 98.7 F Pulse Rate 100 H 98 H 92 H Respiratory Rate 20 Blood Pressure 137/93 H Pulse Oximetry 96 02/11/18 06:00 02/11/18 07:00 02/11/18 08:00 Temperature 98.3 F Pulse Rate 104 H 97 H 98 H Respiratory Rate 16 Blood Pressure 158/76 H Pulse Oximetry 100 Intake & Output 02/10/18 02/11/18 02/11/18 18:59 06:59 18:59 Intake Total 1100 / 1100 720 / 720 Output Total 850 / 850 600 / 600 Balance 250 / 250 120 / 120 Weight 83 kg Intake: IV 1100 / 1100 0 / 0 NS Inj 1,000 ML @ 100 mls/hr IV 1000 / 1000 0 / 0 .CONT .Q10H [facility] Rx#:[id number] Rocephin Inj 1,000 MG In NS Inj 100 / 100 100 ML @ 200 mls/hr IV.SIG Q24H [facility] Rx#:[id number] Oral 720 / 720 Output: Urine 850 / 850 600 / 600 Other: Date of Last Bowel Movement 02/10/18 02/11/18 # Bowel Movements 3 1 - Constitutional no acute distress - Routine Respiratory Exam Present: CTA bilaterally - Routine Cardiovascular Exam Present: RRR - Routine Abdominal Exam Present: soft - Routine Extremities Exam Comments: no pedal edema. - Routine Neurological Exam Present: alert, oriented X3 Results Procedures completed during hospitalization: none. Labs on day of discharge: Labs from last 24 hours 02/10/18 16:00 Sodium 139 Potassium 4.1 Chloride 107 Carbon Dioxide 22.4 Anion Gap 10 BUN 14 Creatinine 1.14 H Estimated GFR 47 L Random Glucose 89 Calcium 9.0 Preliminary micro results at discharge 02/08/18 15:32 Aerobic Blood Culture - Preliminary Blood - Peripheral No growth in 2 days 02/08/18 15:37 Aerobic Blood Culture - Preliminary Blood - Peripheral No growth in 2 days Anaerobic Blood Culture - Preliminary No growth in 2 days - Impressions ITS Impressions Chest X-Ray 02/08/18 15:25 CONCLUSION: Negative examination. Discharge Plan - Discharge Disposition Patient Disposition: 01 Discharge Home - Discharge Condition Condition: Stable - Physicians Team Primary Care Provider: Toñito Gong Attending Provider: Karen Mcgill
[2018-02-11] MEDS: Calcium Carbonate 500 MG Tablet PO SCH (10:02)
== END 2018-02-11 10:35 | disposition home or self-care (01) ==
LOC: NEPC 14:52 → NEDA 18:00 → HCPC 22:30
PROVIDERS: ADMIT Internal Medicine; ATTEND Internal Medicine